=== PATIENT | female | born 1965 | race Hispanic/Latino ===

== ENCOUNTER 2019-10-01 14:49 | Emergency (ER) | payer OTHER ==
--- OUTSIDE RECORDS SUMMARY | 2019-10-01 14:51 | XMS REPORT ---
:1965 Author Organization [employer] Care Team Providers Name Role Phone Giorgio Yarbrough Provider Role Unavailable Allergies No Known Allergies Problems Problem Type Condition Code Onset Dates Condition Statu s Problem Seasonal allergies J30.2 Active Problem Anxiety F41.9 Active Problem Fatty liver K76.0 Active Problem Simple chronic bronchitis J41.0 Ac tive Problem Type 2 diabetes mellitus with E11.40 Active diabetic neuropathy, without long-term current use of insulin Problem Enlargement of cardiac chamber on I51.7 Active chest x-ray Problem Allergic rhinitis J30.9 Active Problem Diabetes E11.9 Active Problem Rheumatoid arthritis involving M05.79 Active multiple sites with positive rheumatoid factor Problem Uncontrolled type 2 diabetes E11.65 Active mellitus with hyperglycemia Problem Sinus problem J34.9 Active Problem Other chronic pain G89.29 Active Problem Gallstones K80.20 Active Problem Swelling R60.9 Active Problem Reflux K21.9 Active Medications No Known Medications Results No Known Results Summary Purpose [email or web address] Submission
--- OUTSIDE RECORDS SUMMARY | 2019-10-01 14:51 | XMS REPORT | Summary of Care ---
:1965 Author Name SAMEERA KEITH M.D. Address [facility] Unavailable , Care Team Providers Name Role Phone SAMEERA KEITH M.D. Unavailable Unavailable SCHMITT DO Unavailable Unavailable ANJELICA Unavailable Unavailable Unavailable Unavailable Unavailable Functional Status Name Dates Details Functional status health issues are not documented Status: Name Dates Details Cognitive status health issues are not documented Status: Problems Name Dates Details Cervical spondylosis (721.0, M47.812) St atus: Active Acute cervical radiculopathy (723.4, M54.12) Status: Active Medications Name Dates Details Prevalite 4 GM Oral Packet Refills: 0 Active Mesalamine 1.2 GM Oral Tablet Delayed Release Refills: 0 Active metFORMIN HCl ER (MOD) 1000 MG Oral Tablet Extended Release 24 Hour Refills: 0 Active Atorvastatin Calcium 10 MG Oral Tablet Refills: 0 Active Gabapentin 600 MG Tab (OR) - 61185_Deactivated Refills: 0 Active Lisinopril TABS Refills: 0 Active Ibuprofen 800 MG Oral Tablet Refills: 0 Active Folic Acid 1 MG Oral Tablet Refills: 0 Active tiZANidine HCl - 4 MG Oral Tablet Refills: 0 Active Xeljanz XR 11 MG Oral Tablet Extended Release 24 Hour Refills: 0 Active Melatonin 10 MG Oral Tablet Disintegrating Refills: 0 Active Vitamin C TABS Refills: 0 Active Vitamin D3 TABS Refills: 0 Active Methocarbamol 500 MG Oral Tablet TAKE 1 TABLET 3 TIMES DAILY. Quantity: 30 Refills: 2 SAMEERA KEITH M.D.ROB Start : 23-Jun-2019 Active Allergies and Adverse Reactions Name Dates Details No Known Drug Allergies (Allergy) Status : Active Past Medical History Name Dates Details History of Arthritis (716.90, M19.90) St atus: Resolved History of Back pain (724.5, M54.9) Stat us: Resolved History of Diabetes (250.00, E11.9) Stat us: Resolved History of Gallbladder disease (575.9, K82.9) Status: Resolved History of Hernia (553.9, K46.9) Status: Resolved History of Osteoporosis (733.00, M81.0) Status: Resolved History of Pneumonia (486, J18.9) Status : Resolved Procedures Procedure Dates Details History of Section Completed History of Cholecystectomy Completed History of Knee Surgery Completed Immunization Name Dates Details Immunizations not documented Social History Name Dates Details - Status: Name Dates Details Never smoker Vital Signs Date Test Result Details No Known Vitals to report Results Date Description Value Details [id number] [U] XRAY SHOULDER MIN 2 VWS LEFT [id number] XR SHOULDER MIN 2 VWS LEFT Images acquired, not reported on this accession number. [id number] [U] XRAY SPINE CERVICAL 2 OR 3 VWS 30231 XR SPINE CERVICAL 2 OR 3 VWS Images acquired, no t reported on this accession number. Plan of Care Name Dates Details Planned Observations Planned Goals not documented Planned Encounters Physical Therapy Referral Ortho Appointment; ROB JIM M.D. On: 20-Jul-2019 9:00 Interventions Provided Labs/Procedures/Imaging[U] XRAY SHOULDER MIN 2 VWS LEFT 93727; Done: 23 Jun 2019 [U] XRAY SPINE CERVICAL 2 OR 3 VWS [id number]; Done: 23 Jun 2019PlanPatient Education/Instructions: Patient education and reassurance was provided for better understanding of the diagnosis and treatment plan. An opportunity to ask questions was provided. Patient/caregiver was instructed to contact the office or emergency room for worsening pain, swelling, and/or any concerns. Understanding was acknowledged. Orders: Physical Therapy Medications: Medications (prescribed or recommended at this visit): Medication was prescribed or recommended. Dosage, administration, and common potential side effects were reviewed. Please confirm and review medication information and directions with the pharmacist. - Use advil or aleve as needed for pain relief, discomfort, or fever. Do not take more than recommended dosage in a 24 hour period as this can cause severe side effects including kidney damage. - Take 500mg - 1000mg of acetaminophen (Tylenol) every 4-6 hours as needed for relief of pain, disc omfort, or fever. Do NOT take more than 4000mg in a 24 hour period (can cause liver damage in higherdoses). Follow Up: Return to the clinic in 6-8 weeks or as needed. Instructions Name Dates Details Instructions not documented Encounters Appointment; ROB JIM M.D. On: 23-Jun-2019 12:30 Encounter Diagnosis: Problem not documented
--- OUTSIDE RECORDS SUMMARY | 2019-10-01 14:51 | XMS REPORT | Summary of Care ---
[...] Active Vitamin D3 TABS Refills: 0 Active Allergies and Adverse Reactions Name Dates [...] to report Results Date Description Value Details [id number] [U] XRAY SHOULDER MIN 2 VWS LEFT [id number] XR SHOULDER MIN 2 VWS LEFT Images acquired, not reported on this accession number. [id number] [U] XRAY SPINE CERVICAL 2 OR 3 VWS 10816 XR SPINE CERVICAL 2 OR 3 VWS Images acquired, no t reported on this accession number. Plan of Care Name Dates Details Planned Observations Planned Goals not documented Planned Encounters Physical Therapy Referral Ortho Appointment; ROB JIM M.D. On: 20-Jul-2019 9:00 Interventions Provided Labs/Procedures/Imaging[U] XRAY SHOULDER MIN 2 VWS LEFT 44231; Done: 23 Jun 2019 [U] XRAY SPINE CERVICAL 2 OR 3 VWS [id number]; Done: 23 Jun 2019PlanPatient Education/Instructions: Patient education [...]
--- OUTSIDE RECORDS SUMMARY | 2019-10-01 14:51 | XMS REPORT ---
:1965 Author Organization [employer] Care Team Providers Name Role Phone Rios, Na Provider Role Unavailable Allergies, Adverse Reactions, Alerts Substance Reaction Event Type N.K.D.A. Info Not Available Non Drug Allergy Problems Problem Type Condition Code Onset Dates Condition Statu s Assessment Simple chronic bronchitis J41.0 Ac tive Assessment Diaphragmatic hernia without K44.9 Active obstruction or gangrene Assessment Other chronic pain G89.29 Active Assessment Low back pain M54.5 Active Assessment Gastro-esophageal reflux disease K21.9 Active without esophagitis Assessment Rheumatoid arthritis involving M05.79 Active multiple sites with positive rheumatoid factor Problem Sinus problem J34.9 Active Assessment Seasonal allergies J30.2 Active Problem Other chronic pain G89.29 Active Assessment Hyperlipidemia, unspecified E78.5 Active hyperlipidemia type Problem Gallstones K80.20 Active Problem Seasonal allergies J30.2 Active Problem Reflux K21.9 Active Problem Hyperlipidemia, unspecified E78.5 Active hyperlipidemia type Problem Enlargement of cardiac chamber on I51.7 Active chest x-ray Assessment Pain in left hip M25.552 Active Assessment Fatty liver K76.0 Active Problem Gastro-esophageal reflux disease K21.9 Active without esophagitis Assessment Pain in right hip M25.551 Active Problem Rheumatoid arthritis involving M05.79 Active multiple sites with positive rheumatoid factor Problem Uncontrolled type 2 diabetes E11.65 Active mellitus with hyperglycemia Problem Simple chronic bronchitis J41.0 Ac tive Problem Type 2 diabetes mellitus with E11.40 Active diabetic neuropathy, without long-term current use of insulin Problem Fatty liver K76.0 Active Assessment Type 2 diabetes mellitus with E11.40 Active diabetic neuropathy, without long-term current use of insulin Assessment Uncontrolled type 2 diabetes E11.65 Active mellitus with hyperglycemia Problem Allergic rhinitis J30.9 Active Problem Swelling R60.9 Active Problem Anxiety F41.9 Active Problem Diabetes E11.9 Active Medications Medication Code Code Instructions Start End Status Dosage System Date Date Atorvastatin [facility] 84807310599 10 MG Orally Active 1 tablet Calcium Once a day Singulair [facility] 92602224824 Active not defined Prevalite [facility] 84303991908 4 GM Orally Active 1 pack et Twice a day Lisinopril ND 05997270210 2.5 MG Orally Active 1 t ablet Once a day Vitamin C [facility] [address]-91 Active not defined Tizanidine HCl [facility] 33992706395 4 MG Orally Active 1 tablet Three times a as needed day GlipiZIDE ND 94830507652 5 MG Orally Inactive 1/2 Once a day tablet Mesalamine [facility] 90816526825 1.2 GM Orally Active 2 t ablets Once a day Ibuprofen [facility] 77718971103 800 MG Orally Dickson Active 1 ta blet three times a 17, with food day prn pain 2020 or milk as needed Gabapentin [facility] 44971686344 600 MG Orally Active 1 t ablet Three times a day Lisinopril [facility] 44422617704 2.5 MG Active TAKE 1 TABLET BY MOUTH ONCE DAILY Vitamin D-3 [facility] [address]-51 Active not defined Folic Acid [facility] 29585616094 1 MG Orally Active 1 tab let Once a day Omeprazole [facility] 49166681794 40 MG Orally Active 1 ca psule Once a day Amoxicillin-Pot [facility] 64900576914 875-125 MG Active 1 tablet Clavulanate Orally every 12 hrs Metformin HCl [facility] 87307023334 1000 MG Orally Active 1 tablet Once a day with a meal Xeljanz [facility] 47245503591 10 MG Orally Active 1 table t once a day Atorvastatin [facility] 11816616686 10 MG Orally Active 1 tablet Calcium Once a day Metformin HCl [facility] 74230310859 1000 MG Active TAKE 1 TABLET BY MOUTH ONCE DAILY WITH A MEAL Results No Known Results Summary Purpose [employer]ClinicalWorks Submission
--- OUTSIDE RECORDS SUMMARY | 2019-10-01 14:52 | XMS REPORT | Summary of Care ---
:1965 Author Name Sudhir Mart Address Unavailable Unavailable , Care Team Providers Name Role Phone SAMEERA KEITH M.D. Unavailable Unavailable Sudhir Mart Unavailable Unavailable SCHMITT DO Unavailable Unavailable ANJELICA [...] DAILY. Quantity: 30 Refills: 2 SAMEERA KEITH M.D. ROB Start : 23-Jun-2019 Active Allergies and Adverse [...] to report Results Date Description Value Details [id number] [U] XRAY SHOULDER MIN 2 VWS LEFT 07049 XR SHOULDER MIN 2 VWS LEFT Images acquired, not reported on this accession number. [id number] [U] XRAY SPINE CERVICAL 2 OR 3 VWS 11432 XR SPINE CERVICAL 2 OR 3 VWS Images acquired, no t reported on this accession number. Plan of Care Name Dates Details Planned Observations Planned Goals not documented Planned Encounters Appointment; ROB JIM M.D. On: 20-Jul-2019 9:00 Interventions Provided Medication ChangesMethocarbamol 500 MG Oral Tablet - Start Instructions Name Dates Details Instructions not documented Encounters Appointment; ROB JIM M.D. On: 23-Jun-2019 12:30 Encounter Diagnosis: Problem not documented
--- OUTSIDE RECORDS SUMMARY | 2019-10-01 14:52 | XMS REPORT | Summary of Care ---
[...] Status : Resolved Procedures Procedure Dates Details MRI Spine cervical wo contrast [id number] Date: 20-Jul-2019 History of Section Completed History of Cholecystectomy Completed History of Knee Surgery Completed Immunization Name Dates Details Immunizations not documented Social History Name Dates Details - Status: Name Dates Details Never smoked tobacco (finding) Vital Signs Date Test Result Details No Known Vitals to report Results Date Description Value Details [id number] [U] XRAY SHOULDER MIN 2 VWS LEFT 46945 XR SHOULDER MIN 2 VWS LEFT Images acquired, not reported on this accession number. [id number] [U] XRAY SPINE CERVICAL 2 OR 3 VWS 28279 XR SPINE CERVICAL 2 OR 3 VWS Images acquired, no t reported on this accession number. Plan of Care Name Dates Details Planned Observations Planned Goals not documented Interventions Provided Labs/Procedures/ImagingMRI Spine cervical wo contrast [id number]; To Be Done: 20 Jul 2019PlanPatient Education/Instructions: Patient education and reassurance was [...] period (can cause liver damage in higherdoses). MRI Scan MRI: Without Contrast and Cervical spine Follow Up: Return to the clinic after imaging study completed or as needed. Instructions Name Dates Details Instructions not documented Encounters Appointment; ROB JIM M.D. On: 23-Jun-2019 12:30 Encounter Diagnosis: Problem not documented Appointment; ROB JIM M.D. On: 20-Jul-2019 9:00 Encounter Diagnosis: Problem not documented
--- OUTSIDE RECORDS SUMMARY | 2019-10-01 14:52 | XMS REPORT ---
:1965 Author Organization [employer]Works Care Team Providers Name Role Phone Rios, Na Provider Role Unavailable Allergies No Known Allergies Problems Problem Type Condition Code Onset Dates Condition Statu s Problem Gallstones K80.20 Active Problem Seasonal allergies J30.2 Active Problem Reflux K21.9 Active Problem Hyperlipidemia, unspecified E78.5 Active hyperlipidemia type Problem Enlargement of cardiac chamber on I51.7 Active chest x-ray Problem Gastro-esophageal reflux disease K21.9 Active without esophagitis Problem Rheumatoid arthritis involving M05.79 Active multiple sites with positive rheumatoid factor Problem Uncontrolled type 2 diabetes E11.65 Active mellitus with hyperglycemia Problem Simple chronic bronchitis J41.0 Ac tive Problem Type 2 diabetes mellitus with E11.40 Active diabetic neuropathy, without long-term current use of insulin Problem Fatty liver K76.0 Active Problem Allergic rhinitis J30.9 Active Problem Swelling R60.9 Active Problem Anxiety F41.9 Active Problem Sinus problem J34.9 Active Problem Diabetes E11.9 Active Problem Other chronic pain G89.29 Active Medications Medication Code System Code Instructions Start Date End Date Status Dosage Singulair [facility] 61710650420 10 MG Orally Once Active 1 tablet a day Results No Known Results Summary Purpose eClinicalWorks Submission
--- OUTSIDE RECORDS SUMMARY | 2019-10-01 14:53 | XMS REPORT | Summary of Care ---
[...] Dates Details MRI Spine cervical wo contrast [id number] Date: 20-Jul-2019 History of Section Completed History of Cholecystectomy Completed History of Knee Surgery Completed Immunization Name Dates Details Immunizations not documented Social History Name Dates Details - Status: Name Dates Details Never smoked tobacco (finding) Vital Signs Date Test Result Details No Known Vitals to report Results Date Description Value Details Results not documented Plan of Care Name Dates Details Planned Observations Planned Goals not documented Instructions Name Dates Details Instructions not documented Encounters Appointment; ROB JIM M.D. On: 23-Jun-2019 12:30 Encounter Diagnosis: Problem not documented Appointment; ROB JIM M.D. On: 20-Jul-2019 9:00 Encounter Diagnosis: Problem not documented
--- OUTSIDE RECORDS SUMMARY | 2019-10-01 14:53 | XMS REPORT ---
:1965 Author Organization [facility] t Address [address] [place] [address] Care Team Providers Name Role Phone SAMEERA KEITH Attending Clinician Unavailable DR JORGE Attending Clinician Unavailable DR JORGE Admitting Clinician Unavailable Payers Payer Name Policy Type Policy Number Effective Date Expiration Date S ource Problems Condition Condition Condition Status Onset Resolution Last Treating Co mments Source Name Details Category Date Date Treatment Clinician Date History of History of Problem Resolve Univers Arthritis Arthritis d [facility] [place] [facility] History of History of Problem [facility] Back pain Back pain [facility] [place] [facility] History of History of Problem Resolve [facility] Diabetes Diabetes [facility] [place] [facility] History of History of Problem Resolve Univers Gallbladde Gallbladde d [place] y [place] disease [place] [facility] [place] History of History of Problem [facility]olve [facility] Hernia Hernia [facility] [place] [facility] History of History of Problem Resolve Univers Osteoporos Osteoporos d it y of is is [place] [facility] History of History of Problem Resolve Univers Pneumonia Pneumonia d [facility] [place] [facility] Cervical 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 it y of s s [place] [facility] Acute Acute Problem Active Univers cervical cervical ity of radicul[place] [facility] Swelling Swelling Problem [facility] Other Other Problem Active [facility] chronic chronic [facility] pain pain [facility] Sinus Sinus Problem Active [facility] problem problem [facility] Uncontroll Uncontroll Problem Active C [facility] ed type 2 ed type 2 [facility] - diabetes diabetes Memori a mellitus mellitus l with with Outpati hyperglyce hyperglyce en t [facility] Clinics Rheumatoid Rheumatoid Problem Active [facility] arthritis arthritis [facility] - involving involving Дмитрий elsa multiple multiple l sites with sites with Ou tpati positive positive ent rheumatoid rheumatoid Cl inics factor factor Type 2 Type [address] diabetes diabetes [facility] - mellitus mellitus Memori a with with l diabetic diabetic Outpat i neuropathy neuropathy en t , without , without Clin ics long-term long-term current current use of use of insulin insulin Diabetes Diabetes Problem Active [facility] Anxiety Anxiety Problem [facility] Allergic Allergic Problem Active [facility] rhinitis rhinitis [facility] Gastro-eso Gastro-eso Problem Active [facility] phageal phageal [facility] - reflux reflux Memoria disease disease l without without Outpati esophagiti esophagiti en t s s Clinics Gallstones Gallstones Problem Active [facility] Fatty Fatty Problem Active [facility] liver liver kes - [facility] Seasonal Seasonal Problem Active [facility] allergies allergies [facility] - [facility] Simple Simple Problem Active [facility] chronic chronic [facility] - bronchitis bronchitis Me moria l [facility] Enlargemen Enlargemen Problem Active [facility] t of t of [facility] - cardiac cardiac Memoria chamber on chamber on l chest chest Outpati x-ray x-ray ent Clinics Hyperlipid Hyperlipid Problem Active [facility] emia, emia, [facility] - unspecifie unspecifie Me moria d d l hyperlipid hyperlipid Ou tpati emia type emia type ent Clinics Allergies, Adverse Reactions, Alerts Allergy Allergy Status Severity Reaction(s) Onset Inactive Treating Comm ents Source Name Type Date Date Clinician No Known DA Active U 2019-0 [facility] Social History Smoking Status Start Date Stop Date Source Never smoked tobacco (finding) U [facility] Physicians Medications Ordered Filled Start Stop Current Ordering Indication Dosage Frequency Signature Comments Components Source Medication Medication Date Date Medication? Clinician (SIG) Name Name Holli De La Garza Yes Na Rios as needed [facility] 5-11 for nausea [facility] 00:[facility]: [facility] 00 [facility] Cipro Cipro 2020- Yes Na Rios [address] [facility] 5-11 05-18 [facility] - 00:00: 00:00 [facility] 00 :[facility] methylPREDN methylPREDN Yes ROB TAKE Univers ISolone 4 ISolone 4 5-04 LI-HOLLY DIRECTED ity of MG Oral MG Oral 00:00: INNA M.DChinyere ON PATIENT [place] Tablet Tablet 00 INSTRUCTIO Physi ci Therapy Therapy N CARD.; ans Pack Pack Qty: 1 X 21 Tablet Disp Pack Albuterol Albuterol Yes Na Rios [address] Sulfate HFA Sulfate HFA 3-18 L ukes - 00:00: Memoria 00 l [facility] Methocarbam Methocarbam Yes ROB Q0.3333D TAKE 1 Univers ol 500 MG ol 500 MG 2-06 LI-HOLLY TABLET 3 ity of Oral Tablet Oral Tablet 00:00: INNA M.DChinyere TIMES [place] 00 DAILY. Physici ans Prevalite 4 Prevalite 4 Yes U nivers GM Oral GM Oral ity of Packet Packet [place] [facility] Mesalamine Mesalamine Yes Uni vers 1.2 GM Oral 1.2 GM Oral i ty of Tablet Tablet [place] Delayed Delayed Physici Release Release ans metFORMIN metFORMIN Yes Unive rs HCl ER HCl ER ity of (MOD) 1000 (MOD) 1000 Jose Maria as MG Oral MG Oral Physici Tablet Tablet ans Extended Extended Release 24 Release 24 Hour Hour Atorvastati Atorvastati Yes U nivers n Calcium n Calcium ity o f 10 MG Oral 10 MG Oral Jose Maria as Tablet Tablet Physici ans Gabapentin Gabapentin Yes Uni vers 600 MG Tab 600 MG Tab ity of (OR) - (OR) - [place] [id number]_Deact [id number]_Deact P hysici ivated ivated ans Lisinopril Lisinopril Yes Uni vers TABS TABS ity of [place] [facility] Ibuprofen Ibuprofen Yes Unive rs 800 MG Oral 800 MG Oral i ty of Tablet Tablet [place] [facility] Folic Acid Folic Acid Yes Uni vers 1 MG Oral 1 MG Oral ity o f Tablet Tablet [place] Phys[facility] ans tiZANidine tiZANidine Yes Uni vers HCl - 4 MG HCl - 4 MG ity of Oral Tablet Oral Tablet [place] [facility] [place] Xeljanz XR Xeljanz XR Yes Uni vers 11 MG Oral 11 MG Oral ity of Tablet Tablet [place] Extended Extended Physici Release 24 Release 24 ans Hour Hour Melatonin Melatonin Yes Unive rs 10 MG Oral 10 MG Oral ity of Tablet Tablet [place] Disintegrat Disintegrat P hysici ing ing ans Vitamin C Vitamin C Yes Unive rs TABS TABS ity of [place] [facility] ans Vitamin D3 Vitamin D3 Yes Uni vers TABS TABS ity of [place] [facility] Singulair Singulair Yes Na Rios [address] [facility] [facility] Vitamin D-3 Vitamin D-3 Yes Na Rios not [facility] defined [facility] Xeljanz Xeljanz Yes Na Rios [address] [facility] Lisinopril Lisinopril Yes Na Rios TAKE [address] [facility] TABLET BY [facility] - MOUTH ONCE Memoria DAILY l [facility] Vitamin C Vitamin C Yes Na Rios not [facility] defined [facility] Atorvastati Atorvastati Yes Na Rios [address] [facility] [facility] n Calcium n Calcium [facility] Metformin Metformin Yes Na Rios TAKE [address] [facility] HCl HCl TABLET BY [facility] - MOUTH ONCE Memoria DAILY WITH l A MEAL [facility] Folic Acid Folic Acid Yes Na Rios [address] [facility] Atorvastati Atorvastati Yes Na Rios [address] [facility] n Calcium n Calcium [facility] Prevalite Prevalite Yes Na Rios [address] [facility] Amoxicillin Amoxicillin Yes Na Rios [address] [facility] -Pot -Pot [facility] - Clavulanate Clavulanate M emoria l [facility] Gabapentin Gabapentin Yes Na Rios [address] [facility] Lisinopril Lisinopril Yes Na Rios [address] [facility] Tizanidine Tizanidine Yes Na Rios [address] [facility] HCl HCl as needed [facility] Mesalamine Mesalamine Yes Na Rios [address] [facility] Metformin Metformin Yes Na Rios [address] [facility] [address] HCl [facility] with [facility] Procedures Procedure Date / Time Performing Clinician Source Performed MRI Spine cervical wo 2019-07-20 00:00:00 [facility] contrast [id number] Physicians History of [employer] [place] Physicians History of Cholecystectomy [facility] Physicians History of Knee Surgery [facility] Physicians Plan of Care Planned Activity Planned Date Details Comments Source Future Appointment 2019-11-01 Raffaele RIVAS [facility] 09:30:00 Rigoberto JIM Encounters Start End Encounter Admission Attending Care Care Encounter Source Date/Time Date/Time Type Type Clinicians Facility Department ID 2019-09-26 2019-09-26 [facility] [id number] [facility] 16:49:00 16:49:00 [facility] Medicine Medicine Outpati ent Clinics 2019-09-26 2019-09-26 [facility] [id number] 11:20:00 11:20:00 [employer] - [facility] Medicine Medicine Outpati ent Clinics 2019-09-26 2019-09-26 [facility] [id number] 09:52:00 09:52:00 [employer] - [employer] [facility] Family Medicine Medicine Outpati ent Clinics 2019-09-21 2019-09-21 [facility] [id number] 10:20:00 10:20:00 [employer] [facility] Medicine Medicine Outpati ent Clinics 2019-09-19 2019-09-19 Appointcarina BRASHER [facility] Orthopedics [id number] [facility] 12:00:00 12:00:00 astrid KEITH[facility] Raffaele Jane M.D. ans 2019-09-09 2019-09-09 Outpatient [facility] [id number] [facility] 04:25:00 07:00:00 [facility] 2019-08-11 2019-08-11 [facility] [id number] 11:58:00 11:58:00 [place] [employer] [facility] ent [facility] 2019-08-02 2019-08-02 [facility] [id number] 10:31:00 10:31:00 [place] [employer] [facility] 2019-07-20 2019-07-20 Appointmen SAMEERA OSEGUERA Orthopedics [id number] [facility] 09:00:00 09:00:00 t; SAMEERA KEITH, - [facility] Raffaele Jane M.D. ans 2019-07-18 2019-07-18 [facility] [id number] 09:20:00 09:20:00 [place] [employer] [facility] ent [facility] 2019-06-23 2019-06-23 Appointmen SAMEERA [facility] Orthopedics [id number] [facility] 12:30:00 12:30:00 t; SAMEERA KEITH, - [facility] Raffaele Jane M.D. ans 2019-05-04 2019-05-04 [facility] [id number] [address] 09:40:00 09:40:00 [place] [facility] ent [facility] 2019-03-11 2019-03-11 [facility] [id number] 08:49:00 08:49:00 t [facility] ent Clinics 2019-02-15 2019-02-15 [facility] [id number] 11:00:00 11:00:00 t [facility] ent Clinics 2019-02-02 2019-02-02 [facility] [id number] 09:00:00 09:00:00 t [employer] - [employer] [facility] 2019-01-14 2019-01-14 [facility] [id number] 16:16:00 16:16:00 [place] [employer] [facility] 2019-01-05 2019-01-05 [facility] [id number] 09:20:00 09:20:00 t Dental [facility] ent Clinics 2018-12-14 2018-12-14 [facility] [id number] 09:34:00 09:34:00 t Dental Kidz [facility] ent Clinics 2018-11-17 2018-11-17 [facility] [id number] 11:14:00 11:14:00 t Dental Kidz [facility] 2018-08-31 2018-08-31 [facility] [id number] 13:05:00 13:05:00 t Dental Kidz [facility] 2018-08-25 2018-08-25 [facility] [id number] 11:40:00 11:40:00 t Dental Kidz [facility] Results Test Description Test Time Test Comments Results Result Comments Source GLUCOMETER GLUCOSE- LAB USE ONLY 2019-09-09 06:04:00 Test Item Value Reference Range Interpretation Comme nts GLUCOMETER (test code = GMG) 124 mg/dL 70-100 H Meter ID: [id number]: 5537 TONO MARTIN URINE MONOCLONALFB2019-09-09 05:18:00 Test Item Value Reference Range Interpretation Comments PREG UR (test code = PGU) NEGATIVE NEGATIVE GLUCOMETER GLUCOSE- LAB USE [id number] 04:48:00 Test Item Value Reference Range Interpretation Comments GLUCOMETER (test code = 119 mg/dL 70-100 H Mete r ID: GMG) [id number] tor: 5547 MICHAEL PHAN [U] XRAY SHOULDER MIN 2 VWS LEFT [id number] 12:25:00Images acquired, not reported on this accession number.[facility][U] XRAY SPINE CERVICAL 2 OR 3 VWS [id number] 12:25:00Images acquired, not reported on this accession number.[facility] [id number] 12:24:00 RUN DATE: 11/24/18 [facility] - LAB *LIVE* PAGE 1 RUN TIME: 1224 Specimen Inquiry RUN USER: INTERFACE PATIENT: DAMI MOODY LOC: LIZETH U #: [id number] AGE/SX: 53/F ROOM: RE11/23/18VINOD DR: Sebastian Betancourt MD : 69 BED: DIS: STATUS: CAT [facility] [place]: SPEC #: [id number]:[id number] RECD: 11/23/18 STATUS: CHIRAG GUILLORY #: [id number] EUGENIA: 11/23/[address]: Sebastian Betancourt MD ENTERED: 11/23/18 SP TYPE: SURG OTHR DR: Elda Rios DO ORDERED: SURG PATH LVL 08/17 COPIES TO: Sebastian Betancourt MD [address] [place] [address] Elda Rios DO [address] [place] [address] [id number]: TISSUE ID BLK PCS SANDRA LEV PROCEDURE DISPOSITION ____ ___ ___ ___ COLON, NOS A 1 2 COLON, NOS B 1 2 PROCEDURES: SURG PATH LVL 4 (11/23/18) TISSUES: A. COLON, NOS - RIGHT SIDE B. COLON, NOS - LEFT SIDE CLINICAL HISTORY DIARRHEA-R19.7;ABD PAIN- R10.9;RECTAL PAIN-K62.89 CPT CODES CPT CODE(S): 42132H9 , , , , , , FINAL DIAGNOSIS A. Colon, right, biopsy: COLONIC MUCOSA WITH NO SIGNIFICANT HISTOPATHOLOGIC FINDINGSB. Colon, left, biopsy: FOCAL ACTIVE COLITIS NO EVIDENCE OF DYSPLASIA OR MALIGNANCY CONTINUED ON NEXT PAGE RUN DATE: 11/24/18 [facility] - LAB *LIVE* PAGE 2 RUN TIME: 1224 Specimen Inquiry RUN USER: INTERFACE --------- ---SPEC #: [facility]:[id number] PATIENT: DAMI MOODY #[id number] (Continued) GROSS DESCRIPTION A. Right side. Received in formalin are three olmos tissue fragments, 0.2 - 0.7 cm. B. Left side. Received in formalin are eight olmos tissue fragments, 0.2 - 0.5 cm, all as B. /ba/pdb Grossing performed at [facility] Pathology, [address] [place] [address], [address], [place] [address]. Inoculator: Patricio Granados M.D. MICROSCOPIC DESCRIPTION A. Right side. Fragments of colonic mucosa with preservation of the glandular architecture. No significant increase in intraepithelial lymphocytosis or other inflammation identified. No microorganisms or viral inclusions are identified. No adenomatous or hyperplastic changes present. No evidence of malignancy. B. Left side. Fragments of colonic mucosa with preservation of glandular architecture. There is some expansion of the lamina propria with a lymphoplasmacytic and eosinophilic infiltrate. Focal surface neutrophilic infiltrate identified. No significant increase in intraepithelial lymphocytosis identified. No microorganisms or viral inclusions are identified. No adenomatous or hyperplastic changes present. No evidence of malignancy. /cm Signed SIGNATURE ON FILE MichealHector Mcclain 11/24/18 1224 END OF REPORT HCG SERUM [id number] 11:36:00 Test Item Value Reference Range Interpretation Comments HCG SERUM QUAL (test SERUM NEGATIVE SCREEN NEGATIVE code = HCGQL) GLUCOSE BEDSIDE [id number] 11:30:00 Test Item Value Reference Range Interpretation Comments GLUCOSE BEDSIDE TESTING (test code 122 mg/dL 70-110 H = GLUBED)
--- OUTSIDE RECORDS SUMMARY | 2019-10-01 14:53 | XMS REPORT ---
[...] Problem Other chronic pain G89.29 Active Medications No Known Medications Results No Known Results Summary Purpose eClinicalWorks Submission
--- OUTSIDE RECORDS SUMMARY | 2019-10-01 14:53 | XMS REPORT ---
[...] chronic pain G89.29 Active Medications Medication Code Code Instructions Start End Status Dosage System Date Date Vitamin D-3 [facility] [address]-61 Active not defined Xeljanz [facility] 86645701642 10 MG Orally Active 1 table t once a day Lisinopril [facility] 73392711313 2.5 MG Active TAKE 1 TABLET BY MOUTH ONCE DAILY Vitamin C [facility] [address]-39 Active not defined Atorvastatin [facility] 40187184186 10 MG Orally Active 1 tablet Calcium Once a day Metformin HCl [facility] 43829171310 1000 MG Active TAKE 1 TABLET BY MOUTH ONCE DAILY WITH A MEAL Omeprazole [facility] 98778085001 40 MG Orally Active 1 ca psule Once a day Folic Acid [facility] 56721800584 1 MG Orally Active 1 tab let Once a day Atorvastatin [facility] 41338664348 10 MG Orally Active 1 tablet Calcium Once a day Prevalite [facility] 07731366517 4 GM Orally Active 1 pack et Twice a day Amoxicillin-Pot [facility] 45572655376 875-125 MG Active 1 tablet Clavulanate Orally every 12 hrs Gabapentin [facility] 13262204069 600 MG Orally Active 1 t ablet Three times a day Lisinopril [facility] 42376199811 2.5 MG Orally Active 1 t ablet Once a day Albuterol [facility] 06626661474 108 (90 Base) July Active 2 pu ffs Sulfate HFA MCG/ACT 2019 Inhalation every 6 hours prn sob Singulair [facility] 81990428501 10 MG Orally Active 1 tab let Once a day Tizanidine HCl [facility] 34855779351 4 MG Orally Active 1 tablet Three times a as needed day Mesalamine [facility] 67675542934 1.2 GM Orally Active 2 t ablets Once a day Results No Known Results Summary Purpose eClinicalWorks Submission
--- OUTSIDE RECORDS SUMMARY | 2019-10-01 14:54 | XMS REPORT | Summary of Care ---
[...] not documented Status: Problems Name Dates Details Acute cervical radiculopathy (723.4, M54.12) Status: Active Cervical spondylosis (721.0, M47.812) St atus: Active Medications Name Dates Details Prevalite 4 [...] 3 TIMES DAILY. Quantity: 30 Refills: 2 ROB JIM M.D. Start : 23-Jun-2019 Active methylPREDNISolone 4 MG Oral Tablet Therapy Pack TAKE DIRECTED ON PATIENT INSTRUCTION CARD.; Qty: 1 X 21 Tablet Disp Pack Quantity: 1 Refills: 0 ROB JIM M.D. Start : 19-Sep-2019 Active 21 Tablet Pack Allergies and Adverse Reactions Name Dates Details [...] Referral Ortho Appointment; ROB JIM M.D. On: 0 9:30 Interventions Provided Medication ChangesmethylPREDNISolone 4 MG Oral Tablet Therapy Pack - StartPlan Patient Education/Instructions: Patient education and reassurance was provided [...] severe side effects including kidney damage. - Medrol Dose Pack. Instructions were given to take medrol dose pack (methylprednisolone) only as in structed. Dosage, administration, and common potential side effects were reviewed. Understanding wasverbalized. - Take 500mg - 1000mg of acetaminophen (Tylenol) every 4-6 hours as needed for relief of pain, discomfort, or fever. Do NOT take more than 4000mg in a 24 hour period (can cause liver damage in higher doses). Follow Up: Return to the clinic in 6-8 weeks or as needed.Oral/Verbal Consent obtained for telephone/telemedicine. Physicians may now use phone-only encounters to establish a doctor-patientrelationship. Physicians may also continue to do follow-up care by phone-onlyencounters.Governryan Galvin approved [facility] request to temporarily suspend [place] Occupation Code 111.005 (a)-(b) and Title 22, Chapter 174.6 (a)(2)-(3) of the [place] Administrative Code. The [place] [employer] Board asserts that strict compliance with these laws could prevent, hinder, or delay timely delivery of necessary medical services in relation to efforts to cope with the declared disaster.Under the emergency rule, state- regulated health insurers and health maintenance organizations must:Pay in- network health professionals at least the same rate for telemedicine services as for in-person services, including covered mental health services.Cover telemedicine services using any platform permitted by state law.Not require more documentation for telemedicine services than they require for in-person services.Governor Ludwig Galvin also suspended a law limiting coverage for medical services or consultations byphone. By suspending the law, insurers must pay for covered visits or consultations provided over the phone.[facility] Adopts Emergency Rule to Enforce Gov. [place] Executive Order [place]-15Following Governor Ludwig Correa issuance of Executive Order [place]-15, the [facility] Executive Committee today adopted rules on an emergency basis to enforce [facility] Executive Order which continues the postponement of certain surgeries and procedures as outlined in the order.The adopted rule amends 22 TAC Chapter 190.8 Violation Guidelines, and adds to the definitionof \`\`Unprofessional and Dishonorable Conduct under 22 TAC 190.8(2)(U). The adoptedemergency rule goes into effect later today at 11:59 p.m. when [place]-15 goes into effect.The rule adds to the definition to include the following:(U) a violation of [place] Executive Order [place]-15, issued September 02, 2019, which states: \`\`Alllicensed health physician locums urgent care and all licensed health care facilities shall postpone all surgeries and procedures that are not medically necessary to diagnose or correct a seriousmedical condition of, or to preserve the life of, a patient who without timely performance ofthe surgery or procedure would be at risk for serious adverse medical consequences ordeath, as determined by the patients physician; provided, however, that this prohibitionshall not apply to either of the following:(i) any procedure that, if performed in accordance with the commonly accepted standard of clinical practice, would not deplete the hospital capacity or thepersonal protective equipment needed to cope with the COVID-19 disaster; or(ii) any surgery or procedure performed in a licensed health care facility thathas certified in writing to the [facility] and [facility] Commission both:(1) that it will reserve at least 25% of its hospital capacity fortreatment of COVID-19 patients, accounting for the range of clinical severityof COVID-l9 patients; and(2) that it will not request any personal protective equipment from any public source, whether federal, state, or local, for the duration of the COVID-19 disaster. Instructions Name Dates Details Instructions not documented Encounters Appointment; ROB JIM M.D. On: 23-Jun-2019 12:30 Encounter Diagnosis: Problem not documented Appointment; ROB JIM M.D. On: 20-Jul-2019 9:00 Encounter Diagnosis: Problem not documented Appointment; ROB JIM M.D. On: 19-Sep-2019 12:00 Encounter Diagnosis: Problem not documented
--- OUTSIDE RECORDS SUMMARY | 2019-10-01 14:54 | XMS REPORT ---
:1965 Author Organization eClinicalWorks Care Team Providers Name Role Phone Rios, Na Provider Role Unavailable Allergies No Known Allergies Problems Problem Type Condition Code Onset Dates Condition Statu s Problem Gallstones K80.20 Active Problem Seasonal allergies J30.2 Active Problem Reflux K21.9 Active Problem Hyperlipidemia, unspecified E78.5 Active hyperlipidemia type Assessment Nausea with vomiting, unspecified R11.2 Active Problem Enlargement of cardiac chamber on I51.7 [...] insulin Problem Fatty liver K76.0 Active Assessment Diarrhea, unspecified R19.7 Active Assessment Gastroenteritis K52.9 Active Problem Allergic rhinitis J30.9 Active Problem Swelling R60.9 Active Problem Anxiety F41.9 Active Problem Sinus problem J34.9 Active Problem Diabetes E11.9 Active Problem Other chronic pain G89.29 Active Medications Medication Code Code Instructions Start End Status Dosage System Date Date Tizanidine HCl [facility] 32818808851 4 MG Orally Active 1 tablet Three times a as needed day Atorvastatin [facility] 40271193789 10 MG Orally Active 1 tablet Calcium Once a day Vitamin C [facility] [address]-39 Active not defined Lisinopril [facility] 51766238672 2.5 MG Orally Active 1 t ablet Once a day Amoxicillin-Pot [facility] 26198010919 875-125 MG Active 1 tablet Clavulanate Orally every 12 hrs Folic Acid [facility] 13946748550 1 MG Orally Active 1 tab let Once a day Atorvastatin [facility] 97309551839 10 MG Orally Active 1 tablet Calcium Once a day Vitamin D-3 [facility] [address]-65 Active not defined Gabapentin [facility] 91224740292 600 MG Orally Active 1 t ablet Three times a day Metformin HCl [facility] 64156410905 1000 MG Orally Active 1 tablet Once a day with a meal Lisinopril [facility] 88559627331 2.5 MG Active TAKE 1 TABLET BY MOUTH ONCE DAILY Zofran ND 33454609288 4 MG Orally September 25, Active as neede d Twice a day 2019 for nausea Xeljanz [facility] 18130243569 10 MG Orally Active 1 table t once a day Cipro [facility] 28858989004 500 MG Orally September 25October 02, Active 1 tabl et every 12 hrs 2019 2019 Singulair [facility] 50126843017 10 MG Orally Active 1 tab let Once a day Metformin HCl [facility] 54603929011 1000 MG Active TAKE 1 TABLET BY MOUTH ONCE DAILY WITH A MEAL Mesalamine [facility] 11881263489 1.2 GM Orally Active 2 t ablets Once a day Prevalite [facility] 86886694360 4 GM Orally Active 1 pack et Twice a day Albuterol [facility] 40852165875 108 (90 Base) July Active 2 pu ffs Sulfate HFA MCG/ACT 2019 Inhalation every 6 hours prn sob Results No Known Results Summary Purpose eClinicalWorks Submission
--- OUTSIDE RECORDS SUMMARY | 2019-10-01 14:54 | XMS REPORT ---
:1965 Author Organization eClinicalWorks Care Team Providers Name Role Phone Rios, Na Provider Role Unavailable Allergies, Adverse Reactions, Alerts Substance Reaction Event Type N.K.D.A. Info Not Available Non Drug Allergy Problems Problem Type Condition Code Onset Dates Condition Statu s Assessment Diaphragmatic hernia without K44.9 Active obstruction or gangrene Assessment Gastro-esophageal reflux disease K21.9 Active without esophagitis Problem Sinus problem J34.9 Active Assessment Simple chronic bronchitis J41.0 Ac tive Problem Other chronic pain G89.29 Active Assessment Rheumatoid arthritis involving M05.79 Active multiple sites with positive rheumatoid factor Problem Gallstones K80.20 Active Problem Seasonal allergies J30.2 Active Problem Reflux K21.9 Active Problem Hyperlipidemia, unspecified E78.5 Active hyperlipidemia type Problem Enlargement of cardiac chamber on I51.7 Active chest x-ray Assessment Hyperlipidemia, unspecified E78.5 Active hyperlipidemia type Assessment Fatty liver K76.0 Active Problem Gastro-esophageal reflux disease K21.9 Active without esophagitis Assessment Seasonal allergies J30.2 Active Problem Rheumatoid arthritis involving M05.79 Active [...] Start End Status Dosage System Date Date Prevalite [facility] 23025957983 4 GM Orally Active 1 pack et Twice a day Metformin HCl [facility] 01590074077 1000 MG Orally Active 1 tablet Once a day with a meal Amoxicillin-Pot [facility] 37833813515 875-125 MG Active 1 tablet Clavulanate Orally every 12 hrs Lisinopril [facility] 00831812081 2.5 MG Active TAKE 1 TABLET BY MOUTH ONCE DAILY Folic Acid [facility] 61485420455 1 MG Orally Active 1 tab let Once a day Omeprazole ND 80142832121 40 MG Orally Inactive 1 c apsule Once a day Gabapentin ND 48349609610 600 MG Orally Active 1 t ablet Three times a day Albuterol [facility] 09335841325 108 (90 Base) July Active 2 pu ffs Sulfate HFA MCG/ACT 2019 Inhalation every 6 hours prn sob Singulair [facility] 94810192925 10 MG Orally Active 1 tab let Once a day Atorvastatin [facility] 65126635043 10 MG Orally Active 1 tablet Calcium Once a day Vitamin C [facility] [address]-08 Active not defined Tizanidine HCl [facility] 78234757695 4 MG Orally Active 1 tablet Three times a as needed day Xeljanz [facility] 99838416150 10 MG Orally Active 1 table t once a day Lisinopril [facility] 06156664959 2.5 MG Orally Active 1 t ablet Once a day Metformin HCl [facility] 14014255246 1000 MG Active TAKE 1 TABLET BY MOUTH ONCE DAILY WITH A MEAL Mesalamine [facility] 02228540827 1.2 GM Orally Active 2 t ablets Once a day Atorvastatin [facility] 29814278433 10 MG Orally Active 1 tablet Calcium Once a day Vitamin D-3 [facility] [address]-71 Active not defined Results No Known Results Summary Purpose eClinicalWorks Submission
[2019-10-01] MEDS ORDERED: NA CHLORIDE 0.9% 1,000 ML ONE (15:33)
[2019-10-01] MEDS ORDERED: ONDANSETRON 4 MG/2 ML VIAL ONE (15:33)
[2019-10-01 15:45] LABS: Absolute Lymphocytes (CBC) 2.2 K/uL (0.7-4.9); Basophils % 0.6 % (0-1.3); Hematocrit 36.9 % (36.0-45.0); MPV 7.6 fL (7.6-11.3); RBC Red Blood Cell Count 4.25 M/uL (3.86-4.86)
[2019-10-01 15:58] LABS: Albumin 3.5 g/dL (3.4-5.0); Bilirubin Direct 0.2 mg/dL (0-0.2); Bilirubin Total 0.2 mg/dL (0.2-1.0); Potassium 3.3 mmol/L (3.5-5.1); Protein, Total 7.4 g/dL (6.4-8.2)
[2019-10-01 16:23] LABS: Urine Blood NEGATIVE (NEG); Urine Glucose NEGATIVE (NEG); Urine Protein 1+ (NEG)
--- NOTE | 2019-10-01 16:23 | EDPHYS ---
Physician Documentation [facility] Name: Sulema Thomas Age: 54 yrs Sex: Female : 1965 Arrival Date: 10/01/2019 Time: 14:51 Bed 5 Private MD: Elda Rios ED Physician Aman Christianson HPI: 09/30 16:19 This 54 yrs old Female presents to ER via Ambulatory with complaints of kb Nausea/Vomiting, Urinary Problem, food poisoning. 16:19 The patient presents to the emergency department with nausea, vomiting, diarrhea. kb Onset: The symptoms/episode began/occurred 8 day(s) ago. Possible causes: bad food exposure. The symptoms are aggravated by food , The symptoms are alleviated by nothing. Associated signs and symptoms: Pertinent positives: diarrhea, fever, nausea, vomiting. Severity of symptoms: At their worst the symptoms were mild moderate in the emergency department the symptoms are unchanged. The patient has not experienced similar symptoms in the past. The patient has not recently seen a physician. Pt reports n/v/d, abd pain and fever that started after eating [employer] 8 days ago. States she had fever for 2 days, but that went away. States the abd pain has gone away as well, but she is still having n/v/d. States she started having headaches and dizziness so she thinks she is dehydrated. 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 N/A - Post-menopause ca1 Historical: - Allergies: 15:07 No Known Allergies; ca1 - Home Meds: 15:07 metformin 1,000 mg oral tab 1 tab daily [Active]; pantoprazole oral oral [Active]; ca1 Prevalite oral oral [Active]; glipizide 5 mg Oral tab 1 tab once daily [Active]; melatonin 10 mg Oral tab [Active]; mesalamine oral oral [Active]; Folic Acid Oral [Active]; lisinopril 2.5 mg Oral tab 1 tab once daily [Active]; atorvastatin 10 mg oral tab 1 tab once daily [Active]; ciprofloxacin oral oral [Active]; gabapentin oral oral [Active]; - PMHx: 15:07 Diabetes - NIDDM; Rheumatoid Arthritis; Ulcers; Colitis; ca1 - PSHx: 15:07 Knee surgery; ; Cholecystectomy; ca1 - Immunization history:: Adult Immunizations. - Social history:: Smoking status: Patient/guardian denies using tobacco, the patient reports quitting approximately 12 years ago. ROS: 16:15 Cardiovascular: Negative for chest pain, palpitations, and edema, Respiratory: Negative kb for shortness of breath, cough, wheezing, and pleuritic chest pain, Back: Negative for injury and pain, MS/Extremity: Negative for injury and deformity, Skin: Negative for injury, rash, and discoloration. 16:15 Constitutional: Positive for fever, Negative for body aches, chills, fatigue, malaise, poor PO intake, weight loss. 16:15 Abdomen/GI: Positive for nausea, vomiting, and diarrhea, Negative for abdominal pain, constipation. 16:15 Neuro: Positive for dizziness. Exam: 16:15 Constitutional: This is a well developed, well nourished patient who is awake, alert, kb and in no acute distress. Head/Face: Normocephalic, atraumatic. Chest/axilla: Normal chest wall appearance and motion. Nontender with no deformity. No lesions are appreciated. Cardiovascular: Regular rate and rhythm with a normal S1 and S2. No gallops, murmurs, or rubs. Normal PMI, no JVD. No pulse deficits. Respiratory: Lungs have equal breath sounds bilaterally, clear to auscultation and percussion. No rales, rhonchi or wheezes noted. No increased work of breathing, no retractions or nasal flaring. Abdomen/GI: Soft, non-tender, with normal bowel sounds. No distension or tympany. No guarding or rebound. No evidence of tenderness throughout. Skin: Warm, dry with normal turgor. Normal color with no rashes, no lesions, and no evidence of cellulitis. MS/ Extremity: Pulses equal, no cyanosis. Neurovascular intact. Full, normal range of motion. Neuro: Awake and alert, GCS 15, oriented to person, place, time, and situation. Cranial nerves II-XII grossly intact. Motor strength 5/5 in all extremities. Sensory grossly intact. Cerebellar exam normal. Normal gait. Vital Signs: 14:59 BP 110 / 76; Pulse 72; Resp 16 S; Temp 97.2(TE); Pulse Ox 97% on R/A; Weight 99.79 kg ca1 (R); Height 5 ft. 5 in. (165.10 cm) (R); Pain 0/10; 16:46 BP 120 / 65; Pulse 71; Resp 17; Temp 97.5; Pulse Ox 99% ; bp 14:59 Body Mass Index 36.61 (99.79 kg, 165.10 cm) ca1 MDM: 15:08 Patient medically screened. kb 16:11 Data reviewed: vital signs, nurses notes. Data interpreted: Pulse oximetry: on room air kb is 97 %. Interpretation: normal. Counseling: I had a detailed discussion with the patient and/or guardian regarding: the historical points, exam findings, and any diagnostic results supporting the discharge/admit diagnosis, lab results, the need for outpatient follow up, a family practitioner, to return to the emergency department if symptoms worsen or persist or if there are any questions or concerns that arise at home. ED course: Pt has no tenderness upon palpation of abdomen, no pain at this time, has not had fever for 6 days, normal WBC. Pt educated to return for abd pain or fever for possible CT scan, but one is not indicated at this time. Verbal understanding received. . 09/30 15:15 Order name: Basic Metabolic Panel; Complete Time: 16:00 kb 09/30 15:15 Order name: CBC with Diff; Complete Time: 15:51 kb 09/30 15:15 Order name: Hepatic Function; Complete Time: 16:00 kb 09/30 15:15 Order name: Lipase; Complete Time: 16:00 kb 09/30 15:42 Order name: Urine Dipstick--Ancillary (enter results); Complete Time: 16:27 eb 09/30 15:42 Order name: Urine --Ancillary (enter results); Complete Time: 16:27 eb 09/30 15:15 Order name: IV Saline Lock; Complete Time: 15:41 kb 09/30 15:15 Order name: Labs collected and sent; Complete Time: 15:41 kb 09/30 15:15 Order name: Urine Dipstick-Ancillary (obtain specimen); Complete Time: 15:41 kb Administered Medications: 15:35 Drug: NS 0.9% 1000 ml Route: IV; Rate: 1000 ml; Site: right antecubital; rb1 16:45 Follow up: IV Status: Completed infusion; IV Intake: 1000ml bp 15:35 Drug: Zofran (Ondansetron) 4 mg Route: IVP; Site: right antecubital; rb1 16:45 Follow up: Response: Nausea is decreased bp 16:30 Drug: Potassium Chloride 20 mEq Route: PO; bp 16:46 Follow up: Response: No adverse reaction bp Disposition: 10/01 07:10 Co-signature as Attending Physician, Aman Christianson MD. rn Disposition: 10/01/19 16:22 Discharged to Home. Impression: Nausea and vomiting, Diarrhea, unspecified. - Condition is Stable. - Discharge Instructions: Food Choices to Help Relieve Diarrhea, Adult, Viral Gastroenteritis, Adult, Plry-nm-Noiw, Nausea and Vomiting, Adult, [id number]-[id number], Diarrhea, Adult, [id number]. - Prescriptions for Bentyl 20 mg Oral Tablet - take 1 tablet by ORAL route every 6 hours As needed; 20 tablet. Zofran 4 mg Oral Tablet - take 1 tablet by ORAL route every 6 hours As needed; 20 tablet. - Medication Reconciliation Form, Thank You Letter, Antibiotic Education, Prescription Opioid Use form. - Follow up: Emergency Department; When: As needed; Reason: Worsening of condition. Follow up: Elda Rios MD; When: 2 - 3 days; Reason: Recheck today's complaints, Continuance of care, Re-evaluation by your physician. Signatures: Dispatcher [employer] EDMS Italia Navarrete, BEAD SUPERVISOR-C BEAD SUPERVISOR-Ckb Aman Christianson MD MD rn Barber, Rebecca, RN RN rb1 Samson Walton RN RN bp Acob, Cheryl, RN RN ca1 Corrections: (The following items were deleted from the chart) 09/30 16:48 16:22 10/01/2019 16:22 Discharged to Home. Impression: Nausea and vomiting; Diarrhea, bp unspecified. Condition is Stable. Forms are Medication Reconciliation Form, Thank You Letter, Antibiotic Education, Prescription Opioid Use. Follow up: Emergency Department; When: As needed; Reason: Worsening of condition. Follow up: Elda Rios; When: 2 - 3 days; Reason: Recheck today's complaints, Continuance of care, Re-evaluation by your physician. kb
--- NOTE | 2019-10-01 16:23 | ER ---
Nurse's Notes [facility] Name: Sulema Thomas Age: 54 yrs Sex: Female : 1965 Arrival Date: 10/01/2019 Time: 14:51 Bed 5 Private MD: Elda Rios Diagnosis: Nausea and vomiting;Diarrhea, unspecified Presentation: 09/30 14:59 Chief complaint: Patient states: "I've been dealing with food poisoning for about a ca1 week now. On , my doctor called and said to come tot the ER if I wasn't feeling any better and that I could be dehydrated. Yesterday, I was feeling okay up to the point where I can eat a little. This morning, I woke up with diarrhea, around noon I started vomiting. I feel weak, fatigued and dizzy". Coronavirus screen: Proceed with normal triage. Patient denies a cough. Patient denies shortness of breath or difficulty breathing. Patient denies measured and/or subjective temperature greater than 100.4F prior to today's visit. Patient denies travel on a cruise ship or to a country the [facility] currently lists as an affected area. Patient denies contact with known and/or suspected case of COVID-19. Ebola Screen: Patient negative for fever greater than or equal to 101.5 degrees Fahrenheit, and additional compatible Ebola Virus Disease symptoms Patient denies exposure to infectious person. Patient denies travel to an Ebola-affected area in the 21 days before illness onset. No symptoms or risks identified at this time. Initial Sepsis Screen: Does the patient meet any 2 criteria? No. Patient's initial sepsis screen is negative. Does the patient have a suspected source of infection? No. Patient's initial sepsis screen is negative. Risk Assessment: Do you want to hurt yourself or someone else? Patient reports no desire to harm self or others. Onset of symptoms was October 01, 2019. 14:59 Method Of Arrival: Ambulatory ca1 14:59 Acuity: KEEGAN 3 ca1 Triage Assessment: 15:00 General: Appears in no apparent distress. comfortable, Behavior is cooperative, bp appropriate for age, anxious. EENT: No deficits noted. Neuro: No deficits noted. Cardiovascular: No deficits noted. Respiratory: No deficits noted. GI: Reports nausea, vomiting. : No signs and/or symptoms were reported regarding the genitourinary system. Derm: No deficits noted. Musculoskeletal: No deficits noted. 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 - Post-menopause ca1 Historical: - Allergies: 15: No Known Allergies; ca1 - Home Meds: 15:07 metformin 1,000 mg oral tab 1 tab daily [Active]; pantoprazole oral oral [Active]; ca1 Prevalite oral oral [Active]; glipizide 5 mg Oral tab 1 tab once daily [Active]; melatonin 10 mg Oral tab [Active]; mesalamine oral oral [Active]; Folic Acid Oral [Active]; lisinopril 2.5 mg Oral tab 1 tab once daily [Active]; atorvastatin 10 mg oral tab 1 tab once daily [Active]; ciprofloxacin oral oral [Active]; gabapentin oral oral [Active]; - PMHx: 15:07 Diabetes - NIDDM; Rheumatoid Arthritis; Ulcers; Colitis; ca1 - PSHx: 15:07 Knee surgery; ; Cholecystectomy; ca1 - Immunization history:: Adult Immunizations. - Social history:: Smoking status: Patient/guardian denies using tobacco, the patient reports quitting approximately 12 years ago. Screenin:10 Abuse screen: Denies threats or abuse. Nutritional screening: Has had N/V for 3 or more rb1 days. Tuberculosis screening: No symptoms or risk factors identified. Fall Risk None identified. Assessment: 15:10 General: Appears in no apparent distress. comfortable, Behavior is calm, cooperative. rb1 Pain: Complains of pain in suprapubic area Pain currently is 3 out of 10 on a pain scale. Quality of pain is described as aching, pressure. Neuro: Level of Consciousness is awake, alert, obeys commands, Oriented to person, place, time, situation. Cardiovascular: Capillary refill < 3 seconds is brisk in bilateral fingers. Respiratory: Airway is patent Respiratory effort is even, unlabored, Respiratory pattern is regular, symmetrical. GI: : Reports burning with urination. Derm: Skin is pink, warm \\T\\ dry. 16:47 Reassessment: PT D/C HOME AMBULATORY, DX WITH VIRAL GASTROENTERITIS. bp Vital Signs: 14:59 BP 110 / 76; Pulse 72; Resp 16 S; Temp 97.2(TE); Pulse Ox 97% on R/A; Weight 99.79 kg ca1 (R); Height 5 ft. 5 in. (165.10 cm) (R); Pain 0/10; 16:46 BP 120 / 65; Pulse 71; Resp 17; Temp 97.5; Pulse Ox 99% ; bp 14:59 Body Mass Index 36.61 (99.79 kg, 165.10 cm) ca1 ED Course: 14:51 Patient arrived in ED. am2 14:51 Elda Rios MD is Private Physician. am2 15:03 Triage completed. ca1 15:07 Arm band placed on right wrist. ca1 15:08 Italia Navarrete FNP-C is [facility]. kb 15:08 Aman Christianson MD is Attending Physician. kb 15:10 Patient has correct armband on for positive identification. Bed in low position. Call rb1 light in reach. Side rails up X 1. Pulse ox on. NIBP on. 15:14 Samson Walton, RN is Primary Nurse. bp 15:30 Inserted saline lock: 22 gauge in right antecubital area, using aseptic technique. rb1 Blood collected. 16:22 Elda Rios MD is Referral Physician. kb 16:47 No provider procedures requiring assistance completed. Patient admitted, IV remains in bp place. Administered Medications: 15:35 Drug: NS 0.9% 1000 ml Route: IV; Rate: 1000 ml; Site: right antecubital; rb1 16:45 Follow up: IV Status: Completed infusion; IV Intake: 1000ml bp 15:35 Drug: Zofran (Ondansetron) 4 mg Route: IVP; Site: right antecubital; rb1 16:45 Follow up: Response: Nausea is decreased bp 16:30 Drug: Potassium Chloride 20 mEq Route: PO; bp 16:46 Follow up: Response: No adverse reaction bp Intake: 16:45 IV: 1000ml; Total: 1000ml. bp Outcome: 16:22 Discharge ordered by MD. kb 16:47 Discharged to home ambulatory. bp 16:47 Condition: stable 16:47 Discharge instructions given to patient, Instructed on discharge instructions, follow up and referral plans. medication usage, Demonstrated understanding of instructions, follow-up care, medications, Prescriptions given X 2. 16:48 Patient left the ED. bp Signatures: Italia Navarrete FNP-C BEEF LUGGER-CkHarleen Lynn, RN RN rb1 Sandra Jack am2 Samson Walton, RN RN bp Yin Medellin, RN RN ca1
[2019-10-01] MEDS ORDERED: POTASSIUM CL SA 10 MEQ TAB PO ONE (16:45)
[2019-10-01 17:37] VITALS: BP 120/65; TEMP 97.5; O2SAT 99
== END 2019-10-01 16:48 | disposition home or self-care (01) ==
LOC: ER 14:49
DX: R19.7 Diarrhea, unspecified (principal); E11.9 Type 2 diabetes mellitus without complications
CPT/HCPCS: 96361; 85025; 80048; 36415; 81025; 80076; 81003; 83690; 96374; 99284; J7030; J2405

== ENCOUNTER 2020-06-01 17:50 | Emergency (ER) | payer OTHER ==
--- OUTSIDE RECORDS SUMMARY | 2020-06-01 17:54 | XMS REPORT | Continuity of Care Document ---
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 0 [place] MYELOPATHY OR Medications No Data Provided for This Section Allergies, Adverse Reactions, Alerts No Known Medication Allergies Immunizations No Data Provided for This Section Results No Data Provided for This Section Pathology Reports No Data Provided for This Section Diagnostic Reports Report Value Date Source Spine cervical wo PROCEDURE INFORMATION: 02/03/2020 [facility] [place] contrast MRI Exam: MR Cervical Spine Without Contrast Exam date and time: 02/03/2020 7:39 AM Age: 55 years old Clinical indication: Radiculopathy, cervical reg ion; Additional info: /m54.12 radiculopathy, cervical region TECHNIQUE: Imaging protocol: Multiplanar magnetic resonance images of the cervical spine without contrast. COMPARISON: No relevant prior studies available. FINDINGS: Vertebrae: There is straightening of the normal cervical lordosis without fracture or subluxation of the vertebrae. Spinal cord: There is no myleomalacia or cord ed denny. There is no tonsillar ectopia. The C1/C2 articulation is intact. There is normal flow from both vertebral arteries. C2-C3: At the C2-C3 disc space , there is no michael tral or foraminal stenosis there is minimal degenerative change of left fac et joint. C3-C4: At the C3-C4 disc space , there is a dege nerative change of the facet joints particularly the left with subarticular m arrow edema and fluid in the joint space. There is hypertrophic change of unc overtebral joint with minimal to moderate left foraminal stenosis and no centr al canal stenosis. C4-C5: At the C4-C5 disc space which is desiccat ed, there is a 2.4 mm right paracentral bridging osteophyte which attenuates the proximal lateral recess and abuts the ventral cord. There is hypertrophi c change of uncovertebral joints with minimal to moderate bilatera l foraminal stenosis. There is minimal anterior spondylosis. C5-C6: At the C5-C6 disc space which is desiccat ed and narrowed, there is a 2 mm bridging osteophyte attenuating the left prox imal lateral recess without compromising the cord. There is hypertrophic prasanth nge of uncovertebral joints with moderate bilateral foraminal stenosis. C6-C7: At the C6-C7 disc space which is desiccat ed, there is a 3 mm right lateral bridging osteophyte which attenu ates the distal lateral recess without compromising the cord. There is hypertrophic change of uncovertebral joint with minimal foraminal stenosis. C7-T1: At the C7-T1 disc space, there is a 2 mm central protrusion/subligamentous extrusion partially at tenuating the anterior subarachnoid space. There is no foraminal stenos is. Other bones/joints: Vertebral arteries: Expected flow voids in the v ertebral arteries. Soft tissues: The prevertbral soft tissues are n ormal. 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 Ulises Campo MD On 02/03/2020 08:30:01; VR-B [id number] Consultation Notes No Data Provided for This Section Discharge Summaries No Data Provided for This Section History and Physicals No Data Provided for This Section Vital Signs No Data Provided for This Section Encounters Location Location Encounter Encounter Reason Attending ADM NM Stat Source Details Type Number For Provider Date Date Visit [facility] Outpt Diag [id number] Roberto 02/02 02/03 [facility] [facility]2019 [facility] Ifeanyi [place] Procedures No Data Provided for This Section Assessment and Plan No Data Provided for This Section Plan of Care No Data Provided for This Section Social History Social History Date Source Social History TypeResponse 02/04/2020 [facility] [place] Family History No Data Provided for This Section Advance Directives No Data Provided for This Section Functional Status No Data Provided for This Section
--- OUTSIDE RECORDS SUMMARY | 2020-06-01 17:54 | XMS REPORT | Continuity of Care Document ---
:1965 Author Organization [facility] t Address [address] [place] [address] Care Team Providers Name Role Phone MEGHANA KEITH Attending Clinician Unavailable Meghana Keith Attending Clinician DR JORGE Attending Clinician Unavailable DR JORGE Admitting Clinician Unavailable Payers Payer Name Policy Type Policy Number Effective Date Expiration Date S ource Problems Condition Condition Condition Status Onset Resolution Last Treating Co mments Source Name Details Category Date Date Treatment Clinician Date M47.812 - Diagnosis Active 2020-02-03 Memoria SPONDYLOSI 01-18 07:31:00 l S W/O M47.812 00:01: [place] MYELOPATHY - 00 OR SPONDYLOSI S W/O MYELOPATHY OR Active 0 MH LIZA Leyva History of History of Problem Resolve Univers Arthritis Arthritis d ity [facility] ans History of History of Problem Resolve Univers Back pain Back pain d ity [facility] ans History of History of Problem Resolve Univers Diabetes Diabetes d ity of [place] Phys[facility] ans History of History of Problem Resolve Univers Gallbladde Gallbladde d [place] disease [place] History of History of Problem Resolve Univers Hernia Hernia d [place]y of [place] [facility] ans History of History of Problem Resolve Univers Osteoporos Osteoporos d it y of is is [place] Physici ans History of History of Problem Resolve Univers Pneumonia Pneumonia d ity of [place] Physici ans Cervical 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 it y of s s [place] Physici ans Acute Acute Problem Active Univers cervical cervical ity of radicul[place] ans Neural Neural Problem Active Univers foraminal foraminal ity of stenosis stenosis [place] of of Physici cervical cervical ans spine spine Allergies, Adverse Reactions, Alerts Allergy Allergy Status Severity Reaction(s) Onset Inactive Treating Comm ents Source Name Type Date Date Clinician No Known DA Active U [facility] 11[facility]19 [place] [facility] Social History Smoking Status Start Date Stop Date Source Never smoked tobacco (finding) U [facility]icians Medications Ordered Filled Start Stop Current Ordering Indication Dosage Frequency Signature Comments Components Source Medication Medication Date Date Medication? Clinician (SIG) Name Name Cyclobenzap Cyclobenzap Yes ROB TAKE 1 Univers rine HCl - rine HCl - 9-16 LI-HOLLY TABLET at ity of 5 MG Oral 5 MG Oral 00:00: INNA M.D. bedtime as [place] Tablet Tablet 00 needed for Physi ci muscle ans cramps. Zofran Zofran 0 Yes Shara as needed [facility] - 00[facility]: Memoria 00 l [facility] Clin[facility] methylPREDN methylPREDN Yes ROB TAKE Univers ISolone 4 ISolone 4 5-04 LI-HOLLY DIRECTED ity of MG Oral MG Oral 00:00: INNA M.D. ON PATIENT [place] Tablet Tablet 00 INSTRUCTIO Physi ci Therapy Therapy N CARD.; ans Pack Pack Qty: 1 X 21 Tablet Disp Pack Albuterol Albuterol Yes Shara [address] [address] Sulfate HFA Sulfate HFA 3-18 [place] [facility] Methocarbam Methocarbam Yes ROB Q0.3333D TAKE 1 Univers ol 500 MG ol 500 MG 2-06 LI-HOLLY TABLET 3 ity of Oral Tablet Oral Tablet 00:00: INNA Castorena TIMES [place] 00 DAILY. Physici ans Prevalite 4 Prevalite 4 Yes U nivers GM Oral GM Oral ity of Packet Packet [place] Physici ans Mesalamine Mesalamine Yes Uni vers 1.2 GM Oral 1.2 GM Oral i ty of Tablet Tablet [place] Delayed Delayed Physici Release Release ans metFORMIN [...] Tab ity of (OR) - (OR) - [place] [id number] [id number] P hysici ivated ivated ans Lisinopril Lisinopril Yes Uni vers TABS TABS ity of [place] Physici ans Ibuprofen Ibuprofen Yes Unive rs 800 MG Oral 800 MG Oral i ty of Tablet Tablet [place] Physici ans Folic Acid Folic Acid Yes Uni vers 1 MG Oral 1 MG Oral ity o f Tablet Tablet [place] Physici ans tiZANidine tiZANidine Yes Uni vers HCl - 4 MG HCl - 4 MG ity of Oral Tablet Oral Tablet [place] Phys[place] ans Xeljanz XR Xeljanz XR Yes Uni vers 11 MG Oral 11 MG Oral ity of Tablet Tablet [place] Extended Extended Physici Release 24 Release 24 ans Hour Hour Melatonin Melatonin Yes Unive rs 10 MG Oral 10 MG Oral ity of Tablet Tablet [place] Disintegrat Disintegrat P hysici ing ing ans Vitamin C Vitamin C Yes Unive rs TABS TABS ity of [place] Physici ans Vitamin D3 Vitamin D3 Yes Uni vers TABS TABS ity of [place] Physici ans Folic Acid Folic Acid Yes Shara 2-[address] [place] tablets as [facility] - needed for Memoria mouth l sores Outpati ent Clinics Vitamin C Vitamin C Yes Shara not [facility] defined [facility] Vitamin D-3 Vitamin D-3 Yes Shara not [facility] defined [facility] Atorvastati Atorvastati Yes Shara [address] [facility] n Calcium n Calcium [place] [facility] Gabapentin Gabapentin Yes Shara [address] [facility] [place] [facility] Tizanidine Tizanidine Yes Shara [address] HCl HCl [place] as needed [facility] Prevalite Prevalite Yes Shara [address] [facility] [place] [facility] Lisinopril Lisinopril Yes Shara [address] [facility] [place] [facility] Singulair Singulair Yes Shara [address] [facility] [place] [facility] Amoxicillin Amoxicillin Yes Shara [address] [facility] -Pot -Pot [place] [facility] - Clavulanate Clavulanate M emoria l [facility] Atorvastati Atorvastati Yes Shara [address] n Calcium n Calcium [place] [facility] - [facility]oria l [facility] Xeljanz Xeljanz Yes Shara [address] [facility] [place] [facility] Metformin Metformin Yes Shara TAKE [address] HCl HCl [place] TABLET BY [facility] - MOUTH ONCE Memoria DAILY WITH l [facility] Metformin Metformin Yes Shara [address] HCl HCl [place] with a [facility] - meal [facility] l [facility] Lisinopril Lisinopril Yes Shara TAKE [address] [facility] [place] TABLET BY [facility] - MOUTH ONCE [facility]ILY [facility] Mesalamine Mesalamine Yes Shara [address] [facility] [place] [facility] Procedures Procedure Date / Time Performing Clinician Source Performed MRI Spine cervical wo 2020-01-19 00:00:00 [facility] contrast [id number] Physicians MRI Spine cervical wo 2019-11-01 00:00:00 [facility] contrast [id number] Physicians MRI Spine cervical wo 2019-07-20 00:00:00 [facility] contrast [id number] Physicians History of [facility] [place] [facility] Physicians History of [facility]olecystectomy [facility] Physicians History of Knee Surgery [facility] Physicians Encounters Start End Encounter Admission Attending Care Care Encounter Source Date/Time Date/Time Type Type Clinicians Facility Department ID 2020-05-07 2020-05-07 Outpatient [facility]MLC [facility] [id number] [facility] 2020-05-07 2020-05-07 Outpatient STLMLC [facility] [id number] [facility] 2020-02-06 2020-02-06 Appointmen MEGHANA OSEGUERA Orthopedics [id number] [place] [facility] 12:30:00 12:30:00 t; MEGHANA KEITH, - [facility] [place] [facility] Raffaele RIVAS Physicmaegan MJohn ans 2020-02-03 2020-02-03 [facility] [id number] 07:18:00 23:59:00 Reza Keith 2019-11-25 2019-11-25 [facility] [id number] 14:00:00 14:00:00 t [facility] Medicine Outpati ent Clinics 2019-11-25 2019-11-25 [facility] [id number] 09:28:00 09:28:00 [place] [employer] LuSIPX s - Drive [facility] Medicine Outpati ent Clinics 2019-11-03 2019-11-03 [facility] [id number] 12:02:00 12:02:00 t [place] [employer] LuSIPX s - Drive [facility] Medicine Outpati ent Clinics 2019-11-01 2019-11-01 Appointmen MEGHANA OSEGUERA UTP [id number] Univers 13:00:00 13:00:00 t; [place] Raffaele RIVAS Physicmaegan MJohn ans 2019-09-26 2019-09-26 [facility] [id number] 16:49:00 16:49:00 t [place] Adzuna s - Drive [facility] Medicine Outpati ent Clinics 2019-09-26 2019-09-26 [facility] [id number] 11:20:00 11:20:00 t [place] Adzuna s [facility] Outpati ent Clinics 2019-09-26 2019-09-26 [facility] [id number] 09:52:00 09:52:[address] ke s [facility] Outpati ent Clinics 2019-09-21 2019-09-21 [facility] [id number] 10:20:00 10:20:[address] [place] s [facility] Outpati ent Clinics 2019-09-19 2019-09-19 Appointmen MEGHANA OSEGUERA Orthopedics [id number] Univers 12:00:00 12:00:00 t; MEGHANA KEITH, - [facility] Jodie RIVAS M.D. Physici M.DChinyere ans 2019-09-09 2019-09-09 Outpatient Sheridan PATEL, [facility] [id number] [place] 04:25:00 07:00:00 [facility] 2019-08-11 2019-08-11 [facility] [id number] 11:58:00 11:58:[address] [place] s [facility] Outpati ent Clinics 2019-08-02 2019-08-02 [facility] [id number] 10:31:00 10:31:00 t [place] [employer] [place] [facility] 2019-07-20 2019-07-20 Appointmen MEGHANA OSEGUERA Orthopedics [id number] Univers 09:00:00 09:00:00 t; MEGHANA KEITH, [facility] Jodie RIVAS M.D. Physici M.DChinyere ans 2019-07-18 2019-07-18 [facility] [id number] 09:20:00 09:20:[address] [place] s [facility] Outpati ent Clinics 2019-06-23 2019-06-23 Appointmen MEGHANA OSEGUERA Orthopedics [id number] Univers 12:30:00 12:30:00 t; MEGHANA KEITH, [facility] ROB KEITH II [place] ANDREW, M.D. Physici M.D. ans 2019-05-04 2019-05-04 [facility] [id number] 09:40:00 09:40:[address] Luke s - Drive [facility] Medicine Outpati ent Clinics 2019-03-11 2019-03-11 [facility] [id number] 08[facility]49:00 08:49:00 t [facility] Clinics 2019-02-15 2019-02-15 [facility] [id number] 11:00:00 11:00:00 t [facility] ent Clinics 2019-02-02 2019-02-02 [facility] [id number] 09:00:00 09:00:[address] Luke s - Drive [facility] Medicine Outpati ent Clinics 2019-01-14 2019-01-14 [facility] [id number] 16:16:00 16:16:[address] Luke s - Drive [facility] Medicine Outpati ent Clinics 2019-01-05 2019-01-05 [facility] [id number] 09:20:00 09:20:[address] Luke s - Drive [facility] Medicine Outpati ent Clinics 2018-12-14 2018-12-14 [facility] [id number] 09:34:00 09:34:[address] Luke s - Drive [facility] Medicine Outpati ent Clinics 2018-11-17 2018-11-17 [facility] [id number] 11:14:00 11:14:[address] Luke s - Drive [facility] Medicine Outpati ent Clinics 2018-08-31 2018-08-31 [facility] [id number] 13:05:00 13:05:[address] Luke s - Drive [facility] Medicine Outpati ent Clinics 2018-08-25 2018-08-25 Outpatient [facility] [place] [id number] 11:40:00 11:40:00 t [employer] De[employer] [place] [employer] [facility] Results Test Description Test Time Test Comments Results Result Comments Source GLUCOMETER GLUCOSE- LAB USE ONLY 2019-09-09 06:04:00 Test Item Value Reference Range Interpretation Comme nts GLUCOMETER (test code = GMG) 124 mg/dL 70-100 H Meter ID: [id number]: 5537 TONO MARTIN URINE MONOCLONALFB2019-09-09 05:18:00 Test Item Value Reference Range Interpretation Comments PREG UR (test code = PGU) NEGATIVE NEGATIVE GLUCOMETER GLUCOSE- LAB USE [id number] 04:48:00 Test Item Value Reference Range Interpretation Comments GLUCOMETER (test code = 119 mg/dL 70-100 H Mete r ID: GMG) [id number] tor: 5547 MICHAEL PHAN [U] XRAY SHOULDER MIN 2 VWS LEFT [id number] 12:25:00Images acquired, not reported on this accession number.[facility] Physicians[U] XRAY SPINE CERVICAL 2 OR 3 VWS [id number] 12:25:00Images acquired, not reported on this accession number.[facility] [id number] 12:24:00 RUN DATE: 11/24/18 [facility] - LAB *LIVE* PAGE 1 RUN TIME: 1224 Specimen Inquiry RUN USER: INTERFACE PATIENT: DAMI MOODY LOC: LIZETH Lopez #: [id number] AGE/SX: 53/F ROOM: RE11/23/18[facility] DR: Sebastian Betancourt MD : 69 BED: DIS: STATUS: DEP [facility] TLOC: SPEC #: [id number] RECD: 11/23/18 STATUS: [place] [facility] #: [id number] EUGENIA: 11/23/18 [facility] DR: Sebastian Betancourt MD ENTERED: 11/23/18 SP TYPE: SURG OTHR DR: Elda Rios DO ORDERED: SURG PATH LVL 08/17 COPIES TO: Sebastian Betacnourt MD [address] [place] [address] Elda Rios DO [address] [place] [address] [id number]: TISSUE ID BLK PCS SANDRA LEV PROCEDURE DISPOSITION ____ ___ ___ ___ COLON, NOS A 1 2 COLON, NOS B 1 2 PROCEDURES: SURG PATH LVL 4 (11/23/18) TISSUES: A. COLON, NOS - RIGHT SIDE B. COLON, NOS - LEFT SIDE CLINICAL HISTORY DIARRHEA-R19.7;ABD PAIN- R10.9;RECTAL PAIN-K62.89 CPT CODES CPT CODE(S): 03472P7 , , , , , , FINAL DIAGNOSIS A. Colon, right, biopsy: COLONIC MUCOSA WITH NO SIGNIFICANT HISTOPATHOLOGIC FINDINGSB. Colon, left, biopsy: FOCAL ACTIVE COLITIS NO EVIDENCE OF DYSPLASIA OR MALIGNANCY CONTINUED ON NEXT PAGE RUN DATE: 11/24/18 [facility] - LAB *LIVE* PAGE 2 RUN TIME: 1224 Specimen Inquiry RUN USER: INTERFACE --------- ---SPEC #: [id number] PATIENT: DAMI MOODY #[id number] (Continued) GROSS DESCRIPTION A. Right side. Received in formalin are three olmos tissue fragments, 0.2 - 0.7 cm. B. Left side. Received in formalin are eight olmos tissue fragments, 0.2 - 0.5 cm, all as B. /ba/pdb Grossing performed at [facility] Pathology, [address] [place] [address], [address], [place], [place] [address]. Launderette Attendant: Patricio Granados M.D. MICROSCOPIC DESCRIPTION A. Right [...] of malignancy. /cm Signed SIGNATURE ON FILE Hector Bueno 11/24/18 1224 END OF REPORT HCG SERUM [id number] 11:36:00 Test Item Value Reference Range Interpretation Comments HCG SERUM QUAL (test SERUM NEGATIVE SCREEN NEGATIVE code = HCGQL) GLUCOSE BEDSIDE [id number] 11:30:00 Test Item Value Reference Range Interpretation Comments GLUCOSE BEDSIDE TESTING (test code 122 mg/dL 70-110 H = GLUBED)
--- NOTE | 2020-06-01 19:08 | RAD REPORT ---
EXAM DESCRIPTION: RAD - Chest Single View - 06/01/2020 7:00 pm CLINICAL HISTORY: DYSPNEA Chest pain. COMPARISON: Chest Pa And Lat (2 Views) dated 09/09/2018 FINDINGS: Portable technique limits examination quality. The lungs are grossly clear. The heart is normal in size. No displaced fractures. IMPRESSION: No acute intrathoracic process suspected.
[2020-06-01 19:53] LABS: Absolute Lymphocytes (CBC) 0.8 K/uL (0.7-4.9); Basophils % 0.6 % (0-1.3); Hematocrit 38.1 % (36.0-45.0); Lymphocytes % 17.6 % (15.3-44.8); MPV 8.3 fL (7.6-11.3); RBC Red Blood Cell Count 4.46 M/uL (3.86-4.86)
[2020-06-01 20:01] LABS: Protime INR 1.04
[2020-06-01] MEDS ORDERED: NA CHLORIDE 0.9% 1,000 ML ONE (20:01)
[2020-06-01] MEDS ORDERED: DICYCLOMINE HCL 10 MG CAP ONE (20:01)
[2020-06-01 20:20] LABS: ALT/SGPT 76 U/L (12-78); AST/SGOT 52 U/L (15-37); Albumin 3.8 g/dL (3.4-5.0); Alkaline Phosphatase 76 U/L (45-117); BUN Blood Urea Nitrogen 17 mg/dL (7-18); Bicarbonate 25 mmol/L (21-32); Bilirubin Direct < 0.1 mg/dL (0-0.2); Bilirubin Total 0.3 mg/dL (0.2-1.0); Ferritin 38.8 ng/mL (8-388); Glucose Level 199 mg/dL (74-106); Lipase 186 U/L (73-393); Potassium 4.2 mmol/L (3.5-5.1); Protein, Total 7.8 g/dL (6.4-8.2); Sodium Level 140 mmol/L (136-145); Troponin (Emerg Dept Use Only) < 0.02 ng/mL (0.0-0.045)
[2020-06-01 20:27] LABS: C-Reactive Protein < 2.90 mg/L (<3.00)
--- NOTE | 2020-06-01 21:21 | EDPHYS ---
Physician Documentation [facility] Name: Sulema Thomas Age: 55 yrs Sex: Female : 1965 Arrival Date: 06/01/2020 Time: 17:50 Bed 19 Private MD: ED Physician David Barakat HPI: 06/01 21:01 This 55 yrs old Female presents to ER via Ambulatory with complaints of Covid kb + Low O2. 21:01 The patient or guardian reports cough, difficulty breathing, flu symptoms, low-grade kb fever, myalgias. Onset: The symptoms/episode began/occurred 3 day(s) ago. Severity of symptoms: At their worst the symptoms were moderate, in the emergency department the symptoms are unchanged. Modifying factors: The symptoms are alleviated by nothing, the symptoms are aggravated by nothing. Associated signs and symptoms: Pertinent positives: diarrhea, Pertinent negatives: chest pain, ear ache, fever, nausea, rhinorrhea, sore throat, vomiting. The patient has not experienced similar symptoms in the past. The patient has not recently seen a physician. Historical: - Allergies: 17:58 No Known Allergies; ll1 - PMHx: 17:58 Colitis; Ulcers; Rheumatoid Arthritis; Diabetes - NIDDM; ll1 - PSHx: 17:58 Knee surgery; ; Cholecystectomy; ll1 - Immunization history:: Flu vaccine is up to date. - Social history:: Smoking status: Patient/guardian denies using tobacco, the patient reports quitting approximately 15 years ago. ROS: 20:59 Cardiovascular: Negative for chest pain, palpitations, and edema, Back: Negative for kb injury and pain, MS/Extremity: Negative for injury and deformity, Skin: Negative for injury, rash, and discoloration, Neuro: Negative for headache, weakness, numbness, tingling, and seizure. 20:59 Constitutional: Positive for fatigue, malaise. 20:59 Respiratory: Positive for cough, shortness of breath. 20:59 Abdomen/GI: Positive for diarrhea, abdominal cramps. Exam: 21:00 Constitutional: This is a well developed, well nourished patient who is awake, alert, kb and in no acute distress. Head/Face: Normocephalic, atraumatic. Chest/axilla: Normal chest wall appearance and motion. Nontender with no deformity. No lesions are appreciated. Cardiovascular: Regular rate and rhythm with a normal S1 and S2. No gallops, murmurs, or rubs. Normal PMI, no JVD. No pulse deficits. Respiratory: Lungs have equal breath sounds bilaterally, clear to auscultation and percussion. No rales, rhonchi or wheezes noted. No increased work of breathing, no retractions or nasal flaring. Abdomen/GI: Soft, non-tender, with normal bowel sounds. No distension or tympany. No guarding or rebound. No evidence of tenderness throughout. Skin: Warm, dry with normal turgor. Normal color with no rashes, no lesions, and no evidence of cellulitis. MS/ Extremity: Pulses equal, no cyanosis. Neurovascular intact. Full, normal range of motion. Neuro: Awake and alert, GCS 15, oriented to person, place, time, and situation. Cranial nerves II-XII grossly intact. Motor strength 5/5 in all extremities. Sensory grossly intact. Cerebellar exam normal. Normal gait. Vital Signs: 17:58 BP 99 / 63; Pulse 88; Resp 18; Temp 98.2; Pulse Ox 98% on R/A; Height 5 ft. 5 in. ll1 (165.10 cm); Pain 0/10; 18:01 Weight 94.8 kg; ll1 20:26 BP 95 / 65; Pulse 72; Resp 16; Pulse Ox 98% on R/A; ll1 21:00 BP 107 / 67; Pulse 70; Resp 19; Pulse Ox 97% ; ea 18:01 Body Mass Index 34.78 (94.80 kg, 165.10 cm) ll1 MDM: 18:01 Patient medically screened. kb 20:58 Data reviewed: vital signs, nurses notes. Data interpreted: Pulse oximetry: on room air kb is 98 %. Interpretation: normal. Counseling: I had a detailed discussion with the patient and/or guardian regarding: the historical points, exam findings, and any diagnostic results supporting the discharge/admit diagnosis, lab results, the need for outpatient follow up, a family practitioner, to return to the emergency department if symptoms worsen or persist or if there are any questions or concerns that arise at home. 21:00 ED course: Discussed pt condition and diagnostics with ERP. Pt ambulated and oxygen kb sats stayed in the upper 90s. Recommended outpatient treatment. 06/01 18:02 Order name: Blood Culture Adult (2) kb 06/01 18:02 Order name: BMP kb 06/01 18:02 Order name: C-Reactive Protein kb 06/01 18:02 Order name: CBC with Diff; Complete Time: 20:01 kb 06/01 18:02 Order name: Ferritin; Complete Time: 20:28 kb 06/01 18:02 Order name: Lactate; Complete Time: 20:28 kb 06/01 18:02 Order name: LFT's; Complete Time: 20:28 kb 06/01 18:02 Order name: Lipase; Complete Time: 20:28 kb 06/01 18:02 Order name: Procalcitonin; Complete Time: 20:57 kb 06/01 18:02 Order name: PT-INR; Complete Time: 20:08 kb 06/01 18:02 Order name: Ptt, Activated; Complete Time: 20:08 kb 06/01 18:02 Order name: Troponin (emerg Dept Use Only); Complete Time: 20:28 kb 06/01 18:03 Order name: Blood Culture EDMS 06/01 18:03 Order name: Basic Metabolic Panel; Complete Time: 20:28 EDMS 06/01 18:02 Order name: CXR XRAY; Complete Time: 19:11 kb 06/01 18:02 Order name: EKG; Complete Time: 18:04 kb 06/01 18:02 Order name: Cardiac monitoring; Complete Time: 19:03 kb 06/01 18:02 Order name: Droplet/Contact Precautions; Complete Time: 19:09 kb 06/01 18:02 Order name: EKG - Nurse/Tech; Complete Time: 19:03 kb 06/01 18:02 Order name: IV Start; Complete Time: 20:03 kb 06/01 18:02 Order name: Labs collected and sent; Complete Time: 20:03 kb 06/01 18:02 Order name: O2 Per Protocol; Complete Time: 19:09 kb 06/01 18:02 Order name: O2 Sat Monitoring; Complete Time: 19:09 kb 06/01 18:03 Order name: C-Reactive Protein; Complete Time: 20:28 EDMS Administered Medications: 20:03 Drug: NS 0.9% 1000 ml Route: IV; Rate: 1000 ml; Site: right antecubital; ll1 21:33 Follow up: Response: No adverse reaction; IV Status: Completed infusion; IV Intake: ea 1000ml 20:03 Drug: Bentyl 20 mg Route: PO; ll1 21:32 Follow up: Response: No adverse reaction ea Disposition: 06/02 14:27 Co-signature as Attending Physician, David Barakat MD I agree with the assessment and kdr plan of care. Disposition: 06/01/20 21:20 Discharged to Home. Impression: Coronavirus infection, unspecified, Diarrhea, unspecified. - Condition is Stable. - Discharge Instructions: Food Choices to Help Relieve Diarrhea, Adult, Diarrhea, Adult, [id number], Viral Respiratory Infection, [id number], COVID-19. - Prescriptions for Bentyl 20 mg Oral Tablet - take 1 tablet by ORAL route every 6 hours As needed; 20 tablet. Prednisone 20 mg Oral Tablet - take 1 tablet by ORAL route once daily for 5 days; 5 tablet. Zofran 4 mg Oral Tablet - take 1 tablet by ORAL route every 6 hours As needed; 20 tablet. Albuterol Sulfate 90 mcg/actuation - inhale 1-2 puff by INHALATION route every 4-6 hours; 1 Inhaler. - Medication Reconciliation Form, Thank You Letter, Antibiotic Education, Prescription Opioid Use form. - Follow up: Emergency Department; When: As needed; Reason: Worsening of condition. Follow up: Private Physician; When: 2 - 3 days; Reason: Recheck today's complaints, Continuance of care, Re-evaluation by your physician. Signatures: Dispatcher [employer] EDSD Italia Navarrete, SELENA MERIDA-David Kaplan MD MD kdr Antunez, Elena, RN RN ea Lewis, Lynsay, RN RN ll1 Corrections: (The following items were deleted from the chart) 06/01 21:20 21:20 06/01/2020 21:20 Discharged to Home. Impression: Coronavirus infection, kb unspecified. Condition is Stable. Forms are Medication Reconciliation Form, Thank You Letter, Antibiotic Education, Prescription Opioid Use. Follow up: Emergency Department; When: As needed; Reason: Worsening of condition. Follow up: Private Physician; When: 2 - 3 days; Reason: Recheck today's complaints, Continuance of care, Re-evaluation by your physician. kb 21:33 21:20 06/01/2020 21:20 Discharged to Home. Impression: Coronavirus infection, ea unspecified; Diarrhea, unspecified. Condition is Stable. Forms are Medication Reconciliation Form, Thank You Letter, Antibiotic Education, Prescription Opioid Use. Follow up: Emergency Department; When: As needed; Reason: Worsening of condition. Follow up: Private Physician; When: 2 - 3 days; Reason: Recheck today's complaints, Continuance of care, Re-evaluation by your physician. kb
--- NOTE | 2020-06-01 21:21 | ER ---
Nurse's Notes [facility] Name: Sulema Thomas Age: 55 yrs Sex: Female : 1965 Arrival Date: 06/01/2020 Time: 17:50 Bed 19 Private MD: Diagnosis: Coronavirus infection, unspecified;Diarrhea, unspecified Presentation: 06/01 17:58 Chief complaint: Patient states: Cough, SOB for 3 days. Fever 101 on Thursday. Covid ll1 positive result yesterday. O2 sat 89% at home. +decreased appetite. Nausea and abd. cramping with eating. + diarrhea x 20 today. Coronavirus screen: Client denies travel out of the [place] in the last 14 days. cough unrelated to allergies, diarrhea, fatigue, nausea, Client presents with at least one sign or symptom that may indicate coronavirus-19. Standard/surgical mask placed on the client. Client reports previous positive COVID test result. Ebola Screen: Patient denies travel to an Ebola-affected area in the 21 days before illness onset. Initial Sepsis Screen: Does the patient meet any 2 criteria? No. Patient's initial sepsis screen is negative. Does the patient have a suspected source of infection? Yes: Productive cough/pneumonia. Risk Assessment: Do you want to hurt yourself or someone else? Patient reports no desire to harm self or others. Onset of symptoms was May 30, 2020. 17:58 Method Of Arrival: Ambulatory ll1 17:58 Acuity: KEEGAN 3 ll1 Triage Assessment: 17:58 General: Appears ill, Behavior is calm, cooperative, appropriate for age. Respiratory: ll1 Reports shortness of breath cough that is Airway is patent Trachea midline Respiratory effort is even, unlabored, Respiratory pattern is regular, symmetrical, the patient has mild shortness of breath. GI: Abdomen is flat, Bowel sounds present X 4 quads. Reports diarrhea. Historical: - Allergies: 17:58 No Known Allergies; ll1 - PMHx: 17:58 Colitis; Ulcers; Rheumatoid Arthritis; Diabetes - NIDDM; ll1 - PSHx: 17:58 Knee surgery; ; Cholecystectomy; ll1 - Immunization history:: Flu vaccine is up to date. - Social history:: Smoking status: Patient/guardian denies using tobacco, the patient reports quitting approximately 15 years ago. Screenin:25 Abuse screen: Denies threats or abuse. Nutritional screening: No deficits noted. ll1 Tuberculosis screening: No symptoms or risk factors identified. Fall Risk IV access (20 points). Total Flores Fall Scale indicates No Risk (0-24 pts). Assessment: 19:25 General: Appears uncomfortable, Behavior is calm, cooperative, appropriate for age. ll1 Pain: Complains of pain in abdomen Quality of pain is described as aching, crampy, Aggravated by eating. Neuro: No deficits noted. Cardiovascular: No deficits noted. Respiratory: Reports shortness of breath cough that is Airway is patent Trachea midline Respiratory effort is even, unlabored, Respiratory pattern is regular, symmetrical, Breath sounds are clear bilaterally. the patient has mild shortness of breath. GI: Abdomen is flat, Bowel sounds present X 4 quads. Abd is soft and non tender X 4 quads. Reports lower abdominal pain, cramping, diarrhea, nausea. 20:25 Reassessment: No changes from previously documented assessment. Patient and/or family ll1 updated on plan of care and expected duration. Pain level reassessed. Patient is alert, oriented x 3, equal unlabored respirations, skin warm/dry/pink. 20:54 Reassessment: Patient and/or family updated on plan of care and expected duration. Pain ea level reassessed. Patient is alert, oriented x 3, equal unlabored respirations, skin warm/dry/pink. Pt ambulated approx 50 feet, pt tolerated well. Sats maintained in the upper 90s. 21:06 Reassessment: Patient and/or family updated on plan of care and expected duration. Pain ea level reassessed. Patient is alert, oriented x 3, equal unlabored respirations, skin warm/dry/pink. Vital Signs: 17:58 BP 99 / 63; Pulse 88; Resp 18; Temp 98.2; Pulse Ox 98% on R/A; Height 5 ft. 5 in. ll1 (165.10 cm); Pain 0/10; 18:01 Weight 94.8 kg; ll1 20:26 BP 95 / 65; Pulse 72; Resp 16; Pulse Ox 98% on R/A; ll1 21:00 BP 107 / 67; Pulse 70; Resp 19; Pulse Ox 97% ; ea 18:01 Body Mass Index 34.78 (94.80 kg, 165.10 cm) ll1 ED Course: 17:50 Patient arrived in ED. ds1 17:57 Arm band placed on. ll1 18:01 Triage completed. ll1 18:01 Italia Navarrete FNP-C is [facility]. kb 18:01 David Barakat MD is Attending Physician. kb 19:00 CXR XRAY In Process Unspecified. EDMS 19:00 EKG done, by ED staff, reviewed by Italia WALTERS. 3 19:17 Tania Dockery, RN is Primary Nurse. ll1 19:25 Inserted saline lock: 20 gauge in right antecubital area, using aseptic technique. ll1 Blood collected. 20:25 Patient has correct armband on for positive identification. Bed in low position. Call 1 light in reach. Side rails up X 1. Pulse ox on. NIBP on. 21:32 No provider procedures requiring assistance completed. IV discontinued, intact, ea bleeding controlled, No redness/swelling at site. Pressure dressing applied. Administered Medications: 20:03 Drug: NS 0.9% 1000 ml Route: IV; Rate: 1000 ml; Site: right antecubital; ll1 21:33 Follow up: Response: No adverse reaction; IV Status: Completed infusion; IV Intake: ea 1000ml 20:03 Drug: Bentyl 20 mg Route: PO; 1 21:32 Follow up: Response: No adverse reaction ea Intake: 21:33 IV: 1000ml; Total: 1000ml. ea Outcome: 21:20 Discharge ordered by . kb 21:32 Discharged to home ambulatory, with family. ea 21:32 Condition: stable 21:32 Discharge instructions given to patient, Instructed on discharge instructions, follow up and referral plans. medication usage, Demonstrated understanding of instructions, follow-up care, medications, Prescriptions given X 4. 21:33 Patient left the ED. ea Signatures: Dispatcher [employer] EDAR Italia Navarrete FNP-C FNP-Amada cMneill ds1 Delores Butler 3 Charmaine Ramirez, RN Tania De La Garza ea, BIANCA RN 1
[2020-06-01 21:41] VITALS: TEMP 98.2
[2020-06-01 21:44] VITALS: BP 107/67; O2SAT 97
--- NOTE | 2020-06-02 13:29 | EKG ---
Test Date: 2020-06-01 Test Time: 18:55:39 Director Systems: KAYLI MEASUREMENT RESULTS: Intervals: Rate: 79 MS: 158 QRSD: 80 QT: 402 QTc: 460 Sanger: P: 24 MS: 158 QRS: 74 T: 33 INTERPRETIVE STATEMENTS: Normal sinus rhythm Normal ECG Compared to ECG 08/20/1998 08:37:00 No significant changes Electronically Signed On 06-02-20 13:28:11 [employer]CT [employer] by Miles Huerta
== END 2020-06-01 21:33 | disposition home or self-care (01) ==
LOC: ER 17:50
DX: U07.1 COVID-19 (principal); R19.7 Diarrhea, unspecified
CPT/HCPCS: 93005; 87040 ×2; 85025; 80048; 36415; 85610; 80076; 83605; 85730; 84484; 82728; 83690; 84145; 86140; 71045; 96360; 99284; J7030

== ENCOUNTER 2020-06-03 12:45 | Emergency (ER) | payer OTHER ==
--- OUTSIDE RECORDS SUMMARY | 2020-06-03 12:47 | XMS REPORT | Continuity of Care Document ---
:1965 Author Organization [employer] Care Team Providers Name Role Phone [employer] Unavailable Un available Problems Problem Status Onset [...] Spine cervical wo PROCEDURE INFORMATION: 02/03/2020 [facility] [place] contrast MRI Exam: MR Cervical Spine Without [...] Ulises Campo MD On 02/03/2020 08:30:01; VR-B [id number] Consultation Notes No Data Provided for This Section Discharge Summaries No Data Provided for This Section History and Physicals No Data Provided for This Section Vital Signs No Data Provided for This Section Encounters Location Location Encounter Encounter Reason Attending ADM [place] Stat Source Details Type Number For Provider Date Date Visit [facility] Outpt Diag [id number] Roberto 02/02 02/03 [facility] [facility]2019 [facility] I[facility]any[facility] [place] Procedures No Data Provided for This Section [...]
--- OUTSIDE RECORDS SUMMARY | 2020-06-03 12:48 | XMS REPORT | Continuity of Care Document ---
:1965 Author Organization [facility] t Address [address] [place] [address] Care Team Providers Name Role Phone MEGHANA [...] Problem Resolve Univers Arthritis Arthritis d ity [facility] Physici ans History of History of Problem Resolve Univers Back pain Back pain d ity [facility] Physici ans History of History of Problem Resolve Univers Diabetes Diabetes d ity of [place] Physici ans History of History of Problem Resolve Univers Gallbladde Gallbladde d [place] disease r [place]ici [place] History of History of Problem Resolve Univers Hernia Hernia d [place] Physici ans History of History of Problem Resolve Univers Osteoporos Osteoporos d it y of is is [place] Physici ans History of History of Problem Resolve Univers Pneumonia Pneumonia d [place] Physici ans Cervical Cervical Problem Active Unive [...] 11-19 [place] 00:00: d 00 Medical Roxie Social History Smoking Status Start Date Stop Date Source Never smoked tobacco (finding) U [facility] Physicians Medications Ordered Filled Start Stop [...] Yes Shara as needed [facility] [place] for nausea [facility] - 00:[facility]: [facility] 00 l [facility] methylPREDN methylPREDN Yes ROB TAKE Univers ISolone 4 ISolone 4 5-04 LI-HOLLY DIRECTED ity of MG Oral MG Oral 00:00: INNA M.D. ON PATIENT [place] Tablet Tablet 00 INSTRUCTIO Physi ci Therapy Therapy N CARD.; ans Pack Pack Qty: 1 X 21 Tablet Disp Pack Albuterol Albuterol Yes Shara [address] [facility] [address] Sulfate HFA Sulfate HFA 3-18 [place] [facility] Methocarbam Methocarbam Yes ROB Q0.3333D TAKE 1 Univers ol 500 MG ol 500 MG 2-06 LI-HOLLY TABLET 3 ity of Oral Tablet Oral Tablet 00:00: INNA M.D. TIMES [place] 00 DAILY. Physici ans Prevalite 4 Prevalite 4 Yes U nivers GM Oral GM Oral ity of Packet Packet [place] Physici ans Mesalamine Mesalamine Yes Uni vers 1.2 GM Oral 1.2 GM Oral i ty of Tablet Tablet [place] Delayed Delayed Physici Release Release ans metFORMIN [...] Tab ity of (OR) - (OR) - [place] [id number]_Deact [id number]_Deact P hysici ivated ivated ans Lisinopril Lisinopril Yes Uni vers TABS TABS ity of [place] Physici ans Ibuprofen Ibuprofen Yes Unive rs 800 MG Oral 800 MG Oral i ty of Tablet Tablet [place] Physici ans Folic Acid Folic Acid Yes Uni vers 1 MG Oral 1 MG Oral ity o f Tablet Tablet [place] Physici ans tiZANidine tiZANidine Yes Uni vers HCl - 4 MG HCl - 4 MG ity of Oral Tablet Oral Tablet [place] Physici ans Xeljanz XR Xeljanz XR Yes Uni vers 11 MG Oral 11 MG Oral ity of Tablet Tablet [place] Extended Extended Physici Release 24 Release 24 ans Hour Hour Melatonin Melatonin Yes Unive rs 10 MG Oral 10 MG Oral ity of Tablet Tablet [place] Disintegrat Disintegrat P hysici ing ing ans Vitamin C Vitamin C Yes Unive rs TABS TABS ity of [place] Physici ans Vitamin D3 Vitamin D3 Yes Uni vers TABS TABS ity of [place] Physici ans Folic Acid Folic Acid Yes Shara 2-[address] [place] tablets as [facility] - needed for Memoria mouth l sores Outpati ent Clinics Vitamin C Vitamin C Yes Shara not [facility] [place] defined [facility] Vitamin D-3 Vitamin D-3 Yes Shara not [facility] [place] defined [facility] Atorvastati Atorvastati Yes Shara [address] [facility] n Calcium n Calcium [place] [facility] Gabapentin Gabapentin Yes Shara [address] [facility] [place] [facility] Tizanidine Tizanidine Yes Shara [address] [facility] HCl HCl [place] as needed [facility] Prevalite Prevalite Yes Shara [address] [facility] [place] [facility] Lisinopril Lisinopril Yes Shara [address] [facility] [place] [facility] Singulair Singulair Yes Shara [address] [facility] [place] [facility] Amoxicillin Amoxicillin Yes Shara [address] [facility] [address] -Pot -Pot [place] [facility] - Clavulanate Clavulanate M emoria l [facility] Atorvastati Atorvastati Yes Shara [address] [facility] [facility] n Calcium n Calcium [place] Luke [facility] - Memoria l [facility] Xeljanz Xeljanz Yes Shara [address] [facility] [place] [facility] Metformin Metformin Yes Shara TAKE [address] HCl HCl [place] TABLET BY [facility] - MOUTH ONCE Memoria DAILY WITH l A MEAL [facility] Metformin Metformin Yes Shara [address] [facility] [address] HCl HCl [place] with a [facility] - meal [facility] l [facility] Lisinopril Lisinopril Yes Shara TAKE [address] [facility] [place] TABLET BY [facility] - MOUTH ONCE Memoria DAILY l [facility] Mesalamine Mesalamine Yes Shara [address] [facility] [place] [facility] Procedures Procedure Date / Time Performing Clinician Source Performed MRI Spine cervical wo 2020-01-19 00:00:00 [facility] contrast [id number] Physicians MRI Spine cervical wo 2019-11-01 00:00:00 [facility] contrast [id number] Physicians MRI Spine cervical wo 2019-07-20 00:00:00 [facility] contrast [id number] Physicians History of [facility] o f [place] Physicians History of Cholecystectomy [facility] Physicians History of Knee Surgery [facility] Physicians Encounters Start End Encounter Admission Attending Care Care Encounter Source Date/Time Date/Time Type Type Clinicians Facility Department ID 2020-05-30 2020-05-30 Outpatient [facility] [id number] [facility] 2020-05-07 2020-05-07 Outpatient [facility] [id number] [facility] 2020-05-07 2020-05-07 Outpatient [facility] [id number] [facility] 2020-02-06 2020-02-06 Appointmen MEGHANA OSEGUERA Orthopedics [id number] [facility] 12:30:00 12:30:00 t; MEGHANA KEITH, - [place] reinier ROB KEITH Jodie RIVAS M.D. Physicmaegan [place] ans 2020-02-03 2020-02-03 Outpatient Meghana MHOIP MHOIP [id number] 07:18:00 23:59:00 Reza Keith 2019-11-25 2019-11-25 [facility] [id number] 14:00:00 14:00:00 t [facility] l Medicine Outpati ent Clinics 2019-11-25 2019-11-25 [facility] [id number] 09:28:00 09:28:00 t [facility] [employer] [facility] - [facility] Medicine l Medicine Outpati ent Clinics 2019-11-03 2019-11-03 [facility] [id number] 12:02:00 12:02:00 [place] [employer] [employer] - Drive [facility] Family Medicine l Medicine Outpati ent Clinics 2019-11-01 2019-11-01 Appointmen MEGHANA OSEGUERA UTP [id number] Univers 13:00:00 13:00:00 t; reinier JIM ROB KEITH [place] ANDREW, M.D. Physicmaegan MJohn ans 2019-09-26 2019-09-26 [facility] [id number] [address] 16:49:00 16:49:00 [place] [employer] - Drive Family [facility] Family Medicine l Medicine Outpati ent Clinics 2019-09-26 2019-09-26 [facility] [id number] 11:20:00 11:20:00 [place] [employer] Luke s - Drive [facility] [place] [facility] Outpati ent Clinics 2019-09-26 2019-09-26 [facility] [id number] 09:52:00 09:52:00 [place] [employer] - Drive [facility] [place] [facility] Outpati ent Clinics 2019-09-21 2019-09-21 [facility] [id number] 10:20:00 10:20:00 [place] [employer] - [employer] [facility] [place] [facility] Outpati ent Clinics 2019-09-19 2019-09-19 Appointmen MEGHANA OSEGUERA Orthopedics [id number] Univers 12:00:00 12:00:00 t; MEGHANA KEITH, [facility] Jodie RIVAS M.D. Physicmaegan MJohn ans 2019-09-09 2019-09-09 Outpatient [place] PATEL, [facility] [id number] [place] 04:25:00 07[facility] 2019-08-11 2019-08-11 [facility] [id number] 11:58:00 11:58:00 [place] [employer] - [employer] [facility] [place] [facility] Outpati ent Clinics 2019-08-02 2019-08-02 [facility] [id number] 10:31:00 10:31:00 t [place] [employer] - [employer] [facility] [place] [facility] Outpati ent Clinics 2019-07-20 2019-07-20 Appointmen MEGHANA OSEGUERA Orthopedics [id number] Univers 09:00:00 09:00:00 t; MEGHANA KEITH, [facility] Jodie RIVAS M.D. Physici MJohn ans 2019-07-18 2019-07-18 [facility] [id number] 09:20:00 09:20:00 t [place] [employer] - Drive [facility] [place] [facility] Outpati ent Clinics 2019-06-23 2019-06-23 [facility] MEGHANA [facility] Orthopedics [id number] [facility] 12:30:00 12:30:00 t; MEGHANA KEITH, - [facility] ROB KEITH II [place] ANDREW, M.D. Physici M.D. ans 2019-05-04 2019-05-04 [facility] [id number] 09:40:00 09:40:00 [place] [employer] [place] s - Drive [facility] Medicine Outpati ent Clinics 2019-03-11 2019-03-11 [facility] [id number] 08:49:00 08:49:00 t [facility] Clinics 2019-02-15 2019-02-15 [facility] [id number] 11:00:00 11:00:00 t [facility] Clinics 2019-02-02 2019-02-02 [facility] [id number] 09:00:00 09:00:00 [place] [employer] [place] s - Drive [facility] Medicine Outpati ent Clinics 2019-01-14 2019-01-14 [facility] [id number] 16:16:00 16:16:00 [place] [employer] [place] s - Drive [facility] Medicine Outpati ent Clinics 2019-01-05 2019-01-05 [facility] [id number] 09:20:00 09:20:[address] [place] [address] Luke [place] - Drive [facility] Medicine Medicine Outpati ent Clinics 2018-12-14 2018-12-14 [facility] [id number] 09:34:00 09:34:00 [place] [employer] [place] s - Drive [facility] Medicine Outpati ent Clinics 2018-11-17 2018-11-17 [facility] [id number] 11:14:00 11:14:[address] [place] [address] Luke [place] - Drive [facility] Medicine Outpati ent Clinics 2018-08-31 2018-08-31 [facility] [id number] 13:05:00 13:05:00 [facility] 2018-08-25 2018-08-25 Outpatient [place] [id number] [facility] St 11:40:00 11:40:00 [facility] Results Test Description Test Time Test Comments Results Result Comments Source GLUCOMETER GLUCOSE- LAB USE ONLY 2019-09-09 06:04:00 Test Item Value Reference Range Interpretation Comme nts GLUCOMETER (test code = GMG) 124 mg/dL 70-100 H Meter ID: [id number]: 5537 TONO MARTIN URINE MONOCLONALFB2019-09-09 05:18:00 Test Item Value Reference Range Interpretation Comments PREG UR (test code = PGU) NEGATIVE NEGATIVE GLUCOMETER GLUCOSE- LAB USE [id number] 04:48:00 Test Item Value Reference Range Interpretation Comments GLUCOMETER (test code = 119 mg/dL 70-100 H Mete r ID: GMG) [id number] tor: 5547 MICHAEL [address] REDO [U] XRAY SHOULDER MIN 2 VWS LEFT [id number] 12:25:00Images acquired, not reported on this accession number.[facility] Physicians[U] XRAY SPINE CERVICAL 2 OR 3 VWS [id number] 12:25:00Images acquired, not reported on this accession number.[facility] [id number] 12:24:00 RUN DATE: 11/24/18 [facility] - LAB *LIVE* PAGE 1 RUN TIME: 1224 Specimen Inquiry RUN USER: INTERFACE PATIENT: DAMI MOODY LOC: LIZETH U #: [id number] AGE/SX: 53/F ROOM: RE11/23/18REG DR: Sebastian Betancourt MD : 69 BED: DIS: STATUS: DEP [facility] TLOC: SPEC #: [id number] RECD: 11/23/18 STATUS: [place] REQ #: [id number] EUGENIA: 11/23/[address] [facility] [address]: Sebastian Betancourt MD ENTERED: 11/23/18 SP TYPE: SURG OTHR DR: Elda Rios DO ORDERED: SURG PATH LVL 08/17 COPIES TO: Sebastian Betancourt MD [address] [place] [address] Elda Rios DO [address] [facility] [address] [place] [address] [id number]: TISSUE ID BLK PCS SANDRA LEV PROCEDURE DISPOSITION ____ ___ ___ ___ COLON, NOS A 1 2 COLON, NOS B 1 2 PROCEDURES: SURG PATH LVL 4 (11/23/18) TISSUES: A. COLON, NOS - RIGHT SIDE B. COLON, NOS - LEFT SIDE CLINICAL HISTORY DIARRHEA-R19.7;ABD PAIN- R10.9;RECTAL PAIN-K62.89 CPT CODES CPT CODE(S): 39399U8 , , , , , , FINAL DIAGNOSIS A. Colon, right, biopsy: COLONIC MUCOSA WITH NO SIGNIFICANT HISTOPATHOLOGIC FINDINGSB. Colon, left, biopsy: FOCAL ACTIVE COLITIS NO EVIDENCE OF DYSPLASIA OR MALIGNANCY CONTINUED ON NEXT PAGE RUN DATE: 11/24/18 [facility] - LAB *LIVE* PAGE 2 RUN TIME: 1224 Specimen Inquiry RUN USER: INTERFACE --------- ---SPEC #: [id number] PATIENT: DAMI MOODY #[id number] (Continued) GROSS DESCRIPTION A. Right side. Received in formalin are three olmos tissue fragments, 0.2 - 0.7 cm. B. Left side. Received in formalin are eight olmos tissue fragments, 0.2 - 0.5 cm, all as B. /ba/pdb Grossing performed at [facility] Pathology, [address] [place] [address], [address], [place] [address]. Research Archaeologist: Patricio Granados M.D. MICROSCOPIC DESCRIPTION A. Right [...] 11/24/18 1224 END OF REPORT HCG SERUM [id number] 11:36:00 Test Item Value Reference Range Interpretation Comments HCG SERUM QUAL (test SERUM NEGATIVE SCREEN NEGATIVE code = HCGQL) GLUCOSE BEDSIDE [id number] 11:30:00 Test Item Value Reference Range Interpretation Comments GLUCOSE BEDSIDE TESTING (test code 122 mg/dL 70-110 H = GLUBED)
--- OUTSIDE RECORDS SUMMARY | 2020-06-03 12:48 | XMS REPORT ---
:1965 Author Organization [facility] Address [address] [place], [address] [place] [address] Care Team Providers Name Role Phone Rios Unavailable [phone] PROBLEMS Type Condition ICD9-CM [id number] Onset Condition SNOMED Code Notes Code Code Dates Status Problem Anxiety F41.9 Active 88891105 Problem Fatty liver K76.0 Active 431141115 Problem Allergic rhinitis J30.9 Active 36892027 Problem Diabetes E11.9 Active 156898689 Problem Sinus problem J34.9 Active Problem Swelling R60.9 Active 603942871 Problem Reflux K21.9 Active 141041386 Problem Seasonal allergies J30.2 Active 414639635 Problem Uncontrolled type E11.65 Active 308757722 2 diabetes mellitus with hyperglycemia Problem Hyperlipidemia, E78.5 Active 71331952 unspecified hyperlipidemia type Problem Gallstones K80.20 Active 809651924 Problem Gastro-esophageal K21.9 Active 624756649 reflux disease without esophagitis Problem Other chronic pain G89.29 Active 81969615 Problem 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 007051842 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 Problem Type 2 diabetes E11.40 Active 52981916 mellitus with diabetic neuropathy, without long-term current use of insulin Problem Simple chronic J41.0 Active 09522676 bronchitis Problem Enlargement of I51.7 Active 1134239 cardiac chamber on chest x-ray ALLERGIES No Known Allergies ENCOUNTERS from 1965 to 2020-06-01 Encounter Location Date Provider Diagnosis [facility] [address] [place] [address] 13 May, 2020 [place] [address] IMMUNIZATIONS Vaccine Route Administration Date Status Bryantalog (Triamcinolone) IM Intramuscular Feb 02, 2019 Adminis tered SOCIAL HISTORY Tobacco Use: Social History Observation Description Date Details (start date - stop date) Former Smoker Sex Assigned At : Social History Observation Description Sex Assigned At Unknown PHQ9 Question Answer Notes Little interest or pleasure in doing things Not at all Feeling down, depressed, or hopeless Several days Trouble falling or staying asleep or sleeping too much Nearl y every day Feeling tired or having little energy Several days Poor appetite or overeating Not at all Feeling bad about yourself, or that you are a failure, or murillo ve Not at all let yourself or your family down Trouble concentrating on things, such as reading the newspap er Not at all or watching television Moving or speaking so slowly that other people could have No t at all noticed; or the opposite, being so fidgety or restless that you have been moving around a lot more than usual Total Score 5 Interpretation Mild Depression Thoughts that you would be better off or of hurting Not at all yourself in some way Alcohol Screen Question Answer Notes Did you have a drink containing alcohol in the past year? No Points 0 Interpretation Negative Tobacco Use/Smoking Question Answer Notes Are you a former smoker Additional Findings: Tobacco Non-User Current non-smoker REASON FOR REFERRAL No Information VITAL SIGNS No information MEDICATIONS Medication SIG (Take, Route, Notes Start Date End Date Status Frequency, Duration) PredniSONE 10 MG 2 tablets dailyx 5 May, 18 May, 2 021 Active days then 1 tablet daily x 5 days with food /milk Orally Once a day for 5 days Atorvastatin Calcium 1 tablet Orally Once Active 10 MG a day for 90 Benzonatate 200 MG 1 capsule as needed May,May Active for cough Orally Three times a day for 10 day(s) Vitamin D-3 Active Folic Acid 1 MG 2-3 tablets as Activ e needed for mouth sores Orally Once a day for 30 days Tizanidine HCl 4 MG 1 tablet as needed Active Orally Three times a day Mesalamine 1.2 GM 2 tablets Orally A ctive Once a day for 30 day(s) Xeljanz 10 MG 1 tablet Orally once A ctive a day Zofran 4 MG as needed for nausea September, A ctive Orally Twice a day for 7 days Albuterol Sulfate HFA 2 puffs Inhalation Jul, Active 108 (90 Base) MCG/ACT every 6 hours prn sob for 30 days Albuterol Sulfate HFA 2 puffs Inhalation May, Active 108 (90 Base) MCG/ACT every 6 hours prn sob for 30 days Metformin HCl 1000 MG 1 tablet with a meal Active Orally Once a day for 90 Atorvastatin Calcium 1 tablet Orally Once Active 10 MG a day for 90 days Azithromycin 250 MG 2 tablets on the May, May, Active first day, then 1 tablet daily for 4 days Orally Once a day for 5 day(s) Prevalite 4 GM 1 packet Orally Activ e Twice a day for 30 day(s) Lisinopril 2.5 MG 1 tablet Orally Once Active a day for 90 Singulair 10 MG 1 tablet Orally Once Active a day for 90 days Omeprazole 40 MG Take 1 capsule by A ctive mouth once daily for 90 Montelukast Sodium 10 Take 1 tablet by Active MG mouth once daily for 90 days for 90 Gabapentin 600 MG 1 tablet Orally Ac tive Three times a day for 90 days Vitamin C Active Amoxicillin-Pot 1 tablet Orally Not- Taking Clavulanate 875-125 MG every 12 hrs for 10 day(s) PROCEDURES No Information RESULTS No Results REASON FOR VISIT covid - POSITIVE MEDICAL (GENERAL) HISTORY Type Description Date Medical History Allergic rhinitis Medical History Gallstones Medical History Reflux Medical History Swelling Medical History Anxiety Medical History Diabetes Medical History Sinus problem Medical History RA Medical History neuropathy Surgical History 3 lt knee [id number] Surgical History - 1986,1989, 1990 Surgical History gallbladder removed 2013 Goals Section No Information Health Concerns No Information MEDICAL EQUIPMENT No Information MENTAL STATUS No Information FUNCTIONAL STATUS No Information ASSESSMENTS No Information PLAN OF TREATMENT Medication Medication Name Sig Start Date Stop Date Azithromycin 250 MG 2 tablets on the first day, May, May, then 1 tablet daily for 4 days Orally Once a day for 5 day(s) Albuterol Sulfate HFA 108 (90 2 puffs Inhalation every 6 May, Base) MCG/ACT hours prn sob for 30 days Benzonatate 200 MG 1 capsule as needed for May, 23 Ja n, 2020 cough Orally Three times a day for 10 day(s) PredniSONE 10 MG 2 tablets dailyx 5 days then May, May, 1 tablet daily x 5 days with food /milk Orally Once a day for 5 days Insurance Providers Payer Name Payer Payer Insured Patient Coverage Coverage End Address Phone Name Relationship to Start Date Duane e Insured Ambetter from [phone] Arely Thomas self 2018 [place] [id number] [facility] [id number]
[2020-06-03] MEDS ORDERED: NA CHLORIDE 0.9% 500 ML ONE ×2 (13:35→14:51)
[2020-06-03] MEDS ORDERED: METHYLPREDNISOLONE 125 MG INJ ONE (13:35)
[2020-06-03 13:51] LABS: Absolute Lymphocytes (CBC) 0.4 K/uL (0.7-4.9); Basophils % 0.2 % (0-1.3); Hematocrit 40.3 % (36.0-45.0); Lymphocytes % 5.2 % (15.3-44.8); MPV 7.9 fL (7.6-11.3); RBC Red Blood Cell Count 4.71 M/uL (3.86-4.86)
[2020-06-03 14:04] LABS: Albumin 3.9 g/dL (3.4-5.0); Bilirubin Total 0.4 mg/dL (0.2-1.0); Potassium 3.7 mmol/L (3.5-5.1)
[2020-06-03 14:18] LABS: White Blood Cell Scan OK (OK)
[2020-06-03 14:19] LABS: Blood Morphology Comment NOT SEEN (NOT SEEN); Platelet Estimate ADEQ
--- NOTE | 2020-06-03 14:47 | EDPHYS ---
Physician Documentation [facility] Name: uSlema Thomas Age: 55 yrs Sex: Female : 1965 Arrival Date: 06/03/2020 Time: 12:46 Bed 14 Private MD: ED Physician Pinky Medina HPI: 06/03 13:15 This 55 yrs old Female presents to ER via EMS with complaints of Shortness Of ma2 Breath. 13:15 The patient has shortness of breath with light activity. Onset: The symptoms/episode ma2 began/occurred gradually, 1 week(s) ago. Associated signs and symptoms: Pertinent negatives: non-productive cough, diaphoresis, fever, hemoptysis, loss of consciousness. Severity of symptoms: At their worst the symptoms were moderate in the emergency department the symptoms are unchanged. The patient has not experienced similar symptoms in the past. has covid. Historical: - Allergies: 12:55 No Known Allergies; vg1 - Home Meds: 12:55 atorvastatin 10 mg Oral tab 1 tab once daily [Active]; ciprofloxacin Oral [Active]; vg1 Folic Acid Oral [Active]; gabapentin Oral [Active]; glipizide 5 mg Oral tab 1 tab once daily [Active]; lisinopril 2.5 mg Oral tab 1 tab once daily [Active]; melatonin 10 mg Oral tab [Active]; mesalamine Oral [Active]; metformin 1,000 mg Oral tab 1 tab daily [Active]; pantoprazole Oral [Active]; Prevalite Oral [Active]; - PMHx: 12:55 Colitis; Diabetes - NIDDM; Rheumatoid Arthritis; Ulcers; vg1 - Immunization history:: Adult Immunizations up to date, Flu vaccine is up to date. - Social history:: Smoking status: unknown. - Family history:: not pertinent. ROS: 13:15 Constitutional: Negative for fever, chills, and weight loss. ma2 13:15 All other systems are negative. Exam: 13:15 Constitutional: This is a well developed, well nourished patient who is awake, alert, ma2 and in no acute distress. Head/Face: Normocephalic, atraumatic. Eyes: Pupils equal round and reactive to light, extra-ocular motions intact. Lids and lashes normal. Conjunctiva and sclera are non-icteric and not injected. Cornea within normal limits. Periorbital areas with no swelling, redness, or edema. ENT: Nares patent. No nasal discharge, no septal abnormalities noted. Tympanic membranes are normal and external auditory canals are clear. Oropharynx with no redness, swelling, or masses, exudates, or evidence of obstruction, uvula midline. Mucous membranes moist. Neck: Trachea midline, no thyromegaly or masses palpated, and no cervical lymphadenopathy. Supple, full range of motion without nuchal rigidity, or vertebral point tenderness. No Meningismus. Chest/axilla: Normal chest wall appearance and motion. Nontender with no deformity. No lesions are appreciated. Cardiovascular: Regular rate and rhythm with a normal S1 and S2. No gallops, murmurs, or rubs. Normal PMI, no JVD. No pulse deficits. Respiratory: Lungs have equal breath sounds bilaterally, clear to auscultation and percussion. No rales, rhonchi or wheezes noted. No increased work of breathing, no retractions or nasal flaring. Abdomen/GI: Soft, non-tender, with normal bowel sounds. No distension or tympany. No guarding or rebound. No evidence of tenderness throughout. Skin: Warm, dry with normal turgor. Normal color with no rashes, no lesions, and no evidence of cellulitis. MS/ Extremity: Pulses equal, no cyanosis. Neurovascular intact. Full, normal range of motion. Neuro: Awake and alert, GCS 15, oriented to person, place, time, and situation. Cranial nerves II-XII grossly intact. Motor strength 5/5 in all extremities. Sensory grossly intact. Cerebellar exam normal. Normal gait. Vital Signs: 12:50 BP 120 / 83; Pulse 105; Resp 20; Temp 98.5; Pulse Ox 98% on 2 lpm NC; Weight 94.8 kg; vg1 Height 5 ft. 5 in. (165.10 cm); Pain 5/10; 13:35 BP 111 / 69; Pulse 96; Resp 20; Pulse Ox 100% on 2 lpm NC; vg1 14:04 BP 102 / 66; Pulse 87; Resp 18; Pulse Ox 99% on 2 lpm NC; vg1 15:00 BP 99 / 67; Pulse 80; Resp 18; Pulse Ox 95% on R/A; vg1 12:50 Body Mass Index 34.78 (94.80 kg, 165.10 cm) vg1 MDM: 12:49 Patient medically screened. ma2 14:44 Differential diagnosis: Bronchitis pneumonia, Psychogenic reactive airway disease. Data ma2 reviewed: vital signs, nurses notes. Counseling: I had a detailed discussion with the patient and/or guardian regarding: the historical points, exam findings, and any diagnostic results supporting the discharge/admit diagnosis, the presence of at least one elevated blood pressure reading (>120/80) during this emergency department visit, the need for outpatient follow up. 06/03 13:15 Order name: CBC with Diff; Complete Time: 14:38 [facility] 06/03 13:15 Order name: CMP; Complete Time: 14:38 [facility] 06/03 13:15 Order name: Chest Single View XRAY [facility] 06/03 13:52 Order name: CBC Smear Scan; Complete Time: 14:38 EDMS Administered Medications: 13:34 Drug: NS 0.9% 500 ml Route: IV; Rate: 1 bolus; Site: right antecubital; vg1 14:34 Follow up: IV Status: Completed infusion; IV Intake: 500ml vg1 13:35 Drug: MethylPrednisoLONE 125 mg Route: IVP; Site: right antecubital; vg1 14:34 Follow up: Response: No adverse reaction vg1 14:39 Drug: NS 0.9% 500 ml Route: IV; Rate: bolus; Site: right antecubital; vg1 15:53 Follow up: IV Status: Completed infusion; IV Intake: 500ml vg1 Disposition: 06/03/20 14:46 Discharged to Home. Impression: Coronavirus infection, unspecified. - Condition is Stable. - Discharge Instructions: COVID-19. - Prescriptions for Medrol (Alexandre) 4 mg Oral Tablets, Dose Pack - take 1 tablet by ORAL route as directed - follow package instructions; 1 packet. - Medication Reconciliation Form, Thank You Letter, Antibiotic Education, Prescription Opioid Use form. - Follow up: Private Physician; When: Tomorrow; Reason: Continuance of care. Signatures: Dispatcher [employer] EDMS Pinky Medina MD MD ma2 Michelle Renae RN RN vg1 Corrections: (The following items were deleted from the chart) 15:53 14:46 06/03/2020 14:46 Discharged to Home. Impression: Coronavirus infection, vg1 unspecified. Condition is Stable. Prescriptions for Medrol (Alexandre) 4 mg Oral Tablets, Dose Pack - take 1 tablet by ORAL route as directed - follow package instructions; 1 packet. and Forms are Medication Reconciliation Form, Thank You Letter, Antibiotic Education, Prescription Opioid Use. Follow up: Private Physician; When: Tomorrow; Reason: Continuance of care. ma2
--- NOTE | 2020-06-03 14:47 | ER ---
Nurse's Notes [facility] Name: Sulema Thomas Age: 55 yrs Sex: Female : 1965 Arrival Date: 06/03/2020 Time: 12:46 Bed 14 Private MD: Diagnosis: Coronavirus infection, unspecified Presentation: 06/03 12:50 Chief complaint: EMS states: Patient was tested for Covid on . Stated patient vg1 has a cough with SOB and feels congested and feels dizzy. Coronavirus screen: Client reports previous positive COVID test result. Date of collection: May 31, 2020. Ebola Screen: Patient negative for fever greater than or equal to 101.5 degrees Fahrenheit, and additional compatible Ebola Virus Disease symptoms. Initial Sepsis Screen: Does the patient meet any 2 criteria? No. Patient's initial sepsis screen is negative. Does the patient have a suspected source of infection? No. Patient's initial sepsis screen is negative. Risk Assessment: Do you want to hurt yourself or someone else? Patient reports no desire to harm self or others. Onset of symptoms was May 31, 2020. 12:50 Method Of Arrival: EMS: [facility] vg1 12:50 Acuity: KEEGAN 3 vg1 Triage Assessment: 12:58 Respiratory: the patient has moderate shortness of breath. vg1 Historical: - Allergies: 12:55 No Known Allergies; vg1 - Home Meds: 12:55 atorvastatin 10 mg Oral tab 1 tab once daily [Active]; ciprofloxacin Oral [Active]; vg1 Folic Acid Oral [Active]; gabapentin Oral [Active]; glipizide 5 mg Oral tab 1 tab once daily [Active]; lisinopril 2.5 mg Oral tab 1 tab once daily [Active]; melatonin 10 mg Oral tab [Active]; mesalamine Oral [Active]; metformin 1,000 mg Oral tab 1 tab daily [Active]; pantoprazole Oral [Active]; Prevalite Oral [Active]; - PMHx: 12:55 Colitis; Diabetes - NIDDM; Rheumatoid Arthritis; Ulcers; vg1 - Immunization history:: Adult Immunizations up to date, Flu vaccine is up to date. - Social history:: Smoking status: unknown. - Family history:: not pertinent. Screenin:58 Abuse screen: Denies threats or abuse. Nutritional screening: No deficits noted. vg1 Tuberculosis screening: No symptoms or risk factors identified. Fall Risk None identified. Assessment: 12:45 General: Appears in no apparent distress. comfortable, Behavior is calm, cooperative. vg1 Pain: Complains of pain in back and chest Quality of pain is described as Patient states chest and back feel sore. States when coughing cant catch breath. Neuro: Level of Consciousness is awake, alert, obeys commands, Oriented to person, place, time, situation. Cardiovascular: Patient's skin is warm and dry. Respiratory: Airway is patent Respiratory effort is even, unlabored, Respiratory pattern is regular, symmetrical, Breath sounds are clear bilaterally. Respiratory: Reports shortness of breath after coughing. cough that is productive. GI: Reports diarrhea. : No signs and/or symptoms were reported regarding the genitourinary system. EENT: No signs and/or symptoms were reported regarding the EENT system. Derm: Skin is pink, warm \T\ dry. Musculoskeletal: Circulation, motion, and sensation intact. 13:30 Reassessment: Patient states is feeling light head. Provider notified. vg1 13:45 Reassessment: Received VO from Dr Medina to administer 500 mL of 0.9% NS bolus x1. vg1 14:45 Reassessment: Patient appears in no apparent distress at this time. Patient and/or vg1 family updated on plan of care and expected duration. Pain level reassessed. Patient is alert, oriented x 3, equal unlabored respirations, skin warm/dry/pink. Vital Signs: 12:50 BP 120 / 83; Pulse 105; Resp 20; Temp 98.5; Pulse Ox 98% on 2 lpm NC; Weight 94.8 kg; vg1 Height 5 ft. 5 in. (165.10 cm); Pain 5/10; 13:35 BP 111 / 69; Pulse 96; Resp 20; Pulse Ox 100% on 2 lpm NC; vg1 14:04 BP 102 / 66; Pulse 87; Resp 18; Pulse Ox 99% on 2 lpm NC; vg1 15:00 BP 99 / 67; Pulse 80; Resp 18; Pulse Ox 95% on R/A; vg1 12:50 Body Mass Index 34.78 (94.80 kg, 165.10 cm) vg1 ED Course: 12:46 Patient arrived in ED. ds1 12:49 Pinky Medina MD is Attending Physician. ma2 12:49 Michelle Renae, RN is Primary Nurse. vg1 12:53 Triage completed. vg1 12:58 Patient has correct armband on for positive identification. Bed in low position. Call vg1 light in reach. Side rails up X2. publishing manager on. Pulse ox on. NIBP on. 13:35 Initial lab(s) drawn, by me, sent to lab. Inserted saline lock: 20 gauge in right vg1 antecubital area, using aseptic technique. Blood collected. 13:41 Chest Single View XRAY In Process Unspecified. EDMS 15:42 No provider procedures requiring assistance completed. IV discontinued, intact, vg1 bleeding controlled, No redness/swelling at site. Pressure dressing applied. Administered Medications: 13:34 Drug: NS 0.9% 500 ml Route: IV; Rate: 1 bolus; Site: right antecubital; vg1 14:34 Follow up: IV Status: Completed infusion; IV Intake: 500ml vg1 13:35 Drug: MethylPrednisoLONE 125 mg Route: IVP; Site: right antecubital; vg1 14:34 Follow up: Response: No adverse reaction vg1 14:39 Drug: NS 0.9% 500 ml Route: IV; Rate: bolus; Site: right antecubital; vg1 15:53 Follow up: IV Status: Completed infusion; IV Intake: 500ml vg1 Intake: 14:34 IV: 500ml; Total: 500ml. vg1 15:53 IV: 500ml; Total: 1000ml. vg1 Outcome: 14:46 Discharge ordered by . ma2 15:42 Discharged to home ambulatory. vg1 15:42 Condition: stable 15:42 Discharge instructions given to patient, Instructed on discharge instructions, follow up and referral plans. medication usage, Demonstrated understanding of instructions, follow-up care, medications, Prescriptions given X 1. 15:53 Patient left the ED. vg1 Signatures: Dispatcher [employer] [facility] Amada Parisi ds1 Pinky Medina MD MD ma2 Michelle Renae, RN RN vg1
--- NOTE | 2020-06-03 15:23 | RAD REPORT ---
EXAM DESCRIPTION: RAD - Chest Single View - 06/03/2020 1:41 pm CLINICAL HISTORY: CONGESTION, cough, positive COVID test COMPARISON: Portable June 01 TECHNIQUE: AP portable chest image was obtained 06/03/2020 1:41 pm . FINDINGS: Lung volumes are very low which accentuates the interstitial pattern. This could mask mild edema or infiltrate. No focal mass or consolidation. No definitive evidence for COVID-[address] imaging can more sensitively assess airspace disease if clinically warranted. Trachea is midline. Heart and vasculature are normal. No measurable pleural effusion and no pneumotho rax. No acute bony abnormality seen. No acute aortic findings suspected. IMPRESSION: Limited shallow inspiration exam with accentuated interstitial pattern. This interstitial pattern is mostly shallow inspiration artifact but mild edema or infiltrate could b e masked.
[2020-06-03 16:00] VITALS: TEMP 98.5
[2020-06-03 16:04] VITALS: BP 99/67; O2SAT 95
== END 2020-06-03 15:53 | disposition home or self-care (01) ==
LOC: ER 12:45
DX: U07.1 COVID-19 (principal); E11.9 Type 2 diabetes mellitus without complications
CPT/HCPCS: 85025; 36415; 80053; 71045; J7040 ×2; J2930; 96361; 96374; 99285

== ENCOUNTER 2020-06-08 12:11 | Inpatient (IN) | payer OTHER ==
--- OUTSIDE RECORDS SUMMARY | 2020-06-08 12:13 | XMS REPORT | Continuity of Care Document ---
:1965 Author Organization [employer] Care Team Providers Name Role Phone [employer] Unavailable Un available Problems Problem Status Onset [...] Spine cervical wo PROCEDURE INFORMATION: 02/03/2020 [facility] [place] contrast MRI Exam: MR Cervical Spine Without [...] Ulises Campo MD On 02/03/2020 08:30:01; VR-B [id number] Consultation Notes No Data Provided for This Section Discharge Summaries No Data Provided for This Section History and Physicals No Data Provided for This Section Vital Signs No Data Provided for This Section Encounters Location Location Encounter Encounter Reason Attending ADM HI Stat Source Details Type Number For Provider Date Date Visit [facility] Outpt Diag [id number] Roberto 02/02 02/03 [facility] [facility]2019 [facility] Ifeanyi [place] Procedures No Data Provided for This Section [...]
--- OUTSIDE RECORDS SUMMARY | 2020-06-08 12:13 | XMS REPORT | Continuity of Care Document ---
:1965 Author Organization [facility] t Address [address] [place] [address] Care Team Providers Name Role Phone MEGHANA EKITH Attending Clinician Unavailable Meghana Keith Attending Clinician [...] Problem Resolve Univers Arthritis Arthritis d ity [facility] Physici ans History of History of Problem Resolve Univers Back pain Back pain d ity [facility] Physici ans History of History of Problem Resolve Univers Diabetes Diabetes d ity [place] Physici ans History of History of Problem Resolve Univers Gallbladde Gallbladde d it y of [place] disease r disease [place] [facility] History of History of Problem Resolve Univers Hernia Hernia d [facility] [place] Physici ans History of History of Problem Resolve Univers Osteoporos Osteoporos d it y of is is [place] Physici ans History of History of Problem Resolve Univers Pneumonia Pneumonia d ity of [place] Physici ans Cervical Cervical Problem Active Unive [...] 11-19 [place] s 00:00: d 00 Medical [place] Social History Smoking Status Start Date Stop Date Source Never smoked tobacco (finding) [facility] Medications Ordered Filled Start Stop [...] Yes Shara as needed [facility] [place] for nausea [facility] - [facility]: [facility] 00 l [facility] ent Clinics methylPREDN methylPREDN Yes ROB TAKE Univers ISolone 4 ISolone 4 5-04 LI-HOLLY DIRECTED ity of MG Oral MG Oral 00:00: INNA M.D. ON PATIENT [place] Tablet Tablet 00 INSTRUCTIO Physi ci Therapy Therapy N CARD.; ans Pack Pack Qty: 1 X 21 Tablet Disp Pack Albuterol Albuterol Yes Shara [address] [facility] [address] Sulfate HFA Sulfate HFA 3-18 [place] [facility] - 00:[facility]: [facility] Methocarbam Methocarbam Yes ROB Q0.3333D TAKE 1 Univers ol 500 MG ol 500 MG 2-06 LI-HOLLY TABLET 3 ity of Oral Tablet Oral Tablet 00:00: INNA M.D. TIMES [place] 00 DAILY. Physici ans Prevalite 4 Prevalite 4 Yes U nivers GM Oral GM Oral ity of Packet Packet [place] Physici ans Mesalamine Mesalamine Yes Uni vers 1.2 GM Oral 1.2 GM Oral i ty of Tablet Tablet [place] Delayed Delayed Physici Release Release ans metFORMIN [...] Tab ity of (OR) - (OR) - [place] [id number]_Deact [id number]_Deact P hysici ivated ivated ans Lisinopril Lisinopril Yes Uni vers TABS TABS ity of [place] Physici ans Ibuprofen Ibuprofen Yes Unive rs 800 MG Oral 800 MG Oral i ty of Tablet Tablet [place] Physici ans Folic Acid Folic Acid Yes Uni vers 1 MG Oral 1 MG Oral ity o f Tablet Tablet [place] Physici ans tiZANidine tiZANidine Yes Uni vers HCl - 4 MG HCl - 4 MG ity of Oral Tablet Oral Tablet [place] Physici ans Xeljanz XR Xeljanz XR Yes Uni vers 11 MG Oral 11 MG Oral ity of Tablet Tablet [place] Extended Extended Physici Release 24 Release 24 ans Hour Hour Melatonin Melatonin Yes Unive rs 10 MG Oral 10 MG Oral ity of Tablet Tablet [place] Disintegrat Disintegrat P hysici ing ing ans Vitamin C Vitamin C Yes Unive rs TABS TABS ity of [place] Physici ans Vitamin D3 Vitamin D3 Yes Uni vers TABS TABS ity of [place] Physici ans Folic Acid Folic Acid Yes Shara 2-[address] [place] tablets as [facility] - needed for Memoria mouth l sores Outpati ent Clinics Vitamin C Vitamin C Yes Shara not [facility] [place] defined [facility] Vitamin D-3 Vitamin D-3 Yes Shara not [facility] [place] defined [facility] Atorvastati Atorvastati Yes Shara [address] [facility] n Calcium n Calcium [place] Luke [facility] - [facility] Gabapentin Gabapentin Yes Shara [address] [facility] [place] [facility]ics Tizanidine Tizanidine Yes Shara [address] [facility] [address] HCl HCl [place] as needed [facility] Prevalite Prevalite Yes Shara [address] [facility] [place] [facility] Lisinopril Lisinopril Yes Shara [address] [facility] [place] [facility] Singulair Singulair Yes Shara [address] [facility] [place] [facility] Amoxicillin Amoxicillin Yes Shara [address] [facility] [address] -Pot -Pot [place] [facility] - Clavulanate Clavulanate M emoria l [facility] ent Clinics Atorvastati Atorvastati Yes Shara [address] [facility] n Calcium n Calcium [place] Luke s - Memoria l [facility] ent Clinics Xeljanz Xeljanz Yes Shara [address] [facility] [place] [facility] Metformin Metformin Yes Shara TAKE [address] HCl HCl [place] TABLET BY [facility] - MOUTH ONCE Memoria DAILY WITH l A MEAL [facility] Metformin Metformin Yes Shara [address] HCl HCl [place] with a [facility] - meal Memoria l [facility] ent Clinics Lisinopril Lisinopril Yes Shara TAKE [address] [facility] [place] TABLET BY [facility] - MOUTH ONCE Memoria DAILY l [facility] Mesalamine Mesalamine Yes Shara [address] [facility] [address] [place] [facility] Clin[facility] Procedures Procedure Date / Time Performing Clinician Source Performed MRI Spine cervical wo 2020-01-19 00:00:00 [facility] contrast 50145 Physicians MRI Spine cervical wo 2019-11-01 00:00:00 [facility] contrast 29526 Physicians MRI Spine cervical wo 2019-07-20 00:00:00 [facility] contrast 52030 Physicians History of [facility] [place] [facility] Physicians History of Cholecystectomy [facility] Physicians History of Knee Surgery [facility] Physicians Encounters Start End Encounter Admission Attending Care Care Encounter Source Date/Time Date/Time Type Type Clinicians Facility Department ID 2020-06-06 2020-06-06 Outpatient [facility] [id number] [facility] 2020-06-04 2020-06-04 Outpatient [facility] [id number] [facility] 2020-06-01 2020-06-01 Outpatient [facility] [id number] [facility] 2020-05-30 2020-05-30 Outpatient [facility] [id number] [facility] 2020-05-30 2020-05-30 Outpatient [facility] [id number] [facility] 2020-05-07 2020-05-07 Outpatient [facility] [id number] [facility] 2020-05-07 2020-05-07 Outpatient [facility] [id number] [facility] 2020-02-06 2020-02-06 Appointcarina BRASHER [facility] Orthopedics [id number] Univers 12:30:00 12:30:00 t; MEGHANA KEITH, - [facility] Raffaele Jane M.D. ans 2020-02-03 2020-02-03 Outpatient Meghana MHOIP MHOIP [id number] 07:18:00 23:59:00 Reza Keith 2019-11-25 2019-11-25 [facility] [id number] 14:00:00 14:00:[address] [place] [facility] Medicine Outpati ent Clinics 2019-11-25 2019-11-25 [facility] [id number] 09:28:00 09:28:[address] Luke s - Drive [facility] Medicine Outpati ent Clinics 2019-11-03 2019-11-03 [facility] [id number] 12:02:00 12:02:[address] Luke s - Drive [facility] Outpati ent Clinics 2019-11-01 2019-11-01 Appointmen MEGHANA OSEGUERA UTP [id number] [facility] 13:00:00 13:00:00 t; MEGHANA KEITH [place] Raffaele RIVAS Physici M.DChinyere ans 2019-09-26 2019-09-26 [facility] [id number] 16:49:00 16:49:00 t W[address] [employer] s - Drive [facility] Outpati ent Clinics 2019-09-26 2019-09-26 [facility] [id number] 11:20:00 11:20:00 t [place] [employer] [employer] s - Drive [facility] Outpati ent Clinics 2019-09-26 2019-09-26 [facility] [id number] 09:52:00 09:52:[address] Luke s - Drive [facility] Medicine Outpati ent Clinics 2019-09-21 2019-09-21 [facility] [id number] 10:20:00 10:20:00 t [place] [employer] s - Drive [facility] Medicine Outpati ent Clinics 2019-09-19 2019-09-19 Appointmen MEGHANA OSEGUERA Orthopedics [id number] [facility] 12:00:00 12:00:00 t; MEGHANA KEITH, [facility] Raffaele RIVAS Physici M.DChinyere ans 2019-09-09 2019-09-09 Outpatient [facility] [id number] [place] 04:25:00 07:00:00 [facility] 2019-08-11 2019-08-11 [facility] [id number] 11:58:00 11:58:00 t [place] [employer] s - Drive [facility] Outpati ent Clinics 2019-08-02 2019-08-02 [facility] [id number] 10:31:00 10:31:00 t Sleep.FM [facility] ent Clinics 2019-07-20 2019-07-20 Appointmen MEGHANA OSEGUERA Orthopedics [id number] Univers 09:00:00 09:00:00 t; MEGHANA KEITH, - [facility] Jodie RIVAS M.D. Physicmaegan Castorena ans 2019-07-18 2019-07-18 [facility] [id number] 09:20:00 09:20:00 t Sleep.FM [facility] ent [facility] 2019-06-23 2019-06-23 Appointmen MEGHANA OSEGUERA Orthopedics [id number] Univers 12:30:00 12:30:00 t; MEGHANA KEITH, - [facility] Raffaele Jane M.D. ans 2019-05-04 2019-05-04 [facility] [id number] 09:40:00 09:40:[address] [facility] ent Clinics 2019-03-11 2019-03-11 [facility] [id number] 08:49:00 08:49:00 t Bone [facility] and [facility] ent Clinics 2019-02-15 2019-02-15 [facility] [id number] 11:00:00 11:00:00 t Bone [facility] and [facility] ent Clinics 2019-02-02 2019-02-02 [facility] [id number] 09:00:00 09:00:00 t Sleep.FM [facility] ent Clinics 2019-01-14 2019-01-14 [facility] [id number] 16:16:00 16:16:00 t Sleep.FM [facility] Outpati ent Clinics 2019-01-05 2019-01-05 [facility] [id number] 09:20:00 09:20:00 t [employer] [facility] Outpati ent Clinics 2018-12-14 2018-12-14 [facility] [id number] 09:34:00 09:34:00 t [employer] [facility] Outpati ent Clinics 2018-11-17 2018-11-17 [facility] [id number] 11:14:00 11:14:00 t [employer] [facility] Outpati ent Clinics 2018-08-31 2018-08-31 [facility] [id number] 13:05:00 13:05:00 [employer] [facility] Outpati ent Clinics 2018-08-25 2018-08-25 [facility] [id number] 11:40:00 11:40:00 t [employer] [facility] Results Test Description Test Time Test Comments Results Result Comments Source GLUCOMETER GLUCOSE- LAB USE ONLY 2019-09-09 06:04:00 Test Item Value Reference Range Interpretation Comme nts GLUCOMETER (test code = GMG) 124 mg/dL 70-100 H Meter ID: [id number]: 5537 TONO JIMENEZ URINE MONOCLONALFB2019-09-09 05:18:00 Test Item Value Reference Range Interpretation Comments PREG UR (test code = PGU) NEGATIVE NEGATIVE GLUCOMETER GLUCOSE- LAB USE [id number] 04:48:00 Test Item Value Reference Range Interpretation Comments GLUCOMETER (test code = 119 mg/dL 70-100 H Mete r ID: GMG) [id number] tor: 5547 MICHAEL LA REDO [U] XRAY SHOULDER MIN 2 VWS LEFT [id number] 12:25:00Images acquired, not reported on this accession number.[facility][U] XRAY SPINE CERVICAL 2 OR 3 VWS [id number] 12:25:00Images acquired, not reported on this accession number.[facility] [id number] 12:24:00 RUN DATE: 11/24/18 [facility] [place] - LAB *LIVE* PAGE 1 RUN TIME: 1224 Specimen Inquiry RUN USER: INTERFACE PATIENT: DAMI MOODY LOC: ALLISONU U #: [id number] AGE/SX: 53/F ROOM: RE11/23/18[facility] DR: Sebastian Betancourt MD : 69 BED: DIS: STATUS: CAT [facility] TLOC: SPEC #: PMC:[id number] RECD: 11/23/18 STATUS: CHIRAG REEverardo #: [id number] EUGENIA: 11/23/[address]: Sebastian Betancourt MD ENTERED: 11/23/18 SP TYPE: SURG OTHR DR: Elda Rios DO ORDERED: SURG PATH LVL 4/2 COPIES TO: Sebastian Betancourt MD [address] [place] [address] Elda Rios DO [address] [place] [address] [id number]: TISSUE ID BLK PCS SANDRA LEV PROCEDURE DISPOSITION ____ ___ ___ ___ COLON, NOS A 1 2 COLON, NOS B 1 2 PROCEDURES: SURG PATH LVL 4 (11/23/18-1520) TISSUES: A. COLON, NOS - RIGHT SIDE B. COLON, NOS - LEFT SIDE CLINICAL HISTORY DIARRHEA-R19.7;ABD PAIN- R10.9;RECTAL PAIN-K62.89 CPT CODES CPT CODE(S): 74649T3 , , , , , , FINAL DIAGNOSIS A. Colon, right, biopsy: COLONIC MUCOSA WITH NO SIGNIFICANT HISTOPATHOLOGIC FINDINGSB. Colon, left, biopsy: FOCAL ACTIVE COLITIS NO EVIDENCE OF DYSPLASIA OR MALIGNANCY CONTINUED ON NEXT PAGE RUN DATE: 11/24/18 [facility] [place] - LAB *LIVE* PAGE 2 RUN TIME: 1224 Specimen Inquiry RUN USER: INTERFACE --------- ---SPEC #: [facility]:[id number] PATIENT: DAMI MOODY #[id number] (Continued) GROSS DESCRIPTION A. Right side. Received in formalin are three olmos tissue fragments, 0.2 - 0.7 cm. B. Left side. Received in formalin are eight olmos tissue fragments, 0.2 - 0.5 cm, all as B. /ba/pdb Grossing performed at [facility] Pathology, [address] [place] [address], [address], [place] [address]. Bumboater: Patricio Granados M.D. MICROSCOPIC DESCRIPTION A. Right [...] 11/24/18 1224 END OF REPORT HCG SERUM [id number] 11:36:00 Test Item Value Reference Range Interpretation Comments HCG SERUM QUAL (test SERUM NEGATIVE SCREEN NEGATIVE code = HCGQL) GLUCOSE BEDSIDE [id number] 11:30:00 Test Item Value Reference Range Interpretation Comments GLUCOSE BEDSIDE TESTING (test code 122 mg/dL 70-110 H = GLUBED)
--- OUTSIDE RECORDS SUMMARY | 2020-06-08 12:14 | XMS REPORT ---
:1965 Author Organization [facility] Address [address] [place], [facility] [address] [place] [address] Care Team Providers Name Role Phone Rios Unavailable [phone] PROBLEMS Type Condition ICD9-CM [id number] Onset Condition SNOMED Code Notes Code Code Dates Status Problem Anxiety F41.9 Active 26516969 Problem Fatty liver K76.0 Active 912972183 Problem Allergic rhinitis J30.9 Active 49350480 Problem Diabetes E11.9 Active 096476726 Problem Sinus problem J34.9 Active Problem Swelling R60.9 Active 951537224 Problem Reflux K21.9 Active 477457016 Problem Seasonal allergies J30.2 Active 753443292 Problem Uncontrolled type E11.65 Active 639512596 2 diabetes mellitus with hyperglycemia Problem Hyperlipidemia, E78.5 Active 80949603 unspecified hyperlipidemia type Problem Gallstones K80.20 Active 966422392 Problem Gastro-esophageal K21.9 Active 257249597 reflux disease without esophagitis Problem Other chronic pain G89.29 Active 36741950 Problem 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 788023339 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 Problem Type 2 diabetes E11.40 Active 37769341 mellitus with diabetic neuropathy, without long-term current use of insulin Problem Simple chronic J41.0 Active 36852270 bronchitis Problem Enlargement of I51.7 Active 0652965 cardiac chamber on chest x-ray ALLERGIES No Known Allergies ENCOUNTERS from 1965 to 2020-06-04 Encounter Location Date Provider Diagnosis [facility] [address] Family [address] Amaro [facility] [address], [place] [address] IMMUNIZATIONS Vaccine Route Administration Date Status Bryantalog [...] Information RESULTS No Results REASON FOR VISIT abd pain- covid pos MEDICAL (GENERAL) HISTORY Type Description Date Medical History Allergic rhinitis Medical History Gallstones Medical History Reflux Medical History Swelling Medical History Anxiety Medical History Diabetes Medical History Sinus problem Medical History RA Medical History neuropathy Surgical History 3 lt knee 2967-7298 Surgical History - 1986,1989, 1990 Surgical History [...] [phone] Arely Thomas self 2018 [place] [id number] [address] [facility] Health [facility] [address]
--- OUTSIDE RECORDS SUMMARY | 2020-06-08 12:14 | XMS REPORT ---
:1965 Author Organization [facility] Address [address] [place], [facility] [address] [place] [address] Care Team Providers Name Role Phone Rios Unavailable [phone] PROBLEMS Type Condition ICD9-CM [id number] Onset Condition SNOMED Code Notes Code Code Dates Status Problem Anxiety F41.9 Active 60278297 Problem Fatty liver K76.0 Active 132933317 Problem Allergic rhinitis J30.9 Active 10514641 Problem Diabetes E11.9 Active 681934263 Problem Sinus problem J34.9 Active Problem Swelling R60.9 Active 379843931 Problem Reflux K21.9 Active 966346494 Problem Seasonal allergies J30.2 Active 856010077 Problem Uncontrolled type E11.65 Active 906285678 2 diabetes mellitus with hyperglycemia Problem Hyperlipidemia, E78.5 Active 90326766 unspecified hyperlipidemia type Problem Gallstones K80.20 Active 183275377 Problem Gastro-esophageal K21.9 Active 682568077 reflux disease without esophagitis Problem Other chronic pain G89.29 Active 83128447 Problem 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 202326041 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 Problem Type 2 diabetes E11.40 Active 74464310 mellitus with diabetic neuropathy, without long-term current use of insulin Problem Simple chronic J41.0 Active 58027594 bronchitis Problem Enlargement of I51.7 Active 2558189 cardiac chamber on chest x-ray ALLERGIES No Known Allergies ENCOUNTERS from 1965 to 2020-06-06 Encounter Location Date Provider Diagnosis [facility] [address] Family [address] Amaro [facility] [address], [place] [address] IMMUNIZATIONS Vaccine Route Administration Date Status Peggy (Triamcinolone) IM Intramuscular Feb 02, 2019 Adminis [...] Start Date End Date Status Frequency, Duration) Montelukast Sodium 10 Take 1 tablet by Active MG mouth once daily for 90 days for 90 Prevalite 4 GM 1 packet Orally Activ e Twice a day for 30 day(s) Folic Acid 1 MG 2-3 tablets as Activ e needed for mouth sores Orally Once a day for 30 days Atorvastatin Calcium 1 tablet Orally Once Active 10 MG a day for 90 days Atorvastatin Calcium 1 tablet Orally Once Active 10 MG a day for 90 Vitamin D-3 Active Xeljanz 10 MG 1 tablet Orally once A ctive a day Vitamin C Active Lisinopril 2.5 MG 1 tablet Orally Once Active a day for 90 Amoxicillin-Pot 1 tablet Orally Not- Taking Clavulanate 875-125 MG every 12 hrs for 10 day(s) Albuterol Sulfate HFA 2 puffs Inhalation Jul, Active 108 (90 Base) MCG/ACT every 6 hours prn sob for 30 days Gabapentin 600 MG 1 tablet Orally Ac tive Three times a day for 90 days Metformin HCl 1000 MG 1 tablet with a meal Active Orally Once a day for 90 Albuterol Sulfate HFA 2 puffs Inhalation May, Active 108 (90 Base) MCG/ACT every 6 hours prn sob for 30 days Nystatin 618271 4 ml gargle in mouth May, May, Active UNIT/ML and swallow Mouth/Throat Four times a day for 10 day(s) Tizanidine HCl 4 MG 1 tablet as needed Active Orally Three times a day Singulair 10 MG 1 tablet Orally Once Active a day for 90 days Zofran 4 MG as needed for nausea September, A ctive Orally Twice a day for 7 days Benzonatate 200 MG 1 capsule as needed May,May Active for cough Orally Three times a day for 10 day(s) Omeprazole 40 MG Take 1 capsule by A ctive mouth once daily for 90 Mesalamine 1.2 GM 2 tablets Orally A ctive Once a day for 30 day(s) PROCEDURES No Information RESULTS No Results REASON FOR VISIT sore throat MEDICAL (GENERAL) HISTORY Type Description Date Medical History Allergic rhinitis Medical History Gallstones Medical History Reflux Medical History Swelling Medical History Anxiety Medical History Diabetes Medical History Sinus problem Medical History RA Medical History neuropathy Surgical History 3 lt knee 4145-6573 Surgical History - 1986,1989, 1990 Surgical History gallbladder removed 2013 Goals Section No Information Health Concerns No Information MEDICAL EQUIPMENT No Information MENTAL STATUS No Information FUNCTIONAL STATUS No Information ASSESSMENTS No Information PLAN OF TREATMENT Medication Medication Name Sig Start Date Stop Date Nystatin 820156 UNIT/ML 4 ml gargle in mouth and swallow May, May, Mouth/Throat Four times a day for 10 day(s) Insurance Providers Payer Name Payer Payer Insured Patient Coverage Coverage End Address Phone Name Relationship to Start Date Duane e Insured Ambetter from [address] [phone] Arely Thomas 2018 [place] [id number] [employer] [facility] [id number]
--- OUTSIDE RECORDS SUMMARY | 2020-06-08 12:14 | XMS REPORT ---
:1965 Author Organization [facility] Address [address] [place], [facility] [address] [place] [address] Care Team Providers Name Role Phone Rios Unavailable [phone] PROBLEMS Type Condition ICD9-CM [id number] Onset Condition SNOMED Code Notes Code Code Dates Status Problem Anxiety F41.9 Active 64139511 Problem Fatty liver K76.0 Active 829488738 Problem Allergic rhinitis J30.9 Active 51309107 Problem Diabetes E11.9 Active 485190136 Problem Sinus problem J34.9 Active Problem Swelling R60.9 Active 527652359 Problem Reflux K21.9 Active 599386533 Problem Seasonal allergies J30.2 Active 817673811 Problem Uncontrolled type E11.65 Active 186533287 2 diabetes mellitus with hyperglycemia Problem Hyperlipidemia, E78.5 Active 56157464 unspecified hyperlipidemia type Problem Gallstones K80.20 Active 602241973 Problem Gastro-esophageal K21.9 Active 064137439 reflux disease without esophagitis Problem Other chronic pain G89.29 Active 10811772 Problem 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 577549052 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 Problem Type 2 diabetes E11.40 Active 00329407 mellitus with diabetic neuropathy, without long-term current use of insulin Problem Simple chronic J41.0 Active 60547971 bronchitis Problem Enlargement of I51.7 Active 5130213 cardiac chamber on chest x-ray ALLERGIES No Known Allergies ENCOUNTERS from 1965 to 2020-06-04 Encounter Location Date Provider Diagnosis [facility] [address] Family [address] Amaro [facility] [address], [place] [address] IMMUNIZATIONS Vaccine Route Administration Date Status Bryantalog [...] Information RESULTS No Results REASON FOR VISIT cough MEDICAL (GENERAL) HISTORY Type Description Date Medical History Allergic rhinitis Medical History Gallstones Medical History Reflux Medical History Swelling Medical History Anxiety Medical History Diabetes Medical History Sinus problem Medical History RA Medical History neuropathy Surgical History 3 lt knee 1095-9268 Surgical History - 1986,1989, 1990 Surgical History gallbladder removed 2012 Goals Section No Information Health Concerns No [...] Start Date Duane e Insured Ambetter from [phone] Arely Thomas self 2018 [place] [id number] [facility] Health Plan [facility] [id number]
--- OUTSIDE RECORDS SUMMARY | 2020-06-08 12:14 | XMS REPORT ---
:1965 Author Organization [facility] Address [address] [place] [place] [address] Care Team Providers Name Role Phone Rios Unavailable [phone] PROBLEMS Type Condition ICD9-CM [id number] Onset Condition SNOMED Code Notes Code Code Dates Status Problem Anxiety F41.9 Active 06164589 Problem Fatty liver K76.0 Active 741824784 Problem Allergic rhinitis J30.9 Active 44308412 Problem Diabetes E11.9 Active 650552212 Problem Sinus problem J34.9 Active Problem Swelling R60.9 Active 873888071 Problem Reflux K21.9 Active 445049509 Problem Seasonal allergies J30.2 Active 921283876 Problem Uncontrolled type E11.65 Active 182043185 2 diabetes mellitus with hyperglycemia Problem Hyperlipidemia, E78.5 Active 75367029 unspecified hyperlipidemia type Problem Gallstones K80.20 Active 878596418 Problem Gastro-esophageal K21.9 Active 822569334 reflux disease without esophagitis Problem Other chronic pain G89.29 Active 80586684 Problem 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 792887599 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 Problem Type 2 diabetes E11.40 Active 39278788 mellitus with diabetic neuropathy, without long-term current use of insulin Problem Simple chronic J41.0 Active 10282910 bronchitis Problem Enlargement of I51.7 Active 9176921 cardiac chamber on chest x-ray ALLERGIES No Known Allergies ENCOUNTERS from 1965 to 2020-06-05 Encounter Location Date Provider Diagnosis [facility] [address] [place] [address] 13 May, 2020 Na Rios COVI D-19 U07.1 ; Fever, [facility] [address] [place], [place] unspecifie d fever cause [id number] R50.9 ; Body ac hes R52 ; Contact with and (suspected) exp osure to other viral communicable di seases Z20.828 ; Cough R05 and Bronchitis, not specified as ac estefani or chronic J40 IMMUNIZATIONS Vaccine Route Administration Date Status Kenalog (Triamcinolone) IM Intramuscular Feb 02, 2019 Adminis [...] Start Date End Date Status Frequency, Duration) Benzonatate 200 MG 1 capsule as needed May,May Active for cough Orally Three times a day for 10 day(s) Folic Acid 1 MG 2-3 tablets as Activ e needed for mouth sores Orally Once a day for 30 days Omeprazole 40 MG Take 1 capsule by A ctive mouth once daily for 90 Vitamin D-3 Active Mesalamine 1.2 GM 2 tablets Orally A ctive Once a day for 30 day(s) Tizanidine HCl 4 MG 1 tablet as needed Active Orally Three times a day Prevalite 4 GM 1 packet Orally Activ e Twice a day for 30 day(s) Xeljanz 10 [...] 10 MG a day for 90 days Amoxicillin-Pot 1 tablet Orally Not- Taking Clavulanate 875-125 MG every 12 hrs for 10 day(s) Lisinopril 2.5 MG 1 tablet Orally Once Active a day for 90 Singulair 10 MG 1 tablet Orally Once Active a day for 90 days Montelukast Sodium 10 Take 1 tablet by Active MG mouth once daily for 90 days for 90 Gabapentin 600 MG 1 tablet Orally Ac tive Three times a day for 90 days Vitamin C Active Atorvastatin Calcium 1 tablet Orally Once Active 10 MG a day for 90 PROCEDURES No Information RESULTS Component Value Reference Range Novel Coronavirus (COVID-19), SEBASTIEN Reviewed date:06/01/2020 10:50:19 Interpretation:Positive Performing Lab:, [facility], [address] [place] [id number], Phone - [phone], Director - [facility] SARS-CoV-2, SEBASTIEN Detected Not Detected REASON FOR VISIT covid test-having symptoms, NLV -covid exp/fever ba-st-fever MEDICAL (GENERAL) HISTORY Type Description Date Medical History Allergic rhinitis Medical History Gallstones Medical History Reflux Medical History Swelling Medical History Anxiety Medical History Diabetes Medical History Sinus problem Medical History RA Medical History neuropathy Surgical History 3 lt knee [id number] Surgical History - 1986,1989, 1990 Surgical History gallbladder removed 2012 Goals Section No Information Health Concerns No Information MEDICAL EQUIPMENT No Information MENTAL STATUS No Information FUNCTIONAL STATUS No Information ASSESSMENTS Encounter Date Diagnosis Assessment Notes Treatment Notes Treatm ent Clinical Notes May, COVID-19 (ICD-10 - get plenty of highly l ikely U07.1) rest, vitamin C, covid due t o D 3, zinc to help exposure i n bible boost your immune study 3 da ys system. As you without mask and are getting everyone has better, your tested positive . immune systems -- Use inhale r has cleared the rescue albut david virus , and the as neded as rest is your body directed a nd and healing. Treat has trelegy, your symptoms or Advised pat ient to any fever with take vitamin C, otc medications Zinc, will g et as directed. Get baby aspiri n, plenty of rest tylenol 650mg and stay well hydrated with fluids.__ recommend to monitor temperature control with tylenol fever is anything above 100.4 F, monitor your oxygen saturation with a pulse oximeter call clinic or go to ER if oxygen less than 90 %get plenty of rest, vitamin C, D 3, zinc to help boost your immune system. As you are getting better, your immune systems has cleared the virus , and the rest is your body healing. Treat your symptoms or any fever with otc medications as directed. Get plenty of rest and stay well hydrated with fluids.-- recommend to monitor temperature control with tyelnol fever is anything above 100.4 F, monitor your oxygen saturation with a pulse oximeter call clinic or go to ER if oxygen less than 90 %discussed sometimes testing may be too early and may result in false negatives so need to be symptoms free and quarantine until results negative and symptom free for at least 72 hours or quarantine for 14 days to be safe. May, Fever, unspecified symptomatic fever cause (ICD-10 treatment - R50.9) -increase fluids, vitamin c, increase moisture in air with humidier, and avoid other persons with colds to prevent further spread during the infective period usually first 3-4 days. -a viral illness is an acute and contagious viral infection of the upper respiratory tract that is most often caused by many different viruses and sometimes bacteria. viral illness often lasts 7-14 days and will resolve on its\'s one and treatment is usually with supportive care to help alleviate symptoms. Patient told to call physician or return to clinic if symptoms worsen if fever above 104F or fever of T 100.4F lasting longer than 3 days, increased sore throat or persistent cough with increasing thick or yellow sputum or with any problems. May, Body aches (ICD-10 tylenol as needed - R52) max of 2000mg a day. May, Contact with and --- Patient was (suspected) counseled based exposure to other on clinical viral communicable assessment, diseases (ICD-10 - disease severity, Z20.828) and input from infectious disease and local health department. if local health department deemed that patient can be sent home, patient was provided with a surgical mask and advised to wear while commuting home. Patient was advised to self-quarantine for 14 days, or until negative results are received. Patient was instructed to refer to CDC guidelines and provided additional information on self-quarantine. [facility] contact information was given to patient: ==[facility], [address] [place] [address]. [phone] or [phone] ====== First day of 14-day quarantine: 021 May, Cough (ICD-10 - R05) May, Bronchitis, not specified as acute or chronic (ICD-10 - J40) May, Other symptomatic Total time spen t treatment by provider kalyn ing discussed. this virtual vi sit was [id number] minutes. Also, time was spent counseling and coordinating ca re including but n ot limited to discussion of t est results, diagnostic or treatment recommendations , prognosis, risk s and benefits of management options, instructions, education, compliance and or risk reduction. PLAN OF TREATMENT Medication Medication Name Sig Start Date Stop Date Benzonatate 200 MG 1 capsule as needed for cough May, May, Orally Three times a day for 10 day(s) Albuterol Sulfate HFA 108 (90 2 puffs Inhalation every 6 May, Base) MCG/ACT hours prn sob for 30 days Treatment Notes Assessment Notes Clinical Notes COVID-19 get plenty of rest, vitamin highly likel y covid due to C, D 3, zinc to help boost exposure in b ible study 3 your immune system. As you days without mask and are getting better, your everyone has te sted immune systems has cleared positive.-- U se inhaler the virus , and the rest is rescue albut david as neded your body healing. Treat your as directe d and and has symptoms or any fever with trelegy, Advi sed patient otc medications as directed. to take vit castillo C, Zinc, Get plenty of rest and stay will get bab y aspirin, well hydrated with fluids.__ tylenol 650 mg recommend to monitor temperature control with tylenol fever is anything above 100.4 F, monitor your oxygen saturation with a pulse oximeter call clinic or go to ER if oxygen less than 90 %get plenty of rest, vitamin C, D 3, zinc to help boost your immune system. As you are getting better, your immune systems has cleared the virus , and the rest is your body healing. Treat your symptoms or any fever with otc medications as directed. Get plenty of rest and stay well hydrated with fluids.-- recommend to monitor temperature control with tyelnol fever is anything above 100.4 F, monitor your oxygen saturation with a pulse oximeter call clinic or go to ER if oxygen less than 90 %discussed sometimes testing may be too early and may result in false negatives so need to be symptoms free and quarantine until results negative and symptom free for at least 72 hours or quarantine for 14 days to be safe. Fever, unspecified fever cause symptomatic treatment -increase fluids, vitamin c, increase moisture in air with humidier, and avoid other persons with colds to prevent further spread during the infective period usually first 3-4 days.-a viral illness is an acute and contagious viral infection of the upper respiratory tract that is most often caused by many different viruses and sometimes bacteria. viral illness often lasts 7-14 days and will resolve on its\'s one and treatment is usually with supportive care to help alleviate symptoms. Patient told to call physician or return to clinic if symptoms worsen if fever above 104F or fever of T 100.4F lasting longer than 3 days, increased sore throat or persistent cough with increasing thick or yellow sputum or with any problems. Body aches tylenol as needed max of 2000mg a day. Contact with and (suspected) --- Patient was counseled exposure to other viral based on clinical assessment, communicable diseases disease severity, and input from infectious disease and local health department. if local health department deemed that patient can be sent home, patient was provided with a surgical mask and advised to wear while commuting home. Patient was advised to self-quarantine for 14 days, or until negative results are received. Patient was instructed to refer to CDC guidelines and provided additional information on self-quarantine. Local health department contact information was given to patient: ==[facility], [address] [place] [address]. [phone] or [phone]======First day of 14-day quarantine:05/29/2020 Next Appt Details prn Reason: Insurance Providers Payer Name Payer Payer Insured Patient Coverage Coverage End Address Phone Name Relationship to Start Date Duane e Insured [employer] from [phone] Arely Thomas self [address] [place] [id number] [facility] [id number]
[2020-06-08] MEDS ORDERED: NA CHLORIDE 0.9% 1,000 ML ONE ×3 (12:58→17:19)
[2020-06-08] MEDS ORDERED: CEFEPIME/SWI 1gm 10 ML ONE (12:58)
[2020-06-08] MEDS ORDERED: VANCOMYCIN/NS 1 gm 1 GM/250 ML BAG IVPB ONE (13:00)
[2020-06-08 13:16] LABS: Absolute Lymphocytes (CBC) 0.7 K/uL (0.7-4.9); Basophils % 0.3 % (0-1.3); Hematocrit 39.7 % (36.0-45.0); Lymphocytes % 8.3 % (15.3-44.8); MPV 8.1 fL (7.6-11.3); RBC Red Blood Cell Count 4.65 M/uL (3.86-4.86)
[2020-06-08 13:32] LABS: Protime INR 1.06
[2020-06-08 13:50] LABS: ALT/SGPT 53 U/L (12-78); AST/SGOT 38 U/L (15-37); Albumin 3.2 g/dL (3.4-5.0); Alkaline Phosphatase 65 U/L (45-117); BUN Blood Urea Nitrogen 15 mg/dL (7-18); Bicarbonate 25 mmol/L (21-32); Bilirubin Direct 0.2 mg/dL (0-0.2); Bilirubin Total 0.4 mg/dL (0.2-1.0); Ferritin 130.2 ng/mL (8-388); Glucose Level 156 mg/dL (74-106); Lipase 143 U/L (73-393); NT PRO-BNP 67 pg/mL (<125); Potassium 3.4 mmol/L (3.5-5.1); Protein, Total 7.7 g/dL (6.4-8.2); Sodium Level 137 mmol/L (136-145); Troponin (Emerg Dept Use Only) < 0.02 ng/mL (0.0-0.045)
[2020-06-08 13:54] LABS: Urine Blood NEGATIVE (NEG); Urine Glucose NEGATIVE (NEG); Urine Protein 2+ (NEG); Urine pH 6.5 (5.0-7.0)
[2020-06-08 14:03] LABS: Calcium Oxalate Crystals- Ur FEW (NONE SEEN); Urine Bacteria <20 /HPF (<20); Urine RBC NONE SEEN /HPF (NONE SEEN)
--- NOTE | 2020-06-08 14:03 | RAD REPORT ---
EXAM DESCRIPTION: RAD - Chest Single View - 06/08/2020 1:48 pm CLINICAL HISTORY: DYSPNEA, COVID positive COMPARISON: Portable June 03 TECHNIQUE: AP portable chest image was obtained 06/08/2020 1:48 pm . FINDINGS: Lung volumes are low. Peripheral airspace opacification is present, more prominent on the right. Trachea is midline. No failure or volume overload. Heart and vasculature are normal. No measur able pleural effusion and no pneumothorax. No acute bony abnormality seen. No acute aortic findings s uspected. IMPRESSION: Bilateral COVID-19 pneumonia pattern.
[2020-06-08 14:07] LABS: SARS-COV-2 RT PCR POSITIVE (NEGATIVE)
[2020-06-08 14:13] LABS: White Blood Cell Scan OK (OK)
[2020-06-08 14:14] LABS: Blood Morphology Comment NOT SEEN (NOT SEEN); Platelet Estimate ADEQ
[2020-06-08] MEDS ORDERED: ACETAMINOPHEN 500 MG TAB ONE (14:18)
--- NOTE | 2020-06-08 16:59 | EDPHYS ---
Physician Documentation [facility] Name: Sulema Thomas Age: 55 yrs Sex: Female : 1965 Arrival Date: 06/08/2020 Time: 12:17 Bed 19 Private MD: ED Physician Rik Reyes HPI: 06/08 13:00 This 55 yrs old Female presents to ER via Wheelchair with complaints of jr8 Shortness Of Breath. 13:00 The patient has shortness of breath at rest, with light activity. Onset: The jr8 symptoms/episode began/occurred gradually, 2 day(s) ago. Duration: The symptoms are continuous. The patient's shortness of breath is aggravated by walking. Associated signs and symptoms: Pertinent positives: non-productive cough, fever, nausea, diarrhea. Severity of symptoms: At their worst the symptoms were moderate in the emergency department the symptoms are unchanged. The patient has not experienced similar symptoms in the past. The patient has not recently seen a physician. Patient diagnosed with covid after having symptoms that started last Thursday. Tested on this past Thursday and was positive. Has had on/off diarrhea, vomiting, cough, fevers. 2 days of shortness of breath now. REMELTER: 12:22 LMP N/A - Post-menopause ca1 Historical: - Allergies: 12:22 No Known Allergies; ca1 - Home Meds: 12:22 atorvastatin 10 mg Oral tab 1 tab once daily [Active]; ciprofloxacin Oral [Active]; ca1 Folic Acid Oral [Active]; gabapentin Oral [Active]; glipizide 5 mg Oral tab 1 tab once daily [Active]; lisinopril 2.5 mg Oral tab 1 tab once daily [Active]; melatonin 10 mg Oral tab [Active]; mesalamine Oral [Active]; metformin 1,000 mg Oral tab 1 tab daily [Active]; pantoprazole Oral [Active]; Prevalite Oral [Active]; - PMHx: 12:22 Colitis; Diabetes - NIDDM; Rheumatoid Arthritis; Ulcers; ca1 - Immunization history:: Pneumococcal vaccine is up to date, Flu vaccine is up to date. - Social history:: Smoking status: Patient/guardian denies using tobacco, the patient reports quitting approximately 13 years ago. ROS: 13:00 Eyes: Negative for injury, pain, redness, and discharge, ENT: Negative for injury, jr8 pain, and discharge, Neck: Negative for injury, pain, and swelling, Cardiovascular: Negative for chest pain, palpitations, and edema. 13:00 Back: Negative for injury and pain, MS/Extremity: Negative for injury and deformity, Skin: Negative for injury, rash, and discoloration, Neuro: Negative for headache, weakness, numbness, tingling, and seizure. 13:00 Constitutional: Positive for body aches, chills, fatigue, fever, malaise. 13:00 Respiratory: Positive for cough, dyspnea on exertion, shortness of breath. 13:00 Abdomen/GI: Positive for nausea, vomiting, and diarrhea. Exam: 13:00 Eyes: Pupils equal round and reactive to light, extra-ocular motions intact. Lids and jr8 lashes normal. Conjunctiva and sclera are non-icteric and not injected. Cornea within normal limits. Periorbital areas with no swelling, redness, or edema. ENT: Nares patent. No nasal discharge, no septal abnormalities noted. Tympanic membranes are normal and external auditory canals are clear. Oropharynx with no redness, swelling, or masses, exudates, or evidence of obstruction, uvula midline. Mucous membranes moist. Neck: Trachea midline, no thyromegaly or masses palpated, and no cervical lymphadenopathy. Supple, full range of motion without nuchal rigidity, or vertebral point tenderness. No Meningismus. Abdomen/GI: Soft, non-tender, with normal bowel sounds. No distension or tympany. No guarding or rebound. No evidence of tenderness throughout. Back: No spinal tenderness. No costovertebral tenderness. Full range of motion. Skin: Warm, dry with normal turgor. Normal color with no rashes, no lesions, and no evidence of cellulitis. MS/ Extremity: Pulses equal, no cyanosis. Neurovascular intact. Full, normal range of motion. Neuro: Awake and alert, GCS 15, oriented to person, place, time, and situation. Cranial nerves II-XII grossly intact. Motor strength 5/5 in all extremities. Sensory grossly intact. Cerebellar exam normal. Normal gait. 13:00 Cardiovascular: Rate: tachycardic, Rhythm: regular, Pulses: Pulses are 2+ in right radial artery and left radial artery. Heart sounds: normal, normal S1and S2, no S3 or S4, no murmur, no rub, no gallop, Edema: is not appreciated. 13:00 Respiratory: mild respiratory distress is noted, Respirations: tachypnea, Breath sounds: are clear throughout, no bronchial sounds, no decreased breath sounds, no rales, rhonchi, no stridor, no wheezing. Vital Signs: 12:17 BP 85 / 54; Pulse 113; Resp 22; Temp 97.7(TE); Pulse Ox 92% on R/A; Weight 94.8 kg (R); ca1 Height 5 ft. 5 in. (165.10 cm) (R); Pain 8/10; 13:52 BP 96 / 58; Pulse 81; Resp 21 S; Temp 100.1(O); Pulse Ox 98% on 2 lpm NC; jd3 15:08 BP 89 / 55; Pulse 74; Resp 20 S; Pulse Ox 97% on 2 lpm NC; jd3 16:20 BP 88 / 58; Pulse 79; Resp 17 S; Pulse Ox 97% on 2 lpm NC; jd3 17:35 BP 108 / 83; Pulse 80; Resp 23 S; Pulse Ox 98% on 2 lpm NC; jd3 18:44 BP 92 / 75; Pulse 70; Resp 20 S; Temp 99.9(O); Pulse Ox 97% on 2 lpm NC; jd3 19:37 BP 105 / 67; Pulse 65; Resp 20; Pulse Ox 98% on R/A; mg2 12:17 Body Mass Index 34.78 (94.80 kg, 165.10 cm) ca1 15:08 provider notfied of blood pressure jd3 16:20 provider notified of BP jd3 MDM: 12:27 Patient medically screened. jr8 16:57 Data reviewed: vital signs, nurses notes, lab test result(s), EKG, radiologic studies, jr8 plain films. Data interpreted: Pulse oximetry: on room air is 91 %. Interpretation: borderline. Counseling: I had a detailed discussion with the patient and/or guardian regarding: the historical points, exam findings, and any diagnostic results supporting the discharge/admit diagnosis, lab results, radiology results, the need for further work-up and treatment in the hospital. Response to treatment: the patient's symptoms have mildly improved after treatment. 06/08 12:29 Order name: Blood Culture Adult (2) 8 06/08 12:29 Order name: BMP [facility] 06/08 12:29 Order name: C-Reactive Protein 8 06/08 12:29 Order name: CBC with Diff [facility] 06/08 12:29 Order name: COVID-19 [facility] 06/08 12:29 Order name: D-Dimer [facility] 06/08 12:29 Order name: Ferritin 8 06/08 12:29 Order name: Flu [facility] 06/08 12:29 Order name: Lactate [facility] 06/08 12:29 Order name: LFT's [facility] 06/08 12:29 Order name: Lipase [facility] 06/08 12:29 Order name: Procalcitonin [facility] 06/08 12:29 Order name: PT-INR [facility] 06/08 12:29 Order name: Ptt, Activated [facility] 06/08 12:29 Order name: Troponin (emerg Dept Use Only) [facility] 06/08 12:29 Order name: Urine Microscopic Only [facility] 06/08 12:29 Order name: BNP [facility] 06/08 13:08 Order name: CORONAVIRUS [facility] 06/08 13:08 Order name: Influenza Screen (A [facility] 06/08 13:19 Order name: CBC with Automated Diff; Complete Time: 14:27 EDMS 06/08 13:27 Order name: Lactate; Complete Time: 13:27 EDMS 06/08 13:33 Order name: Protime (+INR); Complete Time: 13:40 EDMS 06/08 13:33 Order name: PTT, Activated Partial Thromb; Complete Time: 13:40 EDMS 06/08 13:34 Order name: D-Dimer; Complete Time: 13:40 EDMS 06/08 13:37 Order name: Procalcitonin; Complete Time: 13:40 EDMS 06/08 13:50 Order name: Basic Metabolic Panel; Complete Time: 14:02 EDMS 06/08 13:50 Order name: Urine Dipstick--Ancillary (enter results) 06/08 13:50 Order name: Liver (Hepatic) Function; Complete Time: 14:02 EDMS 06/08 13:50 Order name: Troponin (Emerg Dept Use Only); Complete Time: 14:02 EDMS 06/08 13:50 Order name: NT PRO-BNP; Complete Time: 14:02 EDMS 06/08 12:29 Order name: CXR XRAY 06/08 12:29 Order name: EKG; Complete Time: 12:31 06/08 12:29 Order name: Cardiac monitoring; Complete Time: 12:06/08 12:29 Order name: Droplet/Contact Precautions; Complete Time: 12:06/08 12:29 Order name: EKG - Nurse/Tech; Complete Time: 12:50 06/08 12:29 Order name: IV Start; Complete Time: 12: [facility] 06/08 12:29 Order name: Labs collected and sent; Complete Time: 12: 06/08 12:29 Order name: O2 Per Protocol; Complete Time: 12: [facility] 06/08 12:29 Order name: O2 Sat Monitoring; Complete Time: 12: [facility] 06/08 12:29 Order name: Urine Dipstick-Ancillary (obtain specimen); Complete Time: 14:00 [facility] 06/08 13:50 Order name: C-Reactive Protein; Complete Time: 14:02 [facility] 06/08 13:50 Order name: Lipase; Complete Time: 14:02 [facility] 06/08 13:50 Order name: Ferritin; Complete Time: 14:02 [facility] 06/08 13:54 Order name: Urine Dipstick-Ancillary; Complete Time: 14:02 [facility] 06/08 14:04 Order name: Urine Microscopic Only; Complete Time: 14:27 [facility] 06/08 14:04 Order name: RAD; Complete Time: 14:27 [facility] 06/08 14:08 Order name: COVID-19/FLU A+B; Complete Time: 14:27 [facility] 06/08 14:15 Order name: CBC Smear Scan; Complete Time: 14:27 [facility] 06/08 17:05 Order name: Lactate Sepsis 2 HR Follow-up; Complete Time: 17:07 [facility] 06/08 17:33 Order name: Urine Culture EDMS Administered Medications: 12:50 Drug: Cefepime 1 grams Route: IVPB; Rate: 200 ml/hr; Infused Over: 30 mins; Site: right jd3 antecubital; 13:50 Follow up: Response: No adverse reaction; IV Status: Completed infusion jd3 12:50 Drug: NS 0.9% 1000 ml Route: IV; Rate: 1000 ml; Site: right antecubital; jd3 13:50 Follow up: Response: No adverse reaction; IV Status: Completed infusion; IV Intake: jd3 1000ml 14:04 Drug: vancoMYCIN 1 grams Route: IVPB; Infused Over: 2 hrs; Site: right antecubital; jd3 16:00 Follow up: Response: No adverse reaction; IV Status: Completed infusion jd3 14:04 Drug: Tylenol 1000 mg Route: PO; jd3 15:00 Follow up: Response: No adverse reaction jd3 15:18 Drug: NS 0.9% 1000 ml Route: IV; Rate: 1 bolus; Site: right antecubital; jd3 16:00 Follow up: Response: No adverse reaction; IV Status: Completed infusion; IV Intake: jd3 1000ml 17:08 Drug: NS 0.9% 1000 ml Route: IV; Rate: 100 ml/hr; Site: right antecubital; jd3 17:41 Follow up: Response: No adverse reaction; IV Status: Infusion continued upon admission jd3 20:15 Drug: Tylenol 1000 mg Route: PO; mg2 20:22 Follow up: Response: No adverse reaction mg2 Disposition: 06/08/20 16:59 Hospitalization ordered by Jermaine Christianson for Inpatient Admission. Preliminary diagnosis are SARS-associated coronavirus as the cause of diseases classified elsewhere, Pneumonia due to SARS-associated coronavirus, Hypoxia, Hypotension. - Bed requested for Telemetry/MedSurg (Inpatient). - Status is Inpatient Admission. mg2 - Condition is Fair. - Problem is new. - Symptoms have improved. Addendum: 06/11/2020 06:23 Co-signature as Attending Physician, Rik Reyes MD I agree with the assessment and t w4 plan of care. Signatures: Dispatcher [employer] EDNE Lilly Powell RN RN sv Roszak, Josh, PA PA jr8 Yoselin Renae RN RN Brian Webb RN RN jd3 Wadley, Terrence, MD MD tw4 Josiah Bennett RN RN mg2 Yin Medellin RN RN ca1 Corrections: (The following items were deleted from the chart) 06/08 17:14 16:59 Hospitalization Ordered by Travis Marion DO for Inpatient Admission. Preliminary jr8 diagnosis is SARS-associated coronavirus as the cause of diseases classified elsewhere; Pneumonia due to SARS-associated coronavirus; Hypoxia; Hypotension. Bed requested for Telemetry/MedSurg (Inpatient). Status is Inpatient Admission. Condition is Fair. Problem is new. Symptoms have improved. jr8 20:03 17:14 06/08/2020 16:59 Hospitalization Ordered by Jermaine Christianson MD for Inpatient cg Admission. Preliminary diagnosis is SARS-associated coronavirus as the cause of diseases classified elsewhere; Pneumonia due to SARS-associated coronavirus; Hypoxia; Hypotension. Bed requested for Telemetry/MedSurg (Inpatient). Status is Inpatient Admission. Condition is Fair. Problem is new. Symptoms have improved. jr8 20:23 20:03 06/08/2020 16:59 Hospitalization Ordered by Jermaine Christianson MD for Inpatient mg2 Admission. Preliminary diagnosis is SARS-associated coronavirus as the cause of diseases classified elsewhere; Pneumonia due to SARS-associated coronavirus; Hypoxia; Hypotension. Bed requested for Telemetry/MedSurg (Inpatient). Status is Inpatient Admission. Condition is Fair. Problem is new. Symptoms have improved. cg
--- NOTE | 2020-06-08 16:59 | ER ---
Nurse's Notes [facility] Name: Sulema Thomas Age: 55 yrs Sex: Female : 1965 Arrival Date: 06/08/2020 Time: 12:17 Bed 19 Private MD: Diagnosis: SARS-associated coronavirus as the cause of diseases classified elsewhere;Pneumonia due to SARS-associated coronavirus;Hypoxia;Hypotension Presentation: 06/08 12:17 Chief complaint: Patient states: Covid+ 05/30/2020. S/S started 05/29/2020. S/S chills, ca1 body aches, fatigue, SOB, dizzy, lightheaded, cough, fever. Yesterday, increasing SOB, O2 sat at high 80s, sometimes goes down to high 70s. Coronavirus screen: Client reports previous positive COVID test result. Date of collection: May 30, 2020. Ebola Screen: Patient negative for fever greater than or equal to 101.5 degrees Fahrenheit, and additional compatible Ebola Virus Disease symptoms Patient denies exposure to infectious person. Patient denies travel to an Ebola-affected area in the 21 days before illness onset. No symptoms or risks identified at this time. Initial Sepsis Screen: Does the patient meet any 2 criteria? RR > 20 per min. Mean Arterial Pressure (MAP) < 65. HR > 90 bpm. Yes Does the patient have a suspected source of infection? Yes: Productive cough/pneumonia. Risk Assessment: Do you want to hurt yourself or someone else? Patient reports no desire to harm self or others. Onset of symptoms was May 29, 2020. 12:17 Acuity: KEEGAN 2 ca1 12:17 Method Of Arrival: Wheelchair ca1 Triage Assessment: 13:55 Respiratory: Onset: The symptoms/episode began/occurred gradually. 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 N/A - Post-menopause ca1 Historical: - Allergies: 12:22 No Known Allergies; ca1 - Home Meds: 12:22 atorvastatin 10 mg Oral tab 1 tab once daily [Active]; ciprofloxacin Oral [Active]; ca1 Folic Acid Oral [Active]; gabapentin Oral [Active]; glipizide 5 mg Oral tab 1 tab once daily [Active]; lisinopril 2.5 mg Oral tab 1 tab once daily [Active]; melatonin 10 mg Oral tab [Active]; mesalamine Oral [Active]; metformin 1,000 mg Oral tab 1 tab daily [Active]; pantoprazole Oral [Active]; Prevalite Oral [Active]; - PMHx: 12:22 Colitis; Diabetes - NIDDM; Rheumatoid Arthritis; Ulcers; ca1 - Immunization history:: Pneumococcal vaccine is up to date, Flu vaccine is up to date. - Social history:: Smoking status: Patient/guardian denies using tobacco, the patient reports quitting approximately 13 years ago. Screenin:55 Abuse screen: Denies threats or abuse. Nutritional screening: No deficits noted. jd3 Tuberculosis screening: No symptoms or risk factors identified. Fall Risk Ambulatory Aid- None/Bed Rest/Nurse Assist (0 pts). Gait- Normal/Bed Rest/Wheelchair (0 pts) Mental Status- Oriented to own ability (0 pts). Total Flores Fall Scale indicates No Risk (0-24 pts). Assessment: 12:25 General: Appears uncomfortable, Behavior is calm, cooperative, appropriate for age. jd3 Pain: Complains of pain in chest Quality of pain is described as aching, pressure. Neuro: Level of Consciousness is awake, alert, obeys commands, Oriented to person, place, time, situation. Cardiovascular: Heart tones S1 S2 present Capillary refill < 3 seconds Patient's skin is warm and dry. Rhythm is regular. Respiratory: Reports shortness of breath at rest cough that is non-productive, persistent Airway is patent Respiratory effort is even, labored, Respiratory pattern is symmetrical, tachypnea Breath sounds are diminished bilaterally. the patient has moderate shortness of breath. GI: No signs and/or symptoms were reported involving the gastrointestinal system. : No signs and/or symptoms were reported regarding the genitourinary system. EENT: No signs and/or symptoms were reported regarding the EENT system. Derm: Skin is intact, Skin is dry, Skin is normal, Skin temperature is warm. Musculoskeletal: Circulation, motion, and sensation intact. Range of motion: intact in all extremities. 13:54 Reassessment: No changes from previously documented assessment. Patient and/or family jd3 updated on plan of care and expected duration. Pain level reassessed. awaiting results. 15:08 Reassessment: Patient appears in no apparent distress at this time. Patient and/or jd3 family updated on plan of care and expected duration. Pain level reassessed. Patient is alert, oriented x 3, equal unlabored respirations, skin warm/dry/pink. pt reports feeling slightly better. 16:19 Reassessment: Patient and/or family updated on plan of care and expected duration. Pain jd3 level reassessed. Patient is alert, oriented x 3, equal unlabored respirations, skin warm/dry/pink. pt sitting up, meal given. 17:35 Reassessment: Patient appears in no apparent distress at this time. Patient and/or jd3 family updated on plan of care and expected duration. Pain level reassessed. Patient is alert, oriented x 3, equal unlabored respirations, skin warm/dry/pink. Patient states feeling better. 18:43 Reassessment: Patient appears in no apparent distress at this time. Patient and/or jd3 family updated on plan of care and expected duration. Pain level reassessed. Patient is alert, oriented x 3, equal unlabored respirations, skin warm/dry/pink. pt resting in bed, updated family on phone on plan of care. 19:37 Reassessment: Patient appears in no apparent distress at this time. Patient and/or mg2 family updated on plan of care and expected duration. Pain level reassessed. Patient is alert, oriented x 3, equal unlabored respirations, skin warm/dry/pink. Vital Signs: 12:17 BP 85 / 54; Pulse 113; Resp 22; Temp 97.7(TE); Pulse Ox 92% on R/A; Weight 94.8 kg (R); ca1 Height 5 ft. 5 in. (165.10 cm) (R); Pain 8/10; 13:52 BP 96 / 58; Pulse 81; Resp 21 S; Temp 100.1(O); Pulse Ox 98% on 2 lpm NC; jd3 15:08 BP 89 / 55; Pulse 74; Resp 20 S; Pulse Ox 97% on 2 lpm NC; jd3 16:20 BP 88 / 58; Pulse 79; Resp 17 S; Pulse Ox 97% on 2 lpm NC; jd3 17:35 BP 108 / 83; Pulse 80; Resp 23 S; Pulse Ox 98% on 2 lpm NC; jd3 18:44 BP 92 / 75; Pulse 70; Resp 20 S; Temp 99.9(O); Pulse Ox 97% on 2 lpm NC; jd3 19:37 BP 105 / 67; Pulse 65; Resp 20; Pulse Ox 98% on R/A; mg2 12:17 Body Mass Index 34.78 (94.80 kg, 165.10 cm) ca1 15:08 provider notfied of blood pressure jd3 16:20 provider notified of BP jd3 ED Course: 12:17 Patient arrived in ED. ca1 12:20 Triage completed. ca1 12:22 Arm band placed on right wrist. ca1 12:27 Jaren Donovan PA is PHCP. jr8 12:27 Rik Reyes MD is Attending Physician. jr8 12:28 Brian Webb RN is Primary Nurse. jd3 12:44 Inserted saline lock: 20 gauge in right antecubital area, using aseptic technique. dh4 Blood collected. 13:00 Patient has correct armband on for positive identification. Placed in gown. Bed in low jd3 position. Call light in reach. Side rails up X 1. personnel monitor on. Pulse ox on. NIBP on. 13:59 Urine Dipstick--Ancillary (enter results) Sent. sv 13:59 BNP Sent. sv 13:59 Urine Microscopic Only Sent. sv 13:59 Troponin (emerg Dept Use Only) Sent. sv 13:59 Ptt, Activated Sent. sv 13:59 PT-INR Sent. sv 13:59 Procalcitonin Sent. sv 13:59 Lipase Sent. sv 13:59 LFT's Sent. sv 13:59 Lactate Sent. sv 14:00 Flu Sent. sv 14:00 Ferritin Sent. sv 14:00 D-Dimer Sent. sv 14:00 CBC with Diff Sent. sv 14:00 C-Reactive Protein Sent. sv 14:00 BMP Sent. sv 16:58 Jermaine Christianson MD is Hospitalizing Provider. jr8 16:58 Travis Marion DO is Hospitalizing Provider. jr8 17:13 Jermaine Christianson MD is Hospitalizing Provider. jr8 17:35 No provider procedures requiring assistance completed. Patient admitted, IV remains in jd3 place. 18:15 Urine Culture Sent. sv 18:15 Influenza Screen (A Sent. sv 18:16 CORONAVIRUS Sent. sv 18:16 COVID-19 Sent. sv 18:16 CXR XRAY Sent. sv Administered Medications: 12:50 Drug: Cefepime 1 grams Route: IVPB; Rate: 200 ml/hr; Infused Over: 30 mins; Site: right jd3 antecubital; 13:50 Follow up: Response: No adverse reaction; IV Status: Completed infusion jd3 12:50 Drug: NS 0.9% 1000 ml Route: IV; Rate: 1000 ml; Site: right antecubital; jd3 13:50 Follow up: Response: No adverse reaction; IV Status: Completed infusion; IV Intake: jd3 1000ml 14:04 Drug: vancoMYCIN 1 grams Route: IVPB; Infused Over: 2 hrs; Site: right antecubital; jd3 16:00 Follow up: Response: No adverse reaction; IV Status: Completed infusion jd3 14:04 Drug: Tylenol 1000 mg Route: PO; jd3 15:00 Follow up: Response: No adverse reaction jd3 15:18 Drug: NS 0.9% 1000 ml Route: IV; Rate: 1 bolus; Site: right antecubital; jd3 16:00 Follow up: Response: No adverse reaction; IV Status: Completed infusion; IV Intake: jd3 1000ml 17:08 Drug: NS 0.9% 1000 ml Route: IV; Rate: 100 ml/hr; Site: right antecubital; jd3 17:41 Follow up: Response: No adverse reaction; IV Status: Infusion continued upon admission jd3 20:15 Drug: Tylenol 1000 mg Route: PO; mg2 20:22 Follow up: Response: No adverse reaction mg2 Intake: 13:50 IV: 1000ml; Total: 1000ml. jd3 16:00 IV: 1000ml; Total: 2000ml. jd3 Outcome: 16:59 Decision to Hospitalize by Provider. jr8 20:14 Admitted to Tele accompanied by tech, via wheelchair, room 405, with oxygen, with mg2 chart, Report called to BIANCA Valentine 20:14 Condition: stable 20:14 Instructed on the need for admit, Demonstrated understanding of instructions. 20:23 Patient left the ED. mg2 Signatures: Lilly Powell RN RN sv Roszak, Josh, PA PA jr8 Brian eWbb RN RN jJosiah Voss RN RN mg2 Yin Medellin RN RN ca1 Huhn, Donald dh Corrections: (The following items were deleted from the chart) 15:17 15:08 BP 89 / 55; Pulse 74bpm; Resp 20bpm; Spontaneous; Pulse Ox 97% 2 lpm Nasal jd3 Cannula; jd3 16:20 16:20 BP 92 / 56; Pulse 79bpm; Resp 17bpm; Spontaneous; Pulse Ox 97% 2 lpm Nasal jd3 Cannula; jd3 16:21 16:20 BP 88 / 58; Pulse 79bpm; Resp 17bpm; Spontaneous; Pulse Ox 97% 2 lpm Nasal jd3 Cannula; jd3 18:45 18:44 BP 92 / 75; Pulse 70bpm; Resp 20bpm; Spontaneous; Pulse Ox 97% 2 lpm Nasal jd3 Cannula; jd3
[2020-06-08] MEDS ORDERED: ACETAMINOPHEN 500 MG TAB PO PRN (20:08)
[2020-06-08] MEDS ORDERED: ONDANSETRON 4 MG/2 ML VIAL IV PRN (20:08)
[2020-06-08] MEDS: INSULIN -REGULAR HUMAN 50 UNIT/0.5 ML ML SQ SCH (21:00)
[2020-06-08] MEDS ORDERED: IVERMECTIN 3 MG TABLET PO ONE (21:00)
[2020-06-08] MEDS: ASCORBIC ACID 500 MG TABLET PO SCH (21:55)
[2020-06-08] MEDS: METHYLPREDNISOLONE 40 MG INJ IV SCH (21:56)
[2020-06-08] MEDS: NA CHLORIDE 0.9% 1,000 ML IV SCH (22:05)
[2020-06-08] MEDS: MELATONIN 5 MG TABLET PO PRN (22:07)
--- NOTE | 2020-06-08 23:28 | P.HP ---
Certification for Inpatient Patient admitted to: Inpatient With expected LOS: <2 Midnights Patient will require the following post-hospital care: None Practitioner: I am a practitioner with admitting privileges, knowledge of patient current condition, hospital course, and medical plan of care. Services: Services provided to patient in accordance with Admission requirements found in Title 42 Section 412.3 of the Code of Federal Regulations <Prasad Yusuf - Last Filed: 06/08/20 23:24> Patient History Date of Service: 06/08/20 Reason for admission: COVID pneumonia, dehydration History of Present Illness: 55-year-old female with history of diabetes mellitus type 2, allergies, rheumatoid arthritis, Sjogren's syndrome, colitis presents to the emergency department for shortness of breath. Patient reports testing positive for COVID on 05/31/2020, patient reports that at home she has been having lots of diarrhea as well as decreased appetite with malaise, fatigue, shortness of breath. Patient presented to the emergency department for evaluation today and was found to be mildly hypoxic with saturations dipping into the high 80s with exertion, patient was also noted to be hypotensive during her stay in the emergency department with blood pressures around 85/50. Patient was rehydrated in the emergency department, started on maintenance fluids, patient does not appear septic at this time. ED provider wishes to admit patient for further evaluation and management. When I saw the patient in the exam room she was awake, alert, oriented x3. Patient able to walk to the restroom without her oxygen on without significant respiratory distress. Tolerating nasal cannula well. - Past Medical/Surgical History -: Diabetes mellitus type 2 -: Sjogren syndrome -: Allergies -: Colitis -: Left knee surgery -: Cholecystectomy Psychosocial/ Personal History: Patient currently unemployed, lives alone - Family History Family History: Reviewed- Non-Contributory - Social History Smoking Status: Former smoker Alcohol use: No CD- Drugs: No Caffeine use: Yes Place of Residence: Home <Prasad Yusuf - Last Filed: 06/08/20 23:24> Date of Service: 06/10/20 <Jermaine Christianson - Last Filed: 06/10/20 20:29> Allergies No Known Allergies Allergy (Unverified 12/10/15 18:58) Review of Systems General: Fever, Chills, Weakness, Malaise Respiratory: Cough, Shortness of Breath, Pleuritic Pain <Prasad Yusuf - Last Filed: 06/08/20 23:24> Physical Examination - Vital Signs Temperature: 99.9 F Blood Pressure: 105/67 Pulse: 65 Respirations: 20 - Physical Exam General: Alert, In no apparent distress HEENT: Atraumatic, PERRLA, Other (MM dry) Neck: Supple, 2+ carotid pulse no bruit Respiratory: Clear to auscultation bilaterally, Normal air movement Cardiovascular: Regular rate/rhythm, Normal S1 S2 Capillary refill: <2 Seconds Gastrointestinal: Normal bowel sounds, No tenderness Musculoskeletal: No contractures, No erythema, No tenderness Integumentary: No rashes Neurological: Normal speech, Normal strength at 5/5 x4 extr, Normal tone - Studies Laboratory Data (last 24 hrs) 06/08/20 12:40: PT 12.5, INR 1.06, APTT 23.5 L 06/08/20 12:40: WBC 8.0, Hgb 13.1, Hct 39.7, Plt Count 219 06/08/20 12:40: Sodium 137, Potassium 3.4 L, BUN 15, Creatinine 0.81, Glucose 156 H, Total Bilirubin 0.4, AST 38 H, ALT 53, Alkaline Phosphatase 65, Lipase 143 <Prasad Yusuf - Last Filed: 06/08/20 23:24> - Studies Microbiology Data (last 24 hrs): 06/08/20 13:43 Clean Catch Urine [place] Count - Final No growth. 06/08/20 13:43 Clean Catch Urine - Final No growth. <Jermaine Christianson - Last Filed: 06/10/20 20:29> Assessment and Plan - Plan Assessment Dehydration, hypotension secondary to diarrhea and anorexia COVID pneumonia with hypoxia Diabetes mellitus type 2 Plan Dehydration, hypotension secondary to diarrhea and anorexia: Continue maintenance fluids overnight, continue to monitor blood pressure and urine output closely. Encourage p.o. intake. P.r.n. medications for diarrhea. DVT prophylaxis with Lovenox 40 mg subcutaneous once daily. COVID pneumonia with hypoxia: IV steroids, Ivermectin, supplements. Trend is CRP, ferritin levels. Supplemental oxygen, titrate saturations greater than 90%. Pulmonology consult in place. Possible discharge tomorrow if doing well. Diabetes mellitus type 2: A.c. HS Accu-Cheks, sliding scale insulin therapy. Discharge Plan: Home Plan to discharge in: 48 Hours - Advance Directives Does patient have a Living Will: No Does patient have a Durable POA for Healthcare: No - Code Status/Comfort Care Code Status Assessed: Yes (Full code) Critical Care: No Time Spent Managing Pts Care (In Minutes): 55 <Prasad Yusuf - Last Filed: 06/08/20 23:24> - Plan Agree with plan of care as noted above by Prasad Yusuf. continue IVF protocol treatment for COVID-19 trend CRP/ferritin monitor glc closely <Jermaine Christianson - Last Filed: 06/10/20 20:29>
[2020-06-09 03:41] VITALS: BMI 34.6
[2020-06-09] MEDS: BENZONATATE 100 MG CAP PO PRN ×3 (04:50→20:52)
[2020-06-09 06:43] LABS: Absolute Lymphocytes (CBC) 0.5 K/uL (0.7-4.9); Basophils % 0.1 % (0-1.3); Hematocrit 36.4 % (36.0-45.0); Lymphocytes % 10.2 % (15.3-44.8); MPV 7.8 fL (7.6-11.3); RBC Red Blood Cell Count 4.28 M/uL (3.86-4.86)
[2020-06-09 07:17] LABS: BUN Blood Urea Nitrogen 12 mg/dL (7-18); Bicarbonate 27 mmol/L (21-32); Ferritin 132.4 ng/mL (8-388); Glucose Level 270 mg/dL (74-106); HDL Cholesterol 69 mg/dL (40-60); LDL Cholesterol, Calculated 7 (<130); Magnesium 1.8 mg/dL (1.8-2.4); Potassium 3.5 mmol/L (3.5-5.1); Sodium Level 139 mmol/L (136-145); Thyroid Stimulating Hormone 0.228 uIU/mL (0.360-3.740)
[2020-06-09] MEDS: INSULIN -REGULAR HUMAN 50 UNIT/0.5 ML ML SQ SCH ×4 (08:39→20:54)
[2020-06-09] MEDS: METHYLPREDNISOLONE 40 MG INJ IV SCH ×2 (08:40→20:52)
[2020-06-09] MEDS: VITAMIN D 1000 UNIT TAB PO SCH (08:42)
[2020-06-09] MEDS: ZINC SULFATE 220 MG CAP PO SCH (08:42)
[2020-06-09] MEDS: THIAMINE HCL 100 MG TABLET PO SCH (08:42)
[2020-06-09] MEDS: ASPIRIN EC 81 MG TAB PO SCH (08:42)
[2020-06-09] MEDS: ASCORBIC ACID 500 MG TABLET PO SCH ×4 (08:42→20:51)
[2020-06-09] MEDS: ENOXAPARIN 40 MG/0.4 ML SQ SCH (08:42)
[2020-06-09] MEDS: NA CHLORIDE 0.9% 1,000 ML IV SCH ×3 (10:57→19:55)
[2020-06-09] MEDS: DULERA 100/5 (MOMETASONE/FORMOTEROL) INHALER IH SCH ×2 (10:58→21:00)
[2020-06-09] MEDS ORDERED: IVERMECTIN 3 MG TABLET PO ONE (12:00)
[2020-06-09] MEDS ORDERED: POTASSIUM CL SA 10 MEQ TAB PO ONE (16:00)
[2020-06-09] MEDS ORDERED: MAGNESIUM SULFATE 1 gm IVPB 1 GM/100 ML BAG IV ONE (16:00)
--- NOTE | 2020-06-09 19:59 | P.PN ---
Subjective Date of Service: 06/09/20 Chief Complaint: COVID pneumonia, dehydration Subjective: No new changes (still with HUFF, +cough, reports gets sob with minimal movement. overall feels a little bit better) Review of Systems 10-point ROS is otherwise unremarkable Physical Examination - Vital Signs Temperature: 97.0 F Blood Pressure: 124/68 Pulse: 80 Respirations: 19 Pulse Ox (%): 90 Assessment & Plan Physician Review Additional Text: Physical Exam: Gen: NAD, AAOx3 HEENT: normal conjunctiva CV:RRR, no murmur Pulm: mildly labored on 3L NC, mild tachypnea Abd: soft, NTND Ext: no tenderness, no edema Dehydration, hypotension secondary to diarrhea and anorexia due to COVID-19 COVID pneumonia with hypoxia Diabetes mellitus type 2 Dehydration, hypotension secondary to diarrhea and anorexia due to COVID-19 COVID pneumonia with hypoxia: continue IVF, can cut back later today pending BP and urine output IV steroids, s/p Ivermectin, supplements. trend CRP/ferritin wean O2 as tolerated will need home O2 Diabetes mellitus type 2: A.c. HS Accu-Cheks, sliding scale insulin therapy. Dispo: anticipate dc home in 24-48hrs, needs home O2 Time Spent Managing Pts Care (In Minutes): 35
[2020-06-10] MEDS: MELATONIN 5 MG TABLET PO PRN (01:12)
[2020-06-10 04:11] LABS: Absolute Lymphocytes (CBC) 0.7 K/uL (0.7-4.9); Basophils % 0.1 % (0-1.3); Hematocrit 36.6 % (36.0-45.0); Lymphocytes % 11.6 % (15.3-44.8); MPV 7.6 fL (7.6-11.3); RBC Red Blood Cell Count 4.32 M/uL (3.86-4.86)
[2020-06-10 04:54] LABS: BUN Blood Urea Nitrogen 9 mg/dL (7-18); Bicarbonate 29 mmol/L (21-32); Ferritin 117.8 ng/mL (8-388); Glucose Level 273 mg/dL (74-106); Magnesium 2.2 mg/dL (1.8-2.4); Potassium 3.3 mmol/L (3.5-5.1); Sodium Level 140 mmol/L (136-145)
[2020-06-10] MEDS: VITAMIN D 1000 UNIT TAB PO SCH (08:42)
[2020-06-10] MEDS: ZINC SULFATE 220 MG CAP PO SCH (08:43)
[2020-06-10] MEDS: ASCORBIC ACID 500 MG TABLET PO SCH ×2 (08:43→12:22)
[2020-06-10] MEDS: ASPIRIN EC 81 MG TAB PO SCH (08:43)
[2020-06-10] MEDS: ENOXAPARIN 40 MG/0.4 ML SQ SCH (08:43)
[2020-06-10] MEDS: INSULIN -REGULAR HUMAN 50 UNIT/0.5 ML ML SQ SCH ×2 (08:44→12:12)
[2020-06-10] MEDS: METHYLPREDNISOLONE 40 MG INJ IV SCH (08:45)
[2020-06-10] MEDS: THIAMINE HCL 100 MG TABLET PO SCH (08:48)
[2020-06-10] MEDS: DULERA 100/5 (MOMETASONE/FORMOTEROL) INHALER IH SCH ×2 (08:48→09:00)
[2020-06-10] MEDS ORDERED: METFORMIN HCL 500 MG TAB PO SCH (09:00)
[2020-06-10] MEDS ORDERED: MONTELUKAST 10 MG TAB PO SCH (09:00)
[2020-06-10] MEDS ORDERED: GABAPENTIN 300 MG CAP PO SCH (09:00)
[2020-06-10] MEDS: NA CHLORIDE 0.9% 1,000 ML IV SCH (09:15)
[2020-06-10] MEDS ORDERED: POTASSIUM CL SA 10 MEQ TAB PO ONE (10:00)
[2020-06-10 11:02] VITALS: O2SAT 95
[2020-06-10 14:03] VITALS: BP 139/72; TEMP 96.9
--- NOTE | 2020-06-10 21:21 | P.DS ---
Admission Date: 06/08/20 Discharge Date: 06/10/20 Disposition: ROUTINE DISCHARGE Discharge Condition: GOOD Reason for Admission: COVID pneumonia, dehydration Procedures: CXR (06/08): bilateral COVID-19 pneumonia pattern Problem List: Dehydration, hypotension secondary to diarrhea and anorexia due to COVID-19 acute hypoxemic respiratory failure secondary to COVID pneumonia Diabetes mellitus type 2, non-insulin dependent Brief History of Present Illness: 55yo F, PMH: DM2, allergies, RA, Sjogren's syndrome, colitis presented to ED with SOB. Reported positive COVID-19 on 05/31/20 and having worsening diarrhea, anorexia, fatigue, and sOB. Pt was found to be hypoxic to 80s on RA and hypotensive around 85/50 in the ED. Hospital Course: Patient was hydrated with IVF, given steroids, ivermectin, and vitamin supplementation. She had improvement of her symptoms, near resolution of diarrhea, and was breathing more comfortably. Home O2 was set up for the patient, was stable on 3L NC, and was discharged home. She is to f/u with Dr. Groves in ~1 week. She was not significantly ill and reported history of colitis with blood loss anemia requiring transfusions, so she was advised to take aspirin and not full anticoagulation. Vital Signs/Physical Exam: Temp Pulse Resp BP Pulse Ox 96.9 F 79 18 139/72 92 06/10/20 12:00 06/10/20 12:00 06/10/20 12:00 06/10/20 12:00 06/10/20 12:00 General: Alert, In no apparent distress, Oriented x3 HEENT: Sclerae nonicteric Respiratory: Other (nonlabored respirations on 3L NC) Cardiovascular: No edema, Regular rate/rhythm Gastrointestinal: Soft and benign, Non-distended Musculoskeletal: No tenderness Integumentary: No rashes, No significant lesion Laboratory Data at Discharge: WBC 5.6 K/uL (4.3-10.9) 06/10/20 03:43 Hgb 12.2 g/dL (12.0-15.0) 06/10/20 03:43 Hct 36.6 % (36.0-45.0) 06/10/20 03:43 Plt Count 219 K/uL (152-406) 06/10/20 03:43 PT 12.5 SECONDS (9.5-12.5) 06/08/20 12:40 INR 1.06 06/08/20 12:40 APTT 23.5 SECONDS (24.3-36.9) L 06/08/20 12:40 Sodium 140 mmol/L (136-145) 06/10/20 03:43 Potassium 3.3 mmol/L (3.5-5.1) L 06/10/20 03:43 BUN 9 mg/dL (7-18) 06/10/20 03:43 Creatinine 0.53 mg/dL (0.55-1.3) L 06/10/20 03:43 Glucose 273 mg/dL (74-106) H 06/10/20 03:43 Magnesium 2.2 mg/dL (1.8-2.4) 06/10/20 03:43 Total Bilirubin 0.4 mg/dL (0.2-1.0) 06/08/20 12:40 AST 38 U/L (15-37) H 06/08/20 12:40 ALT 53 U/L (12-78) 06/08/20 12:40 Alkaline Phosphatase 65 U/L (45-117) 06/08/20 12:40 Triglycerides 58 mg/dL (<150) 06/09/20 06:05 Cholesterol 88 mg/dL (<200) 06/09/20 06:05 HDL Cholesterol 69 mg/dL (40-60) H 06/09/20 06:05 Cholesterol/HDL Ratio 1.28 06/09/20 06:05 Lipase 143 U/L (73-393) 06/08/20 12:40 Home Medications: Ascorbate Calcium [Vitamin C] 1 tab PO DAILY 06/09/20 Cholecalciferol (Vitamin D3) [Vitamin D3] 1 cap PO DAILY 06/09/20 Cholestyramine [Cholestyramine Resin] 5 g PO DAILY 06/09/20 Etanercept [Enbrel Sureclick] 50 mg SQ SEECOM 06/09/20 Folic Acid 1 tab PO DAILY 06/09/20 Gabapentin 1 tab PO DAILY 06/09/20 Ibuprofen 1 tab PO DAILY 06/09/20 Lisinopril [Zestril] 1 tab PO DAILY 06/09/20 Melatonin 1 cap PO DAILY 06/09/20 Mesalamine 2 tab PO DAILY 06/09/20 Metformin HCl 1 tab PO DAILY 06/09/20 Montelukast [Singulair*] 1 tab PO DAILY 06/09/20 Tizanidine [Zanaflex*] 1 tab PO DAILY PRN 06/09/20 Aspirin [Aspirin EC 81 MG] 81 mg PO DAILY 30 Days #30 tablet. 06/10/20 Benzonatate [Tessalon Perle*] 100 mg PO TID PRN 10 Days #30 cap 06/10/20 Ivermectin 18 mg PO ONCE #6 tablet 06/10/20 predniSONE [Deltasone] 20 mg PO SEECOM 14 Days #21 tab 06/10/20 New Medications: Aspirin [Aspirin EC 81 MG] 81 mg PO DAILY 30 Days #30 tablet. Ivermectin 18 mg PO ONCE #6 tablet predniSONE [Deltasone] 20 mg PO SEECOM 14 Days #21 tab Benzonatate [Tessalon Perle*] 100 mg PO TID PRN 10 Days #30 cap PRN Reason: Cough Patient Discharge Instructions: you were diagnosed with COVID-19 pneumonia. You are discharged with home oxygen, 2 weeks of prednisone, one dose of ivermectin, and tessalon perles. It is recommended to take 81mg aspirin daily for at least the next 30 days. Follow up with Dr. Groves in ~1 week. Diet: ADA Activity: Ad [place] Followup: Kar Groves MD [ACTIVE - CAN ADMIT] - 1-2 Weeks (call for appointment) Elda Rios DO [ACTIVE - CAN ADMIT] - Time spent managing pt's care (in minutes): 40
== END 2020-06-10 15:45 | disposition home or self-care (01) | DRG 177 ==
LOC: ER 12:11 → ERHOLD 18:04 → 4TH 20:14
PROVIDERS: ADMIT Hospitalist; ATTEND Hospitalist
DX: U07.1 COVID-19 (principal); J12.82 Pneumonia due to coronavirus disease 2019; J96.01 Acute respiratory failure with hypoxia; E11.9 Type 2 diabetes mellitus without complications; I95.9 Hypotension, unspecified; E86.0 Dehydration; R63.0 Anorexia; Z68.34 Body mass index [BMI] 34.0-34.9, adult; Z79.84 Long term (current) use of oral hypoglycemic drugs; Z79.899 Other long term (current) drug therapy; Z87.891 Personal history of nicotine dependence; Z79.82 Long term (current) use of aspirin; Z79.52 Long term (current) use of systemic steroids; Z90.49 Acquired absence of other specified parts of digestive tract; Z56.0 Unemployment, unspecified; Z60.2 Problems related to living alone
CPT/HCPCS: 0240U; 36415; 71045; 80048; 80061; 80076; 81003; 81015; 82728; 82947; 83605; 83690; 83735; 83880; 84145; 84439; 84443; 84484; 85025; 85379; 85610; 85730; 86140; 87040; 87086; 87088; 93005; 96361; 96365; 96366; 96367; 99285; J0692; J1650; J2405; J2920; J3370; J3475; J7030; J7606

== ENCOUNTER 2020-06-25 22:05 | Emergency (ER) | payer OTHER ==
[2020-06-25] MEDS ORDERED: NA CHLORIDE 0.9% 1,000 ML ONE (23:25)
[2020-06-25 23:39] LABS: Absolute Lymphocytes (CBC) 1.3 K/uL (0.7-4.9); Basophils % 0.9 % (0-1.3); Hematocrit 40.2 % (36.0-45.0); Lymphocytes % 14.6 % (15.3-44.8); MPV 8.5 fL (7.6-11.3); Protime INR 1.45
[2020-06-25 23:54] LABS: ALT/SGPT 49 U/L (12-78); AST/SGOT 11 U/L (15-37); Albumin 3.6 g/dL (3.4-5.0); Alkaline Phosphatase 63 U/L (45-117); BUN Blood Urea Nitrogen 17 mg/dL (7-18); Bicarbonate 24 mmol/L (21-32); Bilirubin Direct 0.2 mg/dL (0-0.2); Bilirubin Total 0.4 mg/dL (0.2-1.0); Glucose Level 252 mg/dL (74-106); Magnesium 1.6 mg/dL (1.8-2.4); NT PRO-BNP 60 pg/mL (<125); Potassium 3.8 mmol/L (3.5-5.1); Protein, Total 7.4 g/dL (6.4-8.2); Sodium Level 140 mmol/L (136-145); Troponin (Emerg Dept Use Only) < 0.02 ng/mL (0.0-0.045)
--- NOTE | 2020-06-26 00:50 | ER ---
Nurse's Notes [facility] Name: Sulema Thomas Age: 55 yrs Sex: Female : 1965 Arrival Date: 06/25/2020 Time: 22:09 Bed 5 Private MD: Diagnosis: Coronavirus infection, unspecified Presentation: 06/25 22:10 Care prior to arrival: None. sg 22:10 Acuity: KEEGAN 3 sg 22:10 Chief complaint: Patient states: SOB since yesterday. Pt Diagnosed with Covid a month wh ago, was just recently seen here. Coronavirus screen: chills, shortness of breath, Client presents with at least one sign or symptom that may indicate coronavirus-19. Standard/surgical mask placed on the client. Ebola Screen: Patient negative for fever greater than or equal to 101.5 degrees Fahrenheit, and additional compatible Ebola Virus Disease symptoms Patient denies exposure to infectious person. Initial Sepsis Screen: Does the patient meet any 2 criteria? HR > 90 bpm. Does the patient have a suspected source of infection? Yes: Productive cough/pneumonia. Risk Assessment: Do you want to hurt yourself or someone else? Patient reports no desire to harm self or others. Onset of symptoms was June 25, 2020. 22:10 Method Of Arrival: Ambulatory Triage Assessment: 22:51 Respiratory: Onset: The symptoms/episode began/occurred yesterday, the patient reports symptoms have resolved. 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 - Social history:: Smoking status: Patient denies any tobacco usage or history of. Patient/guardian denies using alcohol, street drugs, The patient lives with family, with spouse. - Family history:: not pertinent. Screenin:49 Abuse screen: Denies threats or abuse. Denies injuries from another. Nutritional wh screening: No deficits noted. Tuberculosis screening: No symptoms or risk factors identified. Fall Risk None identified. Assessment: 22:50 General: Appears in no apparent distress. Behavior is calm, cooperative, appropriate wh for age. Pain: Denies pain. Neuro: Level of Consciousness is awake, alert, obeys commands, Oriented to person, place, time, situation, Appropriate for age. Cardiovascular: Rhythm is regular. Respiratory: Reports shortness of breath cough that is Airway is patent Respiratory effort is even, unlabored, Respiratory pattern is regular, symmetrical, Breath sounds are clear bilaterally. GI: Abdomen is flat, non-distended. : No signs and/or symptoms were reported regarding the genitourinary system. EENT: No signs and/or symptoms were reported regarding the EENT system. Derm: Skin is intact, is healthy with good turgor, Skin is pink, warm \T\ dry. normal. Musculoskeletal: Circulation, motion, and sensation intact. 06/26 00:01 Reassessment: Patient appears in no apparent distress at this time. No changes from previously documented assessment. Patient and/or family updated on plan of care and expected duration. Pain level reassessed. Patient is alert, oriented x 3, equal unlabored respirations, skin warm/dry/pink. Vital Signs: 06/25 22:10 BP 111 / 99; Pulse 100; Resp 20; Temp 98.2; Pulse Ox 99% 2 lpm ; Weight 92.99 kg; Height 5 ft. 5 in. (165.10 cm); 22:49 Pulse Ox 99% on 3 lpm NC; 2 06/26 00:01 BP 132 / 80; Pulse 77; Resp 18; Pulse Ox 100% on 2 lpm NC; 06/25 22:10 Body Mass Index 34.11 (92.99 kg, 165.10 cm) ED Course: 06/25 22:09 Patient arrived in ED. cl3 22:10 Triage completed. sg 22:10 Arm band placed on. sg 22:31 Pinky Medina MD is Attending Physician. ma2 22:35 Lucian Munoz, BIANCA is Primary Nurse. 22:51 Patient has correct armband on for positive identification. Bed in low position. Call light in reach. Side rails up X 1. monitoring analyst on. Pulse ox on. NIBP on. 06/26 00:18 XRAY Chest (1 view) In Process Unspecified. EDMS 00:59 No provider procedures requiring assistance completed. IV discontinued, intact, rv bleeding controlled, No redness/swelling at site. Pressure dressing applied. Administered Medications: 06/25 23:17 Drug: NS 0.9% 1000 ml Route: IV; Rate: 1 bolus; Site: right antecubital; 06/26 00:02 Follow up: Response: No adverse reaction; IV Status: Completed infusion Outcome: 00:49 Discharge ordered by . shawn 00:59 Discharged to home ambulatory. rv 00:59 Condition: good 00:59 Discharge instructions given to patient, Instructed on discharge instructions, follow up and referral plans. Demonstrated understanding of instructions, follow-up care. 01:00 Patient left the ED. rv Signatures: Dispatcher [employer] EDOsmani Bates, RN RN Lucian Munoz RN BIANCA Pinky Medina MD MD ma2 Marisela Espinosa 2 Danny Boss RN RN Tammi Dockery cl3 Corrections: (The following items were deleted from the chart) 06/25 23:47 22:10 BP 111 / 99; Pulse 100bpm; Resp 20bpm; Pulse Ox 99%; Temp 98.2F; 92.99 kg; Height 5 ft. 5 in.; BMI: 34.1;
--- NOTE | 2020-06-26 00:50 | EDPHYS ---
Physician Documentation [facility] Name: Sulema Thomas Age: 55 yrs Sex: Female : 1965 Arrival Date: 06/25/2020 Time: 22:09 Bed 5 Private MD: ED Physician Pinky Medina HPI: 06/25 23:38 This 55 yrs old Female presents to ER via Ambulatory with complaints of Fever, ma2 Shortness Of Breath, Breathing Difficulty. 23:38 The patient reports fever, not measured (subjective). Onset: The symptoms/episode ma2 began/occurred gradually, 2 week(s) ago. Associated signs and symptoms: Pertinent negatives: altered mental status, chest pain, cough, pulling at ears. Severity of symptoms: At their worst the symptoms were very mild in the emergency department the symptoms have resolved. The patient has experienced similar episodes in the past. 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 - Social history:: Smoking status: Patient denies any tobacco usage or history of. Patient/guardian denies using alcohol, street drugs, The patient lives with family, with spouse. - Family history:: not pertinent. ROS: 23:38 Constitutional: Negative for fever, chills, and weight loss. ma2 23:38 All other systems are negative. Exam: 23:38 Constitutional: This is a well developed, well nourished patient who is awake, alert, ma2 and in no acute distress. Chest/axilla: Normal chest wall appearance and motion. Nontender with no deformity. No lesions are appreciated. Cardiovascular: Regular rate and rhythm with a normal S1 and S2. No gallops, murmurs, or rubs. Normal PMI, no JVD. No pulse deficits. Respiratory: Lungs have equal breath sounds bilaterally, clear to auscultation and percussion. No rales, rhonchi or wheezes noted. No increased work of breathing, no retractions or nasal flaring. Abdomen/GI: Soft, non-tender, with normal bowel sounds. No distension or tympany. No guarding or rebound. No evidence of tenderness throughout. Back: No spinal tenderness. No costovertebral tenderness. Full range of motion. MS/ Extremity: Pulses equal, no cyanosis. Neurovascular intact. Full, normal range of motion. Neuro: Awake and alert, GCS 15, oriented to person, place, time, and situation. Cranial nerves II-XII grossly intact. Motor strength 5/5 in all extremities. Sensory grossly intact. Cerebellar exam normal. Normal gait. Vital Signs: 22:10 BP 111 / 99; Pulse 100; Resp 20; Temp 98.2; Pulse Ox 99% 2 lpm ; Weight 92.99 kg; wh Height 5 ft. 5 in. (165.10 cm); 22:49 Pulse Ox 99% on 3 lpm NC; [facility] 06/26 00:01 BP 132 / 80; Pulse 77; Resp 18; Pulse Ox 100% on 2 lpm NC; wh 06/25 22:10 Body Mass Index 34.11 (92.99 kg, 165.10 cm) MDM: 06/25 22:31 Patient medically screened. mi2 23:38 Differential diagnosis: viral Infection, bacterial infection, URI, bronchitis, ma2 pneumonia. 06/26 00:49 Data reviewed: vital signs, nurses notes. Counseling: I had a detailed discussion with ma2 the patient and/or guardian regarding: the historical points, exam findings, and any diagnostic results supporting the discharge/admit diagnosis, the presence of at least one elevated blood pressure reading (>120/80) during this emergency department visit, the need for outpatient follow up. Response to treatment: the patient's symptoms have markedly improved after treatment. 06/25 22:43 Order name: Basic Metabolic Panel; Complete Time: 00:40 mi2 06/25 22:43 Order name: CBC with Diff; Complete Time: 00:40 mi2 06/25 22:43 Order name: LFT's; Complete Time: 00:40 mi2 06/25 22:43 Order name: Magnesium; Complete Time: 00:40 mi2 06/25 22:43 Order name: NT PRO-BNP; Complete Time: 00:40 mi2 06/25 22:43 Order name: PT-INR; Complete Time: 00:40 mi2 06/25 22:43 Order name: Troponin (emerg Dept Use Only); Complete Time: 00:40 mi2 06/25 22:43 Order name: XRAY Chest (1 view) [facility] 06/25 22:43 Order name: EKG; Complete Time: 23:14 [facility] 06/25 22:43 Order name: Cardiac monitoring; Complete Time: 22:49 mi2 06/25 22:43 Order name: EKG - Nurse/Tech; Complete Time: 23:17 mi2 06/25 22:43 Order name: IV Saline Lock; Complete Time: 23:17 mi2 06/25 22:43 Order name: Labs collected and sent; Complete Time: 23:17 mi2 06/25 22:43 Order name: O2 Per Protocol; Complete Time: 22:49 mi2 06/25 22:43 Order name: O2 Sat Monitoring; Complete Time: 22:49 mi2 Administered Medications: 06/25 23:17 Drug: NS 0.9% 1000 ml Route: IV; Rate: 1 bolus; Site: right antecubital; 06/26 00:02 Follow up: Response: No adverse reaction; IV Status: Completed infusion Disposition: 06/26/20 00:49 Discharged to Home. Impression: Coronavirus infection, unspecified. - Condition is Stable. - Discharge Instructions: COVID-19. - Medication Reconciliation Form, Thank You Letter, Antibiotic Education, Prescription Opioid Use form. - Follow up: Private Physician; When: Tomorrow; Reason: If symptoms return. Signatures: Dispatcher [employer] EDOsmani Bates RN BIANCA Lucian Munoz RN RN Pinky Medina MD MD [facility] Danny Boss RN RN rv Corrections: (The following items were deleted from the chart) 01:00 00:49 06/26/2020 00:49 Discharged to Home. Impression: Coronavirus infection, rv unspecified. Condition is Stable. Forms are Medication Reconciliation Form, Thank You Letter, Antibiotic Education, Prescription Opioid Use. Follow up: Private Physician; When: Tomorrow; Reason: If symptoms return. mi2
[2020-06-26 01:50] VITALS: TEMP 98.2
[2020-06-26 01:52] VITALS: BP 132/80; O2SAT 100
--- NOTE | 2020-06-26 07:41 | RAD REPORT ---
EXAM DESCRIPTION: Hi Single View06/26/2020 12:17 am CLINICAL HISTORY: Congestion COMPARISON: June 08 FINDINGS: The bilateral pulmonary opacities appear mostly resolved. Heart is normal size
--- NOTE | 2020-06-26 18:42 | EKG ---
Test Date: 2020-06-25 Test Time: 22:55:03 Associate Veterinarian: MEASUREMENT RESULTS: Intervals: Rate: 87 AR: 156 QRSD: 80 QT: 348 QTc: 418 [place]: P: 38 AR: 156 QRS: 80 T: 29 INTERPRETIVE STATEMENTS: Normal sinus rhythm Normal ECG Compared to ECG 06/08/2020 12:51:48 T-wave abnormality no longer present Electronically Signed On 06-26-20 18:40:15 FARM LABOR CONTRACTOR by Miles Huerta
--- OUTSIDE RECORDS SUMMARY | 2020-06-27 02:32 | XMS REPORT | Continuity of Care Document ---
:1965 Author Organization [facility] Care Team Providers Name Role Phone [facility] Unavailable Un available Problems Problem Status Onset [...] Spine cervical wo PROCEDURE INFORMATION: 02/03/2020 [facility] [place] contrast MRI Exam: MR Cervical Spine Without [...] Ulises Campo MD On 02/03/2020 08:30:01; VR-B [id number] Consultation Notes No Data Provided for This Section Discharge Summaries No Data Provided for This Section History and Physicals No Data Provided for This Section Vital Signs No Data Provided for This Section Encounters Location Location Encounter Encounter Reason Attending ADM [place] Stat Source Details Type Number For Provider Date Date Visit [facility] Outpt Diag [id number] Roberto 02/02 02/03 [facility] /2019 [facility] Ifeanyi [place] Procedures No Data Provided for This Section [...]
--- OUTSIDE RECORDS SUMMARY | 2020-06-27 02:33 | XMS REPORT | Continuity of Care Document ---
:1965 Author Organization [facility] t Address [address] [place] [address] Care Team Providers Name Role Phone MEGHANA SUGGS Attending Clinician Unavailable Meghana Suggs Attending Clinician DR JORGE Attending Clinician Unavailable [...] S W/O MYELOPATHY OR Active 0 MH OPID Autumn History of History of Problem Resolve Univers Hernia Hernia d ity of [place] Physici ans History of History of Problem Resolve Univers Osteoporos Osteoporos d it y of is is [place] Physici ans History of History of Problem Resolve Univers Pneumonia Pneumonia d [place] of [place] Physici ans Cervical 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 it y of s s [place] Physici ans Acute Acute Problem Active Univers cervical cervical ity of radiculopa radiculopa [place] thy thy Physici ans Neural Neural Problem Active Univers foraminal foraminal ity of stenosis stenosis [place] of of Physici cervical cervical ans spine spine History of History of Problem Resolve Univers Arthritis Arthritis d [facility] of [place] Physici ans History of History of Problem Resolve Univers Back pain Back pain d [place] of [place] Physici ans History of History of Problem Resolve Univers Diabetes Diabetes d [place] of [place] Physici ans History of History of Problem Resolve Univers Gallbladde Gallbladde d [place] of r disease r disease [place] Allergies, Adverse Reactions, Alerts Allergy Allergy Status Severity Reaction(s) Onset Inactive Treating Comm ents Source Name Type Date Date Clinician No Known DA Active [facility]19 [place] [facility] Social History Smoking Status Start Date Stop Date Source [facility] smoked tobacco (finding[facility]ations Ordered Filled Start Stop Current Ordering Indication Dosage Frequency Signature Comments Components Source Medication Medication Date Date Medication? Clinician (SIG) Name Name Cyclobenzap Cyclobenzap 0 Yes ROB TAKE 1 Univers rine HCl - rine HCl - 9-16 LI-HOLLY TABLET at ity of 5 MG Oral 5 MG Oral 00:00: INNA M.D. bedtime as [place] Tablet Tablet 00 needed for Physi ci muscle ans cramps. Zofran Zofran 2019-0 Yes Shara as needed [facility] [place] [facility] 00 [facility] Clinics methylPREDN methylPREDN 0 Yes ROB TAKE Univers ISolone 4 ISolone 4 5-04 LI-HOLLY DIRECTED ity of MG Oral MG Oral 00:00: INNA M.D. ON PATIENT [place] Tablet Tablet 00 INSTRUCTIO Physi ci Therapy Therapy N CARD.; ans Pack Pack Qty: 1 X 21 Tablet Disp Pack Albuterol Albuterol 0 Yes Shara [address] [facility] [address] Sulfate HFA Sulfate HFA 3-18 [place] [facility] - 00:[facility]: [facility] 00 [facility]ics Methocarbam Methocarbam 2019-0 Yes ROB Q0.3333D TAKE 1 Univers ol 500 MG ol 500 MG 2-06 LI-HOLLY TABLET 3 ity of Oral Tablet Oral Tablet 00:00: INNA M.DChinyere TIMES [place] 00 DAILY. Physici ans Folic Acid Folic Acid Yes Shara 2-[address] [place] tablets as [facility] - needed for [facility]oria mouth l sores [facility] Clinics Vitamin C Vitamin C Yes Shara not [facility] [place] defined [facility] Vitamin D-3 Vitamin D-3 Yes Shara not [facility] [place] defined [facility] Atorvastati Atorvastati Yes Shara [address] [facility] n Calcium n Calcium [place] [facility] - [facility] Gabapentin Gabapentin Yes Shara [address] [facility] [place] [facility] Tizanidine Tizanidine Yes Shara [address] [facility] HCl HCl [place] as needed [facility] Prevalite Prevalite Yes Shara [address] [facility] [place] [facility] Lisinopril Lisinopril Yes Shara [address] [facility] [place] [facility] Singulair Singulair Yes Shara [address] [facility] [place] [facility] Amoxicillin Amoxicillin Yes Shara [address] [facility] -Pot -Pot [place] [facility] - Clavulanate Clavulanate M emoria l [facility] Clinics Atorvastati Atorvastati Yes Shara [address] [facility] n Calcium n Calcium [place] [facility] - [facility] Xeljanz Xeljanz Yes Shara [address] [facility] [place] [facility] Metformin Metformin Yes Shara TAKE [address] HCl HCl [place] TABLET BY [facility] - MOUTH ONCE Memoria DAILY WITH l A MEAL [facility] Clinics Metformin Metformin Yes Shara [address] [address] HCl HCl [place] with a [facility] - meal [facility] Lisinopril Lisinopril Yes Shara TAKE [address] [facility] [place] TABLET BY [facility] - MOUTH ONCE Memoria DAILY l [facility] Clinics Mesalamine Mesalamine Yes Shara [address] [facility] [address] [place] [facility] Prevalite 4 Prevalite 4 Yes U nivers GM Oral GM Oral ity of Packet Packet [place] Physici ans Mesalamine Mesalamine Yes Uni vers 1.2 GM Oral 1.2 GM Oral i ty of Tablet Tablet [place] Delayed Delayed Physici Release Release ans metFORMIN [...] Tab ity of (OR) - (OR) - [place] 61185_Deact [id number]_Deact P hysici ivated ivated ans Lisinopril Lisinopril Yes Uni vers TABS TABS ity of [place] Physici ans Ibuprofen Ibuprofen Yes Unive rs 800 MG Oral 800 MG Oral i ty of Tablet Tablet [place] Physici ans Folic Acid Folic Acid Yes Uni vers 1 MG Oral 1 MG Oral ity o f Tablet Tablet [place] Physici ans tiZANidine tiZANidine Yes Uni vers HCl - 4 MG HCl - 4 MG ity of Oral Tablet Oral Tablet [place] Physici ans Xeljanz XR Xeljanz XR Yes Uni vers 11 MG Oral 11 MG Oral ity of Tablet Tablet [place] Extended Extended Physici Release 24 Release 24 ans Hour Hour Melatonin Melatonin Yes Unive rs 10 MG Oral 10 MG Oral ity of Tablet Tablet [place] Disintegrat Disintegrat P hysici ing ing ans Vitamin C Vitamin C Yes Unive rs TABS TABS ity of [place] Physici ans Vitamin D3 Vitamin D3 Yes Uni vers TABS TABS ity of [place] Physici ans Procedures Procedure Date / Time Performing Clinician Source Performed MRI Spine cervical wo 2020-01-19 00:00:00 [facility] contrast 80177 Physicians MRI Spine cervical wo 2019-11-01 00:00:00 [facility] contrast 25032 Physicians MRI Spine cervical wo 2019-07-20 00:00:00 [facility] contrast 28118 Physicians History of [facility] [place] [facility] Physicians History of [facility] History of Knee Surgery [facility] Physicians Encounters Start End Encounter Admission Attending Care Care Encounter Source Date/Time Date/Time Type Type Clinicians Facility Department ID 2020-06-15 2020-06-15 Outpatient [facility] [id number] [facility] 2020-06-06 2020-06-06 Outpatient [facility] [id number] [facility] 2020-06-04 2020-06-04 Outpatient [facility] [id number] [facility] 2020-06-01 2020-06-01 Outpatient [facility] [id number] [facility] 2020-05-30 2020-05-30 Outpatient [facility]ML[facility] [id number] [facility] 2020-05-30 2020-05-30 Outpatient [facility]ML[facility] [id number] [facility] 2020-05-07 2020-05-07 Outpatient [facility] [id number] [facility] 2020-05-07 2020-05-07 Outpatient [facility]ML[facility] [id number] [facility] 2020-02-06 2020-02-06 [facility] Orthopedics [id number] Univers 12:30:00 12:30:00 t; MEGHANA SUGGS, - [facility] ROB SUGGS II [place] ANDREW, M.D. Physici M.D. ans 2020-02-03 2020-02-03 Outpatient Meghana MHOIP MHOIP [id number] 07:18:00 23:59:00 Reza Suggs 2019-11-25 2019-11-25 [facility] [id number] 14:00:00 14:00:00 t [facility] Medicine Outpati ent Clinics 2019-11-25 2019-11-25 [facility] [id number] 09[facility]28:00 09:28:[facility] [place] [address] Luke s - Drive [facility] 2019-11-03 2019-11-03 [facility] [id number] 12:02:00 12:02:00 [place] [address] Luke s - Drive [facility] 2019-11-01 2019-11-01 Appointmen MEGHANA OSEGUERA UTP [id number] Univers 13:00:00 13:00:00 t; reinier JIM [place], [place] Raffaele RIVAS M.D. ans 2019-09-26 2019-09-26 [facility] [id number] 16:49:00 16:49:00 [place] [employer] Luke s - Drive [facility] 2019-09-26 2019-09-26 [facility] [id number] 11:20:00 11:20:00 [place] [address] Luke s - Drive [facility] Clinics 2019-09-26 2019-09-26 [facility] [id number] 09:52:00 09:52:00 [place] [address] Luke s - Drive [facility] Clinics 2019-09-21 2019-09-21 [facility] [id number] 10:20:00 10:20:00 [place] [email or web address] s - Drive [facility] Clinics 2019-09-19 2019-09-19 Appointmen MEGHANA OSEGUERA Orthopedics [id number] Univers 12:00:00 12:00:00 t; MEGHANA SUGGS, [facility] Jodie RIVAS M.D. Physicmaegan Castorena ans 2019-09-09 2019-09-09 Outpatient [place]idan PATEL [facility] [id number] [place] 04:25:00 07:00:00 [facility] 2019-08-11 2019-08-11 [facility] [id number] 11:58:00 11:58:00 [place] [employer] [facility] 2019-08-02 2019-08-02 [facility] [id number] 10:31:00 10:31:00 [place] [email or web address] [facility] 2019-07-20 2019-07-20 Appointmen MEGHANA OSEGUERA Orthopedics [id number] [facility] 09:00:00 09:00:00 t; MEGHANA SUGGS, - [facility] ROB, II Jodie RIVAS M.D. Physici MJohn ans 2019-07-18 2019-07-18 [facility] [id number] 09:20:00 09:20:00 [place] [employer] [facility] 2019-06-23 2019-06-23 Appointmen MEGHANA OSEGUERA Orthopedics [id number] [facility] 12:30:00 12:30:00 t; MEGHANA SUGGS, - [facility] Jodie RIVAS M.D. Physici MJohn ans 2019-05-04 2019-05-04 [facility] [id number] 09:40:00 09:40:00 t [facility] 2019-03-11 2019-03-11 [facility] [id number] 08:49:00 08:49:00 t [facility] 2019-02-15 2019-02-15 [facility] [id number] 11:00:00 11:00:00 t [facility] 2019-02-02 2019-02-02 [facility] [id number] 09:00:00 09:00:00 t [facility] 2019-01-14 2019-01-14 [facility] [id number] 16:16:00 16:16:00 t [email or web address] [facility] 2019-01-05 2019-01-05 [facility] [id number] 09:20:00 09:20:00 [email or web address] [facility] Clin[facility] 2018-12-14 2018-12-14 [facility] [id number] 09:34:00 09:34:00 t [email or web address] [facility] Clin[facility] 2018-11-17 2018-11-17 [facility] [id number] 11:14:00 11:14:00 [email or web address] [facility] Clin[facility] 2018-08-31 2018-08-31 [facility] [id number] 13:05:00 13:05:00 [email or web address] [facility] 2018-08-25 2018-08-25 [facility] [id number] 11:40:00 11:40:00 [email or web address] [facility] Results Test Description Test Time Test Comments Results Result Comments Source GLUCOMETER GLUCOSE- LAB USE ONLY 2019-09-09 06:04:00 Test Item Value Reference Range Interpretation Comme nts GLUCOMETER (test code = GMG) 124 mg/dL 70-100 H Meter ID: [id number]: 5537 TONO MARTIN URINE MONOCLONALFB2019-09-09 05:18:00 Test Item Value Reference Range Interpretation Comments PREG UR (test code = PGU) NEGATIVE NEGATIVE GLUCOMETER GLUCOSE- LAB USE [id number] 04:48:00 Test Item Value Reference Range Interpretation Comments GLUCOMETER (test code = 119 mg/dL 70-100 H Mete r ID: GMG) [id number] tor: 5547 MICHAEL LA REDO [U] XRAY SHOULDER MIN 2 VWS LEFT [id number] 12:25:00Images acquired, not reported on this accession number.[facility] Physicians[U] XRAY SPINE CERVICAL 2 OR 3 VWS [id number] 12:25:00Images acquired, not reported on this accession number.[facility] [id number] 12:24:00 RUN DATE: 11/24/18 [facility] - LAB *LIVE* PAGE 1 RUN TIME: 1224 Specimen Inquiry RUN USER: INTERFACE PATIENT: DAMI MOODY LOC: LIZETH U #: [id number] AGE/SX: 53/F ROOM: RE11/23/18[facility] DR: Sebastian Betancourt MD : 69 BED: DIS: STATUS: CAT [facility] TLOC: SPEC #: [id number]:[id number] RECD: 11/23/18 STATUS: CHIRAG GUILLORY #: [id number] EUGENIA: 11/23/18 [facility] DR: Sebastian Betancourt MD ENTERED: 11/23/18 SP TYPE: SURG OTHR DR: Elda Rios DO ORDERED: SURG PATH LVL 08/17 COPIES TO: Sebastian Betancourt MD [address] [place] [address] Elda Rios DO [address] [place] [address] [id number]: TISSUE ID BLK PCS SANDRA LEV PROCEDURE DISPOSITION ____ ___ ___ ___ COLON, NOS A 1 2 COLON, NOS B 1 2 PROCEDURES: SURG PATH LVL 4 (11/23/18) TISSUES: A. COLON, NOS - RIGHT SIDE B. COLON, NOS - LEFT SIDE CLINICAL HISTORY DIARRHEA-R19.7;ABD PAIN- R10.9;RECTAL PAIN-K62.89 CPT CODES CPT CODE(S): 63353D4 , , , , , , FINAL DIAGNOSIS A. Colon, right, biopsy: COLONIC MUCOSA WITH NO SIGNIFICANT HISTOPATHOLOGIC FINDINGSB. Colon, left, biopsy: FOCAL ACTIVE COLITIS NO EVIDENCE OF DYSPLASIA OR MALIGNANCY CONTINUED ON NEXT PAGE RUN DATE: 11/24/18 [facility] - LAB *LIVE* PAGE 2 RUN TIME: 1224 Specimen Inquiry RUN USER: INTERFACE --------- ---SPEC #: [facility]:[id number] PATIENT: DAMI MOODY #[id number] (Continued) GROSS DESCRIPTION A. Right side. Received in formalin are three olmos tissue fragments, 0.2 - 0.7 cm. B. Left side. Received in formalin are eight olmos tissue fragments, 0.2 - 0.5 cm, all as B. /ba/pdb Grossing performed at [facility] Pathology, [address] [place] [address], [address], [place] [address]. Rehab Assistant: Patricio Granados M.D. MICROSCOPIC DESCRIPTION A. Right [...] 11/24/18 1224 END OF REPORT HCG SERUM [id number] 11:36:00 Test Item Value Reference Range Interpretation Comments HCG SERUM QUAL (test SERUM NEGATIVE SCREEN NEGATIVE code = HCGQL) GLUCOSE BEDSIDE [id number] 11:30:00 Test Item Value Reference Range Interpretation Comments GLUCOSE BEDSIDE TESTING (test code 122 mg/dL 70-110 H = GLUBED)
--- OUTSIDE RECORDS SUMMARY | 2020-06-27 02:34 | XMS REPORT ---
:1965 Author Organization [facility] Address [address] [place], [facility] [address] [place] [address] Care Team Providers Name Role Phone Rios Unavailable [phone] PROBLEMS Type Condition ICD9-CM ZLW35-CB Onset Condition SNOMED Code Notes Code Code Dates Status Problem Anxiety F41.9 Active 20284491 Problem Fatty liver K76.0 Active 805440282 Problem Allergic rhinitis J30.9 Active 20569620 Problem Diabetes E11.9 Active 312636686 Problem Sinus problem J34.9 Active Problem Swelling R60.9 Active 580684231 Problem Reflux K21.9 Active 509183425 Problem Seasonal allergies J30.2 Active 552967512 Problem Uncontrolled type E11.65 Active 639759908 2 diabetes mellitus with hyperglycemia Problem Hyperlipidemia, E78.5 Active 75913672 unspecified hyperlipidemia type Problem Gallstones K80.20 Active 059777726 Problem Gastro-esophageal K21.9 Active 358489834 reflux disease without esophagitis Problem Other chronic pain G89.29 Active 34829526 Problem 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 Problem Type 2 diabetes E11.40 Active 30271869 mellitus with diabetic neuropathy, without long-term current use of insulin Problem Simple chronic J41.0 Active 34686218 bronchitis Problem Enlargement of I51.7 Active 5270007 cardiac chamber on chest x-ray ALLERGIES No Known Allergies ENCOUNTERS from 1965 to 2020-06-15 Encounter Location Date Provider Diagnosis [facility] Family [address] [place] [facility] [address], [place] [address] IMMUNIZATIONS Vaccine Route Administration Date Status Bryantalog [...] Start Date End Date Status Frequency, Duration) Atorvastatin Calcium 1 tablet Orally Once Active 10 MG a day for 90 days Tizanidine HCl 4 MG 1 tablet as needed Active Orally Three times a day Zofran 4 MG as needed for nausea September, A ctive Orally Twice a day for 7 days Amoxicillin-Pot 1 tablet Orally Not- Taking Clavulanate 875-125 MG every 12 hrs for 10 day(s) Xeljanz 10 MG 1 tablet Orally once A ctive a day Mupirocin 2 % 1 application to May, Jun, A ctive open sores Externally Three times a day for 7 days Prevalite 4 GM 1 packet Orally Activ e Twice a day for 30 day(s) Vitamin D-3 Active Metformin HCl 1000 MG 1 tablet with a meal Active Orally Once a day for 90 Atorvastatin Calcium 1 tablet Orally Once Active 10 MG a day for 90 Nystatin 075580 4 ml gargle in mouth May, May, Active UNIT/ML and swallow Mouth/Throat Four times a day for 10 day(s) Albuterol Sulfate HFA 2 puffs Inhalation May, Active 108 (90 Base) MCG/ACT every 6 hours prn sob for 30 days Vitamin C Active Albuterol Sulfate HFA 2 puffs Inhalation Jul, Active 108 (90 Base) MCG/ACT every 6 hours prn sob for 30 days Mesalamine 1.2 GM 2 tablets Orally A ctive Once a day for 30 day(s) Triamcinolone as directed May, Active Acetonide 0.1 % Externally Twice a day for 30 days Singulair 10 MG 1 tablet Orally Once Active a day for 90 days Montelukast Sodium 10 Take 1 tablet by Active MG mouth once daily for 90 days for 90 Omeprazole 40 MG Take 1 capsule by A ctive mouth once daily for 90 Folic Acid 1 MG 2-3 tablets as Activ e needed for mouth sores Orally Once a day for 30 Lisinopril 2.5 MG 1 tablet Orally Once Active a day for 90 Gabapentin 600 MG 1 tablet Orally Ac tive Three times a day for 90 days PROCEDURES No Information RESULTS No Results REASON FOR VISIT red rash. MEDICAL (GENERAL) HISTORY Type Description Date Medical History Allergic rhinitis Medical History Gallstones Medical History Reflux Medical History Swelling Medical History Anxiety Medical History Diabetes Medical History Sinus problem Medical History RA Medical History neuropathy Surgical History 3 lt knee 6630-1855 Surgical History - 1986,1989, 1990 Surgical History gallbladder removed 2013 Goals Section No Information Health Concerns No Information MEDICAL EQUIPMENT No Information MENTAL STATUS No Information FUNCTIONAL STATUS No Information ASSESSMENTS No Information PLAN OF TREATMENT Medication Medication Name Sig Start Date Stop Date Mupirocin 2 % 1 application to open sores May, 12 F , 2020 Externally Three times a day for 7 days Folic Acid 1 MG 2-3 tablets as needed for mouth sores Orally Once a day for 30 Triamcinolone Acetonide 0.1 % as directed Externally Twice 2020 a day for 30 days Next Appt Details Provider Name:Elda Rios, 2020-06-20 10:4 0:00 AM, [address], [address], [place], [address], Insurance Providers Payer Name Payer Payer Insured Patient Coverage Coverage End Address Phone Name Relationship to Start Date Duane e Insured Ambetter from [phone] Arely Thomas self [address] [place] [id number] [facility] [id number]
== END 2020-06-26 01:00 | disposition home or self-care (01) ==
LOC: ER 22:05
DX: U07.1 COVID-19 (principal)
CPT/HCPCS: 93005; 85025; 80048; 36415; 83735; 85610; 80076; 84484; 83880; 71045; J7030; 96360; 99284

== ENCOUNTER 2020-08-18 20:30 | Emergency (ER) | payer OTHER ==
--- OUTSIDE RECORDS SUMMARY | 2020-08-18 20:34 | XMS REPORT | Continuity of Care Document ---
:1965 Author Organization [facility] [place] t Address [address] [place] [address] Care Team Providers Name Role Phone MEGHANA KEITH Attending Clinician Unavailable Meghana Keith Attending Clinician DR JORGE Attending Clinician Unavailable DR JORGE Admitting Clinician Unavailable Payers Payer Name Policy Type Policy Number Effective Date Expiration Date S ource Problems Condition Condition Condition Status Onset Resolution Last Treating Co mments Source Name Details Category Date Date Treatment Clinician Date M47.812 - Diagnosis Active 0 2020-02-03 Memoria SPONDYLOSI 01-18 07:31:00 l S W/O M47.812 00:01: [place] MYELOPATHY - 00 OR SPONDYLOSI S W/O MYELOPATHY OR Active 0 MH LIZA Leyva History of History of Problem Resolve Univers Arthritis Arthritis d ity [facility] Physici ans History of History of Problem Resolve Univers Back pain Back pain d ity [facility] Physici ans History of History of Problem Resolve Univers Diabetes Diabetes d ity [facility] Physici ans History of History of Problem Resolve Univers Gallbladde Gallbladde d [place] of History of Problem Resolve [facility] Hernia Hernia d [facility] [facility] [place] Physici ans History of History of Problem Resolve Univers Osteoporos Osteoporos d it y of is is [place] Physici ans History of History of Problem Resolve Univers Pneumonia Pneumonia d [facility] [place] Physici ans Cervical Cervical Problem Active Unive [...] Date Source [facility] smoked [facility] (finding[facility] Medications Ordered Filled Start Stop Current [...] Yes Shara as needed [facility] [place] [facility] methylPREDN methylPREDN Yes ROB TAKE Univers ISolone 4 ISolone 4 5-04 LI-HOLLY DIRECTED ity of MG Oral MG Oral 00:00: INNA M.D. ON PATIENT [place] Tablet Tablet 00 INSTRUCTIO Physi ci Therapy Therapy N CARD.; ans Pack Pack Qty: 1 X 21 Tablet Disp Pack Albuterol Albuterol 0 Yes Shara [address] [facility] [address] Sulfate HFA Sulfate HFA 3-18 [place] [facility] - 00:[facility]: [facility] Methocarbam Methocarbam 0 Yes ROB Q0.3333D TAKE 1 Univers ol 500 MG ol 500 MG 2-06 LI-HOLLY TABLET 3 ity of Oral Tablet Oral Tablet 00:00: INNA M.Ayala TIMES [place] 00 DAILY. Physici ans Folic Acid Folic Acid Yes Shara 2-[address] [place] tablets as [facility] - needed for [facility] mouth l sores [facility] Clinics Vitamin C Vitamin C Yes Shara not [facility] [place] defined [facility] Vitamin D-3 Vitamin D-3 Yes Shara not [facility] [place] defined [facility] Atorvastati Atorvastati Yes Shara [address] [facility] n Calcium n Calcium [place] Luke [facility] - [facility]ics Gabapentin Gabapentin Yes Shara [address] [facility] [place] [facility]ics Tizanidine Tizanidine Yes Shara [address] [facility] [address] HCl HCl [place] as needed [facility] Prevalite Prevalite Yes Shara [address] [facility] [place] [facility] Lisinopril Lisinopril Yes Shara [address] [facility] [place] [facility] Singulair Singulair Yes Shara [address] [facility] [place] [facility] Amoxicillin Amoxicillin Yes Shara [address] [facility] -Pot -Pot [place] [facility] - Clavulanate Clavulanate M emoria l [facility] Clinics Atorvastati Atorvastati Yes Shara [address] [facility] n Calcium n Calcium [place] Luke s - [facility] l [facility]ics Xeljanz Xeljanz Yes Shara [address] [facility] [place] [facility] Metformin Metformin Yes Shara TAKE [address] HCl HCl [place] TABLET BY [facility] - MOUTH ONCE Memoria DAILY WITH l A MEAL [facility] Clinics Metformin Metformin Yes Shara [address] [facility] HCl HCl [place] with a [facility] - meal [facility] Lisinopril Lisinopril Yes Shara TAKE [address] [facility] [place] TABLET BY [facility] - MOUTH ONCE Memoria DAILY l [facility] Clinics Mesalamine Mesalamine Yes Shara [address] [facility] [place] [facility] Prevalite 4 Prevalite 4 Yes U nivers GM Oral GM Oral ity of Packet Packet [place] Physici ans Mesalamine Mesalamine Yes Uni vers 1.2 GM Oral 1.2 GM Oral i ty of Tablet Tablet [place] Delayed Delayed Physici Release Release ans metFORMIN [...] Tab ity of (OR) - (OR) - [place] [id number]_Deact [id number] P hysici ivated ivated ans Lisinopril Lisinopril Yes Uni vers TABS TABS ity of [place] Physici ans Ibuprofen Ibuprofen Yes Unive rs 800 MG Oral 800 MG Oral i ty of Tablet Tablet [place] Physici ans Folic Acid Folic Acid Yes Uni vers 1 MG Oral 1 MG Oral ity o f Tablet Tablet [place] Physici ans tiZANidine tiZANidine Yes Uni vers HCl - 4 MG HCl - 4 MG ity of Oral Tablet Oral Tablet [place] Physici ans Xeljanz XR Xeljanz XR Yes Uni vers 11 MG Oral 11 MG Oral ity of Tablet Tablet [place] Extended Extended Physici Release 24 Release 24 ans Hour Hour Melatonin Melatonin Yes Unive rs 10 MG Oral 10 MG Oral ity of Tablet Tablet [place] Disintegrat Disintegrat P hysici ing ing ans Vitamin C Vitamin C Yes Unive rs TABS TABS ity of [place] Physici ans Vitamin D3 Vitamin D3 Yes Uni vers TABS TABS [facility] Physici ans Procedures Procedure Date / Time Performing Clinician Source Performed MRI Spine cervical wo 2020-01-19 00:00:00 [id number] MRI Spine cervical wo 2019-11-01 00:00:00 [facility] [id number] Physicians MRI Spine cervical wo 2019-07-20 00:00:00 [facility] contrast [id number] Physicians History of [facility] [place] [facility] Physicians [facility] Encounters Start End Encounter Admission Attending Care Care Encounter Source Date/Time Date/Time Type Type Clinicians Facility Department ID 2020-08-17 2020-08-17 Outpatient [facility] [id number] [facility] 2020-07-27 2020-07-27 Outpatient [facility] [id number] [facility] 2020-07-25 2020-07-25 Outpatient [facility] [id number] [facility] 2020-07-11 2020-07-11 Outpatient [facility] [id number] [facility] 2020-07-11 2020-07-11 Outpatient [facility]ML[facility] [id number] [facility] 2020-07-09 2020-07-09 Outpatient [facility] [id number] [facility] 2020-06-26 2020-06-26 Outpatient [facility] [id number] [facility] 2020-06-20 2020-06-20 Outpatient [facility] [id number] [facility] 2020-06-15 2020-06-15 Outpatient [facility] [id number] [facility] 2020-06-06 2020-06-06 Outpatient [facility] [id number] [facility] 2020-06-04 2020-06-04 Outpatient [facility] [id number] [facility] 2020-06-01 2020-06-01 Outpatient [facility] [id number] [facility] 2020-05-30 2020-05-30 Outpatient [facility] [id number] [facility] 2020-05-30 2020-05-30 Outpatient [facility]ML[facility] [id number] [facility] 2020-05-07 2020-05-07 Outpatient [facility] [id number] [facility] 2020-05-07 2020-05-07 Outpatient STLMLC STLC [id number] [facility] 2020-02-06 2020-02-06 Appointmen MEGHANA OSEGUERA Orthopedics [id number] Univers 12:30:00 12:30:00 t; MEGHANA KEITH, - [place] reinier of ROB KEITH, [facility] Raffaele RIVAS M.D. ans 2020-02-03 2020-02-03 Outpatient Meghana OIP OIP [id number] 07:18:00 23:59:00 Reza Keiht 2019-11-25 2019-11-25 [facility] [id number] [address] 14:00:00 14:00:00 t [facility] s - Road [facility] Medicine Outpati ent Clinics 2019-11-25 2019-11-25 [facility] [id number] 09:28:00 09:28:[address] Luke s - Drive [facility] Out[facility] Clinics 2019-11-03 2019-11-03 [facility] [id number] 12:02:00 12:02:[address] Luke s - Drive [facility] Medicine Outpati ent Clinics 2019-11-01 2019-11-01 Appointmen MEGHANA OSEGUERA UTP [id number] Univers 13:00:00 13:00:00 t; reinier JIM of ROB KEITH [place] Raffaele RIVAS M.D. ans 2019-09-26 2019-09-26 [facility] [id number] 16:49:00 16:49:[address] Luke s - Drive [facility] Outpati ent Clinics 2019-09-26 2019-09-26 [facility] [id number] 11:20:00 11:20:[address] [facility] Outpati ent Clinics 2019-09-26 2019-09-26 [facility] [id number] 09:52:00 09:52:[address] [facility] Outpati ent Clinics 2019-09-21 2019-09-21 [facility] [id number] 10:20:00 10:20:[address] [facility] 2019-09-19 2019-09-19 Appointmen MEGHANA OSEGUERA Orthopedics [id number] Univers 12:00:00 12:00:00 t; [facility] Raffaele Jane M.D. ans 2019-09-09 2019-09-09 Outpatient Sheridan PATEL, [facility] [id number] [place] 04:25:00 07:00:00 [facility] 2019-08-11 2019-08-11 [facility] [id number] 11:58:00 11:58:[address] [facility] s [facility] Outpati ent Clinics 2019-08-02 2019-08-02 [facility] [id number] 10:31:00 10:31:[address] [place] [facility] 2019-07-20 2019-07-20 Appointmen MEGHANA OSEGUERA Orthopedics [id number] Univers 09:00:00 09:00:00 t; MEGHANA KEITH, [facility], II Jodie RIVAS M.D. Physicmaegan Castorena ans 2019-07-18 2019-07-18 [facility] [id number] 09:20:00 09:20:00 t [place] [facility] 2019-06-23 2019-[facility] Orthopedics [id number] [facility] 12:30:00 12:30:00 t; MEGHANA KEITH, - [facility] ROB KEITH, Raffaele Abreu M.D. ans 2019-05-04 2019-05-04 [facility] [id number] 09[facility]40:00 09:40:00 t [place] [facility] 2019-03-11 2019-03-11 [facility] [id number] 08:49:00 08:49:00 t [facility] Clinics 2019-02-15 2019-02-15 [facility] [id number] 11:00:00 11:00:00 t [facility] Clinics 2019-02-02 2019-02-02 [facility] [id number] 09:00:00 09:00:00 t [place] [facility] Outpati ent Clinics 2019-01-14 2019-01-14 [facility] [id number] 16:16:00 16:16:00 t [place] [facility] Medicine Outpati ent Clinics 2019-01-05 2019-01-05 [facility] [id number] 09:20:00 09:20:00 t [place] [facility] Medicine Outpati ent Clinics 2018-12-14 2018-12-14 [facility] [id number] 09:34:00 09:34:00 t [place] [facility] 2018-11-17 2018-11-17 [place] [id number] 11:14:00 11:14:00 [facility] 2018-08-31 2018-08-31 [place] [id number] 13:05:00 13:05:00 [facility] 2018-08-25 2018-08-25 Out[place] [id number] 11:40:00 11:40:00 [employer] [facility] Results Test Description Test Time Test Comments Results Result Comments Source GLUCOMETER GLUCOSE- LAB USE ONLY 2019-09-09 06:04:00 Test Item Value Reference Range Interpretation Comme nts GLUCOMETER (test code = GMG) 124 mg/dL 70-100 H Meter ID: [id number]: 5537 TONO GLUEEVELIA URINE MONOCLONALFB2019-09-09 05:18:00 Test Item Value Reference Range Interpretation Comments PREG UR (test code = PGU) NEGATIVE NEGATIVE GLUCOMETER GLUCOSE- LAB USE [id number] 04:48:00 Test Item Value Reference Range Interpretation Comments GLUCOMETER (test code = 119 mg/dL 70-100 H Mete r ID: GMG) [id number] tor: [id number] MICHAEL LA REDO [U] XRAY SHOULDER MIN 2 VWS LEFT [id number] 12:25:00Images acquired, not reported on this accession number.[facility] Physicians[U] XRAY SPINE CERVICAL 2 OR 3 VWS [id number] 12:25:00Images acquired, not reported on this accession number.[facility] [id number] 12:24:00 RUN DATE: 11/24/18 [facility] - LAB *LIVE* PAGE 1 RUN TIME: 1224 Specimen Inquiry RUN USER: INTERFACE PATIENT: DAMI MOODY LOC: LIZETH U #: [id number] AGE/SX: 53/F ROOM: RE11/23/18[facility] DR: Sebastian Betancourt MD : 69 BED: DIS: STATUS: DEP SDC TLOC: SPEC #: [id number] RECD: 11/23/18 STATUS: [place] REQ #: [id number] EUGENIA: 11/23/[address] [facility] [address]: Sebastian Betancourt MD ENTERED: 11/23/18 SP TYPE: SURG OTHR DR: Elda Rios DO ORDERED: SURG PATH LVL 08/17 COPIES TO: Sebastian Betancourt MD [address] [place] [address] Elda Rios DO 208 [facility] [address] [place] [address] YOYTUYPQR: TISSUE ID BLK PCS SANDRA LEV PROCEDURE DISPOSITION ____ ___ ___ ___ COLON, NOS A 1 2 COLON, NOS B 1 2 PROCEDURES: SURG PATH LVL 4 (11/23/18-1520) TISSUES: A. COLON, NOS - RIGHT SIDE B. COLON, NOS - LEFT SIDE CLINICAL HISTORY DIARRHEA-R19.7;ABD PAIN- R10.9;RECTAL PAIN-K62.89 CPT CODES CPT CODE(S): 61086D3 , , , , , , FINAL DIAGNOSIS A. Colon, right, biopsy: COLONIC MUCOSA WITH NO SIGNIFICANT HISTOPATHOLOGIC FINDINGSB. Colon, left, biopsy: FOCAL ACTIVE COLITIS NO EVIDENCE OF DYSPLASIA OR MALIGNANCY CONTINUED ON NEXT PAGE RUN DATE: 11/24/18 [facility] - LAB *LIVE* PAGE 2 RUN TIME: 1224 Specimen Inquiry RUN USER: INTERFACE --------- ---SPEC #: [facility]:[id number] PATIENT: DAMI MOODY #[id number] (Continued) GROSS DESCRIPTION A. Right side. Received in formalin are three olmos tissue fragments, 0.2 - 0.7 cm. B. Left side. Received in formalin are eight olmos tissue fragments, 0.2 - 0.5 cm, all as B. /ba/connor Grossing performed at [facility] Pathology, [address] [place] [address], [address], [place] [address]. Support Analyst: Patricio Granados M.D. MICROSCOPIC DESCRIPTION A. Right [...] 11/24/18 1224 END OF REPORT HCG SERUM [id number] 11:36:00 Test Item Value Reference Range Interpretation Comments HCG SERUM QUAL (test SERUM NEGATIVE SCREEN NEGATIVE code = HCGQL) GLUCOSE BEDSIDE [id number] 11:30:00 Test Item Value Reference Range Interpretation Comments GLUCOSE BEDSIDE TESTING (test code 122 mg/dL 70-110 H = GLUBED)
[2020-08-18] MEDS ORDERED: HYDROCODONE/APAP 7.5/325 MG TAB ONE (21:19)
[2020-08-18] MEDS ORDERED: KETOROLAC 30 MG/ML INJ ONE (21:19)
--- NOTE | 2020-08-18 21:23 | EDPHYS ---
Physician Documentation [facility] Name: Sulema Thomas Age: 55 yrs Sex: Female : 1965 Arrival Date: 08/18/2020 Time: 20:33 Bed 16 Private MD: Elda Rios ED Physician Rik Reyes HPI: 08/18 20:52 This 55 yrs old Female presents to ER via Ambulatory with complaints of tw4 Shoulder Pain, Arm Pain. 20:52 The patient or guardian complains of decreased range of motion, pain. left shoulder. tw4 Context: resulted from no injury. Onset: The symptoms/episode began/occurred yesterday. Modifying factors: the symptoms are alleviated by remaining still, The symptoms are aggravated by lifting weight, movement, rotation of arm. Associated signs and symptoms: The patient has no apparent associated signs or symptoms. Severity of symptoms: At their worst the symptoms were moderate, in the emergency department the symptoms are unchanged. The patient has not experienced similar symptoms in the past. [place]OS[place] LAYER: 20:40 LMP N/A - Post-menopause ca1 Historical: - Allergies: 20:39 No Known Allergies; ca1 - Home Meds: 20:39 atorvastatin 10 mg Oral tab 1 tab once daily [Active]; ciprofloxacin Oral [Active]; ca1 Folic Acid Oral [Active]; glipizide 5 mg Oral tab 1 tab once daily [Active]; Prevalite Oral [Active]; pantoprazole Oral [Active]; gabapentin Oral [Active]; lisinopril 2.5 mg Oral tab 1 tab once daily [Active]; melatonin 10 mg Oral tab [Active]; mesalamine Oral [Active]; metformin 1,000 mg Oral tab 1 tab daily [Active]; - PMHx: 20:39 Colitis; Diabetes - NIDDM; Rheumatoid Arthritis; Ulcers; ca1 - PSHx: 20:39 Cholecystectomy; ca1 - Immunization history:: Flu vaccine is up to date. - Social history:: Smoking status: Patient denies any tobacco usage or history of. ROS: 20:52 Constitutional: Negative for fever, chills, and weight loss, Eyes: Negative for injury, tw4 pain, redness, and discharge, Cardiovascular: Negative for chest pain, palpitations, and edema, Respiratory: Negative for shortness of breath, cough, wheezing, and pleuritic chest pain, Abdomen/GI: Negative for abdominal pain, nausea, vomiting, diarrhea, and constipation, Back: Negative for injury and pain, Skin: Negative for injury, rash, and discoloration, Neuro: Negative for headache, weakness, numbness, tingling, and seizure. 20:52 MS/extremity: Positive for injury or acute deformity, decreased range of motion, erythema, tenderness. Exam: 20:52 Constitutional: This is a well developed, well nourished patient who is awake, alert, tw4 and in no acute distress. Head/Face: Normocephalic, atraumatic. Chest/axilla: Normal chest wall appearance and motion. Nontender with no deformity. No lesions are appreciated. Cardiovascular: Regular rate and rhythm with a normal S1 and S2. No gallops, murmurs, or rubs. Normal PMI, no JVD. No pulse deficits. Respiratory: Lungs have equal breath sounds bilaterally, clear to auscultation and percussion. No rales, rhonchi or wheezes noted. No increased work of breathing, no retractions or nasal flaring. Abdomen/GI: Soft, non-tender, with normal bowel sounds. No distension or tympany. No guarding or rebound. No evidence of tenderness throughout. Neuro: Awake and alert, GCS 15, oriented to person, place, time, and situation. Cranial nerves II-XII grossly intact. Motor strength 5/5 in all extremities. Sensory grossly intact. Cerebellar exam normal. Normal gait. 20:52 Psych: Awake, alert, with orientation to person, place and time. Behavior, mood, and affect are within normal limits. 20:52 Musculoskeletal/extremity: Extremities: noted in the anterior aspect of left shoulder: decreased ROM, pain, swelling, tenderness, There is no evidence of deformity, ROM: limited active range of motion due to pain, limited passive range of motion due to pain, in the anterior aspect of left shoulder. 20:52 Musculoskeletal/extremity: Circulation is intact in all extremities. Vital Signs: 20:37 BP 151 / 81; Pulse 103; Resp 18 S; Temp 98.9(TE); Pulse Ox 98% on R/A; Weight 96.62 kg ca1 (R); Height 5 ft. 5 in. (165.10 cm) (R); Pain 9/10; 20:37 Body Mass Index 35.44 (96.62 kg, 165.10 cm) ca1 MDM: 21:22 Differential diagnosis: DJD, tendonitis. Data reviewed: vital signs, nurses notes, tw4 radiologic studies, plain films. Counseling: I had a detailed discussion with the patient and/or guardian regarding: the historical points, exam findings, and any diagnostic results supporting the discharge/admit diagnosis, radiology results. Medication response: norco. Response to treatment: the patient's symptoms have markedly improved after treatment, and as a result, I will discharge patient. Special discussion: I discussed with the patient/guardian in detail that at this point there is no indication for admission to the hospital. It is understood, however, that if the symptoms persist or worsen the patient needs to return immediately for re-evaluation. 21:23 Patient medically screened. tw4 08/18 20:48 Order name: Sling: shoulder immobilizer; Complete Time: 21:49 tw4 Administered Medications: 21:10 Drug: TORadol 60 mg Route: IM; Site: right gluteus; em 21:48 Follow up: Response: No adverse reaction; Marked relief of symptoms em 21:11 Drug: [place] (HYDROcodone-acetaminophen) (7.5 mg-325 mg) 1 tabs Route: PO; em 21:49 Follow up: Response: No adverse reaction; Marked relief of symptoms; Pain is decreased em Disposition: 08/18/20 21:23 Discharged to Home. Impression: Pain in left shoulder, Arthropathies in other specified diseases classified elsewhere, left shoulder. - Condition is Stable. - Discharge Instructions: Joint Pain, Musculoskeletal Pain, Shoulder Pain, Shoulder Range of Motion Exercises, Arthritis, Oebj-nr-Cnon. - Prescriptions for Tramadol 50 mg Oral Tablet - take 1 tablet by ORAL route every 8 hours as needed; 12 tablet. Medrol (Alexandre) 4 mg Oral Tablets, Dose Pack - take 1 tablet by ORAL route as directed - follow package instructions; 1 packet. - Medication Reconciliation Form, Thank You Letter, Antibiotic Education, Prescription Opioid Use form. - Follow up: Elda Rios MD; When: Upon discharge from the Emergency Department; Reason: Recheck today's complaints, Continuance of care, Re-evaluation by your physician. Follow up: Jerome Taylor MD; When: Upon discharge from the Emergency Department; Reason: Recheck today's complaints, Continuance of care, Re-evaluation by your physician. - Problem is an ongoing problem. - Symptoms have improved. Signatures: Alexander Moya, RN RN Rik Godoy MD MD tw4 Yin Medellin RN RN ca1 Corrections: (The following items were deleted from the chart) 21:56 21:23 08/18/2020 21:23 Discharged to Home. Impression: Pain in left shoulder; em Arthropathies in other specified diseases classified elsewhere, left shoulder. Condition is Stable. Forms are Medication Reconciliation Form, Thank You Letter, Antibiotic Education, Prescription Opioid Use. Follow up: Elda Rios; When: Upon discharge from the Emergency Department; Reason: Recheck today's complaints, Continuance of care, Re-evaluation by your physician. Follow up: Jerome Taylor; When: Upon discharge from the Emergency Department; Reason: Recheck today's complaints, Continuance of care, Re-evaluation by your physician. Problem is an ongoing problem. Symptoms have improved. tw4
--- NOTE | 2020-08-18 21:23 | ER ---
Nurse's Notes [facility] Name: Sulema Thomas Age: 55 yrs Sex: Female : 1965 Arrival Date: 08/18/2020 Time: 20:33 Bed 16 Private MD: Elda Rios Diagnosis: Pain in left shoulder;Arthropathies in other specified diseases classified elsewhere, left shoulder Presentation: 08/18 20:37 Chief complaint: Patient states: L shoulder pain x 3 days. hurts to lift L arm, move L ca1 arm, can feel inflammation and a knot on the L shoulder. Coronavirus screen: Client denies travel out of the [place] in the last 14 days. At this time, the client does not indicate any symptoms associated with coronavirus-19. Ebola Screen: Patient negative for fever greater than or equal to 101.5 degrees Fahrenheit, and additional compatible Ebola Virus Disease symptoms Patient denies exposure to infectious person. Patient denies travel to an Ebola-affected area in the 21 days before illness onset. No symptoms or risks identified at this time. Initial Sepsis Screen: Does the patient meet any 2 criteria? No. Patient's initial sepsis screen is negative. Does the patient have a suspected source of infection? No. Patient's initial sepsis screen is negative. Risk Assessment: Do you want to hurt yourself or someone else? Patient reports no desire to harm self or others. Onset of symptoms was August 18, 2020. 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 N/A - Post-menopause ca1 Historical: - Allergies: 20:39 No Known Allergies; ca1 - Home Meds: 20:39 atorvastatin 10 mg Oral tab 1 tab once daily [Active]; ciprofloxacin Oral [Active]; ca1 Folic Acid Oral [Active]; glipizide 5 mg Oral tab 1 tab once daily [Active]; Prevalite Oral [Active]; pantoprazole Oral [Active]; gabapentin Oral [Active]; lisinopril 2.5 mg Oral tab 1 tab once daily [Active]; melatonin 10 mg Oral tab [Active]; mesalamine Oral [Active]; metformin 1,000 mg Oral tab 1 tab daily [Active]; - PMHx: 20:39 Colitis; Diabetes - NIDDM; Rheumatoid Arthritis; Ulcers; ca1 - PSHx: 20:39 Cholecystectomy; ca1 - Immunization history:: Flu vaccine is up to date. - Social history:: Smoking status: Patient denies any tobacco usage or history of. Screenin:00 Abuse screen: Denies threats or abuse. Nutritional screening: No deficits noted. em Tuberculosis screening: No symptoms or risk factors identified. Fall Risk None identified. Assessment: 21:00 General: Appears in no apparent distress. uncomfortable, Behavior is calm, cooperative, em appropriate for age. Pain: Complains of pain in anterior aspect of left shoulder and left shoulder Pain currently is 10 out of 10 on a pain scale. Pain began 2-3 days ago. Neuro: Level of Consciousness is awake, alert, obeys commands, Oriented to person, place, time, situation, Appropriate for age. Cardiovascular: Capillary refill < 3 seconds Patient's skin is warm and dry. Respiratory: Airway is patent Respiratory effort is even, unlabored, Respiratory pattern is regular, symmetrical. Derm: Skin is intact, is healthy with good turgor, Skin is pink, warm \T\ dry. Musculoskeletal: Capillary refill < 3 seconds, Range of motion: limited in left shoulder. Vital Signs: 20:37 BP 151 / 81; Pulse 103; Resp 18 S; Temp 98.9(TE); Pulse Ox 98% on R/A; Weight 96.62 kg ca1 (R); Height 5 ft. 5 in. (165.10 cm) (R); Pain 9/10; 20:37 Body Mass Index 35.44 (96.62 kg, 165.10 cm) ca1 ED Course: 20:33 Patient arrived in ED. es 20:34 Elda Rios MD is Private Physician. es 20:38 Triage completed. ca1 20:39 Arm band placed on right wrist. ca1 20:42 Rik Reyes MD is Attending Physician. tw4 20:55 Alexander Moya, BIANCA is Primary Nurse. em 21:00 Patient has correct armband on for positive identification. Bed in low position. Adult em w/ patient. 21:22 Elda Rios MD is Referral Physician. tw4 21:22 Jerome Taylor MD is Referral Physician. tw4 21:49 Shoulder immobilizer applied on left shoulder. em 21:49 Patient did not have IV access during this emergency room visit. em 21:49 No provider procedures requiring assistance completed. em Administered Medications: 21:10 Drug: TORadol 60 mg Route: IM; Site: right gluteus; em 21:48 Follow up: Response: No adverse reaction; Marked relief of symptoms em 21:11 Drug: [place] (HYDROcodone-acetaminophen) (7.5 mg-325 mg) 1 tabs Route: PO; em 21:49 Follow up: Response: No adverse reaction; Marked relief of symptoms; Pain is decreased em Outcome: 21:23 Discharge ordered by MD. bhat 21:49 Discharged to home ambulatory. em 21:49 Condition: good 21:49 Discharge instructions given to patient, Instructed on discharge instructions, follow up and referral plans. medication usage, Demonstrated understanding of instructions, follow-up care, medications, Prescriptions given X 2. 21:56 Patient left the ED. em Signatures: Maegan Villagomez Edgar RN RN Rik Godoy MD MD tw4 Yin Medellin RN RN ca1
[2020-08-18] MEDS ORDERED: predniSONE 20 MG TAB ONE (22:02)
[2020-08-19 01:22] VITALS: BP 151/81; TEMP 98.9; O2SAT 98
== END 2020-08-18 21:56 | disposition home or self-care (01) ==
LOC: ER 20:30
DX: M25.512 Pain in left shoulder (principal); M06.9 Rheumatoid arthritis, unspecified; E11.9 Type 2 diabetes mellitus without complications; Z79.84 Long term (current) use of oral hypoglycemic drugs
CPT/HCPCS: 96372; 99283; J7512

== ENCOUNTER 2020-08-19 21:57 | Emergency (ER) | payer OTHER ==
--- OUTSIDE RECORDS SUMMARY | 2020-08-19 22:01 | XMS REPORT | Continuity of Care Document ---
:[address] [facility] t Address [address] [place] [id number] Care Team Providers Name Role Phone MEGHANA [...] S W/O MYELOPATHY OR Active 0 MH ZACKD Autumn History of History of Problem Resolve [facility] Arthritis Arthritis d ity [facility] Physici ans History of History of Problem [facility]olve [facility] Back pain Back pain [facility] [place] [facility] History of History of Problem [facility]olve [facility] Diabetes Diabetes [facility] [place] [facility] ans History of History of Problem [...] Resolve Univers Pneumonia Pneumonia [facility] [place] [facility] Cervical Cervical Problem Active Unive [...] Known DA Active U [facility] Allergie 11-19 Yves s 00:00: d 00 Medical [place] Social History Smoking Status Start Date Stop Date Source [facility] smoked tobacco (finding[facility] Ordered Filled Start [...] Yes Shara as needed [facility]: [facility] 00 [facility] methylPREDN methylPREDN 2019-0 Yes ROB TAKE Univers ISolone 4 ISolone 4 5-04 LI-HOLLY DIRECTED ity of MG Oral MG Oral 00:00: INNA M.D. ON PATIENT [place] Tablet Tablet 00 INSTRUCTIO Physi ci Therapy Therapy N CARD.; ans Pack Pack Qty: 1 X 21 Tablet Disp Pack Albuterol Albuterol 2019-0 Yes Shara [address] Sulfate HFA Sulfate HFA 3-18 [place] [facility] 00:[facility]: [facility] Methocarbam Methocarbam Yes ROB Q0.3333D TAKE 1 Univers ol 500 MG ol 500 MG 2-06 LI-HOLLY TABLET 3 ity of Oral Tablet Oral Tablet 00:00: INNA M.D. TIMES [place] 00 DAILY. Physici ans Folic Acid Folic Acid Yes Shara 2-[address] [place] tablets as [facility] - needed for [facility] mouth l sores [facility] Vitamin C Vitamin C Yes Shara not [facility] defined [facility] Vitamin D-3 Vitamin D-3 Yes Shara not [facility] defined [facility] Atorvastati Atorvastati Yes Shara [address] [facility] n Calcium n Calcium [place] [facility] - [facility] Gabapentin Gabapentin Yes Shara [address] [facility] Tizanidine Tizanidine Yes Shara [address] [facility] [address] HCl HCl [place] as needed [facility] Prevalite Prevalite Yes Shara [address] [facility] [facility] Lisinopril Lisinopril Yes Shara [address] [facility] [facility] Singulair Singulair Yes Shara [address] [facility] [place] [facility] Amoxicillin Amoxicillin Yes Shara [address] [facility] -Pot -Pot [place] [facility] - Clavulanate Clavulanate M emoria l [facility] Atorvastati Atorvastati Yes Shara [address] [facility] n Calcium n Calcium [place] [facility] - [facility] Xeljanz Xeljanz Yes Shara [address] [facility] Metformin Metformin Yes Shara TAKE [address] HCl HCl [place] TABLET BY [facility] - MOUTH ONCE Memoria DAILY WITH l A MEAL [facility]ics Metformin Metformin Yes Shara [address] HCl HCl [place] with a [facility] - meal [facility] Lisinopril Lisinopril Yes Shara TAKE [address] [facility] [facility] [place] TABLET BY [facility] - MOUTH ONCE [facility] DAILY l [facility] Mesalamine Mesalamine Yes Shara [address] [facility] [address] [facility] [facility] Prevalite 4 Prevalite 4 Yes U nivers GM Oral GM Oral ity of Packet Packet [place] Physici ans Mesalamine Mesalamine Yes Uni vers 1.2 GM Oral 1.2 GM Oral i ty of Tablet Tablet [place] Delayed Delayed Physici Release Release ans metFORMIN [...] Tab ity of (OR) - (OR) - [place] [id number] [id number] P hysici ivated ivated ans Lisinopril Lisinopril Yes Uni vers TABS TABS [facility] [place] Physici ans Ibuprofen Ibuprofen Yes Unive rs 800 MG Oral 800 MG Oral i ty of Tablet Tablet [place] Physici ans Folic Acid Folic Acid Yes Uni vers 1 MG Oral 1 MG Oral ity o f Tablet Tablet [place] Physici ans tiZANidine tiZANidine Yes Uni vers HCl - 4 MG HCl - 4 MG ity of Oral Tablet Oral Tablet [place] [facility] Xeljanz XR Xeljanz XR Yes Uni vers 11 MG Oral 11 MG Oral ity of Tablet Tablet [place] Extended Extended Physici Release 24 Release 24 ans Hour Hour Melatonin Melatonin Yes Unive rs 10 MG Oral 10 MG Oral ity of Tablet Tablet [place] Disintegrat Disintegrat P hysici ing ing ans Vitamin C Vitamin C Yes Unive rs TABS TABS [facility] [place] [facility] ans Vitamin D3 Vitamin D3 Yes Uni vers TABS TABS [facility] [place] [facility] ans Procedures Procedure Date / Time Performing Clinician Source Performed MRI Spine cervical wo 2020-01-19 00:00:00 [facility] contrast [id number] Physicians MRI Spine cervical wo 2019-11-01 00:00:00 [facility] contrast [id number] Physicians MRI Spine cervical wo 2019-07-20 00:00:00 [facility] contrast [id number] Physicians History of [facility] [place] [facility]icians History of Cholecystectomy Unive rsity [facility] Physicians History of Knee Surgery [facility]i [facility] Physicians Encounters Start End Encounter Admission Attending Care Care Encounter Source Date/Time Date/Time Type Type Clinicians Facility Department ID 2020-08-17 2020-08-17 Outpatient [facility] [id number] [facility] 2020-07-27 2020-07-27 Outpatient [facility] [id number] [facility] 2020-07-25 2020-07-25 Outpatient [facility] [id number] [facility] 2020-07-11 2020-07-11 Outpatient [facility] [id number] [facility] 2020-07-11 2020-07-11 Outpatient [facility] [id number] [facility] 2020-07-09 2020-07-09 Outpatient [facility] [id number] [facility] 2020-06-26 2020-06-26 Outpatient [facility] [id number] [facility] 2020-06-20 2020-06-20 Outpatient [facility] [id number] [facility] 2020-06-15 2020-06-15 Outpatient [facility] [id number] [facility] 2020-06-06 2020-06-06 Outpatient [facility] [id number] [facility] 2020-06-04 2020-06-04 Outpatient [facility] [id number] [facility] 2020-06-01 2020-06-01 Outpatient [facility] [id number] [facility] 2020-05-30 2020-05-30 Outpatient [facility] [id number] [facility] 2020-05-30 2020-05-30 Outpatient [facility] [id number] [facility] 2020-05-07 2020-05-07 Outpatient [facility] [id number] [facility] 2020-05-07 2020-05-07 Outpatient [facility] [id number] [facility] 2020-02-06 2020-02-06 Appointmen MEGHANA [facility] Orthopedics [id number] [facility] 12:30:00 12:30:00 t; MEGHANA SUGGS, - [facility] ROB SUGGS Raffaele Jane M.D. ans 2020-02-03 2020-02-03 Outpatient Meghana OIP OIP [id number] 07:18:00 23:59:00 Reza Suggs 2019-11-25 2019-11-25 [facility] [id number] 14:00:00 14:00:00 t [facility] s [facility] l Medicine Outpati ent Clinics 2019-11-25 2019-11-25 [facility] [id number] 09:28:00 09:28:00 t [employer] s - Drive [facility] Family [facility] l Medicine Outpati ent Clinics 2019-11-03 2019-11-03 [facility] [id number] 12:02:00 12:02:[address] Luke s - Drive [facility] l Medicine Outpati ent Clinics 2019-11-01 2019-11-01 Appointmen MEGHANA [facility] [id number] Univers 13:00:00 13:00:00 t; MEGHANA SUGGS [place], [place] Raffaele RIVAS M.D. ans 2019-09-26 2019-09-26 [facility] [id number] 16:49:00 16:49:[address] Luke s - [facility] Medicine Outpati ent Clinics 2019-09-26 2019-09-26 [facility] [id number] 11:20:00 11:20:[address] Luke s - [facility] Medicine Outpati ent Clinics 2019-09-26 2019-09-26 [facility] [id number] 09:52:00 09:52:[address] Luke s - Drive [facility] Medicine Outpati ent Clinics 2019-09-21 2019-09-21 [facility] [id number] 10:20:00 10:20:[address] Luke s - [facility] Medicine Outpati ent Clinics 2019-09-19 2019-09-19 Appointmen MEGHANA OSEGUERA Orthopedics [id number] Univers 12:00:00 12:00:00 t; MEGHANA SUGGS, [facility] Raffaele Jane M.D. ans 2019-09-09 2019-09-09 Outpatient [facility] PATEL, [facility] [id number] [place] 04:25:00 07:[facility] 2019-08-11 2019-08-11 [facility] [id number] 11:58:00 11:58:[address] Luke s - [facility] Medicine Outpati ent Clinics 2019-08-02 2019-08-02 [facility] [id number] 10:31:00 10:31:[address] Luke s - Drive [facility] Medicine Outpati ent Clinics 2019-07-20 2019-07-20 Appointmen MEGHANA OSEGUERA Orthopedics [id number] Univers 09:00:00 09:00:00 t; [facility]le Jane M.[facility]. ans 2019-07-18 2019-07-18 [facility] [id number] 09:20:00 09:20:00 t [place] [employer] [facility] [place] [facility] ent Clinics 2019-06-23 2019-06-23 [facility] MEGHANA [facility] Orthopedics [id number] [facility] 12:30:00 12:30:00 t; MEGHANA SUGGS, - [facility] ROB, Raffaele Jane M.D. ans 2019-05-04 2019-05-04 [facility] [id number] 09:40:00 09:40:00 t [employer] s - [place] [facility] ent Clinics 2019-03-11 2019-03-11 [facility] [id number] 08:49:00 08:49:00 [facility] 2019-02-15 2019-02-15 [facility] [id number] 11:00:00 11:00:00 [facility] 2019-02-02 2019-02-02 [facility] [id number] 09:00:00 09:00:00 t [place] [employer] [place] [facility] ent Clinics 2019-01-14 2019-01-14 [facility] [id number] 16:16:00 16:16:00 t [place] [employer] s [place] [facility] ent Clinics 2019-01-05 2019-01-05 [facility] [id number] 09:20:00 09:20:00 t [place] [employer] s - [place] [facility] ent Clinics 2018-12-14 2018-12-14 [facility] [id number] 09:34:00 09:34:00 [facility] ent Clinics 2018-11-17 2018-11-17 [facility] [id number] 11:14:00 11:14:00 [facility] ent [facility] 2018-08-31 2018-08-31 [facility] [id number] 13:05:00 13:05:00 [facility] ent [facility] 2018-08-25 2018-08-25 [facility] [id number] 11:40:00 11:40:00 [facility] Results Test Description Test Time Test Comments Results Result Comments Source GLUCOMETER GLUCOSE- LAB USE ONLY 2019-09-09 06:04:00 Test Item Value Reference Range Interpretation Comme nts GLUCOMETER (test code = GMG) 124 mg/dL 70-100 H Meter ID: [id number]: [id number] [address] [facility] URINE MONOCLONALFB2019-09-09 05:18:00 Test Item Value Reference Range Interpretation Comments PREG UR (test code = PGU) NEGATIVE NEGATIVE GLUCOMETER GLUCOSE- LAB USE [id number] 04:48:00 Test Item Value Reference Range Interpretation Comments GLUCOMETER (test code = 119 mg/dL 70-100 H Mete r ID: GMG) [id number] tor: [id number] MICHAEL [address] REDO [U] XRAY SHOULDER MIN 2 VWS LEFT [id number] 12:25:00Images acquired, not reported on this accession number.[facility][U] XRAY SPINE CERVICAL 2 OR 3 VWS [id number] 12:25:00Images acquired, not reported on this accession number.[facility] [id number] 12:24:00 RUN DATE: 11/24/18 [facility], [place] - LAB *LIVE* PAGE 1 RUN TIME: 1224 Specimen Inquiry RUN USER: INTERFACE PATIENT: DAMI THOMAS LOC: LIZETH U #: [id number] AGE/SX: 53/F ROOM: [facility]11[facility]: Sebastian Betancourt MD : 69 BED: DIS: STATUS: [facility] TLOC: SPEC #: [id number] RECD: 11/23/18 STATUS: CHIRAG GUILLORY #: [id number] EUGENIA: 11/23/18 [facility] DR: Sebastian Betancourt MD ENTERED: 11/23/18 SP TYPE: SURG OTHR DR: Elda Rios DO ORDERED: SURG PATH LVL 08/17 COPIES TO: Sebastian Betancourt MD [address] [place] [address] Elda Rios DO 208 [facility] [address] [place] [address] JNIJJHUTL: TISSUE ID BLK PCS SANDRA LEV PROCEDURE DISPOSITION ____ ___ ___ ___ COLON, NOS A 1 2 COLON, NOS B 1 2 PROCEDURES: SURG PATH LVL 4 (11/23/18-1520) TISSUES: A. COLON, NOS - RIGHT SIDE B. COLON, NOS - LEFT SIDE CLINICAL HISTORY DIARRHEA-R19.7;ABD PAIN- R10.9;RECTAL PAIN-K62.89 CPT CODES CPT CODE(S): 02267H0 , , , , , , FINAL DIAGNOSIS A. Colon, right, biopsy: COLONIC MUCOSA WITH NO SIGNIFICANT HISTOPATHOLOGIC FINDINGSB. Colon, left, biopsy: FOCAL ACTIVE COLITIS NO EVIDENCE OF DYSPLASIA OR MALIGNANCY CONTINUED ON NEXT PAGE RUN DATE: 11/24/18 [facility], [place] - LAB *LIVE* PAGE 2 RUN TIME: 1224 Specimen Inquiry RUN USER: INTERFACE --------- ---SPEC #: [id number] PATIENT: DAMI THOMAS #[id number] (Continued) GROSS DESCRIPTION A. Right side. Received in formalin are three olmos tissue fragments, 0.2 - 0.7 cm. B. Left side. Received in formalin are eight olmos tissue fragments, 0.2 - 0.5 cm, all as B. /ba/pdb Grossing performed at [facility] Pathology, [address] [place] [address], [address], [place] [address]. Sample Driller: Patricio Granados M.D. MICROSCOPIC DESCRIPTION A. Right [...] of malignancy. /cm Signed SIGNATURE ON FILE TenaHector Dockery 11/24/18 1224 END OF REPORT HCG SERUM [id number] 11:36:00 Test Item Value Reference Range Interpretation Comments HCG SERUM QUAL (test SERUM NEGATIVE SCREEN NEGATIVE code = HCGQL) GLUCOSE BEDSIDE [id number] 11:30:00 Test Item Value Reference Range Interpretation Comments GLUCOSE BEDSIDE TESTING (test code 122 mg/dL 70-110 H = GLUBED)
[2020-08-20] MEDS ORDERED: ONDANSETRON 4 MG (ODT) TAB ONE (00:05)
[2020-08-20] MEDS ORDERED: MORPHINE 4 MG/ML SYR ONE (00:05)
--- NOTE | 2020-08-20 00:22 | ER ---
Nurse's Notes [facility] Name: Sulema Thomas Age: 55 yrs Sex: Female : 1965 Arrival Date: 08/19/2020 Time: 21:59 Bed 17 Private MD: Elda Rios Diagnosis: Pain in right shoulder;Arthropathies in other specified diseases classified elsewhere, right shoulder Presentation: 08/19 23:22 Chief complaint: Patient states: was here yesterday for left shoulder hurting, today em she woke up with the right shoulder hurting, denies trauma. Coronavirus screen: Client denies travel out of the [place] in the last 14 days. Ebola Screen: Patient negative for fever greater than or equal to 101.5 degrees Fahrenheit, and additional compatible Ebola Virus Disease symptoms Patient denies exposure to infectious person. Patient denies travel to an Ebola-affected area in the 21 days before illness onset. No symptoms or risks identified at this time. Initial Sepsis Screen: Does the patient meet any 2 criteria? No. Patient's initial sepsis screen is negative. Does the patient have a suspected source of infection? No. Patient's initial sepsis screen is negative. Risk Assessment: Do you want to hurt yourself or someone else? Patient reports no desire to harm self or others. Onset of symptoms was August 19, 2020. 23:22 Method Of Arrival: Ambulatory em 23:22 Acuity: KEEGAN 4 em Historical: - Allergies: 23:24 No Known Allergies; em - PMHx: 23:24 Colitis; Diabetes - NIDDM; Rheumatoid Arthritis; Ulcers; em - PSHx: 23:24 Cholecystectomy; em - Immunization history:: Adult Immunizations up to date. - Social history:: Smoking status: Patient denies any tobacco usage or history of. Screenin:54 Abuse screen: Denies threats or abuse. Denies injuries from another. Nutritional zb screening: No deficits noted. Tuberculosis screening: No symptoms or risk factors identified. Fall Risk None identified. Assessment: 23:50 General: Appears in no apparent distress. uncomfortable, Behavior is calm, cooperative, zb appropriate for age. Pain: Complains of pain in right arm Pain does not radiate. Pain currently is 10 out of 10 on a pain scale. Quality of pain is described as sharp, stabbing, throbbing. Neuro: Level of Consciousness is awake, alert, obeys commands, Oriented to person, place, time, situation. Cardiovascular: Patient's skin is warm and dry. Respiratory: Airway is patent Respiratory effort is even, unlabored, Respiratory pattern is regular, symmetrical. GI: No signs and/or symptoms were reported involving the gastrointestinal system. : No signs and/or symptoms were reported regarding the genitourinary system. EENT: No signs and/or symptoms were reported regarding the EENT system. Derm: Skin is intact, is healthy with good turgor, Skin is dry, Skin is normal, Skin temperature is warm. Musculoskeletal: Range of motion: limited in right shoulder. Vital Signs: 23:22 BP 126 / 68; Pulse 88; Resp 18; Temp 97.8; Pulse Ox 98% on R/A; Pain 10/10; em 23:55 BP 123 / 79; Pulse 89; Resp 16; Pulse Ox 96% on R/A; zb ED Course: 21:59 Patient arrived in ED. es 21:59 Elda Rios MD is Private Physician. es 22:40 Shoulder Right 2 View In Process Unspecified. EDMS 23:23 Carlo Ponce NP is PHCP. pm1 23:23 Rik Reyes MD is Attending Physician. pm1 23:24 Triage completed. em 23:24 Arm band placed on. em 23:46 Monica Redding, BIANCA is Primary Nurse. zb 23:55 Patient has correct armband on for positive identification. Bed in low position. Call zb light in reach. Side rails up X 1. Pulse ox on. NIBP on. Door closed. Noise minimized. 08/20 00:43 No provider procedures requiring assistance completed. Patient did not have IV access em during this emergency room visit. Administered Medications: 08/19 23:53 Drug: morphine 4 mg {Note: RASS +0.} Route: IM; Site: left deltoid; zb 08/20 00:45 Follow up: Response: No adverse reaction; Marked relief of symptoms; RASS: Alert and zb Calm (0) 08/19 23:53 Drug: Ondansetron (Zofran) 4 mg Route: PO; zb 08/20 00:45 Follow up: Response: No adverse reaction zb Outcome: 00:21 Discharge ordered by . pm1 00:43 Discharged to home ambulatory. em 00:43 Condition: stable 00:43 Discharge instructions given to patient, Instructed on discharge instructions, follow up and referral plans. Demonstrated understanding of instructions, follow-up care. 00:54 Patient left the ED. anastasia Signatures: Dispatcher [employer] Maegan Morataya Edgar, RN RN em Carlo Ponce NP [employer] CLERK pm1 Monica Redding RN RN zb Corrections: (The following items were deleted from the chart) 00:55 00:45 Response: No adverse reaction; Marked relief of symptoms anastasia oconnor
--- NOTE | 2020-08-20 00:22 | EDPHYS ---
Physician Documentation [facility] Name: Sulema Thomas Age: 55 yrs Sex: Female : 1965 Arrival Date: 08/19/2020 Time: 21:59 Bed 17 Private MD: Elda Rios ED Physician Rik Reyes HPI: 08/20 00:20 This 55 yrs old Female presents to ER via Ambulatory with complaints of pm1 Shoulder Pain. 00:20 The patient or guardian complains of pain, that is chronic. right shoulder. Context: pm1 The problem was sustained at home, resulted from arthiritis, The patient reports no obvious deformity. Onset: The symptoms/episode began/occurred and became worse today. Modifying factors: the symptoms are alleviated by remaining still, The symptoms are aggravated by movement. Associated signs and symptoms: Pertinent negatives: Numbness in right arm tingling. Severity of symptoms: in the emergency department the symptoms are actually worse. Treatment prior to arrival includes: no previous treatment. The patient has been recently seen at the [facility] Emergency Department, yesterday, for the left shoulder pain and dx with arthritis and discharged with pain medication, steroids and immobilizer. Historical: - Allergies: 08/19 23:24 No Known Allergies; em - PMHx: 23:24 Colitis; Diabetes - NIDDM; Rheumatoid Arthritis; Ulcers; em - PSHx: 23:24 Cholecystectomy; em - Immunization history:: Adult Immunizations up to date. - Social history:: Smoking status: Patient denies any tobacco usage or history of. ROS: 08/20 00:20 Constitutional: Negative for fever, chills, and weight loss, Cardiovascular: Negative pm1 for chest pain, palpitations, and edema, Respiratory: Negative for shortness of breath, cough, wheezing, and pleuritic chest pain. Skin: Negative for injury, rash, and discoloration, Neuro: Negative for headache, weakness, numbness, tingling, and seizure. MS/extremity: Positive for pain, of the right shoulder, Negative for decreased range of motion, deformity. Exam: 00:20 Constitutional: This is a well developed, well nourished patient who is awake, alert, pm1 and in no acute distress. Head/Face: Normocephalic, atraumatic. 00:20 Skin: Warm, dry with normal turgor. Normal color with no rashes, no lesions, and no evidence of cellulitis. 00:20 Cardiovascular: Exam negative for acute changes, Rate: normal, Rhythm: regular, Pulses: no pulse deficits are appreciated. 00:20 Respiratory: Exam negative for acute changes, respiratory distress, shortness of breath. 00:20 Musculoskeletal/extremity: Extremities: grossly normal except: noted in the right shoulder: tenderness, decreased range of motion due to pain, There is no evidence of deformity. Vital Signs: 08/19 23:22 BP 126 / 68; Pulse 88; Resp 18; Temp 97.8; Pulse Ox 98% on R/A; Pain 10/10; em 23:55 BP 123 / 79; Pulse 89; Resp 16; Pulse Ox 96% on R/A; zb MDM: 23:28 Patient medically screened. pm1 08/20 00:20 Data reviewed: vital signs. Data interpreted: Pulse oximetry: on room air is 96 %. pm1 Interpretation: normal. Counseling: I had a detailed discussion with the patient and/or guardian regarding: the historical points, exam findings, and any diagnostic results supporting the discharge/admit diagnosis, radiology results, the need for outpatient follow up, to return to the emergency department if symptoms worsen or persist or if there are any questions or concerns that arise at home. 00:20 ED course: Patient did not want another sling for this shoulder. patient not currently pm1 wearing the shoulder immobilizer she was given yesterday for the other shoulder. 08/19 22:37 Order name: Shoulder Right 2 View EDMS Administered Medications: 08/19 23:53 Drug: morphine 4 mg {Note: RASS +0.} Route: IM; Site: left deltoid; zb 08/20 00:45 Follow up: Response: No adverse reaction; Marked relief of symptoms; RASS: Alert and zb Calm (0) 08/19 23:53 Drug: Ondansetron (Zofran) 4 mg Route: PO; zb 08/20 00:45 Follow up: Response: No adverse reaction zb Disposition: 02:34 Co-signature as Attending Physician, Rik Reyes MD I agree with the assessment and tw4 plan of care. Disposition: 08/20/20 00:21 Discharged to Home. Impression: Pain in right shoulder, Arthropathies in other specified diseases classified elsewhere, right shoulder. - Condition is Stable. - Discharge Instructions: Arthritis, Shoulder Pain, How to Use a Sling. - Medication Reconciliation Form, Thank You Letter, Antibiotic Education, Prescription Opioid Use form. - Follow up: Emergency Department; When: As needed; Reason: Worsening of condition. Follow up: Private Physician; When: 2 - 3 days; Reason: Recheck today's complaints, Continuance of care, Re-evaluation by your physician. - Problem is new. - Symptoms have improved. Signatures: Dispatcher [employer] [facility] Alexander Moya, RN RN Carlo Mendez, FREEZER UNLOADER FREEZER UNLOADER pm1 Rik Reyes MD MD tw4 Monica Redding RN RN zb Corrections: (The following items were deleted from the chart) 08/19 22:38 22:03 Shoulder Left 2 View+RAD.RAD.BRZ ordered. [facility] 08/20 00:22 00:21 08/20/2020 00:21 Discharged to Home. Impression: Other specified arthritis, right pm1 shoulder. Condition is Stable. Forms are Medication Reconciliation Form, Thank You Letter, Antibiotic Education, Prescription Opioid Use. Follow up: Emergency Department; When: As needed; Reason: Worsening of condition. Follow up: Private Physician; When: 2 - 3 days; Reason: Recheck today's complaints, Continuance of care, Re-evaluation by your physician. Problem is new. Symptoms have improved. pm1 00:54 00:22 08/20/2020 00:21 Discharged to Home. Impression: Pain in right shoulder; zb Arthropathies in other specified diseases classified elsewhere, right shoulder. Condition is Stable. Discharge Instructions: Arthritis, Shoulder Pain. Forms are Medication Reconciliation Form, Thank You Letter, Antibiotic Education, Prescription Opioid Use. Follow up: Emergency Department; When: As needed; Reason: Worsening of condition. Follow up: Private Physician; When: 2 - 3 days; Reason: Recheck today's complaints, Continuance of care, Re-evaluation by your physician. Problem is new. Symptoms have improved. pm1 01:51 00:20 Counseling: I had a detailed discussion with the patient and/or guardian pm1 regarding: the historical points, exam findings, and any diagnostic results supporting the discharge/admit diagnosis, radiology results, the need for outpatient follow up, to return to the emergency department if symptoms worsen or persist or if there are any questions or concerns that arise at home, pm1
[2020-08-20 02:17] VITALS: TEMP 97.8
[2020-08-20 02:19] VITALS: BP 123/79; O2SAT 96
--- NOTE | 2020-08-20 08:22 | RAD REPORT ---
EXAM DESCRIPTION: Shoulder Right 2 View - 08/19/2020 10:41 pm CLINICAL HISTORY: PAINnontraumatic pain COMPARISON: No comparisons TECHNIQUE: Internal and external rotation views of the right shoulder were obtained. FINDINGS: There is no fracture or dislocation. Mild AC joint degenerative changes are present with spurring along the superior margin of the clavicle. Acromial humeral joint space is within normal ran ge with no abnormal soft tissue calcification. Greater tuberosity degenerative changes are present. N o acute or suspicious findings. IMPRESSION: Right shoulder degenerative change as detailed. No acute bone or joint finding seen.
== END 2020-08-20 00:54 | disposition home or self-care (01) ==
LOC: ER 21:57
DX: M25.511 Pain in right shoulder (principal); G89.29 Other chronic pain; E11.9 Type 2 diabetes mellitus without complications; M06.9 Rheumatoid arthritis, unspecified
CPT/HCPCS: 96372; 99283

== ENCOUNTER 2020-09-04 11:18 | Emergency (ER) | payer OTHER ==
--- OUTSIDE RECORDS SUMMARY | 2020-09-04 11:20 | XMS REPORT | Continuity of Care Document ---
:1965 Author Organization [facility] t Address [address] [place] [address] Care Team Providers Name Role Phone SAMEERA [...] Resolve Univers Arthritis Arthritis d ity of [place] Physici ans History of History of Problem Resolve Univers Back pain Back pain d [place]y of [place] Physici ans History of History of Problem Resolve Univers Diabetes Diabetes d [place]y of [place] Physici ans History of History of Problem Resolve Univers Gallbladde Gallbladde d it y of r disease r disease [place] Phys[place] History of History of Problem Resolve Univers Hernia Hernia d [place]y of [place] Physici ans History of History of Problem Resolve Univers Osteoporos Osteoporos d it y of is is [place] Physici ans History of History of Problem Resolve Univers Pneumonia Pneumonia d [place]y of [place] Physici ans Cervical 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 it y of s s [place] Physici ans Right Right Problem Active Univers cervical cervical ity of radiculopa radiculopa [place] thy thy Physici ans Arthritis Arthritis Problem Active Uni vers of of ity of shoulder shoulder [place] region, region, Physici right right ans Tear of Tear of Problem Active Univers right right ity of glenoid glenoid [place] labrum, labrum, Physici initial initial ans encounter encounter Tear of Tear of Problem Active Univers right right ity of suprasp[place] tus tendon tus tendon Ph ysici ans Neural Neural Problem Active Univers foraminal foraminal ity of stenosis stenosis [place] of of Physici cervical cervical ans spine spine Right arm Right arm Problem Active Uni vers weakness weakness ity of [place] Physici ans Allergies, Adverse Reactions, Alerts Allergy Allergy Status Severity Reaction(s) Onset Inactive Treating Comm ents Source Name Type Date Date Clinician No Known DA Active U [facility]ie 7 [place] [facility] Social History Smoking Status Start Date Stop Date Source Never smoked tobacco (finding) U [facility] Physicians Medications Ordered Filled Start Stop Current Ordering Indication Dosage Frequency Signature Comments Components Source Medication Medication Date Date Medication? Clinician (SIG) Name Name traMADol traMADol Yes ROB TAKE 1 U nivers HCl - 50 MG HCl - 50 MG 4-05 LI-HOLLY TABLET ity of Oral Tablet Oral Tablet 00:00: INNA M.D. EVERY 4 T O [place] 00 6 HOURS Physici NEEDED FOR ans PAIN. Cyclobenzap Cyclobenzap Yes ROB TAKE 1 Univers rine HCl - rine HCl - 9-16 LI-HOLLY TABLET at ity of 5 MG Oral 5 MG Oral 00:00: INNA M.D. bedtime as [place] Tablet Tablet 00 needed for Physi ci muscle ans cramps. Zofran Zofran 2019- Yes Shara as needed [facility] [place] [facility] nausea [facility] methylPREDN methylPREDN 2019- Yes ROB TAKE Univers ISolone 4 ISolone 4 5-04 LI-HOLLY DIRECTED ity of MG Oral MG Oral 00:00: INNA M.D. ON PATIENT [place] Tablet Tablet 00 INSTRUCTIO Physi ci Therapy Therapy N CARD.; ans Pack Pack Qty: 1 X 21 Tablet Disp Pack Albuterol Albuterol Yes Shara [address] [facility] Sulfate HFA Sulfate HFA 3-18 [place] [facility] - 00:[facility]: [facility] 00 l [facility] Clinics Methocarbam Methocarbam Yes ROB Q0.3333D TAKE 1 Univers ol 500 MG ol 500 MG 2-06 LI-HOLLY TABLET 3 ity of Oral Tablet Oral Tablet 00:00: INNA Castorena [facility] 00 DAILY. Physici ans Folic Acid Folic Acid Yes Shara 2-[address] [place] tablets as [facility] - needed for [facility]oria mouth l sores [facility] Vitamin C Vitamin C Yes Shara not [facility] [place] defined [facility] Vitamin D-3 Vitamin D-3 Yes Shara not [facility] [place] defined [facility] Atorvastati Atorvastati Yes Shara [address] [facility] n Calcium n Calcium [place] Luke [facility] - [facility] Gabapentin Gabapentin Yes Shara [address] [facility] [place] [facility] Tizanidine Tizanidine Yes Shara [address] [facility] [address] HCl HCl [place] as needed [facility] Prevalite Prevalite Yes Shara [address] [facility] [place] [facility] Lisinopril Lisinopril Yes Shara [address] [facility] [place] [facility] Singulair Singulair Yes Shara [address] [facility] [place] [facility] Amoxicillin Amoxicillin Yes Shara [address] [facility] -Pot -Pot [place] [facility] - Clavulanate Clavulanate M emoria l [facility]ics Atorvastati Atorvastati Yes Shara [address] [facility] n Calcium n Calcium [place] Luke [facility] - [facility] Xeljanz Xeljanz Yes Shara [address] [facility] [place] [facility] Metformin Metformin Yes Shara TAKE [address] HCl HCl [place] TABLET BY [facility] - MOUTH ONCE Memoria DAILY WITH l A MEAL [facility]ics Metformin Metformin Yes Shara [address] [facility] [address] HCl HCl [place] with a [facility] - meal [facility] l [facility] Clinics Lisinopril Lisinopril Yes Shara TAKE [address] [facility] [place] TABLET BY [facility] - MOUTH ONCE Memoria DAILY l [facility] ent [facility] Mesalamine Mesalamine Yes Shara [address] [facility] [place] [facility] Prevalite 4 Prevalite 4 Yes U nivers [...] Tab ity of (OR) - (OR) - [place] [id number]_Deact [id number]_Deact P hysici ivated ivated ans [...] 10 MG Oral ity of Tablet Tablet [place] Disintegrat Disintegrat P hysici ing ing ans Vitamin C Vitamin C Yes Unive rs TABS TABS ity of [place] Physici ans Vitamin D3 Vitamin D3 Yes Uni vers TABS TABS ity of [place] Physici ans Procedures Procedure Date / Time Performing Clinician Source Performed MR Shoulder wo contrast 2020-08-20 00:00:00 [facility] [id number] Physicians MRI Spine cervical wo 2020-08-20 00:00:00 [facility] [place] contrast [id number] Physicians MRI Spine cervical wo 2020-01-19 00:00:00 [facility] contrast [id number] Physicians MRI Spine cervical wo 2019-11-01 00:00:00 [facility] contrast [id number] Physicians MRI Spine cervical wo 2019-07-20 00:00:00 [facility] contrast [id number] Physicians History of [facility] [place] [facility] Physicians History of Cholecystectomy [facility] Physicians History of Knee Surgery [facility] Physicians Encounters Start End Encounter Admission Attending Care Care Encounter Source Date/Time Date/Time Type Type Clinicians Facility Department ID 2020-08-29 2020-08-29 Appointmen SAMEERA OSEGUERA Orthopedics [id number] Univers 10:30:00 10:30:00 t; SAMEERA KEITH, [facility] Raffaele RIVAS Physici Raffaele ans 2020-08-27 2020-08-27 Outpatient [facility] [id number] [facility] 2020-08-27 2020-08-27 Outpatient [facility] [id number] [facility] 2020-08-20 2020-08-20 Appointmen SAMEERA SOEGUERA [facility] [id number] Univers 10:45:00 10:45:00 [facility] Physici [place] ans 2020-08-17 2020-08-17 Outpatient [facility] [id number] [facility] 2020-07-27 2020-07-27 Outpatient [facility] [id number] [facility] 2020-07-25 2020-07-25 Outpatient [facility] [id number] [facility] 2020-07-11 2020-07-11 Outpatient [facility] [id number] [facility] 2020-07-11 2020-07-11 Outpatient [facility] [id number] [facility] 2020-07-09 2020-07-09 Outpatient [facility] [id number] [facility] 2020-06-26 2020-06-26 Outpatient [facility] [id number] [facility] 2020-06-20 2020-06-20 Outpatient [facility] [id number] [facility] 2020-06-15 2020-06-15 Outpatient [facility] [id number] [facility] 2020-06-06 2020-06-06 Outpatient [facility] [id number] [facility] 2020-06-04 2020-06-04 Outpatient [facility] [id number] [facility] 2020-06-01 2020-06-01 Outpatient [facility] [id number] [facility] 2020-05-30 2020-05-30 Outpatient [facility] [id number] [facility] 2020-05-30 2020-05-30 Outpatient [facility] [id number] [facility] 2020-05-07 2020-05-07 Outpatient [facility] [id number] [facility] 2020-05-07 2020-05-07 [facility] [id number] 2020-02-06 2020-02-06 Appointmen SAMEERA OSEGUERA Orthopedics [id number] Univers 12:30:00 12:30:00 t; SAMEERA KEITH, - [facility] Raffaele RIVAS M.D. ans 2019-11-25 2019-11-25 [facility] [id number] [address] 14:00:00 14:00:00 t [facility] Medicine l Medicine Outpati ent Clinics 2019-11-25 2019-11-25 [facility] [id number] 09:28:00 09:28:[address] Luke [address] - [address] [facility] Medicine Medicine Outpati ent Clinics 2019-11-03 2019-11-03 [facility] [id number] 12:02:00 12:02:[address] Luke s - [address] [facility] Medicine Medicine Outpati ent Clinics 2019-11-01 2019-11-01 Appointmen SAMEERA OSEGUERA [facility] [id number] Univers 13:00:00 13:00:00 t; [place] Raffaele RIVAS M.D. ans 2019-09-26 2019-09-26 [facility] [id number] 16:49:00 16:49:[address] Luke s - Drive [facility] Medicine Medicine Outpati ent Clinics 2019-09-26 2019-09-26 [facility] [id number] 11:20:00 11:20:[address] Luke s - Drive [facility] Medicine l Medicine Outpati ent Clinics 2019-09-26 2019-09-26 [facility] [id number] 09:52:00 09:52:[address] Luke s - Drive [facility] Medicine Outpati ent Clinics 2019-09-21 2019-09-21 [facility] [id number] 10:20:00 10:20:00 t [employer] [facility] Outpati ent Clinics 2019-09-19 2019-09-19 Appointmen SAMEERA OSEGUERA Orthopedics [id number] Univers 12:00:00 12:00:00 t; SAMEERA KEITH, - [facility] Jodie RIVAS M.D. Physicmaegan Castorena ans 2019-09-09 2019-09-09 Outpatient [place] JORGE, [facility] [id number] [place] 04:25:00 07:00:00 [facility] 2019-08-11 2019-08-11 [facility] [id number] 11:58:00 11:58:00 t [employer] [facility] Clinics 2019-08-02 2019-08-02 [facility] [id number] 10:31:00 10:31:00 t [employer] [facility] Clinics 2019-07-20 2019-07-20 Appointmen SAMEERA OSEGUERA Orthopedics [id number] Univers 09:00:00 09:00:00 t; SAMEERA KEITH, - [facility] Jodie RIVAS M.D. Physicmaegan MJohn ans 2019-07-18 2019-07-18 [facility] [id number] 09:20:00 09:20:00 t [employer] [facility] Outpati ent Clinics 2019-06-23 2019-06-23 Appointmen SAMEERA OSEGUERA Orthopedics [id number] Univers 12:30:00 12:30:00 t; SAMEERA KEITH, - [facility] Jodie RIVAS M.D. Physicmaegan MJohn ans 2019-05-04 2019-05-04 [facility] [id number] 09:40:00 09:40:00 t [employer] [facility] Outpati ent Clinics 2019-03-11 2019-03-11 [facility] [id number] 08:49:00 08:49:00 t [facility] [place] ent Clinics 2019-02-15 2019-02-15 [facility] [id number] 11:00:00 11:00:00 t [facility] [place] ent Clinics 2019-02-02 2019-02-02 [facility] [id number] 09:00:00 09:00:00 [place] [employer] [place] s - Drive [facility] Medicine Outpati ent Clinics 2019-01-14 2019-01-14 [facility] [id number] 16:16:00 16:16:00 [place] [employer] Luke s - Drive [facility] Medicine Outpati ent Clinics 2019-01-05 2019-01-05 [facility] [id number] 09:20:00 09:20:00 [place] [employer] [place] s - Drive [facility] Medicine Medicine Outpati ent Clinics 2018-12-14 2018-12-14 [facility] [id number] 09:34:00 09:34:00 [place] [employer] Luke s - Drive [facility] Medicine Medicine Outpati ent Clinics 2018-11-17 2018-11-17 [facility] [id number] 11:14:00 11:14:00 [place] [employer] Luke s - Drive [facility] Medicine Medicine Outpati ent Clinics 2018-08-31 2018-08-31 [facility] [id number] 13:05:00 13:05:00 [place] [employer] Luke s - Drive [facility] Medicine Outpati ent Clinics 2018-08-25 2018-08-25 [facility] [id number] 11:40:00 11:40:00 [place] [employer] Luke s - Drive [facility] Medicine Outpati ent Clinics Results Test Test Test Results Result Source Description Time Comments Comments MR Shoulder wo 2020-08- PROCEDURE [facility] [id number] INFORMATION:Exam: MR Right Jodie 15:34:00 Upper Extremity Joint Phy sicians Without Contrast; ShoulderExam date and time: 08/25/2020 3:34 PMAge: 55 years oldClinical indication: Other symptoms and signs involving the musculoskeletalsystem; Additional info: R29.898 other symptoms and signs involving themusculoskeletal system/r29.898 other symptoms and signs involving themusculoskeletal systemTECHNIQUE:Imaging protocol: MR of the Right upper extremity without contrast. Examfocused on the shoulder.COMPARISON:No relevant prior studies available.FINDINGS:Bones and joints: Moderate acromioclavicular osteoarthrosis with hypertrophy.Periarticular cyst likely ganglion and intraosseous cyst. The acromion is type1. There is a small amount of fluid in the subacromial/subdeltoid bursa.Humeral head is intact and located with small glenohumeral joint effusion. Mildthinning of the humeral head cartilage. No loose bodies.Glenoid labrum: Degeneration and degenerative tearing of the superior labrum.There is also blunting and degeneration of posterior labrum. No completedetachment or paralabral cyst.Supraspinatus tendon: Full-thickness supraspinatus tear with retractionapproximately 1.6 cm. No significant muscle atrophy. The tear measures 7 mmfrom anterior to posterior.Infraspinatus tendon: Unremarkable. No evidence of tear.Subscapularis tendon: Subscapularis tendinosis is noted with slight articularsurface irregularity but no tear.Teres minor tendon: Unremarkable. No evidence of tear.Tendon of biceps brachii: Moderate long head biceps tendinosis without tear.Glenohumeral ligaments: Unremarkable.Muscles: Unremarkable. No muscle atrophy..Soft tissues: Unremarkable.IMPRESSION:1. Full-thickness supraspinatus tear with mild retraction. No muscle atrophy.2. Mild subscapularis tendinosis with slight articular surface irregularity butno definite tear.3. Moderate acromioclavicular osteoarthrosis.4. Mild glenohumeral arthrosis with labral degeneration and degenerativetearing.5. Moderate long head biceps tendinosis without tear.Jayro Brewer MD On 08/27/2020 10:55:55; -[id number]--Emli by: Jayro Brewer MDDictated Date/time: 08/27/20 10:57Electronically Signed by: Jayro Brewer 08/27/2109:57FINAL REPORT MRI Spine 2020-08- PROCEDURE [facility] wo 10 INFORMATION:Exam: MR [place] as contrast [id number] 15:09:00 Cervical Spine Without Physicians ContrastExam date and time: 08/25/2020 3:10 PMAge: 55 years oldClinical indication: Spinal stenosis, cervical region; Additional info: M48.02spinal stenosis, cervical region/m48.02 spinal stenosis, cervical regionTECHNIQUE:Imaging protocol: Multiplanar magnetic resonance images of the cervical spinewithout contrast.COMPARISON:SPINE CERVICAL WO CONTRAST MRI 02/03/2020 7:39 AMFINDINGS:Vertebrae: There is no fracture or subluxation of the vertebrae. There isstraightening of the normal cervical lordosis. Spinal cord: There is no myleomalacia or cord edema. There is no tonsillarectopia. The C1/C2 articulation is intact. There is normal flow from bothvertebral arteries.C2-C3: No significant disc disease. No significant spinal stenosis.C3-C4: At the C3-C4 disc space, there is a 1 mm anterolisthesis. There issignificant degenerative change of the left facet joint with subarticularsclerosis and minimal fluid in the joint space. There is hypertrophic change ofthe uncovertebral joint with moderate proximal foraminal stenosis.C4-C5: At the C4-C5 disc space which is desiccated and narrowed, there is a 2-3mm bridging osteophyte attenuating the proximal right lateral recess andabutting the ventral cord. There is hypertrophic change of uncovertebral jointswith severe bilateral foraminal stenosis. Findings are stable.C5-C6: At the C5-C6 disc space which is desiccated and narrowed, there is a 2mm bridging osteophyte and hypertrophic change of uncovertebral joints withminimal central canal stenosis and severe left and moderate to severe rightforaminal stenosis. Findings are stable.C6-C7: At the C6-C7 disc space which is desiccated and narrowed, there is a 2mm right lateral bridging osteophyte and hypertrophic change of uncovertebraljoint attenuating distal lateral recess and minimal to moderate proximalforaminal stenosis. Findings are stable.C7-T1: At the C7-T1 disc space, there is a 1 mm anterolisthesis and a 3 mmright paracentral subligamentous extruded disc herniation partially attenuatingthe proximal lateral recess without compromising the cord. There is noforaminal stenosis or interval change.Soft tissues: The prevertbral soft tissues are normal.Vertebral arteries: Expected flow voids in the vertebral arteries.IMPRESSION: Multilevel discogenic disease is present and stable.Ulises Campo MD On 08/25/2020 16:31:37; [id number]--Pphq by: Ulises Campo MDDictated Date/time: 08/25/20 16:31Electronically Signed by: Ulises Campo MD 08/26/2115:31FINAL REPORT [U] XRAY SPINE 2020-08- Images acquired, not University of CERVICAL 2 OR 3 05 reported on this accession [place] VWS [id number] 11:07:00 number. Physicians [U] XR SHOULDER 2020-08- Images acquired, not University of MIN 2 VWS 05 reported on this accession [place] BILATERAL 11:07:00 number. Physicians GLUCOMETER GLUCOSE- LAB USE ONLY 2019-09-09 06:04:00 Test Item Value Reference Range Interpretation Comme nts GLUCOMETER (test code = GMG) 124 mg/dL 70-100 H Meter ID: [id number]: [id number] TONO MARTIN URINE MONOCLONALFB2019-09-09 05:18:00 Test Item Value Reference Range Interpretation Comments PREG UR (test code = PGU) NEGATIVE NEGATIVE GLUCOMETER GLUCOSE- LAB USE [id number] 04:48:00 Test Item Value Reference Range Interpretation Comments GLUCOMETER (test code = 119 mg/dL 70-100 H Mete r ID: GMG) [id number] tor: [id number] MICHAEL [address] REDO [U] XRAY SHOULDER MIN 2 VWS LEFT [id number] 12:25:00Images acquired, not reported on this accession number.[facility] Physicians[U] XRAY SPINE CERVICAL 2 OR 3 VWS [id number] 12:25:00Images acquired, not reported on this accession number.[facility] [id number] 12:24:00 RUN DATE: 11/24/18 [facility] [place] - LAB *LIVE* PAGE 1 RUN TIME: 1224 Specimen Inquiry RUN USER: INTERFACE PATIENT: DAMI MOODY LOC: LIZETH U #: [id number] AGE/SX: 53/F ROOM: RE11/23/18REG DR: Sebastian Betancourt MD : 69 BED: DIS: STATUS: CAT [facility] TLOC: SPEC #: [id number] RECD: 11/23/18 STATUS: CHIRAG REEverardo #: [id number] EUGENIA: 11/23/[address]: Sebastian Betancourt MD ENTERED: 11/23/18 SP TYPE: SURG OTHR DR: Elda Rios DO ORDERED: SURG PATH LVL 08/17 COPIES TO: Sebastian Betancourt MD [address] [place] [id number] Elda Rios DO [address] [place] [address] [id number]: TISSUE ID BLK PCS SANDRA LEV PROCEDURE DISPOSITION ____ ___ ___ ___ COLON, NOS A 1 2 COLON, NOS B 1 2 PROCEDURES: SURG PATH LVL 4 (11/23/18-1520) TISSUES: A. COLON, NOS - RIGHT SIDE B. COLON, NOS - LEFT SIDE CLINICAL HISTORY DIARRHEA-R19.7;ABD PAIN- R10.9;RECTAL PAIN-K62.89 CPT CODES CPT CODE(S): 60054E8 , , , , , , FINAL DIAGNOSIS A. Colon, right, biopsy: COLONIC MUCOSA WITH NO SIGNIFICANT HISTOPATHOLOGIC FINDINGSB. Colon, left, biopsy: FOCAL ACTIVE COLITIS NO EVIDENCE OF DYSPLASIA OR MALIGNANCY CONTINUED ON NEXT PAGE RUN DATE: 11/24/18 [facility] [place] - LAB *LIVE* PAGE 2 RUN TIME: 1224 Specimen Inquiry RUN USER: INTERFACE --------- ---SPEC #: [id number] PATIENT: DAMI MOODY #[id number] (Continued) GROSS DESCRIPTION A. Right side. Received in formalin are three olmos tissue fragments, 0.2 - 0.7 cm. B. Left side. Received in formalin are eight olmos tissue fragments, 0.2 - 0.5 cm, all as B. /ba/pdb Grossing performed at [facility] Pathology, [address] [place] [address], [address], [place] [address]. Equipment Cleaner And Tester: Patricio Granados M.D. MICROSCOPIC DESCRIPTION A. Right [...] 11/24/18 1224 END OF REPORT HCG SERUM [id number] 11:36:00 Test Item Value Reference Range Interpretation Comments HCG SERUM QUAL (test SERUM NEGATIVE SCREEN NEGATIVE code = HCGQL) GLUCOSE BEDSIDE [id number] 11:30:00 Test Item Value Reference Range Interpretation Comments GLUCOSE BEDSIDE TESTING (test code 122 mg/dL 70-110 H = GLUBED)
[2020-09-04] MEDS ORDERED: HYDROCODONE/APAP 10/325 TAB ONE (14:21)
--- NOTE | 2020-09-04 14:31 | RAD REPORT ---
EXAM DESCRIPTION: RAD - Shoulder Right 2 View - 09/04/2020 2:18 pm CLINICAL HISTORY: fall, elbow pain FINDINGS: Mild AC joint and glenohumeral joint arthritic changes are present. No acute fracture or d islocation seen.
--- NOTE | 2020-09-04 14:33 | RAD REPORT ---
EXAM DESCRIPTION: RAD - Knee Left 3 View - 09/04/2020 2:18 pm CLINICAL HISTORY: knee pain Pain and swelling COMPARISON: No comparisons FINDINGS: Severe osteoarthritis affects all 3 joint compartments, greatest in the medial compartment and patellofemoral joint. Evidence of prior ACL repair noted. Small amount suprapatellar joint fluid .
--- NOTE | 2020-09-04 14:36 | RAD REPORT ---
EXAM DESCRIPTION: RAD - Foot Right 3 View - 09/04/2020 2:18 pm CLINICAL HISTORY: fall, foot pain COMPARISON: Foot Right 2 View dated 12/10/2015 FINDINGS: No acute fracture or dislocation seen. Small plantar calcaneal spur.
--- NOTE | 2020-09-04 14:48 | EDPHYS ---
Physician Documentation [facility] Name: Sulema Thomas Age: 55 yrs Sex: Female : 1965 Arrival Date: 09/04/2020 Time: 11:22 Bed 28 Private MD: Elda Rios ED Physician Aman Christianson HPI: 09/04 14:01 This 55 yrs old Female presents to ER via Ambulatory with complaints of Fall jmm Injury, Leg Pain, Knee Pain, Foot Pain. 14:01 Details of fall: The patient fell from an upright position, while walking. Onset: The jmm symptoms/episode began/occurred acutely, just prior to arrival. Associated injuries: The patient sustained left knee, right foot, right elbow. This is a 55 year old female with a history of RA, DM, that presents to the ED with complaints of paint to the left knee, right foot, and the right elbow after slipping on a floor. Patient initially landed on the left knee. Patient denies hitting her head. . Historical: - Allergies: 12:10 No Known Allergies; ss - PMHx: 12:10 Colitis; Diabetes - NIDDM; Rheumatoid Arthritis; Ulcers; ss - PSHx: 12:10 Cholecystectomy; ss - Immunization history:: Adult Immunizations up to date. - Social history:: Smoking status: Patient denies any tobacco usage or history of. ROS: 14:01 Constitutional: Negative for fever, chills, and weight loss, Cardiovascular: Negative jmm for chest pain, palpitations, and edema, Respiratory: Negative for shortness of breath, cough, wheezing, and pleuritic chest pain. 14:01 MS/extremity: Positive for pain. 14:01 All other systems are negative. Exam: 14:01 Constitutional: This is a well developed, well nourished patient who is awake, alert, jmm and in no acute distress. Head/Face: atraumatic. Eyes: EOMI, no conjunctival erythema appreciated ENT: Moist Mucus Membranes Neck: Trachea midline, Supple Chest/axilla: Normal chest wall appearance and motion. Cardiovascular: Regular rate and rhythm. No edema appreciated Respiratory: Normal respirations, no respiratory distress appreciated Abdomen/GI: Non distended, soft Back: Normal ROM Skin: General appearance color normal 14:01 Musculoskeletal/extremity: ROM: intact in all extremities, Left lateral knee ttp, compartments are soft, from, nvi, right dorsal surface of the foot ttp, full dorsalis pulse, nvi, right distal humerus ttp, compartments are soft, NVI. 14:01 Skin: Appearance: Color: normal in color. 14:01 Neuro: Orientation: is normal, Mentation: is normal, Memory: is normal. 14:01 Psych: Behavior/mood is pleasant, cooperative. Vital Signs: 12:07 BP 105 / 68; Pulse 100; Resp 16; Temp 98.3(TE); Pulse Ox 95% on R/A; Weight 90.72 kg; ss Height 5 ft. 5 in. (165.10 cm); Pain 6/10; 13:45 BP 129 / 79; Pulse 89; Resp 18 S; Pulse Ox 98% on R/A; aa5 12:07 Body Mass Index 33.28 (90.72 kg, 165.10 cm) ss MDM: 13:54 Patient medically screened. [facility] 14:45 Data reviewed: vital signs, nurses notes. Counseling: I had a detailed discussion with [facility] the patient and/or guardian regarding: the historical points, exam findings, and any diagnostic results supporting the discharge/admit diagnosis, radiology results, the need for outpatient follow up, to return to the emergency department if symptoms worsen or persist or if there are any questions or concerns that arise at home. ED course: Patient advised to follow up with ortho for further evaluation. Patient understood and agrees with the plan of care. . 09/04 13:57 Order name: Knee Left 3 View XRAY; Complete Time: 14:40 [facility] 09/04 13:57 Order name: Foot Right 3 View XRAY; Complete Time: 14:40 [facility] 09/04 13:57 Order name: Shoulder Right (2 View) XRAY; Complete Time: 14:40 [facility] 09/04 14:41 Order name: Rahul wrap-joint: right foot; Complete Time: 15:20 [facility] 09/04 14:41 Order name: Rahul wrap-joint: left knee; Complete Time: 15:20 [facility] Administered Medications: 14:04 Drug: [place] (HYDROcodone-acetaminophen) 10 mg-325 mg 1 tabs Route: PO; aa5 15:20 Follow up: Response: No adverse reaction; Pain is decreased aa5 Disposition: 17:21 Co-signature as Attending Physician, Aman Christianson MD. rn Disposition: 09/04/20 14:47 Discharged to Home. Impression: Other internal derangements of knee, Contusion of right elbow, Other sprain of foot. - Condition is Stable. - Discharge Instructions: Foot Sprain, Knee Pain. - Prescriptions for Tramadol 50 mg Oral Tablet - take 1 tablet by ORAL route every 8 hours as needed; 12 tablet. - Medication Reconciliation Form, Thank You Letter, Antibiotic Education, Prescription Opioid Use form. - Follow up: Elda Rios MD; When: 2 - 3 days; Reason: Recheck today's complaints, Continuance of care, Re-evaluation by your physician. Signatures: Dispatcher [employer] EDMS Sean Matos, Aman Fischer MD MD rn Calderon, Audri, RN RN aa5 Jaylin Bui RN RN ss Corrections: (The following items were deleted from the chart) 15:20 14:47 09/04/2020 14:47 Discharged to Home. Impression: Other internal derangements of aa5 knee; Contusion of right elbow; Other sprain of foot. Condition is Stable. Forms are Medication Reconciliation Form, Thank You Letter, Antibiotic Education, Prescription Opioid Use. Follow up: Elda Rios; When: 2 - 3 days; Reason: Recheck today's complaints, Continuance of care, Re-evaluation by your physician. millie
--- NOTE | 2020-09-04 14:48 | ER ---
Nurse's Notes [facility] Name: Sulema Thomas Age: 55 yrs Sex: Female : 1965 Arrival Date: 09/04/2020 Time: 11:22 Bed 28 Private MD: Elda Rios Diagnosis: Other internal derangements of knee;Contusion of right elbow;Other sprain of foot Presentation: 09/04 12:07 Chief complaint: Patient states: Slipped on a wet floor at [facility] and now c/o pain to ss L knee, R foot and R shoulder. Coronavirus screen: Client denies travel out of the [place] in the last 14 days. Ebola Screen: Patient denies exposure to infectious person. Patient denies travel to an Ebola-affected area in the 21 days before illness onset. Initial Sepsis Screen: Does the patient meet any 2 criteria? No. Patient's initial sepsis screen is negative. Does the patient have a suspected source of infection? No. Patient's initial sepsis screen is negative. Risk Assessment: Do you want to hurt yourself or someone else? Patient reports no desire to harm self or others. Onset of symptoms was September 04, 2020. 12:07 Method Of Arrival: Ambulatory ss 12:07 Acuity: KEEGAN 4 ss Historical: - Allergies: 12:10 No Known Allergies; ss - PMHx: 12:10 Colitis; Diabetes - NIDDM; Rheumatoid Arthritis; Ulcers; ss - PSHx: 12:10 Cholecystectomy; ss - Immunization history:: Adult Immunizations up to date. - Social history:: Smoking status: Patient denies any tobacco usage or history of. Screenin:00 Abuse screen: Denies threats or abuse. Nutritional screening: No deficits noted. aa5 Tuberculosis screening: No symptoms or risk factors identified. Fall Risk Fall in past 12 months (25 points). Total Flores Fall Scale indicates Low Risk Score (25-44 pts). Fall prevention measures have been instituted. Side Rails Up X 2 Placed close to Nursing Station. Assessment: 13:45 General: Appears uncomfortable, Behavior is calm, cooperative. Pain: Complains of pain aa5 in left knee, right foot, and right shoulder Pain currently is 6 out of 10 on a pain scale. Quality of pain is described as aching, sharp, throbbing, Is continuous. Neuro: Level of Consciousness is awake, alert, obeys commands, Oriented to person, place, time, situation. Cardiovascular: Patient's skin is warm and dry. Respiratory: Airway is patent Respiratory effort is even, unlabored, Respiratory pattern is regular, symmetrical. GI: No signs and/or symptoms were reported involving the gastrointestinal system. : No signs and/or symptoms were reported regarding the genitourinary system. EENT: No signs and/or symptoms were reported regarding the EENT system. Derm: Skin is pink, warm \T\ dry. Musculoskeletal: Range of motion: intact in all extremities, Reports pain in right foot, left knee, and right shoulder. 14:04 Reassessment: Patient is alert, oriented x 3, equal unlabored respirations, skin aa5 warm/dry/pink. Pt to radiology via wheelchair . 15:20 Reassessment: Patient is alert, oriented x 3, equal unlabored respirations, skin aa5 warm/dry/pink. Patient states symptoms have improved. Rahul wrap applied to right foot and left knee . Vital Signs: 12:07 BP 105 / 68; Pulse 100; Resp 16; Temp 98.3(TE); Pulse Ox 95% on R/A; Weight 90.72 kg; ss Height 5 ft. 5 in. (165.10 cm); Pain 6/10; 13:45 BP 129 / 79; Pulse 89; Resp 18 S; Pulse Ox 98% on R/A; aa5 12:07 Body Mass Index 33.28 (90.72 kg, 165.10 cm) ED Course: 11:22 Patient arrived in ED. mr 11:23 Elda Rios MD is Private Physician. mr 12:09 Triage completed. ss 12:10 Arm band placed on right wrist. ss 13:44 Sean Matos PA is PHCP. jmm 13:44 Aman Christianson MD is Attending Physician. jmm 13:45 Patient has correct armband on for positive identification. Placed in gown. Bed in low aa5 position. Call light in reach. Side rails up X2. 13:49 Barb Campbell, RN is Primary Nurse. aa5 14:18 Knee Left 3 View XRAY In Process Unspecified. EDMS 14:18 Foot Right 3 View XRAY In Process Unspecified. EDMS 14:18 Shoulder Right (2 View) XRAY In Process Unspecified. EDMS 14:47 Elda Rios MD is Referral Physician. millie 15:19 No provider procedures requiring assistance completed. Patient did not have IV access aa5 during this emergency room visit. Administered Medications: 14:04 Drug: [place] (HYDROcodone-acetaminophen) 10 mg-325 mg 1 tabs Route: PO; aa5 15:20 Follow up: Response: No adverse reaction; Pain is decreased aa5 Outcome: 14:47 Discharge ordered by MD. millie 15:19 Discharged to home via wheelchair. aa5 15:19 Condition: stable 15:19 Discharge instructions given to patient, Instructed on discharge instructions, follow up and referral plans. medication usage, Demonstrated understanding of instructions, follow-up care, medications, Prescriptions given X 1. 15:20 Patient left the ED. aa5 Signatures: Dispatcher [employer] EDMS Sean Matos PA PA jmm Rivera, Mary Barb Campbell RN RN aa5 Jaylin Bui RN RN ss
[2020-09-04 15:37] VITALS: BP 105/68; TEMP 98.3; O2SAT 95
== END 2020-09-04 15:20 | disposition home or self-care (01) ==
LOC: ER 11:18
DX: M23.92 Unspecified internal derangement of left knee (principal); S93.692A Other sprain of left foot, initial encounter; S50.01XA Contusion of right elbow, initial encounter; W01.0XXA Fall on same level from slipping, tripping and stumbling without subsequent striking against object, initial encounter; Y93.01 Activity, walking, marching and hiking; Y92.9 Unspecified place or not applicable; E11.9 Type 2 diabetes mellitus without complications
CPT/HCPCS: 99283

== ENCOUNTER 2021-01-25 15:11 | Emergency (ER) | payer OTHER ==
--- OUTSIDE RECORDS SUMMARY | 2021-01-25 15:15 | XMS REPORT | Continuity of Care Document ---
:1965 Author Organization [facility] t Address [address] [place] [address] Care Team Providers Name Role Phone SCHMITT, GARETH Primary Care Physician Unavailable RO Attending Clinician Unavailable MEGHANA KEITH Attending Clinician Unavailable MEGHANA KEITH Attending Clinician Unavailable DR JORGE Attending Clinician Unavailable DR JORGE Admitting Clinician Unavailable Payers Payer Name Policy Type Policy Number Effective Date Expiration Date Sondra RHOADESAZAELCrista [place] [id number] 2020 HEALTH PLAN 00:00:00 Problems Condition Condition Condition Status Onset Resolution Last Treating Co mments Source Name Details Category Date Date Treatment Clinician Date History of History of Problem Resolve Univers Arthritis Arthritis [facility] Phys[facility] ans History of History of Problem Resolve Univers Back pain Back pain [facility] [place] [facility] History of History of Problem Resolve Univers Diabetes Diabetes [facility] [place] Physici ans [...] 11-19 [place] 00:00: d 00 Medical [place] Social History Smoking Status Start Date Stop [...] Physici NEEDED FOR ans PAIN. Cyclobenzap Cyclobenzap 2019- Yes ROB TAKE 1 Univers rine HCl - rine HCl - 9-16 LI-HOLLY TABLET at ity of 5 MG Oral 5 MG Oral 00:00: INNA M.D. bedtime as [place] Tablet Tablet 00 needed for Physi ci muscle ans cramps. Zofran Zofran 2019-0 Yes Shara as needed [facility] [place] for nausea [facility] methylPREDN methylPREDN 2019-0 Yes ROB TAKE Univers ISolone 4 ISolone 4 5-04 LI-HOLLY DIRECTED ity of MG Oral MG Oral 00:00: INNA Castorena ON PATIENT [place] Tablet Tablet 00 INSTRUCTIO Physi ci Therapy Therapy N CARD.; ans Pack Pack Qty: 1 X 21 Tablet Disp Pack Albuterol Albuterol Yes Shara [address] [facility] Sulfate HFA Sulfate HFA 3-18 [place] [facility] Methocarbam Methocarbam Yes ROB Q0.3333D TAKE 1 Univers ol 500 MG ol 500 MG 2-06 LI-HOLLY TABLET 3 ity of Oral Tablet Oral Tablet 00:00: INNA Castorena TIMES [place] 00 DAILY. Physici ans Gabapentin Gabapentin Yes Uni vers [...] Yes Unive rs TABS TABS [facility] Physici ans Vitamin D3 Vitamin D3 Yes Uni vers TABS TABS [facility] Physici ans Folic Acid Folic Acid Yes Shara 2-[address] [place] tablets as [facility] - needed for Memoria mouth l sores Outpati ent Clinics Vitamin C Vitamin C Yes Shara not [facility] [place] defined [facility] Vitamin D-3 Vitamin D-3 Yes Shara not [facility] [place] defined [facility] Atorvastati Atorvastati Yes Shara [address] [facility] n Calcium n Calcium [place] [facility] - [facility] Gabapentin Gabapentin Yes Shara [address] [facility] [place] [facility] Tizanidine Tizanidine Yes Shara [address] [facility] [address] HCl HCl [place] as needed kes - [facility] Prevalite Prevalite Yes Shara [address] [facility] [place] [facility] Lisinopril Lisinopril Yes Shara [address] [facility] [place] [facility] Singulair Singulair Yes Shara [address] [facility] [place] [facility] Amoxicillin Amoxicillin Yes Shara [address] [facility] -Pot -Pot [place] [facility] - Clavulanate Clavulanate M emoria l [facility] Atorvastati Atorvastati Yes Shara [address] [facility] [facility] n Calcium n Calcium [place] [facility] - [facility]ics Xeljanz Xeljanz Yes Shara [address] [facility] [facility] [place] kes - [facility] Metformin Metformin Yes Shara TAKE [address] HCl HCl [place] TABLET BY [facility] - MOUTH ONCE Memoria DAILY WITH l A MEAL [facility] Metformin Metformin Yes Shara [address] HCl HCl [place] with a [facility] - meal [facility] Lisinopril Lisinopril Yes Shara TAKE [address] [facility] [facility] [place] TABLET BY [facility] - MOUTH ONCE Memoria DAILY l [facility] Mesalamine Mesalamine Yes Shara [address] [place] kes - [facility] Clinics Prevalite 4 Prevalite 4 [...] Jose Maria as Tablet Tablet Physici ans Procedures Procedure Date / Time Performing Clinician Source Performed MR Shoulder wo contrast 2020-08-20 00:00:00 [facility] 13303 Physicians MRI Spine cervical wo 2020-08-20 00:00:00 [facility] contrast [id number] Physicians MRI Spine cervical wo 2020-01-19 00:00:00 [facility] contrast 92631 Physicians MRI Spine cervical wo 2019-11-01 00:00:00 [facility] contrast 51628 Physicians MRI Spine cervical wo 2019-07-20 00:00:00 [facility] contrast 80752 Physicians History of [facility] [place] Physicians History of Cholecystectomy [facility] Physicians History of Knee Surgery [facility] Physicians Encounters Start End Encounter Admission Attending Care Care Encounter Source Date/Time Date/Time Type Type Clinicians Facility Department ID 2020-12-12 Outpatient [facility] [id number] [place] 10:18:05 [facility] 2020-12-06 Outpatient MEGHANA [facility] [id number] [place] 16:13:51 [facility] 2020-12-06 Outpatient MEGHANA [facility] [id number] [place] 15:14:30 [facility] 2020-11-28 Outpatient MEGHANA [facility] [id number] [place] 10:03:24 [facility] 2020-10-17 Outpatient MEGHANA [facility] [id number] [place] 11:09:58 [facility] 2020-10-16 Outpatient [facility] [id number] [place] 12:47:29 [facility] 2020-10-10 Outpatient MEGHANA [facility] [id number] [place] 11:28:04 [facility] 2020-10-10 Outpatient MEGHANA [facility] [id number] [place] 11:27:10 [facility] 2020-09-22 Outpatient MEGHANA [facility] [id number] [place] 03:01:49 [facility] 2021-01-24 2021-01-24 Outpatient [facility] [id number] [facility] 2021-01-23 2021-01-23 Outpatient [facility] [id number] [facility] 2021-01-14 2021-01-14 Outpatient [facility] [id number] [facility] 2021-01-03 2021-01-[address] [facility] [id number] 10:17:35 11:23:51 Visit Monamahendra FABIANA [id number] MEDICAL [id number] [place] 1 [id number] 2021-01-03 2021-01-03 [id number] 2020-12-12 2020-12-12 Office RosauraFerHolly [facility] [id number] 09:21:56 10:18:31 Visit FABIANA Keith [id number] [facility] [id number] [place] [address] [id number] 2020-12-06 2020-12-06 Office RosauraJuan Manuel [facility] [id number] 15:14:17 16:13:58 Visit FABIANA Keith [id number] [facility] [id number] [place] 3 [id number] 2020-10-25 2020-10-25 Outpatient [facility] [id number] [facility] 2020-10-19 2020-10-19 Outpatient [facility] [id number] [facility] 2020-10-17 2020-10-17 Office Meghana [facility] [id number] 10:23:11 11:11:36 Visit FABIANA Keith [id number] [facility] [id number] [place] 3 [id number] 2020-10-17 2020-10-17 Outpatient [facility] [id number] [facility] 2020-10-17 2020-10-17 Outpatient [facility] [id number] [facility] 2020-10-17 2020-10-17 Outpatient [facility] [id number] [facility] 2020-10-16 2020-10-16 Outpatient [facility] [id number] [facility] 2020-09-25 2020-09-25 Outpatient [facility] [id number] [facility] 2020-08-29 2020-08-29 Appointmen MEGHANA OSEGUERA Orthopedics [id number] [facility] 10:30:00 10:30:00 [facility]IV[facility] M.D. Physici MJohn ans 2020-08-27 2020-08-27 Outpatient [facility] [id number] [facility] 2020-08-27 2020-08-27 Outpatient [facility] [id number] [facility] 2020-08-20 2020-08-20 Appointmen MEGHANA OSEGUERA [facility] [id number] Univers 10:45:00 10:45:00 t; [place] Jodie RIVAS M.D. Medical Physici [facility] ans 2020-08-17 2020-08-17 Outpatient [facility] [id number] [facility] 2020-07-27 2020-07-27 Outpatient [facility] [id number] [facility] 2020-07-25 2020-07-25 Outpatient [facility] [id number] [facility] 2020-07-11 2020-07-11 Outpatient [facility] [id number] [facility] 2020-07-11 2020-07-11 Outpatient [facility] [id number] [facility] 2020-07-09 2020-07-09 Outpatient [facility] [id number] [facility] 2020-06-26 2020-06-26 Outpatient [facility] [id number] [facility] 2020-06-20 2020-06-20 Outpatient [facility] [id number] [facility] 2020-06-15 2020-06-15 Outpatient [facility] [id number] [facility] 2020-06-06 2020-06-06 Outpatient [facility] [id number] [facility] 2020-06-04 2020-06-04 Outpatient [facility] [id number] [facility] 2020-06-01 2020-06-01 Outpatient [facility] [id number] [facility] 2020-05-30 2020-05-30 Outpatient [facility] [id number] [facility] 2020-05-30 2020-05-30 Outpatient [facility] [id number] [facility] 2020-05-07 2020-05-07 Outpatient [facility] [id number] [facility] 2020-05-07 2020-05-07 Outpatient [facility] [id number] [facility] 2020-02-06 2020-02-06 Appointmen MEGHANA OSEGUERA Orthopedics [id number] [facility] 12:30:00 12:30:00 t; MEGHANA KEITH, [facility] Raffaele Jane MJohn ans 2019-11-25 2019-11-25 [facility] [id number] 14:00:00 14:00:00 t [facility] l Medicine Outpati ent Clinics 2019-11-25 2019-11-25 [facility] [id number] 09:28:00 09:28:00 t Zelgor Luke [facility] - Drive [facility] l Medicine Outpati ent Clinics 2019-11-03 2019-11-03 [facility] [id number] 12:02:00 12:02:00 t Blackey unamia Luke s - Drive [facility] Medicine l Medicine Outpati ent Clinics 2019-11-01 2019-11-01 Appointmen MEGHANA OSEGUERA UTP [id number] Univers 13:00:00 13:00:00 t; [place] Raffaele RIVAS Physicmaegan MJohn ans 2019-09-26 2019-09-26 [facility] [id number] 16:49:00 16:49:00 t Blackey unamia Luke s - Drive [facility] l Medicine Outpati ent Clinics 2019-09-26 2019-09-26 [facility] [id number] 11:20:00 11:20:[address] Luke s - Drive [facility] Outpati ent Clinics 2019-09-26 2019-09-26 [facility] [id number] 09:52:00 09:52:[address] Luke s - Drive [facility] Outpati ent Clinics 2019-09-21 2019-09-21 [facility] [id number] 10:20:00 10:20:[address] LuLucent Sky s - Drive [facility] Outpati ent Clinics 2019-09-19 2019-09-19 Appointmen MEGHANA OSEGUERA Orthopedics [id number] Univers 12:00:00 12:00:00 t; MEGHANA KEITH, - [facility] Raffaele Jane MJohn ans 2019-09-09 2019-09-09 Outpatient Sheridan PATEL, [facility] [id number] [place] 04:25:00 07:00:00 [facility] 2019-08-11 2019-08-11 [facility] [id number] 11:58:00 11:58:00 t Blackey Blackey Hedvig LuLucent Sky s - [facility] 2019-08-02 2019-08-02 [facility] [id number] 10:31:00 10:31:00 t Blackey Blackey Hedvig LuLucent Sky s - Drive [facility] Outpati ent Clinics 2019-07-20 2019-07-20 Appointmen MEGHANA OSEGUERA Orthopedics [id number] Univers 09:00:00 09:00:00 t; MEGHANA KEITH, - [facility] Jodie RIVAS M.D. Physicmaegan MoJhn ans 2019-07-18 2019-07-18 [facility] [id number] 09:20:00 09:20:00 t Blackey Blackey Hedvig Luke s - Drive [facility] Outpati ent Clinics 2019-06-23 2019-06-23 [facility] MEGHANA [facility] Orthopedics [id number] [facility] 12:30:00 12:30:00 t; MEGHANA KEITH, - [facility] ROB KEITH II [place] ANDREW, M.D. Physici M.D. [facility] 2019-05-04 2019-05-04 [facility] [id number] 09:40:00 09:40:[address] Luke s - Drive [facility] Medicine Outpati ent Clinics 2019-03-11 2019-03-11 [facility] [id number] 08:49:00 08:49:00 t [facility] ent Clinics 2019-02-15 2019-02-15 [facility] [id number] 11:00:00 11:00:00 t [facility] ent Clinics 2019-02-02 2019-02-02 [facility] [id number] 09:00:00 09:00:00 t Blackey Blackey Hedvig Luke s - Drive [facility] Medicine Outpati ent Clinics 2019-01-14 2019-01-14 [facility] [id number] 16:16:00 16:16:00 t Blackey Blackey Hedvig Luke s - Drive [facility] 2019-01-05 2019-01-05 [facility] [id number] 09:20:00 09:20:[address] Luke s - Drive [facility] Medicine Outpati ent Clinics 2018-12-14 2018-12-14 [facility] [id number] 09:34:00 09:34:[address] Luke s - Drive [facility] Medicine Outpati ent Clinics 2018-11-17 2018-11-17 [facility] [id number] 11:14:00 11:14:[address] Luke s - Drive [facility] Medicine Outpati ent Clinics 2018-08-31 2018-08-31 [facility] [id number] 13:05:00 13:05:00 [facility] 2018-08-25 2018-08-25 Outpatient Walker Do [id number] 11:40:00 11:40:00 [facility] ent [facility] Results Test Test Test Results Result Source Description Time Comments Comments MR Shoulder wo 2020-08- PROCEDURE [facility] [id number] INFORMATION:Exam: MR Right Jodie 15:34:00 Upper [...] without tear.Jayro Brewer MD On 08/27/2020 10:55:55; [id number] by: Jayro Brewer MDDictated Date/time: 08/27/20 10:57Electronically Signed by: Jayro Brewer 08/27/2109:57FINAL REPORT MRI Spine 2020-08- PROCEDURE [facility] wo 10 INFORMATION:Exam: MR Jose Maria as contrast [id number] 15:09:00 Cervical Spine Without Physicians ContrastExam date [...] arteries.IMPRESSION: Multilevel discogenic disease is present and stable.Ulsies Campo MD On 08/25/2020 16:31:37; [id number] by: Ulises Campo MDDictated Date/time: 08/25/20 16:31Electronically Signed by: Ulises Campo MD 08/26/2115:31FINAL REPORT [U] XRAY SPINE 2020-08- Images acquired, not University of CERVICAL 2 OR 3 05 reported on this accession [place] VWS [id number] 11:07:00 number. Physicians [U] XR SHOULDER 2020-08- Images acquired, not University of MIN 2 VWS 05 reported on this accession [place] BILATERAL 11:07:00 number. Physicians GLUCOMETER GLUCOSE- LAB USE ONLY 2019-09-09 06:04:00 Test Item Value Reference Range Interpretation Comme nts GLUCOMETER (test code = GMG) 124 mg/dL 70-100 H Meter ID: [id number]: 5537 TONO MARTIN URINE MONOCLONALFB2019-09-09 05:18:00 Test Item Value Reference Range Interpretation Comments PREG UR (test code = PGU) NEGATIVE NEGATIVE GLUCOMETER GLUCOSE- LAB USE [id number] 04:48:00 Test Item Value Reference Range Interpretation Comments GLUCOMETER (test code = 119 mg/dL 70-100 H Mete r ID: GMG) [id number] tor: [id number] MICHAEL PHAN [U] XRAY SHOULDER MIN 2 VWS LEFT [id number] 12:25:00Images acquired, not reported on this accession number.[facility] Physicians[U] XRAY SPINE CERVICAL 2 OR 3 VWS [id number] 12:25:00Images acquired, not reported on this accession number.[facility] [id number] 12:24:00 RUN DATE: 11/24/18 [facility] - LAB *LIVE* PAGE 1 RUN TIME: 1224 Specimen Inquiry RUN USER: INTERFACE PATIENT: DAMI MOODY LOC: Juan AntonioChinyereMARTY U #: [id number] AGE/SX: 53/F ROOM: RE11/23/18VINOD DR: Sebastian Betancourt MD : 69 BED: DIS: STATUS: CAT [facility] TLOC: SPEC #: [id number]:[id number] RECD: 11/23/18 STATUS: CHIRAG GUILLORY #: [id number] EUGENIA: 11/23/[address] [facility] [address]: Sebastian Betancourt MD ENTERED: 11/23/18 SP TYPE: SURG OTHR DR: Elda Schmitt DO ORDERED: SURG PATH LVL 08/17 COPIES TO: Sebastian Bteancourt MD [address] [place] [address] Elda Schmitt DO [address] [place] [address] [id number]: TISSUE ID BLK PCS SANDRA LEV PROCEDURE DISPOSITION ____ ___ ___ ___ COLON, NOS A 1 2 COLON, NOS B 1 2 PROCEDURES: SURG PATH LVL 4 (11/23/18) TISSUES: A. COLON, NOS - RIGHT SIDE B. COLON, NOS - LEFT SIDE CLINICAL HISTORY DIARRHEA-R19.7;ABD PAIN- R10.9;RECTAL PAIN-K62.89 CPT CODES CPT CODE(S): 04459R7 , , , , , , FINAL DIAGNOSIS A. Colon, right, biopsy: COLONIC MUCOSA WITH NO SIGNIFICANT HISTOPATHOLOGIC FINDINGSB. Colon, left, biopsy: FOCAL ACTIVE COLITIS NO EVIDENCE OF DYSPLASIA OR MALIGNANCY CONTINUED ON NEXT PAGE RUN DATE: 11/24/18 [facility] - LAB *LIVE* PAGE 2 RUN TIME: 1224 Specimen Inquiry RUN USER: INTERFACE --------- ---SPEC #: [facility]:[id number] PATIENT: DAMI MOODY #[id number] (Continued) GROSS DESCRIPTION A. Right side. Received in formalin are three olmos tissue fragments, 0.2 - 0.7 cm. B. Left side. Received in formalin are eight olmos tissue fragments, 0.2 - 0.5 cm, all as B. /ba/pdb Grossing performed at [facility] Pathology, [address] [place] [address], [address], [place] [address]. Manager Rfid: Patricio Granados M.D. MICROSCOPIC DESCRIPTION A. Right [...] Signed SIGNATURE ON FILE Hector Bueno 11/24/18 [id number] END OF REPORT HCG SERUM [id number] 11:36:00 Test Item Value Reference Range Interpretation Comments HCG SERUM QUAL (test SERUM NEGATIVE SCREEN NEGATIVE code = HCGQL) GLUCOSE BEDSIDE [id number] 11:30:00 Test Item Value Reference Range Interpretation Comments GLUCOSE BEDSIDE TESTING (test code 122 mg/dL 70-110 H = GLUBED)
[2021-01-25] MEDS ORDERED: CASIRIVIMAB/IMDEVIMAB 10 ML VIAL ONE (17:36)
[2021-01-25] MEDS ORDERED: NA CHLORIDE 0.9% 250 ML ONE (17:37)
--- NOTE | 2021-01-25 21:04 | ER ---
Nurse's Notes [facility] Name: Sulema Thomas Age: 56 yrs Sex: Female : 1965 Arrival Date: 01/25/2021 Time: 15:15 Bed 10 Private MD: Diagnosis: Coronavirus infection, unspecified Presentation: 01/25 16:58 Chief complaint: Patient states: tested positive for COVID and flu yesterday, symptoms iw started Thursday, headache, chills, body aches, sore throat, cough SOB, fever , pt is wanting monoclonal antibody treatment. Coronavirus screen: cough unrelated to allergies, difficulty breathing, fever, muscle pain. Ebola Screen: Patient negative for fever greater than or equal to 101.5 degrees Fahrenheit, and additional compatible Ebola Virus Disease symptoms Patient denies exposure to infectious person. Patient denies travel to an Ebola-affected area in the 21 days before illness onset. No symptoms or risks identified at this time. Initial Sepsis Screen: Does the patient meet any 2 criteria? No. Patient's initial sepsis screen is negative. Does the patient have a suspected source of infection? No. Patient's initial sepsis screen is negative. Risk Assessment: Do you want to hurt yourself or someone else? Patient reports no desire to harm self or others. Onset of symptoms was January 20, 2021. 16:58 Method Of Arrival: Ambulatory iw 16:58 Acuity: KEEGAN 3 iw Historical: - Allergies: 17:01 No Known Allergies; iw - Home Meds: 17:00 atorvastatin 10 mg Oral tab 1 tab once daily [Active]; Folic Acid Oral [Active]; iw glipizide 5 mg Oral tab 1 tab once daily [Active]; gabapentin Oral [Active]; lisinopril 2.5 mg Oral tab 1 tab once daily [Active]; melatonin 10 mg Oral tab [Active]; mesalamine Oral [Active]; metformin 1,000 mg Oral tab 1 tab daily [Active]; pantoprazole Oral [Active]; Prevalite Oral [Active]; - PMHx: 17:00 Colitis; Diabetes - NIDDM; Rheumatoid Arthritis; Ulcers; iw - Immunization history:: Client reports receiving the 2nd dose of the Covid vaccine. Screenin:55 Abuse screen: Denies threats or abuse. Nutritional screening: No deficits noted. aa5 Tuberculosis screening: No symptoms or risk factors identified. Fall Risk None identified. Assessment: 17:55 General: Appears uncomfortable, Behavior is calm, cooperative. Pain: Complains of pain aa5 in whole body Pain currently is 8 out of 10 on a pain scale. Quality of pain is described as aching, Is continuous. Neuro: Level of Consciousness is awake, alert, obeys commands, Oriented to person, place, time, situation. Cardiovascular: Heart tones S1 S2 present Rhythm is regular. Respiratory: Reports shortness of breath cough Airway is patent Respiratory effort is even, unlabored, Respiratory pattern is regular, symmetrical, Breath sounds are clear bilaterally. GI: Abdomen is round non-distended, Bowel sounds present X 4 quads. Abd is soft and non tender X 4 quads. : No signs and/or symptoms were reported regarding the genitourinary system. EENT: No signs and/or symptoms were reported regarding the EENT system. Derm: Skin is pink, warm \T\ dry. Musculoskeletal: Range of motion: intact in all extremities. 18:00 Reassessment: Consent for REGEN-COV signed by pt (see pt's chart). aa5 18:45 Reassessment: Patient is alert, oriented x 3, equal unlabored respirations, skin aa5 warm/dry/pink. 19:01 Reassessment: Patient is alert, oriented x 3, equal unlabored respirations, skin aa5 warm/dry/pink. 19:45 Reassessment: Patient is alert, oriented x 3, equal unlabored respirations, skin aa5 warm/dry/pink. Pt sitting up in recliner, pt states no complaints at this time, pt notified of need to monitor for 1 hr post REGEN-COV infusion. . 21:43 Reassessment: Patient is alert, oriented x 3, equal unlabored respirations, skin bb warm/dry/pink. pt verbalized understanding of and agrees to plan of care discharge instructions given pt ambulated with steady gait to exit. Vital Signs: 16:58 BP 136 / 63; Pulse 84; Resp 18; Temp 98.0; Pulse Ox 98% on R/A; iw 18:29 BP 135 / 81; Pulse 80; Resp 20 S; Pulse Ox 99% on R/A; aa5 19:01 BP 114 / 84; Pulse 76; Resp 18 S; Pulse Ox 99% ; aa5 21:22 BP 139 / 80; Pulse 73; Resp 18; Temp 97.8(TE); Pulse Ox 97% on R/A; oe ED Course: 15:15 Patient arrived in ED. ds1 17:00 Triage completed. iw 17:01 Arm band placed on. iw 17:09 Sean Matos PA is PHCP. [facility] 17:09 David Barakat MD is Attending Physician. [facility] 17:15 Inserted saline lock: 22 gauge in right antecubital area, using aseptic technique. iw 17:55 Patient has correct armband on for positive identification. Call light in reach. aa5 19:15 Report given to BIANCA Rodarte. aa5 21:43 No provider procedures requiring assistance completed. IV discontinued, intact, bb bleeding controlled, No redness/swelling at site. Pressure dressing applied. Administered Medications: 18:45 Drug: REGEN-COV Dose Pack 120 mg/mL-120 mg/mL (EUA) 600 mg Route: IV; Rate: calculated aa5 rate; Site: right antecubital; 19:45 Follow up: Response: No adverse reaction; IV Status: Completed infusion aa5 19:51 CANCELLED (Physician Discretion): Casirivimab ([id number]) (1 of 2) (EUA) 1200 mg IV at aa5 calculated rate once; as a single dose; per protocol with imdevimab Outcome: 21:03 Discharge ordered by . [facility] 21:44 Discharged to home ambulatory. bb 21:44 Condition: stable 21:44 Discharge instructions given to patient, Instructed on discharge instructions, follow up and referral plans. Demonstrated understanding of instructions, follow-up care. 21:44 Patient left the ED. bb Signatures: Sean Matos PA PA [facility] Amada Parisi ds1 Aster Aguilar RN RN bb Medina Mcginnis, RN RN iw Barb Campbell RN RN aa5 Tahir Manuel Corrections: (The following items were deleted from the chart) 17:02 16:58 Chief complaint: Patient states: tested positive for COVID and flu yesterday, iw symptoms started Thursday, headache, chills, body aches, sore throat, cough SOB, fever iw 19:51 18:45 Casirivimab ([id number]) (1 of 2) (EUA) 1200 mg IV at calculated rate in right aa5 antecubital aa5 19:51 19:45 Response: No adverse reaction; IV Status: Completed infusion aa5 aa5 20:02 17:55 Respiratory: Reports shortness of breath cough Airway is patent Respiratory aa5 effort is even, unlabored, Respiratory pattern is regular, symmetrical, aa5
--- NOTE | 2021-01-25 21:04 | EDPHYS ---
Physician Documentation [facility] Name: Sulema Thomas Age: 56 yrs Sex: Female : 1965 Arrival Date: 01/25/2021 Time: 15:15 Bed 10 Private MD: ED Physician David Barakat HPI: 01/25 18:05 This 56 yrs old Female presents to ER via Ambulatory with complaints of Covid+ jmm Infusion. 18:05 The patient has shortness of breath at rest. Onset: The symptoms/episode began/occurred jmm gradually, 5 day(s) ago. Duration: The symptoms are continuous, and are steadily getting worse. The patient's shortness of breath is aggravated by nothing, is alleviated by nothing. This is a 56-year-old female with a history of colitis, diabetes mellitus, rheumatoid arthritis that presents emerged part with complaints of cough and shortness of breath progressively worsening over the past 5 days. Patient states that she tested positive for Covid pneumonia is requesting Regeneron. . Historical: - Allergies: 17:01 No Known Allergies; iw - Home Meds: 17:00 atorvastatin 10 mg Oral tab 1 tab once daily [Active]; Folic Acid Oral [Active]; iw glipizide 5 mg Oral tab 1 tab once daily [Active]; gabapentin Oral [Active]; lisinopril 2.5 mg Oral tab 1 tab once daily [Active]; melatonin 10 mg Oral tab [Active]; mesalamine Oral [Active]; metformin 1,000 mg Oral tab 1 tab daily [Active]; pantoprazole Oral [Active]; Prevalite Oral [Active]; - PMHx: 17:00 Colitis; Diabetes - NIDDM; Rheumatoid Arthritis; Ulcers; iw - Immunization history:: Client reports receiving the 2nd dose of the Covid vaccine. ROS: 18:05 Constitutional: Positive for body aches, fatigue. jmm 18:05 Respiratory: Positive for cough. 18:05 All other systems are negative. Exam: 18:05 Constitutional: This is a well developed, well nourished patient who is awake, alert, jmm and in no acute distress. Head/Face: atraumatic. Eyes: EOMI, no conjunctival erythema appreciated ENT: Moist Mucus Membranes Neck: Trachea midline, Supple Chest/axilla: Normal chest wall appearance and motion. Cardiovascular: Regular rate and rhythm. No edema appreciated Respiratory: Normal respirations, no respiratory distress appreciated Abdomen/GI: Non distended, soft Back: Normal ROM Skin: General appearance color normal MS/ Extremity: Moves all extremities, no obvious deformities appreciated, no edema noted to the lower extremities Neuro: Awake and alert, normal gait Psych: Behavior is normal, Mood is normal, Patient is cooperative and pleasant Vital Signs: 16:58 BP 136 / 63; Pulse 84; Resp 18; Temp 98.0; Pulse Ox 98% on R/A; iw 18:29 BP 135 / 81; Pulse 80; Resp 20 S; Pulse Ox 99% on R/A; aa5 19:01 BP 114 / 84; Pulse 76; Resp 18 S; Pulse Ox 99% ; aa5 21:22 BP 139 / 80; Pulse 73; Resp 18; Temp 97.8(TE); Pulse Ox 97% on R/A; oe MDM: 18:05 Patient medically screened. [facility] 21:02 Data reviewed: vital signs, nurses notes. Counseling: I had a detailed discussion with millie the patient and/or guardian regarding: the historical points, exam findings, and any diagnostic results supporting the discharge/admit diagnosis, the need for outpatient follow up, to return to the emergency department if symptoms worsen or persist or if there are any questions or concerns that arise at home. ED course: Patient is alert nontoxic in appearance in the ED. No signs of respiratory distress appreciated. Patient received infusion without difficulty. Patient advised to follow-up PCP and otherwise given strict return precautions. Patient understood and agrees with plan of care.. Administered Medications: 18:45 Drug: REGEN-COV Dose Pack 120 mg/mL-120 mg/mL (EUA) 600 mg Route: IV; Rate: calculated aa5 rate; Site: right antecubital; 19:45 Follow up: Response: No adverse reaction; IV Status: Completed infusion aa5 19:51 CANCELLED (Physician Discretion): Casirivimab ([id number]) (1 of 2) (EUA) 1200 mg IV at aa5 calculated rate once; as a single dose; per protocol with imdevimab Disposition: 22:06 Co-signature as Attending Physician, David Barakat MD I agree with the assessment and kdr plan of care. Disposition Summary: 09/10/21 21:03 Discharge Ordered Location: Home [facility] Condition: Stable jm Diagnosis - Coronavirus infection, unspecified jm Followup: [facility] - With: Private Physician - When: 2 - 3 days - Reason: Recheck today's complaints, Continuance of care, Re-evaluation by your physician Discharge Instructions: - Discharge Summary Sheet [facility] - COVID-19 [facility] Forms: - Medication Reconciliation Form [facility] - Thank You Letter [facility] - Antibiotic Education [facility] - Prescription Opioid Use [facility] Signatures: David Barakat MD MD [facility] Sean Matos PA PA [facility] Medina Mcginnis, BIANCA RN iw Barb Campbell RN RN aa5 Corrections: (The following items were deleted from the chart) 19:51 18:45 Casirivimab ([id number]) (1 of 2) (EUA) 1200 mg IV at calculated rate once; as a aa5 single dose; per protocol with imdevimab ordered. [facility] 19:51 19:33 Casirivimab ([id number]) (1 of 2) (EUA) 1200 mg IV at calculated rate once; as a aa5 single dose; per protocol with imdevimab given. aa5 19:51 19:51 Casirivimab ([id number]) (1 of 2) (EUA) 1200 mg IV at calculated rate once; as a aa5 single dose; per protocol with imdevimab ordered. aa5
[2021-01-25 21:59] VITALS: BP 139/80; TEMP 97.8; O2SAT 97
== END 2021-01-25 21:44 | disposition home or self-care (01) ==
LOC: ER 15:11
DX: U07.1 COVID-19 (principal); E11.9 Type 2 diabetes mellitus without complications
CPT/HCPCS: 96365; 99283; J7050

== ENCOUNTER 2021-02-28 11:17 | Emergency (ER) | payer OTHER ==
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
--- NOTE | 2021-02-28 13:24 | RAD REPORT ---
EXAM DESCRIPTION: RAD - Shoulder Left 2 View - 02/28/2021 1:11 pm CLINICAL HISTORY: PAIN COMPARISON: No comparisons FINDINGS: No fracture or dislocation is seen.
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
[2021-02-28 13:52] VITALS: TEMP 98.1; O2SAT 98
[2021-02-28 13:56] VITALS: BP 144/92
== END 2021-02-28 13:36 | disposition home or self-care (01) ==
LOC: ER 11:17
DX: M54.2 Cervicalgia (principal); M25.512 Pain in left shoulder; E11.9 Type 2 diabetes mellitus without complications; V49.40XA Driver injured in collision with unspecified motor vehicles in traffic accident, initial encounter
CPT/HCPCS: 72125; 72131; 99284

== ENCOUNTER 2021-03-13 08:32 | Emergency (ER) | payer OTHER ==
--- NOTE | 2021-03-13 08:52 | ER ---
Nurse's Notes [facility] Name: Sulema Thomas Age: 56 yrs Sex: Female : 1965 Arrival Date: 03/13/2021 Time: 08:35 Bed 5 Private MD: Elda Rios Diagnosis: Pain in left shoulder;Radiculopathy, cervical region Presentation: 03/13 08:38 Chief complaint: Patient states: my LEFT shoulder is hurting really bad and i cant tw2 barely use my arm. it radiates from my shoulder down my arm and then to my neck and shoulders. i have really bad Rheumatoid arthritis. it started hurting last night and i barely slept. Coronavirus screen: At this time, the client does not indicate any symptoms associated with coronavirus-19. Ebola Screen: Patient denies travel to an Ebola-affected area in the 21 days before illness onset. Initial Sepsis Screen: Does the patient meet any 2 criteria? No. Patient's initial sepsis screen is negative. Does the patient have a suspected source of infection? No. Patient's initial sepsis screen is negative. Risk Assessment: Do you want to hurt yourself or someone else? Patient reports no desire to harm self or others. Onset of symptoms was March 13, 2021. 08:38 Method Of Arrival: Ambulatory tw2 08:38 Acuity: KEEGAN 4 tw2 Triage Assessment: 08:40 General: Appears in no apparent distress. uncomfortable, well groomed, Behavior is tw2 calm, cooperative, appropriate for age. Pain: Complains of pain in left arm and shoulder. Respiratory: Airway is patent Respiratory effort is even, unlabored, Respiratory pattern is regular, symmetrical. Historical: - Allergies: 08:40 No Known Allergies; tw2 - Home Meds: 08:40 atorvastatin 10 mg Oral tab 1 tab once daily [Active]; tramadol 50 mg Oral tab 1 tab tw2 once a day [Active]; ciprofloxacin Oral [Active]; Folic Acid Oral [Active]; gabapentin 300 mg Oral cap twice a day [Active]; glipizide 5 mg Oral tab 1 tab once daily [Active]; lisinopril 2.5 mg Oral tab 1 tab once daily [Active]; mesalamine Oral [Active]; metformin 1,000 mg Oral tab 1 tab daily [Active]; pantoprazole Oral [Active]; melatonin 10 mg Oral tab [Active]; Prevalite Oral [Active]; - PMHx: 08:40 Diabetes - NIDDM; Rheumatoid Arthritis; Colitis; Ulcers; tw2 - Immunization history:: Client reports receiving the 2nd dose of the Covid vaccine. - Social history:: Smoking status: Patient denies any tobacco usage or history of. Screenin:48 Abuse screen: Denies threats or abuse. Denies injuries from another. Nutritional jt3 screening: No deficits noted. Tuberculosis screening: No symptoms or risk factors identified. Fall Risk None identified. Assessment: 08:48 General: Appears in no apparent distress. Behavior is calm, cooperative. Pain: jt3 Complains of pain in left arm Pain radiates from neck to left shoulder and arm. Pain currently is 8 out of 10 on a pain scale. Quality of pain is described as aching. Musculoskeletal: Reports weakness in left arm Pt. reports unable to move left arm. This is very similar to her flare ups with her rheumatoid arthritis. Pt. reports needing extra help getting dressed when this happens. Denies numbness/tingling. Alert and oriented x4. Vital Signs: 08:38 BP 117 / 79; Pulse 92; Resp 18; Temp 97.5(TE); Pulse Ox 99% on R/A; Weight 92.53 kg tw2 (R); Height 5 ft. 5 in. (165.10 cm); Pain 8/10; 09:10 BP 121 / 80; Pulse 84; Resp 16; Pulse Ox 98% on R/A; jt3 08:38 Body Mass Index 33.95 (92.53 kg, 165.10 cm) tw2 ED Course: 08:35 Patient arrived in ED. mr 08:35 Elda Rios MD is Private Physician. mr 08:40 Triage completed. tw2 08:40 Italia Navarrete FNP-C [facility]. kb 08:40 Aman Christianson MD is Attending Physician. kb 08:42 Arm band placed on. tw2 08:43 Jayro Strong, BIANCA is Primary Nurse. ch5 08:48 Primary Nurse role handed off by Jayro Strong, BIANCA jt3 08:48 Gonzalo Pal RN is Primary Nurse. jt3 08:48 Patient has correct armband on for positive identification. Bed in low position. Call jt3 light in reach. Side rails up X2. 08:48 No provider procedures requiring assistance completed. No need for IV at this time. jt3 Administered Medications: 09:02 Drug: morphine 4 mg Route: IM; Site: right deltoid; jt3 09:19 Follow up: Response: No adverse reaction; Pain is decreased jt3 09:02 Drug: Zofran (Ondansetron) 4 mg Route: PO; jt3 09:18 Follow up: Response: No adverse reaction jt3 Outcome: 08:52 Discharge ordered by . suzanna 09:19 Discharged to home ambulatory. jt3 09:19 Condition: good 09:19 Discharge instructions given to patient. 09:20 Patient left the ED. jt3 Signatures: Italia Navarrete, ARIKC BRANCH EMPLOYMENT COORDINATOR-Sulema Rios Tara, RN RN tw2 Jayro Strong, BIANCA RN ch5 Gonzalo Pal RN RN jt3
--- NOTE | 2021-03-13 08:52 | EDPHYS ---
Physician Documentation [facility] Name: Sulema Thomas Age: 56 yrs Sex: Female : 1965 Arrival Date: 03/13/2021 Time: 08:35 Bed 5 Private MD: Elda Rios ED Physician Aman Chrsitianson HPI: 03/13 08:50 This 56 yrs old Female presents to ER via Ambulatory with complaints of kb Shoulder Pain. 08:50 The patient or guardian complains of pain, that is acute. left shoulder and left kb trapezius. Context: The problem was sustained at home, resulted from from a chronic condition, RA, The patient experiences decreased range of motion, The patient reports no obvious deformity. Onset: The symptoms/episode began/occurred last night. Modifying factors: the symptoms are alleviated by nothing. The symptoms are aggravated by movement. Associated signs and symptoms: The patient has no apparent associated signs or symptoms. Severity of symptoms: At their worst the symptoms were moderate, in the emergency department the symptoms are unchanged. Treatment prior to arrival includes: prescription medications, tramadol. The patient has experienced similar episodes in the past, multiple times. The patient has not recently seen a physician. Pt states she has bad RA and it flares in her left neck and shoulder. Reports she has to come in for a morphine shot when it gets this bad because the tramadol doesn't take the pain away. Denies injury or trauma. Historical: - Allergies: 08:40 No Known Allergies; tw2 - Home Meds: 08:40 atorvastatin 10 mg Oral tab 1 tab once daily [Active]; tramadol 50 mg Oral tab 1 tab tw2 once a day [Active]; ciprofloxacin Oral [Active]; Folic Acid Oral [Active]; gabapentin 300 mg Oral cap twice a day [Active]; glipizide 5 mg Oral tab 1 tab once daily [Active]; lisinopril 2.5 mg Oral tab 1 tab once daily [Active]; mesalamine Oral [Active]; metformin 1,000 mg Oral tab 1 tab daily [Active]; pantoprazole Oral [Active]; melatonin 10 mg Oral tab [Active]; Prevalite Oral [Active]; - PMHx: 08:40 Diabetes - NIDDM; Rheumatoid Arthritis; Colitis; Ulcers; tw2 - Immunization history:: Client reports receiving the 2nd dose of the Covid vaccine. - Social history:: Smoking status: Patient denies any tobacco usage or history of. ROS: 08:46 Constitutional: Negative for fever, chills, and weight loss. kb 08:46 MS/extremity: Positive for pain, of the left arm, left posterior aspect of neck and left lateral aspect of neck. 08:46 All other systems are negative. Exam: 08:49 Constitutional: This is a well developed, well nourished patient who is awake, alert, kb and in no acute distress. Head/Face: Normocephalic, atraumatic. ENT: Moist Mucous membranes Respiratory: Respirations even and unlabored. No increased work of breathing, no retractions or nasal flaring. Skin: Warm, dry with normal turgor. Normal color. Neuro: Awake and alert, GCS 15, oriented to person, place, time, and situation. Moves all extremities. Normal gait. Psych: Awake, alert, with orientation to person, place and time. Behavior, mood, and affect are within normal limits. 08:49 Neck: External neck: tenderness, that is mild, of the lower cervical area, left posterior aspect of neck and left lateral aspect of neck. 08:49 Musculoskeletal/extremity: Extremities: grossly normal except: noted in the left arm: deformity, pain. Vital Signs: 08:38 BP 117 / 79; Pulse 92; Resp 18; Temp 97.5(TE); Pulse Ox 99% on R/A; Weight 92.53 kg tw2 (R); Height 5 ft. 5 in. (165.10 cm); Pain 8/10; 09:10 BP 121 / 80; Pulse 84; Resp 16; Pulse Ox 98% on R/A; jt3 08:38 Body Mass Index 33.95 (92.53 kg, 165.10 cm) tw2 MDM: 08:43 Patient medically screened. kb 08:46 Data reviewed: vital signs, nurses notes. Data interpreted: Pulse oximetry: on room air kb is 99 %. Interpretation: normal. Counseling: I had a detailed discussion with the patient and/or guardian regarding: the historical points, exam findings, and any diagnostic results supporting the discharge/admit diagnosis, the need for outpatient follow up, a family practitioner, to return to the emergency department if symptoms worsen or persist or if there are any questions or concerns that arise at home. Administered Medications: 09:02 Drug: morphine 4 mg Route: IM; Site: right deltoid; jt3 09:19 Follow up: Response: No adverse reaction; Pain is decreased jt3 09:02 Drug: Zofran (Ondansetron) 4 mg Route: PO; jt3 09:18 Follow up: Response: No adverse reaction jt3 Disposition: 03/14 08:25 Co-signature as Attending Physician, Aman Christianson MD I agree with the assessment and rn plan of care. Attestation: The patient's history, exam findings, diagnostics, and a summary of any interventions or procedures was reviewed in detail with Italia WALTERS. Disposition Summary: 03/13/21 08:52 Discharge Ordered Location: Home kb Condition: Stable kb Diagnosis - Pain in left shoulder kb - Radiculopathy, cervical region kb Followup: kb - With: Emergency Department - When: As needed - Reason: Worsening of condition Followup: kb - With: Private Physician - When: 2 - 3 days - Reason: Recheck today's complaints, Continuance of care, Re-evaluation by your physician Discharge Instructions: - Discharge Summary Sheet kb - Shoulder Pain, [id number] kb - Cervical Radiculopathy, [id number] kb Forms: - Medication Reconciliation Form kb - Thank You Letter kb - Antibiotic Education kb - Prescription Opioid Use kb Prescriptions: - Prednisone 20 mg Oral Tablet - take 1 tablet by ORAL route once daily for 5 days; 5 tablet; Refills: 0, kb Product Selection Permitted Signatures: Italia Navarrete FNP-C FNP-Aman Saxena MD MD rn Wise, Tara, RN RN tw2 Gonzalo Pal RN RN jt3
[2021-03-13] MEDS ORDERED: ONDANSETRON 4 MG (ODT) TAB ONE (09:20)
[2021-03-13] MEDS ORDERED: MORPHINE 4 MG/ML SYR ONE (09:20)
[2021-03-13 09:27] VITALS: TEMP 97.5
[2021-03-13 09:28] VITALS: BP 121/80; O2SAT 98
== END 2021-03-13 09:20 | disposition home or self-care (01) ==
LOC: ER 08:32
DX: M54.12 Radiculopathy, cervical region (principal); E11.9 Type 2 diabetes mellitus without complications
CPT/HCPCS: 96372; 99283

== ENCOUNTER 2021-03-15 19:17 | Emergency (ER) | payer OTHER ==
[2021-03-15] MEDS ORDERED: METHYLPREDNISOLONE 125 MG INJ ONE (20:45)
[2021-03-15] MEDS ORDERED: MORPHINE 4 MG/ML SYR ONE (20:46)
[2021-03-15] MEDS ORDERED: ONDANSETRON 4 MG/2 ML VIAL ONE (20:46)
[2021-03-15 21:02] LABS: Hematocrit 36.3 % (36.0-45.0); MPV 7.9 fL (7.6-11.3); RBC Red Blood Cell Count 4.32 M/uL (3.86-4.86)
[2021-03-15 21:30] LABS: BUN Blood Urea Nitrogen 13 mg/dL (7-18); Bicarbonate 27 mmol/L (21-32); Glucose Level 172 mg/dL (74-106); Sodium Level 139 mmol/L (136-145)
[2021-03-15 21:32] LABS: Potassium 2.6 mmol/L (3.5-5.1)
[2021-03-15] MEDS ORDERED: POTASSIUM CL SA 10 MEQ TAB PO ONE (22:15)
[2021-03-15] MEDS ORDERED: NA CHLORIDE 0.9% 1,000 ML ONE (22:16)
[2021-03-15] MEDS ORDERED: KCL 20 MEQ/100 mL IVPB 20 MEQ/100 ML BAG IV ONE (22:16)
--- NOTE | 2021-03-15 22:56 | ER ---
Nurse's Notes [facility] Name: Sulema Thomas Age: 56 yrs Sex: Female : 1965 Arrival Date: 03/15/2021 Time: 19:18 Bed 12 Private MD: Elda Rios Diagnosis: Hypokalemia;Pain in left arm;Pain in right arm Presentation: 03/15 19:27 Chief complaint: Patient states: I have RA - I have been off of my meds due to having ld1 COVID. Pt reports having severe pain in DULCE arms, and left knee. "I am supposed to be having surgery Mar 26 for left knee replacement, PCP told me to come to ER if pain got worse." Pt also reported potassium level of 2.7. Coronavirus screen: At this time, the client does not indicate any symptoms associated with coronavirus-19. Ebola Screen: No symptoms or risks identified at this time. Initial Sepsis Screen: Does the patient meet any 2 criteria? No. Patient's initial sepsis screen is negative. Does the patient have a suspected source of infection? No. Patient's initial sepsis screen is negative. Risk Assessment: Do you want to hurt yourself or someone else? Patient reports no desire to harm self or others. Onset of symptoms was March 15, 2021. 19:27 Method Of Arrival: Ambulatory ld1 19:27 Acuity: KEEGAN 4 ld1 Triage Assessment: 19:35 General: Appears in no apparent distress. uncomfortable, Behavior is calm, cooperative, ld1 appropriate for age. Pain: Complains of pain in right arm and left leg Pain does not radiate. Pain currently is 8 out of 10 on a pain scale. Quality of pain is described as throbbing, Pain began 2-3 days ago. Is continuous. Cardiovascular: Capillary refill < 3 seconds Patient's skin is warm and dry. Respiratory: Airway is patent Respiratory effort is even, unlabored, Respiratory pattern is regular, symmetrical. Musculoskeletal: Reports pain in right arm and left leg. Historical: - Allergies: 19:35 No Known Allergies; ld1 - Home Meds: 19:35 atorvastatin 10 mg Oral tab 1 tab once daily [Active]; ciprofloxacin Oral [Active]; ld1 Folic Acid Oral [Active]; gabapentin 300 mg Oral cap twice a day [Active]; glipizide 5 mg Oral tab 1 tab once daily [Active]; lisinopril 2.5 mg Oral tab 1 tab once daily [Active]; melatonin 10 mg Oral tab [Active]; mesalamine Oral [Active]; metformin 1,000 mg Oral tab 1 tab daily [Active]; pantoprazole Oral [Active]; Prevalite Oral [Active]; tramadol 50 mg Oral tab 1 tab once a day [Active]; - PMHx: 19:35 Colitis; Diabetes - NIDDM; Rheumatoid Arthritis; Ulcers; ld1 - Immunization history:: Adult Immunizations up to date, Client reports receiving the 2nd dose of the Covid vaccine. - Social history:: Smoking status: Patient denies any tobacco usage or history of. Patient/guardian denies using alcohol, street drugs. Screenin:07 Abuse screen: Denies threats or abuse. Nutritional screening: No deficits noted. fu Tuberculosis screening: No symptoms or risk factors identified. Fall Risk None identified. Assessment: 19:59 General: Appears uncomfortable, Behavior is calm, cooperative, appropriate for age, fu Denies fever, feeling ill, fatigue, chills. Pain: Complains of pain in right shoulder, right arm, left elbow,and left hand pain Pain currently is 8 out of 10 on a pain scale. Quality of pain is described as sharp, Pain began 2-3 days ago. Neuro: Level of Consciousness is awake, alert, obeys commands, Oriented to person, place, time, situation, Alcohol And Drug Counselor are weak on left Weakness in left hand(s) arm(s) Gait is steady, Speech is normal, Facial symmetry appears normal. Cardiovascular: Denies chest pain, nausea, syncope, vomiting. Respiratory: Respiratory effort is even, unlabored, Respiratory pattern is regular. GI: No signs and/or symptoms were reported involving the gastrointestinal system. Musculoskeletal: Reports pain in right shoulder, arm, left elbow, hand, historyof RA. 21:27 Reassessment: Patient and/or family updated on plan of care and expected duration. Pain fu level reassessed. Patient is alert, oriented x 3, equal unlabored respirations, skin warm/dry/pink. Patient states feeling better. Vital Signs: 19:27 BP 137 / 97; Pulse 99; Resp 18; Temp 97.5(TE); Pulse Ox 100% on R/A; Weight 92.53 kg; ld1 Height 5 ft. 6 in. (167.64 cm); Pain 8/10; 20:05 BP 118 / 77; Pulse 88; Resp 16; Temp 98.7(O); Pain 8/10; fu 23:27 BP 135 / 85; Pulse 88; Resp 18; Pulse Ox 94% on R/A; Pain 5/10; fu 19:27 Body Mass Index 32.93 (92.53 kg, 167.64 cm) ld1 ED Course: 19:18 Patient arrived in ED. as 19:19 Elda Rios MD is Private Physician. as 19:34 Triage completed. ld1 19:42 Arm band placed on right wrist. ld1 19:58 Ish Baker, BIANCA is Primary Nurse. fu 20:11 Italia Navarrete FNP-C is [facility]. kb 20:11 Callum Canales MD is Attending Physician. kb 20:30 Inserted saline lock: 20 gauge in right antecubital area, using aseptic technique. fu Blood collected. 23:28 Patient has correct armband on for positive identification. Bed in low position. Call fu light in reach. Side rails up X 1. 23:28 No provider procedures requiring assistance completed. IV discontinued, bleeding fu controlled, Pressure dressing applied. Administered Medications: 20:39 Drug: morphine 4 mg Route: IVP; Site: right antecubital; fu 23:16 Follow up: Response: Pain is decreased fu 20:39 Drug: Zofran (Ondansetron) 4 mg Route: IVP; Site: right antecubital; fu 23:16 Follow up: Response: No adverse reaction fu 20:39 Drug: SOLU-Medrol (methylPrednisoLONE) 125 mg Route: IVP; Site: right antecubital; fu 23:16 Follow up: Response: No adverse reaction fu 21:58 Drug: Potassium Chloride 40 mEq Route: PO; fu 23:17 Follow up: Response: No adverse reaction fu 21:58 Drug: Potassium Chloride 20 mEq Route: IV; Rate: calculated rate; Site: right fu antecubital; 23:17 Follow up: Response: No adverse reaction fu 21:58 Drug: NS 0.9% 1000 ml Route: IV; Rate: 1 bolus; Site: right antecubital; fu 23:17 Follow up: Response: No adverse reaction; IV Intake: 1000ml fu 22:35 Drug: Hallock (HYDROcodone-acetaminophen) 10 mg-325 mg 1 tabs Route: PO; fu 23:17 Follow up: Response: Pain is decreased fu Intake: 23:17 IV: 1000ml; Total: 1000ml. fu Outcome: 22:55 Discharge ordered by . suzanna 23:28 Discharged to home ambulatory, with family. fu 23:28 Condition: good 23:28 Discharge instructions given to patient, Instructed on discharge instructions, follow up and referral plans. Demonstrated understanding of instructions, follow-up care, Prescriptions given X 1. 23:29 Patient left the ED. fu Signatures: Italia Navarrete, FABRIC FINISHER-C FABRIC FINISHER-Luisa Duke Felix, RN RN Nanda Hernández RN RN ld1 Corrections: (The following items were deleted from the chart) 19:36 19:35 Allergies: Aspirin; ld1 ld1
--- NOTE | 2021-03-15 22:56 | EDPHYS ---
Physician Documentation [facility] Name: Sulema Thomas Age: 56 yrs Sex: Female : 1965 Arrival Date: 03/15/2021 Time: 19:18 Bed 12 Private MD: Elda Rios ED Physician Callum Canales HPI: 03/15 22:53 This 56 yrs old Female presents to ER via Ambulatory with complaints of kb Shoulder Pain, Arm Pain, Hand Pain. 22:53 Pt reports joint and muscle pain that has been going on for a while, but worse today. kb Pt has a history of RA. Also states she had bloodwork done this morning and her dr called to tell her her potassium was 2.7. States he prescribed magnesium and potassium, but she hasn't started it yet. . Onset: The symptoms/episode began/occurred and became worse today. Severity of symptoms: At their worst the symptoms were moderate in the emergency department the symptoms are unchanged. The patient has experienced similar episodes in the past, chronically. The patient has been recently seen by a physician:. Historical: - Allergies: 19:35 No Known Allergies; ld1 - Home Meds: 19:35 atorvastatin 10 mg Oral tab 1 tab once daily [Active]; ciprofloxacin Oral [Active]; ld1 Folic Acid Oral [Active]; gabapentin 300 mg Oral cap twice a day [Active]; glipizide 5 mg Oral tab 1 tab once daily [Active]; lisinopril 2.5 mg Oral tab 1 tab once daily [Active]; melatonin 10 mg Oral tab [Active]; mesalamine Oral [Active]; metformin 1,000 mg Oral tab 1 tab daily [Active]; pantoprazole Oral [Active]; Prevalite Oral [Active]; tramadol 50 mg Oral tab 1 tab once a day [Active]; - PMHx: 19:35 Colitis; Diabetes - NIDDM; Rheumatoid Arthritis; Ulcers; ld1 - Immunization history:: Adult Immunizations up to date, Client reports receiving the 2nd dose of the Covid vaccine. - Social history:: Smoking status: Patient denies any tobacco usage or history of. Patient/guardian denies using alcohol, street drugs. ROS: 22:53 Constitutional: Negative for fever, chills, and weight loss. kb 22:53 MS/extremity: Positive for pain, of the right arm, left arm, right leg and left leg. 22:53 All other systems are negative. Exam: 22:53 Constitutional: This is a well developed, well nourished patient who is awake, alert, kb and in no acute distress. Head/Face: Normocephalic, atraumatic. ENT: Moist Mucous membranes Cardiovascular: Regular rate and rhythm with a normal S1 and S2. No gallops, murmurs, or rubs. No pulse deficits. Respiratory: Respirations even and unlabored. No increased work of breathing, no retractions or nasal flaring. Skin: Warm, dry with normal turgor. Normal color. MS/ Extremity: Pulses equal, no cyanosis. Neurovascular intact. Full, normal range of motion. Neuro: Awake and alert, GCS 15, oriented to person, place, time, and situation. Moves all extremities. Normal gait. Psych: Awake, alert, with orientation to person, place and time. Behavior, mood, and affect are within normal limits. Vital Signs: 19:27 BP 137 / 97; Pulse 99; Resp 18; Temp 97.5(TE); Pulse Ox 100% on R/A; Weight 92.53 kg; ld1 Height 5 ft. 6 in. (167.64 cm); Pain 8/10; 20:05 BP 118 / 77; Pulse 88; Resp 16; Temp 98.7(O); Pain 8/10; fu 23:27 BP 135 / 85; Pulse 88; Resp 18; Pulse Ox 94% on R/A; Pain 5/10; fu 19:27 Body Mass Index 32.93 (92.53 kg, 167.64 cm) ld1 MDM: 20:12 Patient medically screened. kb 22:29 Data reviewed: vital signs, nurses notes. Data interpreted: Pulse oximetry: on room air kb is 100 %. Interpretation: normal. Counseling: I had a detailed discussion with the patient and/or guardian regarding: the historical points, exam findings, and any diagnostic results supporting the discharge/admit diagnosis, lab results, the need for outpatient follow up, a family practitioner, to return to the emergency department if symptoms worsen or persist or if there are any questions or concerns that arise at home. 03/15 20:17 Order name: Basic Metabolic Panel; Complete Time: 21:33 kb 03/15 20:17 Order name: CBC w/o diff; Complete Time: 21:07 kb 03/15 20:17 Order name: IV Start; Complete Time: 20:39 kb Administered Medications: 20:39 Drug: morphine 4 mg Route: IVP; Site: right antecubital; fu 23:16 Follow up: Response: Pain is decreased fu 20:39 Drug: Zofran (Ondansetron) 4 mg Route: IVP; Site: right antecubital; fu 23:16 Follow up: Response: No adverse reaction fu 20:39 Drug: SOLU-Medrol (methylPrednisoLONE) 125 mg Route: IVP; Site: right antecubital; fu 23:16 Follow up: Response: No adverse reaction fu 21:58 Drug: Potassium Chloride 40 mEq Route: PO; fu 23:17 Follow up: Response: No adverse reaction fu 21:58 Drug: Potassium Chloride 20 mEq Route: IV; Rate: calculated rate; Site: right fu antecubital; 23:17 Follow up: Response: No adverse reaction fu 21:58 Drug: NS 0.9% 1000 ml Route: IV; Rate: 1 bolus; Site: right antecubital; fu 23:17 Follow up: Response: No adverse reaction; IV Intake: 1000ml fu 22:35 Drug: [place] (HYDROcodone-acetaminophen) 10 mg-325 mg 1 tabs Route: PO; fu 23:17 Follow up: Response: Pain is decreased fu Disposition: 03/16 04:44 Co-signature as Attending Physician, Callum Canales MD. [email or web address] Disposition Summary: 03/15/21 22:55 Discharge Ordered Location: Home kb Condition: Stable kb Diagnosis - Hypokalemia kb - Pain in left arm kb - Pain in right arm kb Followup: kb - With: Emergency Department - When: As needed - Reason: Worsening of condition Followup: kb - With: Private Physician - When: 2 - 3 days - Reason: Recheck today's complaints, Continuance of care, Re-evaluation by your physician Discharge Instructions: - Discharge Summary Sheet kb - Musculoskeletal Pain kb - Hypokalemia kb Forms: - Medication Reconciliation Form kb - Thank You Letter kb - Antibiotic Education kb - Prescription Opioid Use kb Prescriptions: - Cyclobenzaprine 10 mg Oral Tablet - take 1 tablet by ORAL route every 8 hours As needed; 21 tablet; Refills: 0, kb Product Selection Permitted Signatures: Dispatcher [employer] Moise, GRAPHITE GRINDER-C GRAPHITE GRINDER-Ish Mosley, RN RN fu Callum Canales MD MD 7 Nanda Hernández RN RN ld1 Corrections: (The following items were deleted from the chart) 03/15 19:36 19:35 Allergies: Aspirin; ld1 ld1
[2021-03-15] MEDS ORDERED: HYDROCODONE/APAP 10/325 TAB ONE (23:00)
[2021-03-15 23:36] VITALS: TEMP 98.7
[2021-03-15 23:38] VITALS: BP 135/85; O2SAT 94
== END 2021-03-15 23:29 | disposition home or self-care (01) ==
LOC: ER 19:17
DX: E87.6 Hypokalemia (principal); M79.602 Pain in left arm; M79.601 Pain in right arm; E11.9 Type 2 diabetes mellitus without complications
CPT/HCPCS: 80048; 36415; 85027; 96375; 96374; 99284; J3480; J7030; J2930; J2405

== ENCOUNTER 2021-06-15 16:38 | Emergency (ER) | payer OTHER ==
--- OUTSIDE RECORDS SUMMARY | 2021-06-15 16:42 | XMS REPORT | Continuity of Care Document ---
:1965 Author Organization [facility] t Address [address] [place] [id number] Care Team Providers Name Role Phone Pcp, Does Not Have A Primary Care Physician Juan Antonio Rios Attending Clinician Unavailable RO Attending Clinician Unavailable MEHOP_ELIGIBILITY Attending Clinician Unavailable Xiomara STARR Attending Clinician Unavailable Amy HOYOS Attending Clinician Unavailable Doctor Unassigned, Name Attending Clinician Unavailable Meghana Keith MD Attending Clinician MEGHANA KEITH Attending Clinician Unavailable DR JORGE Attending Clinician Unavailable Cecilia Attending Clinician Unavailable MEHOP_ELIGIBILITY Admitting Clinician Unavailable DR JORGE Admitting Clinician Unavailable Cecilia Admitting Clinician Unavailable Payers Payer Name Policy Type Policy Number Effective Date Expiration Date Sondra BRADLEY [id number] 2020 HEALTH PLAN 00:00:00 Problems Condition Condition Condition Status Onset Resolution Last Treating Co mments Source Name Details Category Date Date Treatment Clinician Date Acute pain Acute pain Disease Active U T of left of left 10-17 Health knee knee 00:00: 00 Arthritis Arthritis Disease Active Last [facility] of left of left 10-17 [facility]alt [facility] knee knee 00:00: t & Plan: 00 Formattin g of this note might be different from the original. Today, I recommend ed activity modificat ions, weight loss, NSAIDs as needed (if no contraind ication such as a history of kidney disease), and gentle self-driv en exercise program. We discussed joint replaceme nt as a last resort option, which is guided by progressi ve symptomat ic worsening and unsuccess ful non-opera tive treatment . Failed left knee CSI injection recently 6 weeks ago. She would like to opt for obtaining a left total knee arthropla sty. She has 24 sessions of PT remaining whether that is in a certain timeframe versus the whole physical year or it is hard to determine if she will try and find out former insurance company when her insurance starts . That may be. We did have a long discussio n with regards to BURNETT injection she has not tried PT as yet. And based on her x-rays recommend referral for TKA since the CSI injection has not helped and BURNETT injection made delay TKA.Refer to Dr. Starr for TKA evaluatio n. Other Other Disease Active [facility] chronic chronic - Health pain pain 00:00: 00 Nausea Nausea Disease Active UT with with 10-10 Health vomiting, vomiting, 00:00: unspecifie unspecifie 00 d d Low back Low back Disease Active UT pain pain 10-10 Health 00:00: 00 Hyperlipid Hyperlipid Disease Active U T emia emia 10-10 Health 00:00: 00 Gastro-eso Gastro-eso Disease Active U T phageal phageal 10-10 Health reflux reflux 00:00: disease disease 00 without without esophagiti esophagiti s s Gastroente Gastroente Disease Active U T ritis ritis 10-10 Health 00:00: 00 Gallstones Gallstones Disease Active U T 10-10 Health 00:00: 00 Fatty Fatty Disease Active UT liver liver 10-10 Health 00:00: 00 Pain of Pain of Disease Active UT right hip right hip 10-10 Heal joint joint 00:00: 00 Rheumatoid Rheumatoid Disease Active U T arthritis arthritis 10-10 Heal involving involving 00:00: multiple multiple 00 sites with sites with positive positive rheumatoid rheumatoid factor factor Seasonal Seasonal Disease Active UT allergies allergies 10-10 Heal th 00:00: 00 Sinus Sinus Disease Active UT problem problem 10-10 Health 00:00: 00 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 Reassured patient today, recommend continued home exercise program if her pain returns may return anytime for possible right shoulder repeat CSI injection as she may do that safely. In the meantime continue her rheumatoi d medicatio ns with Scott. And may continue tizanidin e as needed and as needed ibuprofen as needed. Rotator Rotator Disease Active UT cuff tear, cuff tear, 4-14 He alth right right 00:00: 00 History of History of Problem Resolve [facility] Arthritis Arthritis [facility] [place] [facility] History of History of Problem [facility] Back pain Back pain [facility] [place] [facility] History of History of Problem [facility] Diabetes Diabetes [facility] [place] [facility] History of History of Problem Resolve Univers Gallbladde Shamaadde d [place] of History of Problem [facility] Hernia Hernia [facility] [place] [facility] History of History of Problem Resolve Univers Osteoporos Osteoporos d it y of [place] is [place] [facility]ici ans History of History of Problem Resolve [facility] Pneumonia Pneumonia [facility] [place] [facility] Cervical Cervical Problem Active Unive [...] [facility] No Known DA Active [facility] Social History Social Habit Start Date Stop Date Quantity Comments Source History [facility] Alcohol Std Drinks History [facility] Alcohol Binge History [facility] Alcohol Comment Exposure to Not sure [facility] SARS-CoV-2 (event) Alcohol intake 2021-03-07 2021-03-07 Lifetime [facility] 00:00:00 00:00:00 non-drinker (finding) Tobacco use and 2020-10-08 2020-10-08 Smokeless tobacco [facility] exposure 00:00:00 00:00:00 non-user History SDMT 2020-10-08 2020-10-08 1 [facility] Alcohol Frequency 00:00:00 00:00:00 Sex Ass[birth year] At [birth year] [facility] 00:00:00 00:00:00 Smoking Status Start Date Stop Date Source Unknown if ever smoked [facility] Never smoked tobacco [facility] Medications Ordered Filled Start Stop Current Ordering Indication Dosage Frequency Signature Comments Components Source Medication Medication Date Date Medication? Clinician (SIG) Name Name Tofacitinib 2020-05- No Take by UT Citrate ER 0-21 10-21 mouth. Health (Xeljanz 14:10: 00:00 XR) 11 MG 13 :00 tablet sustained-r elease 24 hour traMADol 2020-05 Yes UT (Ultram) 50 0-05 Health MG tablet 00:00: 00 traMADol 2020-05 Yes UT (Ultram) 50 0-05 Health MG tablet 00:00: 00 cholestyram Yes 4g Q.5D Take 4 g UT ine light 5-26 by mouth 2 Heal th (Prevalite) 10:46: (two) 4 g packet 47 times a day. mesalamine Yes 1200mg QD Take 1,200 UT (Lialda) 5-26 mg by Health 1.2 g EC 10:46: mouth 1 tablet 47 (one) time each day with breakfast. Do not crush, chew, or split. metFORMIN Yes 1000mg Take 1,000 UT (Glucophage 5-26 mg by Health ) 1000 MG 10:46: mouth 2 tablet 47 (two) times a day with meals. atorvastati Yes 10mg QD Take 10 mg UT n (Lipitor) 5-26 by mouth 1 He alth 10 MG 10:46: (one) time tablet 47 each day. gabapentin Yes Take by UT (Neurontin) 5-26 mouth. Health 600 MG 10:46: tablet 47 lisinopril Yes 2.5mg QD Take 2.5 UT 2.5 MG 5-26 mg by Health tablet 10:46: mouth 1 47 (one) time each day. ibuprofen Yes 800mg Q6H Take 800 UT 800 MG 5-26 mg by Health tablet 10:46: mouth 47 every 6 (six) hours if needed for mild pain. folic acid Yes QD Take by UT (Folvite) 1 5-26 mouth 1 Healt h MG tablet 10:46: (one) time 47 each day. tiZANidine Yes 4mg Q.[id number] Take 4 mg UT (Zanaflex) 5-26 [id number] by mouth 3 Health 4 MG 10:46: 3D (three) capsule 47 times a day. Melatonin 2020-0 Yes Take by UT 10 MG 5-26 mouth. Health tablet 10:46: 47 Ascorbic 2020-0 Yes 100mg QD Take 100 UT Acid 5-26 mg by Health (vitamin C) 10:46: mouth 1 100 MG 47 (one) time tablet each day. cholestyram 202-0 Yes 4g Q.5D Take 4 g UT ine light 5-26 by mouth 2 Heal th (Prevalite) 10:46: (two) 4 g packet 47 times a day. mesalamine 0 Yes 1200mg QD Take 1,200 UT (Lialda) 5-26 mg by Health 1.2 g EC 10:46: mouth 1 tablet 47 (one) time each day with breakfast. Do not crush, chew, or split. metFORMIN 0 Yes 1000mg Take 1,000 UT (Glucophage 5-26 mg by Health ) 1000 MG 10:46: mouth 2 tablet 47 (two) times a day with meals. atorvastati 0 Yes 10mg QD Take 10 mg UT n (Lipitor) 5-26 by mouth 1 He alth 10 MG 10:46: (one) time tablet 47 each day. gabapentin 2020-0 Yes Take by UT (Neurontin) 5-26 mouth. Health 600 MG 10:46: tablet 47 lisinopril 0 Yes 2.5mg QD Take 2.5 UT 2.5 MG 5-26 mg by Health tablet 10:46: mouth 1 47 (one) time each day. ibuprofen 2020-0 Yes 800mg Q6H Take 800 UT 800 MG 5-26 mg by Health tablet 10:46: mouth 47 every 6 (six) hours if needed for mild pain. folic acid 2020-0 Yes QD Take by UT (Folvite) 1 5-26 mouth 1 Healt h MG tablet 10:46: (one) time 47 each day. tiZANidine 2020-0 Yes 4mg Q.[id number] Take 4 mg UT (Zanaflex) 5-26 [id number] by mouth 3 Health 4 MG 10:46: 3D (three) capsule 47 times a day. Melatonin 2020-0 Yes Take by UT 10 MG 5-26 mouth. Health tablet 10:46: 47 Ascorbic 202-0 Yes 100mg QD Take 100 UT Acid 5-26 mg by Health (vitamin C) 10:46: mouth 1 100 MG 47 (one) time tablet each day. traMADol traMADol Yes ROB TAKE 1 U nivers HCl - 50 MG HCl - 50 MG 4-05 LI-HOLLY TABLET ity of Oral Tablet Oral Tablet 00:00: INNA M.D. EVERY 4 T O [place] 00 6 HOURS Physici NEEDED FOR ans PAIN. montelukast Yes 10mg QD Take 10 mg UT (Singulair) 3-30 by mouth 1 He alth 10 MG 00:00: (one) time tablet 00 each day. montelukast Yes 10mg QD Take 10 mg UT (Singulair) 3-30 by mouth 1 He alth 10 MG 00:00: (one) time tablet 00 each day. Etanercept Yes 50mg 50 mg. UT 50 MG/ML 06-09 Health solution 00:00: auto-inject 00 or Etanercept Yes 50mg 50 mg. UT 50 MG/ML 06-09 Health solution 00:00: auto-inject 00 or Cyclobenzap Cyclobenzap Yes ROB TAKE 1 Univers rine HCl - rine HCl - 9-16 LI-HOLLY TABLET at ity of 5 MG Oral 5 MG Oral 00:00: INNA M.D. bedtime as [place] Tablet Tablet 00 needed for Physi ci muscle ans cramps. Zofran Zofran 2019-0 Yes Shara as needed [facility] [place] for nausea [facility] - 00:00: [facility] 00 [facility] ent [facility] methylPREDN methylPREDN Yes ROB TAKE Univers ISolone 4 ISolone 4 5-04 LI-HOLLY DIRECTED ity of MG Oral MG Oral 00:00: INNA M.D. ON PATIENT [place] Tablet Tablet 00 INSTRUCTIO Physi ci Therapy Therapy N CARD.; ans Pack Pack Qty: 1 X 21 Tablet Disp Pack Albuterol Albuterol 0 Yes Shara [address] Sulfate HFA Sulfate HFA 3-18 [place] [facility] Methocarbam Methocarbam 2019-0 Yes ROB Q0.3333D TAKE 1 Univers ol 500 MG ol 500 MG 2-06 LI-HOLLY TABLET 3 ity of Oral Tablet Oral Tablet 00:00: INNA M.DChinyere TIMES [place] 00 DAILY. Physici ans Prevalite 4 Prevalite 4 Yes U nivers GM Oral GM Oral ity of Packet Packet [place] [facility]ici ans Mesalamine Mesalamine Yes Uni vers 1.2 GM Oral 1.2 GM Oral i ty of Tablet Tablet [place] Delayed Delayed Physici Release Release ans metFORMIN [...] Tab ity of (OR) - (OR) - [place] [id number] [id number] P hysici ivated ivated ans Lisinopril Lisinopril Yes Uni vers TABS TABS [facility] [place] [facility] ans Ibuprofen Ibuprofen Yes Unive rs 800 MG Oral 800 MG Oral i ty of Tablet Tablet [place] [facility] Folic Acid Folic Acid Yes Uni vers 1 MG Oral 1 MG Oral ity o f Tablet Tablet [place] Physici ans tiZANidine tiZANidine Yes Uni vers [...] 10 MG Oral ity of Tablet Tablet [place] Disintegrat Disintegrat P hysici ing ing ans Vitamin C Vitamin C Yes Unive rs TABS TABS ity of [place] Physici ans Vitamin D3 Vitamin D3 Yes Uni vers TABS TABS [facility] [place] [facility] ans Folic Acid Folic Acid Yes Shara 2-[address] [place] tablets as [facility] - needed for Memoria mouth l sores Outpati ent Clinics Vitamin C Vitamin C Yes Shara not [facility] defined [facility] Vitamin D-3 Vitamin D-3 Yes Shara not [facility] Atorvastati Atorvastati Yes Shara [address] [facility] n Calcium n Calcium [place] [facility] - [facility] ent Clinics Gabapentin Gabapentin Yes Shara [address] [facility]ics Tizanidine Tizanidine Yes Shara [address] HCl HCl [place] as needed [facility] Prevalite Prevalite Yes Shara [address] [facility] Lisinopril Lisinopril Yes Shara [address] [facility] Singulair Singulair Yes Shara [address] [facility] Amoxicillin Amoxicillin Yes Shara [address] [facility] -Pot -Pot [place] [facility] - Clavulanate Clavulanate M emoria l [facility] ent Clinics Atorvastati Atorvastati Yes Shara [address] [facility] n Calcium n Calcium [place] [facility] - [facility] Clinics Xeljanz Xeljanz Yes Shara [address] [facility] Metformin Metformin Yes Shara TAKE [address] HCl HCl [place] TABLET BY [facility] - MOUTH ONCE Memoria DAILY WITH l A MEAL [facility] ent Clinics Metformin Metformin Yes Shara [address] HCl HCl [place] with a [facility] - meal [facility] l [facility] ent Clinics Lisinopril Lisinopril Yes Shara TAKE [address] [facility] [facility] [place] TABLET BY [facility] - MOUTH ONCE Memoria DAILY l [facility] ent Clinics Mesalamine Mesalamine Yes Shara [address] [facility] Vital Signs Vital Name Observation Time Observation Value Comments Source Body height 2021-03-07 18:28:00 166.4 cm [facility] Body weight 2021-03-07 18:28:00 93.441 kg [facility] BMI 2021-03-07 18:28:00 33.76 kg/m2 [facility] Height 2019-09-09 04:32:00 165.1 CM Weight 2019-09-09 04:32:00 99.79 KG Procedures Procedure Date / Time Performing Clinician Source Performed EXTERNAL PROVIDER RECORDS 2021-02-04 05:01:00 Doctor Unassigned, [facility] MR Shoulder wo contrast 2020-08-20 00:00:00 [facility] [id number] Physicians MRI Spine cervical wo 2020-08-20 00:00:00 [facility] contrast [id number] Physicians MRI Spine cervical wo 2020-01-19 00:00:00 [facility] contrast [id number] Physicians MRI Spine cervical wo 2019-11-01 00:00:00 [facility] contrast [id number] Physicians DIV RT FOOT SUBQ TISSUE 2019-09-09 00:00:00 [facility] MRI Spine cervical wo 2019-07-20 00:00:00 [facility] contrast [id number] Physicians History of [employer] [facility] [employer] [place] [facility] Physicians History of Cholecystectomy [facility] Physicians History of Knee Surgery [facility] Physicians Encounters Start End Encounter Admission Attending Care Care Encounter Source Date/Time Date/Time Type Type Clinicians Facility Department ID 2021-06-14 Outpatient Rios, Na STLMLC STLMLC [id number] [facility]:15[facility]01 [facility] 2021-06-12 Outpatient Rios, Na STLMLC STLMLC [id number] [facility] 14:20:21 [id number] [facility] 2021-06-12 Outpatient [facility] [id number] [place] 13:58:43 Health 2021-06-12 Outpatient Rios, Na STLMLC STLMLC [id number] [facility] 12:26:54 [id number] [facility] 2021-06-12 Outpatient Rios, Na STLMLC STLMLC [id number] [facility] 12:24:54 [id number] [facility] 2021-06-12 Outpatient Rios, Na STLMLC STLMLC [id number] [facility] [address] 12:20:46 [id number] [facility] 2021-06-12 Outpatient Rios, Na STLMLC STLMLC [id number] [facility] 12:15:02 [id number] [facility] 2021-06-12 Outpatient Rios, Na STLMLC STLMLC [id number] [facility] 11:21:18 [id number] [facility] 2021-05-06 Outpatient RADWAN, [facility] [id number] [place] 10:24:29 [facility] 2021-05-01 Outpatient [facility] [id number] [place] 08:57:14 [facility] 2021-04-22 Outpatient RADWAN, [facility] [id number] [place] 11:12:09 [facility] 2021-04-08 Outpatient RADWAN, [facility] [id number] [place] 11:18:52 [facility] 2021-03-20 Outpatient RADWAN, [facility] [id number] [place] 12:39:36 [facility] 2021-06-12 2021-06-12 Outpatient MEHOP_ELIGI [facility] [id number] [place] 03:03:00 03:03:00 [facility] [id number] Program 2021-04-23 2021-04-23 ambulatory [facility] [id number] [facility] 2021-03-26 2021-03-26 Outpatient RADWAN, [facility] [id number] 10:54:00 16:16:00 [facility] Orthop e [facility]osp[facility] l 2021-03-19 2021-03-19 ambulatory [facility]MLC [facility] [id number] [facility] 2021-03-19 2021-03-19 ambulatory [facility] [id number] [facility] 2021-03-12 2021-03-12 Orders Melody Reyes [facility] [id number] [place] 00:00:00 00:00:00 Only Melody Reyes [id number] Health MEDICAL [id number] [address] [id number] 2021-03-07 2021-03-[address] [facility] [id number] [place] 13:07:46 14:35:37 [facility] [id number] H [facility] [id number] [address] [id number] 2021-03-05 2021-03-05 [facility] [id number] [facility] 2021-02-04 2021-02-04 Orders Doctor BAÑUELOS [id number] Univers 00:00:00 00:00:00 Only Unassigned, ARON [id number] [facility] [id number] Jose Maria as [phone] [place] [id number] Branch 2021-01-25 2021-01-25 [facility] [id number] [facility] 2021-01-24 2021-01-24 [facility] [id number] [facility] 2021-01-24 2021-01-24 [facility] [id number] [facility] 2021-01-23 2021-01-23 [facility] [id number] [facility] 2021-01-16 2021-01-16 Outpatient [facility] [id number] [place] 02:11:00 02:11:00 BILITY [id number] da [facility] 2021-01-14 2021-01-14 [facility] [id number] [facility] 2021-01-14 2021-01-14 [facility] [id number] [facility] 2021-01-03 2021-01-03 Office ANA ROSA Starr [facility] [id number] 10:17:35 11:23:51 Visit Anuj JUNG [id number] MEDICAL [id number] [address] [id number] 2021-01-03 2021-01-03 Outpatient [facility] [id number] [facility] 2020-12-12 2020-12-[address] [facility] [id number] 09:21:56 10:18:31 Visit FABIANA Keith [id number] [facility] [id number] [address] 4 [id number] 2020-12-06 2020-12-[address] [facility] [id number] 15:14:17 16:13:58 Visit FABIANA Keith [id number] [facility] [id number] [address] 3 [id number] 2020-10-25 2020-10-25 [facility] [id number] [facility] 2020-10-19 2020-10-19 [facility] [id number] [facility] 2020-10-17 2020-10-[address] [facility] [id number] 10:23:11 11:11:36 Visit FABIANA Keith [id number] [facility] [id number] [place] [id number] 2020-10-17 2020-10-17 Outpatient [facility] [id number] [facility] 2020-10-17 2020-10-17 [facility] [id number] [facility] 2020-10-17 2020-10-17 Outpatient [facility] [id number] [facility] 2020-10-16 2020-10-16 Outpatient [facility] [id number] [facility] 2020-09-25 2020-09-25 Outpatient [facility] [id number] [facility] 2020-08-29 2020-08-29 Appointmen MEGHANA OSEGUERA Orthopedics [id number] Univers 10:30:00 10:30:00 t; MEGHANA KEITH, [facility] Jodie RIVAS M.D. Physicmaegan Castorena [facility] 2020-08-27 2020-08-27 Outpatient [facility] [id number] [facility] 2020-08-27 2020-08-27 Outpatient [facility] [id number] [facility] 2020-08-20 2020-08-20 Appointmen MEGHANA OSEUGERA [facility] [id number] Univers 10:45:00 10:45:00 t; [place] Jodie RIVAS M.D. [facility] Physici [facility] 2020-08-17 2020-08-17 Outpatient [facility] [id number] [facility] 2020-07-27 2020-07-27 Outpatient [facility] [id number] [facility] 2020-07-25 2020-07-25 Outpatient [facility] [id number] [facility] 2020-07-11 2020-07-11 Outpatient [facility] [id number] [facility] 2020-07-11 2020-07-11 Outpatient [facility] [id number] [facility] 2020-07-09 2020-07-09 Outpatient [facility] [id number] [facility] 2020-06-26 2020-06-26 Outpatient [facility] [id number] [facility] 2020-06-20 2020-06-20 Outpatient [facility] [id number] [facility] 2020-06-15 2020-06-15 Outpatient [facility] [id number] [facility] 2020-06-06 2020-06-06 Outpatient [facility] [id number] [facility] 2020-06-04 2020-06-04 Outpatient [facility] [id number] [facility] 2020-06-01 2020-06-01 Outpatient [facility] [id number] [facility] 2020-05-30 2020-05-30 Outpatient [facility] [id number] [facility] 2020-05-30 2020-05-30 Outpatient [facility] [id number] [facility] 2020-05-07 2020-05-07 Outpatient [facility] [id number] [facility] 2020-05-07 2020-05-07 [facility] [id number] 2020-02-06 2020-02-06 Appointmen MEGHANA OSEGUERA Orthopedics [phone] Univers 12:30:00 12:30:00 t; MEGHANA KEITH, [facility] Raffaele RIVAS Physicmaegan MJohn ans 2019-11-25 2019-11-25 [facility] [id number] 14:00:00 14:00:00 t [facility] [address] [facility] 2019-11-25 2019-11-25 [facility] [id number] 09:28:00 09:28:[address] Luke s - Drive [facility] 2019-11-03 2019-11-03 [facility] [id number] 12:02:00 12:02:00 t [place]nam[place] Luke s - Drive [facility] 2019-11-01 2019-11-01 Appointmen MEGHANA OSEGUERA [facility] [id number] Univers 13:00:00 13:00:00 t; [place] Raffaele RIVAS Physicmaegan MChinyereDChinyere ans 2019-09-26 2019-09-26 [facility] [id number] 16:49:00 16:49:[address] Luke s - Drive [facility] 2019-09-26 2019-09-26 [facility] [id number] 11:20:00 11:20:[address] Luke [place] - Drive [facility] 2019-09-26 2019-09-26 [facility] [id number] 09:52:00 09:52:[address] LuELENZA s [facility] Outpati ent Clinics 2019-09-21 2019-09-21 [facility] [id number] 10:20:00 10:20:00 t [place] [facility] 2019-09-19 2019-09-19 Appointmen MEGHANA OSEGUERA [facility] [id number] Univers 12:00:00 12:00:00 t; MEGHANA KEITH, - [facility] Jodie RIVAS M.D. Physici M.DChinyere ans 2019-09-09 2019-09-09 Outpatient Sheridan PATEL, [facility] [id number] [place] 04:25:00 07:00:00 [facility] 2019-08-11 2019-08-11 [facility] [id number] 11:58:00 11:58:00 t [place] [facility] 2019-08-02 2019-08-02 [facility] [id number] 10:31:00 10:31:00 t [place] [facility] Outpati ent Clinics 2019-07-20 2019-07-20 Appointmen MEGHANA OSEGUERA [facility] [id number] Univers 09:00:00 09:00:00 t; MEGHANA KEITH, - [facility] Jodie RIVAS M.D. Physici MJohn ans 2019-07-18 2019-07-18 [facility] [id number] 09:20:00 09:20:00 t [place] [facility] Outpati ent Clinics 2019-06-23 2019-06-23 Appointmen MEGHANA OSEGUERA [facility] [id number] [facility] 12:30:00 12:30:00 t; MEGHANA KEITH, - [facility] Jodie RIVAS M.D. Physici MJohn ans 2019-06-22 2019-06-22 [facility] [id number] [place] 10:44:00 10:44:00 0205 [facility] 2019-05-04 2019-05-04 [facility] [id number] 09:40:00 09:40:[address] Luke s - Drive [facility] 2019-03-11 2019-03-11 [facility] [id number] 08:49:00 08:49:00 [facility] [place] [facility] ent Clinics 2019-02-15 2019-02-15 [facility] [id number] 11:00:00 11:00:00 t [facility] [place] [facility] ent Clinics 2019-02-02 2019-02-02 [facility] [id number] 09:00:00 09:00:00 t [place] Ash[place]nam[place]nam LuELENZA s - Drive [facility] Outpati ent Clinics 2019-01-14 2019-01-14 [facility] [id number] 16:16:00 16:16:00 t [place]nam[place] Luke s - Drive [facility] 2019-01-05 2019-01-05 [facility] [id number] 09:20:00 09:20:00 t [place] [facility] - Drive [facility] Clinics 2018-12-14 2018-12-14 [facility] [id number] 09:34:00 09:34:[address] Luke s - Drive [facility] Clin[facility] 2018-11-17 2018-11-17 [facility] [id number] 11:14:00 11:14:[address] Luke s - Drive [facility] 2018-08-31 2018-08-31 [facility] [id number] 13:05:00 13:05:[address] Luke s - Drive [facility] Clin[facility] 2018-08-25 2018-08-25 [facility] [id number] 11:40:00 11:40:00 [facility] Undertone [facility] Clin[facility] Results Test Test Test Results Result Source Description Time Comments Comments MR Shoulder wo 2020-08- PROCEDURE [facility] [id number] INFORMATION:Exam: MR Right Jodie 15:34:00 Upper [...] without tear.Jayro Brewer MD On 08/27/2020 10:55:55; -[id number]--Eyrg by: Jayro Brewer MDDictated Date/time: 08/27/20 10:57Electronically Signed by: Jayro Brewer 08/27/2109:57FINAL REPORT MRI Spine 2020-08- PROCEDURE [facility] wo 10 INFORMATION:Exam: MR Jose Maria as contrast [id number] 15:09:00 Cervical Spine Without Physicians ContrastExam date [...] and stable.Ulises Campo MD On 08/25/2020 16:31:37; [id number]--Czpo by: Ulises Campo MDDictated Date/time: 08/25/20 16:31Electronically Signed by: Ulises Campo MD 08/26/2115:31FINAL REPORT [U] XRAY SPINE 2020-08- Images acquired, not [facility] of CERVICAL 2 OR 3 05 reported on this accession [place] VWS [id number] 11:07:00 number. Physicians [U] XR SHOULDER 2020-08- Images acquired, not [facility] MIN 2 VWS 05 reported on this accession [place] BILATERAL 11:07:00 number. Physicians GLUCOMETER GLUCOSE- LAB USE ONLY 2019-09-09 06:04:00 Test Item Value Reference Range Interpretation Comme nts GLUCOMETER (test code = GMG) 124 mg/dL 70-100 H Meter ID: [id number]: [id number] TONO MARTIN URINE MONOCLONALFB2019-09-09 05:18:00 Test Item Value Reference Range Interpretation Comments PREG UR (test code = PGU) NEGATIVE NEGATIVE GLUCOMETER GLUCOSE- LAB USE [id number] 04:48:00 Test Item Value Reference Range Interpretation Comments GLUCOMETER (test code = 119 mg/dL 70-100 H Mete r ID: GMG) [id number] tor: [id number] MICHAEL LA REDO [U] XRAY SHOULDER MIN 2 VWS LEFT [id number] 12:25:00Images acquired, not reported on this accession number.[facility] Physicians[U] XRAY SPINE CERVICAL 2 OR 3 VWS [id number] 12:25:00Images acquired, not reported on this accession number.[facility] [id number] 12:24:00 RUN DATE: 11/24/18 [facility] - LAB *LIVE* PAGE 1 RUN TIME: 1224 Specimen Inquiry RUN USER: INTERFACE PATIENT: DAMI MOODY LOC: LIZETH U #: [id number] AGE/SX: 53/F ROOM: RE11/23/18VINOD DR: Sebastian Betancourt MD : 69 BED: DIS: STATUS: CAT NEWBERRY TLOC: SPEC #: PMC:[id number] RECD: 11/23/18 STATUS: CHIRAG REEverardo #: [id number] EUGENIA: 11/23/[address]: Sebastian Betancourt MD ENTERED: 11/23/18 SP TYPE: SURG OTHR DR: Elda Rios DO ORDERED: SURG PATH LVL 08/17 COPIES TO: Sebastian Betancourt MD [address] [place] [address] Elda Rios DO [address] [place] [address] [id number]: TISSUE ID BLK PCS SANDRA LEV PROCEDURE DISPOSITION ____ ___ ___ ___ COLON, NOS A 1 2 COLON, NOS B 1 2 PROCEDURES: SURG PATH LVL 4 (11/23/18) TISSUES: A. COLON, NOS - RIGHT SIDE B. COLON, NOS - LEFT SIDE CLINICAL HISTORY DIARRHEA-R19.7;ABD PAIN- R10.9;RECTAL PAIN-K62.89 CPT CODES CPT CODE(S): 70775E8 , , , , , , FINAL DIAGNOSIS A. Colon, right, biopsy: COLONIC MUCOSA WITH NO SIGNIFICANT HISTOPATHOLOGIC FINDINGSB. Colon, left, biopsy: FOCAL ACTIVE COLITIS NO EVIDENCE OF DYSPLASIA OR MALIGNANCY CONTINUED ON NEXT PAGE RUN DATE: 11/24/18 [facility] - LAB *LIVE* PAGE 2 RUN TIME: 1224 Specimen Inquiry RUN USER: INTERFACE --------- ---SPEC #: [facility]:[id number] PATIENT: DAMI MOODY #[id number] (Continued) GROSS DESCRIPTION A. Right side. Received in formalin are three olmos tissue fragments, 0.2 - 0.7 cm. B. Left side. Received in formalin are eight olmos tissue fragments, 0.2 - 0.5 cm, all as B. /ba/pdb Grossing performed at [facility] Pathology, [address] [place] [address], [address], [place] [address]. [employer]pent[employer] Farmer: Patricio Granados M.D. MICROSCOPIC DESCRIPTION A. Right [...] 11/24/18 1224 END OF REPORT HCG SERUM [id number] 11:36:00 Test Item Value Reference Range Interpretation Comments HCG SERUM QUAL (test SERUM NEGATIVE SCREEN NEGATIVE code = HCGQL) GLUCOSE BEDSIDE [id number] 11:30:00 Test Item Value Reference Range Interpretation Comments GLUCOSE BEDSIDE TESTING (test code 122 mg/dL 70-110 H = GLUBED)
[2021-06-15] MEDS ORDERED: ACETAMINOPHEN 500 MG TAB ONE (17:11)
[2021-06-15 19:01] LABS: Absolute Lymphocytes (CBC) 1.4 K/uL (0.7-4.9); Hematocrit 31.4 % (36.0-45.0); Lymphocytes % 14.1 % (15.3-44.8); MPV 7.7 fL (7.6-11.3); RBC Red Blood Cell Count 3.88 M/uL (3.86-4.86)
[2021-06-15 19:04] LABS: SARS-COV-2 RT PCR NEGATIVE (NEGATIVE)
[2021-06-15 19:06] LABS: Urine Blood 2+ (Negative); Urine Glucose Negative (Negative); Urine Protein 1+ (Negative)
[2021-06-15 19:24] LABS: ALT/SGPT 19 U/L (12-78); AST/SGOT 15 U/L (15-37); Albumin 2.6 g/dL (3.4-5.0); Alkaline Phosphatase 64 U/L (45-117); BUN Blood Urea Nitrogen 15 mg/dL (7-18); Bicarbonate 22 mmol/L (21-32); Bilirubin Direct 0.1 mg/dL (0-0.2); Bilirubin Total 0.3 mg/dL (0.2-1.0); Glucose Level 156 mg/dL (74-106); Lipase 177 U/L (73-393); Protein, Total 7.4 g/dL (6.4-8.2); Sodium Level 135 mmol/L (136-145)
[2021-06-15 19:27] LABS: Potassium 2.6 mmol/L (3.5-5.1)
[2021-06-15] MEDS ORDERED: POTASSIUM 25 MEQ EFFERV TAB ONE (19:32)
[2021-06-15] MEDS ORDERED: ONDANSETRON 4 MG/2 ML VIAL ONE ×2 (19:32→23:21)
[2021-06-15] MEDS ORDERED: KETOROLAC 30 MG/ML INJ ONE (19:32)
[2021-06-15] MEDS ORDERED: KCL 20 MEQ/100 mL IVPB 100 ML IV ONE (19:33)
[2021-06-15 20:27] LABS: Blood Morphology Comment NOT SEEN (NOT SEEN); Platelet Estimate ADEQ
--- NOTE | 2021-06-15 20:50 | RAD REPORT ---
EXAM DESCRIPTION: CT - Abdomen Pelvis W Contrast - 06/15/2021 8:35 pm CLINICAL HISTORY: Abdominal pain/left flank pain COMPARISON: none. TECHNIQUE: Computed axial tomography of the abdomen pelvis was obtained. 100 cc Isovue-300 was admin istered intravenously. Oral contrast was not requested which limits evaluation of bowel. All CT scans are performed using dose optimization technique as appropriate and may include automated exposure control or mA/KV adjustment according to patient size. FINDINGS: Mild to moderate low-density areas are present within the left kidney reaching the periphe ry. This probably indicates pyelonephritis. Cholecystectomy. The liver, spleen, pancreas, adrenal and right kidney appear unremarkable. There is no evidence of diverticulitis. Normal appendix. No adnexal mass. IMPRESSION: [id number] left pyelonephritis
[2021-06-15] MEDS ORDERED: CEFTRIAXONE 1000 MG/VIAL ONE (21:45)
[2021-06-15] MEDS ORDERED: NA CHLORIDE 0.9% 100 ML IV ONE (21:46)
[2021-06-15] MEDS ORDERED: MORPHINE 4 MG/ML SYR ONE (23:21)
--- NOTE | 2021-06-15 23:27 | EDPHYS ---
Physician Documentation [facility] Name: Sulema Thomas Age: 56 yrs Sex: Female : 1965 Arrival Date: 06/15/2021 Time: 16:41 Bed 4 Private MD: Nayan Lucero HPI: 06/15 17:08 This 56 yrs old Female presents to ER via Ambulatory with complaints of Fever, jmm Weakness. 17:08 Onset: The symptoms/episode began/occurred gradually, 5 day(s) ago. Modifying factors: jmm there are no obvious modifying factors. Associated signs and symptoms: Pertinent positives: backache, headache, Pertinent negatives: vomiting. The patient has experienced similar episodes in the past, a few times. Patient also complains of mild cough, weakness, body aches. . MEDICAL SALES: 17:04 LMP N/A - Post-menopause vg1 Historical: - Allergies: 17:04 No Known Allergies; vg1 - Home Meds: 17:04 atorvastatin 10 mg Oral tab 1 tab once daily [Active]; Folic Acid Oral [Active]; vg1 gabapentin 300 mg Oral cap twice a day [Active]; melatonin 10 mg Oral tab [Active]; metformin 1,000 mg Oral tab 1 tab daily [Active]; pantoprazole Oral [Active]; tramadol 50 mg Oral tab 1 tab once a day [Active]; Prevalite Oral [Active]; - PMHx: 17:04 Colitis; Diabetes - NIDDM; Rheumatoid Arthritis; Ulcers; vg1 - Immunization history:: Client reports receiving the 2nd dose of the Covid vaccine. - Social history:: Smoking status: Patient denies any tobacco usage or history of. Patient/guardian denies using alcohol. ROS: 17:08 Cardiovascular: Negative for chest pain, palpitations, and edema. jmm 17:08 Constitutional: Positive for body aches, chills. 17:08 Respiratory: Positive for cough. 17:08 Neuro: Positive for headache. 17:08 All other systems are negative. Exam: 17:08 Constitutional: This is a well developed, well nourished patient who is awake, alert, jmm and in no acute distress. Head/Face: atraumatic. Eyes: EOMI, no conjunctival erythema appreciated ENT: Moist Mucus Membranes Neck: Trachea midline, Supple Chest/axilla: Normal chest wall appearance and motion. Cardiovascular: Regular rate and rhythm. No edema appreciated Respiratory: Normal respirations, no respiratory distress appreciated Abdomen/GI: Non distended, soft Back: Normal ROM Skin: General appearance color normal MS/ Extremity: Moves all extremities, no obvious deformities appreciated, no edema noted to the lower extremities Neuro: Awake and alert Psych: Behavior is normal, Mood is normal, Patient is cooperative and pleasant Vital Signs: 17:02 BP 100 / 68; Pulse 98; Resp 20; Temp 102.9(O); Pulse Ox 97% on R/A; Weight 87.54 kg; vg1 Height 5 ft. 5 in. (165.10 cm); Pain 6/10; 18:26 Temp 99.4(O); vg1 19:50 BP 122 / 77; Pulse 87; Resp 23 S; Pulse Ox 97% on R/A; as6 21:30 BP 116 / 72; Pulse 75; Resp 14; Pulse Ox 100% ; as6 23:12 BP 114 / 82; Pulse 79; Resp 17; Pulse Ox 100% on R/A; as6 17:02 Body Mass Index 32.12 (87.54 kg, 165.10 cm) vg1 MDM: 18:34 Patient medically screened. prasanth 22:25 Data reviewed: vital signs, nurses notes. Counseling: I had a detailed discussion with [facility] the patient and/or guardian regarding:. 23:26 Counseling: I had a detailed discussion with the patient and/or guardian regarding: the [facility] historical points, exam findings, and any diagnostic results supporting the discharge/admit diagnosis, lab results, radiology results, the need for outpatient follow up, to return to the emergency department if symptoms worsen or persist or if there are any questions or concerns that arise at home. 06/15 17:08 Order name: COVID-19/FLU A+B (Document "Date of Onset" if Symptomatic); Complete Time: 1 19:06 06/15 17:08 Order name: Strep; Complete Time: 19:25 [facility] 06/15 18:34 Order name: Basic Metabolic Panel [facility] 06/15 18:34 Order name: CBC with Diff; Complete Time: 20:29 [facility] 06/15 18:34 Order name: Hepatic Function; Complete Time: 19:32 [facility] 06/15 18:34 Order name: Lipase; Complete Time: 19:32 [facility] 06/15 18:35 Order name: [place] Screen Profile; Complete Time: 19:25 [facility] 06/15 18:35 Order name: Basic Metabolic Panel; Complete Time: 19:32 [facility] 06/15 19:04 Order name: Urine Culture [facility] 06/15 19:05 Order name: Urine Culture [facility] 06/15 19:05 Order name: Urine Dipstick-Ancillary; Complete Time: 19:08 [facility] 06/15 19:25 Order name: Throat Culture [facility] 06/15 19:44 Order name: Manual Differential; Complete Time: 20:29 [facility] 06/15 18:34 Order name: IV Saline Lock; Complete Time: 18:53 [facility] 06/15 18:34 Order name: Labs collected and sent; Complete Time: 18:53 [facility] 06/15 18:35 Order name: Urine Dipstick-Ancillary (obtain specimen); Complete Time: 19:00 [facility] 06/15 20:18 Order name: CT Abd/Pelvis - IV Contrast Only; Complete Time: 20:53 [facility] Administered Medications: 17:12 Drug: Tylenol 1000 mg Route: PO; vg1 18:26 Follow up: Response: Temperature is decreased vg1 19:26 Drug: NS 0.9% 1000 ml Route: IV; Rate: 1 bolus; Site: right forearm; 06/16 00:01 Follow up: Response: No adverse reaction; IV Status: Completed infusion; IV Intake: as6 1000ml 06/15 19:44 Drug: Ketorolac 30 mg Route: IVP; Site: left forearm; as6 06/16 00:01 Follow up: Response: No adverse reaction 06/15 19:44 Drug: K-Lyte (potassium) Effervescent Tablet 50 mEq Route: PO; 06/16 00:01 Follow up: Response: No adverse reaction 06/15 19:44 Drug: Zofran (Ondansetron) 4 mg Route: IVP; Site: left forearm; 06/16 00:02 Follow up: Response: No adverse reaction 06/15 19:44 Drug: Potassium Chloride 20 mEq Route: IV; Rate: calculated rate; Site: left forearm; as6 06/16 00:02 Follow up: Response: No adverse reaction; IV Status: Completed infusion; IV Intake: as6 100ml 06/15 23:32 Drug: Rocephin (cefTRIAXone) 2 grams Route: IV; Rate: calculated rate; Site: left as6 forearm; 06/16 00:02 Follow up: Response: No adverse reaction; IV Status: Completed infusion; IV Intake: as6 100ml 06/15 23:33 Drug: morphine 4 mg Route: IVP; Site: left forearm; as6 06/16 00:02 Follow up: Response: No adverse reaction; RASS: Alert and Calm (0) as6 06/15 23:33 Drug: Zofran (Ondansetron) 4 mg Route: IVP; Site: left forearm; as6 06/16 00:02 Follow up: Response: No adverse reaction as6 Disposition: 13:23 Co-signature as Attending Physician, Nayan Crespo MD I agree with the assessment and prasanth plan of care. Disposition Summary: 06/15/21 23:27 Discharge Ordered Location: Home [facility] Condition: Stable [facility] Diagnosis - acute pyelonephritis [facility] Followup: [facility] - With: Private Physician - When: 2 - 3 days - Reason: Recheck today's complaints, Continuance of care, Re-evaluation by your physician Discharge Instructions: - Discharge Summary Sheet [facility] - Pyelonephritis, Adult [facility] Forms: - Medication Reconciliation Form [facility] - Thank You Letter [facility] - Antibiotic Education [facility] - Prescription Opioid Use [facility] Prescriptions: - ondansetron 4 mg Oral tablet,disintegrating - take 1 tablet by ORAL route every 4-6 hours for 2 days; 30 tablet; Refills: 0, [facility] Product Selection Permitted - Ultracet 37.5-325 mg Oral Tablet - take 1 tablet by ORAL route every 6 hours - for up to 5 days; do not exceed 8 jm tablets per day.; 20 tablet; Refills: 0, Product Selection Permitted - cefpodoxime 200 mg Oral Tablet - take 1 tablet by ORAL route every 12 hours for 10 days with food; 20 tablet; [facility] Refills: 0, Product Selection Permitted Signatures: Dispatcher [employer] Nayan Guerrero MD MD cha Mickail, Joel, PA PA jmm Hall, Patricia, RN RN ph Garcia, Victoria, RN BIANCA vg1 Sammy Kee RN RN as6 Corrections: (The following items were deleted from the chart) 06/15 19:44 19:02 CBC Smear Scan ordered. EDMS EDMS
--- NOTE | 2021-06-15 23:27 | ER ---
Nurse's Notes [facility] Name: Sulema Thomas Age: 56 yrs Sex: Female : 1965 Arrival Date: 06/15/2021 Time: 16:41 Bed 4 Private MD: Diagnosis: acute pyelonephritis Presentation: 06/15 17:02 Chief complaint: Patient states: fever, cough, congestion, fatigue, body aches, chills, vg1 headache since Thursday; states covid test results are pending from Thursday. Denies NVD. Coronavirus screen: Vaccine status: Patient reports receiving the 2nd dose of the covid vaccine. Client denies travel out of the [place] in the last 14 days. Client presents with at least one sign or symptom that may indicate coronavirus-19. Standard/surgical mask placed on the client. The client indicates previous COVID test results are pending. Date of collection: June 12, 2021. Ebola Screen: Patient negative for fever greater than or equal to 101.5 degrees Fahrenheit, and additional compatible Ebola Virus Disease symptoms. No acute neurological deficit is noted. Initial Sepsis Screen: Does the patient meet any 2 criteria? Temp <36.0*C (96.8*F)) or > 38.3*C (100.9*F). Does the patient have a suspected source of infection? No. Patient's initial sepsis screen is negative. Risk Assessment: Do you want to hurt yourself or someone else? Patient reports no desire to harm self or others. Onset of symptoms was June 10, 2021. 17:02 Method Of Arrival: Ambulatory vg1 17:02 Acuity: KEEGAN 3 vg1 Triage Assessment: 17:04 The onset of the patients symptoms was. General: Appears uncomfortable, Behavior is vg1 calm, cooperative. Pain: Complains of pain in generalized body. Neuro: Level of Consciousness is awake, alert, obeys commands, Oriented to person, place, time, situation, Reports dizziness, headache. DISPATCH MANAGER: 17:04 LMP N/A - Post-menopause vg1 Historical: - Allergies: 17:04 No Known Allergies; vg1 - Home Meds: 17:04 atorvastatin 10 mg Oral tab 1 tab once daily [Active]; Folic Acid Oral [Active]; vg1 gabapentin 300 mg Oral cap twice a day [Active]; melatonin 10 mg Oral tab [Active]; metformin 1,000 mg Oral tab 1 tab daily [Active]; pantoprazole Oral [Active]; tramadol 50 mg Oral tab 1 tab once a day [Active]; Prevalite Oral [Active]; - PMHx: 17:04 Colitis; Diabetes - NIDDM; Rheumatoid Arthritis; Ulcers; vg1 - Immunization history:: Client reports receiving the 2nd dose of the Covid vaccine. - Social history:: Smoking status: Patient denies any tobacco usage or history of. Patient/guardian denies using alcohol. Screenin:28 Abuse screen: Denies threats or abuse. Nutritional screening: No deficits noted. ph Tuberculosis screening: No symptoms or risk factors identified. Fall Risk Fall in past 12 months (25 points). IV access (20 points). Gait- Weak (10 pts.). Mental Status- Oriented to own ability (0 pts). Total Flores Fall Scale indicates High Risk Score (45 or more points). Fall prevention measures have been instituted. Side Rails Up X 2 Placed Close to Nursing Station Frequent Obs/Assessments Occuring As available patient and family educated on Fall Prevention Program and Strategies. Assessment: 19:28 General: Appears in no apparent distress. uncomfortable, Behavior is calm, cooperative. ph Pain: Complains of pain in Left side of body, H/A. Neuro: Level of Consciousness is awake, alert, obeys commands, Oriented to person, place, time, situation. Cardiovascular: Patient's skin is warm and dry. Respiratory: Respiratory effort is even, unlabored, Respiratory pattern is regular, symmetrical. Derm: Bruising that is on Left side of body Reports pain. Musculoskeletal: Reports weakness in generalized. 19:45 General: Appears in no apparent distress. Neuro: Reports headache weakness. as6 Vital Signs: 17:02 BP 100 / 68; Pulse 98; Resp 20; Temp 102.9(O); Pulse Ox 97% on R/A; Weight 87.54 kg; vg1 Height 5 ft. 5 in. (165.10 cm); Pain 6/10; 18:26 Temp 99.4(O); vg1 19:50 BP 122 / 77; Pulse 87; Resp 23 S; Pulse Ox 97% on R/A; as6 21:30 BP 116 / 72; Pulse 75; Resp 14; Pulse Ox 100% ; as6 23:12 BP 114 / 82; Pulse 79; Resp 17; Pulse Ox 100% on R/A; as6 17:02 Body Mass Index 32.12 (87.54 kg, 165.10 cm) vg1 ED Course: 16:41 Patient arrived in ED. ds1 17:04 Triage completed. vg1 17:04 Arm band placed on. vg1 17:09 Sean Matos PA is PHCP. [facility] 17:09 Nayan Crespo MD is Attending Physician. [facility] 17:12 COVID swab sent to lab. Flu and/or RSV swab sent to lab. Strep swab sent to lab. vg1 18:39 Alirio Matt RN is Primary Nurse. jl7 18:45 Initial lab(s) drawn, by mt, sent to lab. Inserted saline lock: 20 gauge in left dh3 forearm, using aseptic technique. Blood collected. 19:28 Patient has correct armband on for positive identification. Placed in gown. Bed in low ph position. Call light in reach. Side rails up X 1. 19:46 Primary Nurse role handed off by Alirio Matt, RN cs9 19:51 Sammy Kee, BIANCA is Primary Nurse. as6 19:52 alarm security or surveillance monitor on. Pulse ox on. NIBP on. Door closed. Noise minimized. Lights dimmed. as6 PO fluids given. 20:35 CT Abd/Pelvis - IV Contrast Only In Process Unspecified. EDMS 06/16 00:00 No provider procedures requiring assistance completed. IV discontinued, intact, as6 bleeding controlled, No redness/swelling at site. Pressure dressing applied. Administered Medications: 06/15 17:12 Drug: Tylenol 1000 mg Route: PO; vg1 18:26 Follow up: Response: Temperature is decreased vg1 19:26 Drug: NS 0.9% 1000 ml Route: IV; Rate: 1 bolus; Site: right forearm; ph 06/16 00:01 Follow up: Response: No adverse reaction; IV Status: Completed infusion; IV Intake: as6 1000ml 06/15 19:44 Drug: Ketorolac 30 mg Route: IVP; Site: left forearm; as6 06/16 00:01 Follow up: Response: No adverse reaction as6 06/15 19:44 Drug: K-Lyte (potassium) Effervescent Tablet 50 mEq Route: PO; 06/16 00:01 Follow up: Response: No adverse reaction 06/15 19:44 Drug: Zofran (Ondansetron) 4 mg Route: IVP; Site: left forearm; 06/16 00:02 Follow up: Response: No adverse reaction 06/15 19:44 Drug: Potassium Chloride 20 mEq Route: IV; Rate: calculated rate; Site: left forearm; 06/16 00:02 Follow up: Response: No adverse reaction; IV Status: Completed infusion; IV Intake: as6 100ml 06/15 23:32 Drug: Rocephin (cefTRIAXone) 2 grams Route: IV; Rate: calculated rate; Site: left as6 forearm; 06/16 00:02 Follow up: Response: No adverse reaction; IV Status: Completed infusion; IV Intake: as6 100ml 06/15 23:33 Drug: morphine 4 mg Route: IVP; Site: left forearm; 06/16 00:02 Follow up: Response: No adverse reaction; RASS: Alert and Calm (0) 06/15 23:33 Drug: Zofran (Ondansetron) 4 mg Route: IVP; Site: left forearm; 06/16 00:02 Follow up: Response: No adverse reaction as6 Intake: 00:01 IV: 1000ml; Total: 1000ml. as6 00:02 IV: 100ml; Total: 1100ml. as6 00:02 IV: 100ml; Total: 1200ml. as6 Outcome: 06/15 23:27 Discharge ordered by MD. pinto 06/16 00:00 Discharged to home ambulatory. as6 Condition: stable Discharge instructions given to patient, Instructed on discharge instructions, follow up and referral plans. medication usage, Demonstrated understanding of instructions, follow-up care, medications, Prescriptions given X 3. 00:03 Patient left the ED. as6 Signatures: Dispatcher [employer] EDMS Sean Matos PA PA jmm Sanford, Demi ds1 Paulette Darnell RN RN Alirio Salinas RN RN jl7 Delores Butler3 Michelle Renae RN RN Marianela Ovalle 9 Sammy Kee RN RN as6
[2021-06-16 00:41] VITALS: TEMP 99.4
[2021-06-16 00:44] VITALS: O2SAT 100
[2021-06-16 00:45] VITALS: BP 114/82
== END 2021-06-16 00:03 | disposition home or self-care (01) ==
LOC: ER 16:38
DX: N10 Acute pyelonephritis (principal); E11.9 Type 2 diabetes mellitus without complications; Z20.822 Contact with and (suspected) exposure to COVID-19
CPT/HCPCS: 96365; 87070; 87088; 85025; 87086; 80048; 36415; 86308; 80076; 87081; 81003; 83690; 0240U; 74177; 96375; 99284; 96366; Q9967; J3480; J2405 ×2; 87077; 87186

== ENCOUNTER 2021-12-07 18:34 | Emergency (ER) | payer OTHER ==
--- OUTSIDE RECORDS SUMMARY | 2021-12-07 18:44 | XMS REPORT | Continuity of Care Document ---
:1965 Author Organization [facility] t Address [address] [place] [address] Care Team Providers Name Role Phone Shannan Rios Primary Care Physician Juan Antonio Rios Attending Clinician Unavailable ELIOT Attending Clinician Unavailable MEGHANA KEITH Attending Clinician Unavailable MEHOP_ELIGIBILITY Attending Clinician Unavailable Xiomara STARR Attending Clinician Unavailable Amy HOYOS Attending Clinician Unavailable MEGHANA KEITH Attending Clinician Unavailable DR JORGE Attending Clinician Unavailable Cecilia Attending Clinician Unavailable MEHOP_ELIGIBILITY Admitting Clinician Unavailable DR JORGE Admitting Clinician Unavailable Cecilia Admitting Clinician Unavailable Payers Payer Name Policy Type Policy Number Effective Date Expiration Date Sondra BRADLEY [id number] 2020 HEALTH PLAN 00:00:00 Problems Condition Condition [...] Other Other Disease Active UT chronic chronic 10-10 Health pain pain 00:00: 00 Nausea Nausea [...] Active UT right hip right hip 10-10 joint joint 00:00: 00 Rheumatoid Rheumatoid Disease Active U T arthritis arthritis 10-10 involving involving 00:00: multiple multiple 00 sites with sites with positive positive rheumatoid rheumatoid factor factor Seasonal Seasonal Disease Active UT allergies allergies 10-10 Heal 00:00: 00 Sinus Sinus Disease Active UT [...] continue her rheumatoi d medicatio ns with Xelsophia. And may continue tizanidin e as needed and as needed ibuprofen as needed. Rotator Rotator Disease Active UT cuff tear, cuff tear, 4-14 He alth right right 00:00: 00 History of History of Problem Resolve UT Arthritis Arthritis d Phys ici ans History of History of Problem Resolve UT Back pain Back pain d Phys ici ans History of History of Problem Resolve UT Diabetes Diabetes d Physic i ans History of History of Problem Resolve UT Gallbladde Gallbladde d Ph ysici r disease r disease ans History of History of Problem Resolve UT Hernia Hernia d Physici ans History of History of Problem Resolve UT Osteoporos Osteoporos d Ph ysici is is ans History of History of Problem Resolve UT Pneumonia Pneumonia d Phys ici ans 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 Ph ysici s s ans Right Right Problem Active UT cervical cervical Physic i radiculopa radiculopa an s thy thy Arthritis Arthritis Problem Active UT of of Physici shoulder shoulder ans region, region, right right Tear of Tear of Problem Active UT right right Physici glenoid glenoid ans labrum, labrum, initial initial encounter encounter Tear of Tear of Problem Active UT right right Physici supraspina supraspina an s tus tendon tus tendon Neural Neural Problem Active UT foraminal foraminal Phys ici stenosis stenosis ans of of cervical cervical spine spine Right arm Right arm Problem Active UT weakness weakness Physic i ans Allergies, Adverse Reactions, Alerts Allergy Allergy Status Severity Reaction(s) Onset Inactive Treating Comm ents Source Name Type Date Date Clinician No Known DA Active [facility] [place] [facility] No Known DA Active [facility] Social History Social Habit Start Date Stop Date Quantity Comments Source History [facility] Health Alcohol Std Drinks History [facility] Health Alcohol Binge History [facility] Health Alcohol Comment Exposure to Not sure [facility] SARS-CoV-2 (event) Alcohol intake 2021-03-07 2021-03-07 Lif[facility] 00:[facility] 00:00:00 non-drinker (finding) Tobacco use and 2020-10-08 2020-10-08 Smokeless tobacco [facility] exposure 00:00:00 00:00:00 non-user History SDFL 2020-10-08 2020-10-08 1 [facility] Alcohol Frequency 00:00:00 00:00:00 Sex Ass[birth year] At [birth year] [facility] 00:00:00 00:00:00 Smoking Status Start Date Stop Date Source Never smoked tobacco [facility] Medications Ordered Filled Start Stop Current Ordering Indication Dosage Frequency Signature Comments Components Source Medication Medication Date Date Medication? Clinician (SIG) Name Name Tofacitinib 2020-05 Take by UT Citrate ER 03-07 mouth. Health (Xeljanz 14:10: 00:00 XR) 11 [...] g packet 47 times a day. mesalamine 202-0 Yes 1200mg QD Take 1,200 UT (Lialda) 5-26 mg by Health 1.2 g EC 10:46: mouth 1 tablet 47 (one) time each day with breakfast. Do not crush, chew, or split. metFORMIN 202-0 Yes 1000mg Take 1,000 UT (Glucophage 5-26 mg by Health ) 1000 MG 10:46: mouth 2 tablet 47 (two) times a day with meals. atorvastati 2020-0 Yes 10mg QD Take 10 mg UT [...] 47 each day. tiZANidine 2020-0 Yes 4mg [id number] Take 4 mg UT (Zanaflex) 5-26 [id number] by mouth 3 Health 4 MG 10:46: 3D (three) capsule 47 times a day. Melatonin 202-0 Yes Take by UT 10 MG 5-26 [...] g packet 47 times a day. mesalamine 202-0 Yes 1200mg QD Take 1,200 UT (Lialda) 5-26 mg by Health 1.2 g EC 10:46: mouth 1 tablet 47 (one) time each day with breakfast. Do not crush, chew, or split. metFORMIN 2020-0 Yes 1000mg Take 1,000 UT (Glucophage 5-26 mg by Health ) 1000 MG 10:46: mouth 2 tablet 47 (two) times a day with meals. atorvastati 2020-0 Yes 10mg QD Take 10 mg UT n (Lipitor) 5-26 by mouth 1 He alth 10 MG 10:46: (one) time tablet 47 each day. gabapentin 2020-0 Yes Take by UT (Neurontin) 5-26 mouth. Health 600 MG 10:46: tablet 47 lisinopril 0 Yes 2.5mg QD Take 2.5 UT 2.5 MG 5-26 mg by Health tablet 10:46: mouth 1 47 (one) time each day. ibuprofen 0 Yes 800mg Q6H Take 800 UT 800 MG 5-26 mg by Health tablet 10:46: mouth 47 every 6 (six) hours if needed for mild pain. folic acid 0 Yes QD Take by UT (Folvite) 1 5-26 mouth 1 Healt h MG tablet 10:46: (one) time 47 each day. tiZANidine 0 Yes 4mg Q.[id number] Take 4 mg UT (Zanaflex) 5-26 [id number] by mouth 3 Health 4 MG 10:46: 3D (three) capsule 47 times a day. Melatonin 0 Yes Take by UT 10 MG 5-26 mouth. Health tablet 10:46: 47 Ascorbic 2020-0 Yes 100mg QD Take 100 UT Acid 5-26 mg by Health (vitamin C) 10:46: mouth 1 100 MG 47 (one) time tablet each day. traMADol traMADol 0 Yes ROB TAKE 1 U T HCl - 50 MG HCl - 50 MG 4-05 LI-HOLLY TABLET Physici Oral Tablet Oral Tablet 00:00: INNA M.D. EVERY 4 T O ans 00 6 HOURS NEEDED FOR PAIN. montelukast 2020-0 Yes 10mg QD Take 10 mg UT [...] solution 00:00: auto-inject 00 or Cyclobenzap Cyclobenzap 2019-0 Yes ROB TAKE 1 UT rine HCl - rine HCl - 9-16 LI-HOLLY TABLET at Physici 5 MG Oral 5 MG Oral 00:00: INNA M.D. bedtime as ans Tablet Tablet 00 needed for muscle cramps. Zofran Zofran 2020-0 Yes Shara as needed Com mon 5-11 Pender for nausea Spirit 00:00: - [facility] 00 [facility] methylPREDN methylPREDN 2019-0 Yes ROB TAKE UT ISolone 4 ISolone 4 5-04 LI-HOLLY DIRECTED Physici MG Oral MG Oral 00:00: INNA M.D. ON PATIENT ans Tablet Tablet 00 INSTRUCTIO Therapy Therapy N CARD.; Pack Pack Qty: 1 X 21 Tablet Disp Pack Albuterol Albuterol 2019-0 Yes Shara 2 puffs Common Sulfate HFA Sulfate HFA 3-18 Pender Spirit 00:00: - CHI 00 [facility] Methocarbam Methocarbam 2020-0 Yes ROB Q0.3333D TAKE 1 UT ol 500 MG ol 500 MG 2-06 LI-HOLLY TABLET 3 Physici Oral Tablet Oral Tablet 00:00: INNA M.D. TIMES ans 00 DAILY. Prevalite 4 Prevalite 4 Yes U T GM Oral GM Oral Physici Packet Packet ans Mesalamine Mesalamine Yes UT 1.2 GM Oral 1.2 GM Oral P hysici Tablet Tablet ans Delayed Delayed Release Release metFORMIN metFORMIN Yes UT HCl ER HCl ER Physici (MOD) 1000 (MOD) 1000 ans MG Oral MG Oral Tablet Tablet Extended Extended Release 24 Release 24 Hour Hour Atorvastati Atorvastati Yes U T n Calcium n Calcium Physi ci 10 MG Oral 10 MG Oral ans Tablet Tablet Gabapentin Gabapentin Yes UT 600 MG Tab 600 MG Tab Phy sici (OR) - (OR) - ans [id number]_Deact [id number]_Deact ivated ivated Lisinopril Lisinopril Yes UT TABS TABS Physici ans Ibuprofen Ibuprofen Yes UT 800 MG Oral 800 MG Oral P hysici Tablet Tablet ans Folic Acid Folic Acid Yes UT 1 MG Oral 1 MG Oral Physi ci Tablet Tablet ans tiZANidine tiZANidine Yes UT HCl - 4 MG HCl - 4 MG Phy sici Oral Tablet Oral Tablet a ns Xeljanz XR Xeljanz XR Yes UT 11 MG Oral 11 MG Oral Phy sici Tablet Tablet ans Extended Extended Release 24 Release 24 Hour Hour Melatonin Melatonin Yes UT 10 MG Oral 10 MG Oral Phy sici Tablet Tablet ans Disintegrat Disintegrat ing ing Vitamin C Vitamin C Yes UT TABS TABS Physici ans Vitamin D3 Vitamin D3 Yes UT TABS TABS Physici ans Folic Acid Folic Acid Yes Shara 2-3 Co mmon Pender tablets as Spirit needed for - [facility]I mouth [facility] Vitamin C Vitamin C Yes Shara not Comm on Pender defined [facility] Vitamin D-3 Vitamin D-3 Yes Shara not Common Pender defined [facility] Atorvastati Atorvastati Yes Shara 1 tablet Common n Calcium n Calcium Pender [facility] Gabapentin Gabapentin Yes Shara 1 tablet Common [facility] Tizanidine Tizanidine Yes Shara 1 tablet Common HCl HCl Pender as needed [facility] Prevalite Prevalite Yes Shara 1 packet Common Pender [facility] Lisinopril Lisinopril Yes Shara 1 tablet Common Pender [facility] Singulair Singulair Yes Shara 1 tablet Common Pender [facility] Amoxicillin Amoxicillin Yes Shara 1 tablet Common -Pot -Pot Pender Spirit Clavulanate Clavulanate - [facility] Atorvastati Atorvastati Yes Shara 1 tablet Common n Calcium n Calcium Pender Spir [facility] Xeljanz Xeljanz Yes Shara 1 tablet Comm on Pender [facility] Metformin Metformin Yes Shara TAKE 1 Co mmon HCl HCl Pender TABLET BY Spirit MOUTH ONCE - CHI DAILY WITH St A MEAL [facility] Metformin Metformin Yes Shara 1 tablet Common HCl HCl Pender with a Spirit meal CHI [facility] Lisinopril Lisinopril Yes Shara TAKE 1 Common Pender TABLET BY Spirit MOUTH ONCE - CHI DAILY [facility] Mesalamine Mesalamine Yes Shara 2 tablets Common Pender [facility] Vital Signs Vital Name Observation Time Observation Value Comments Source Body height 2021-03-07 18:28:00 166.4 cm [facility] Body weight 2021-03-07 18:28:00 93.441 kg [facility] BMI 2021-03-07 18:28:00 33.76 kg/m2 [facility] Height 2019-09-09 04:32:00 165.1 CM Weight 2019-09-09 04:32:00 99.79 KG Procedures Procedure Date / Time Performing Clinician Source Performed MR Shoulder wo contrast 2020-08-20 00:00:00 [facility] [id number] MRI Spine cervical wo 2020-08-20 00:00:00 [facility] contrast [id number] MRI Spine cervical wo 2020-01-19 00:00:00 [facility] contrast [id number] MRI Spine cervical wo 2019-11-01 00:00:00 [facility] contrast [id number] DIV RT FOOT SUBQ TISSUE 2019-09-09 00:00:[address] [facility] MRI Spine cervical wo 2019-07-20 00:00:00 [facility] Phy [facility] contrast [id number] History of [facility] Physician s Section History of Cholecystectomy [facility] Ph ysicians History of Knee Surgery UT Physi cians Encounters Start End Encounter Admission Attending Care Care Encounter Source Date/Time Date/Time Type Type Clinicians Facility Department ID 2021-11-19 Outpatient Rios, Na STLMLC STLMLC [id number] Common 08:34:00 [id number] [facility] 2021-09-23 Outpatient ELIOT [facility] [id number] [place] 09:40:02 AWILDA [id number] [facility] 2021-09-18 Outpatient [facility] [id number] [place] 15:41:56 [id number] [facility] 2021-09-17 Outpatient [facility] [id number] [place] 10:21:47 [id number] [facility] 2021-09-09 Outpatient MEGHANA [facility] [id number] [place] 08:59:03 INNA [id number] [facility] 2021-08-16 Outpatient Rios, Na STLMLC STLMLC [id number] Common 14:59:00 [facility] 2021-07-22 Outpatient RADWAN, [facility] [id number] [place] 11:22:02 [facility] 2021-07-16 Outpatient Rios, Na STLMLC STLMLC [id number] 2 Common 13:09:01 [facility] 2021-07-15 Outpatient Rios, Na STLMLC STLMLC [id number] 2 Common 10:17:01 [facility] 2021-06-25 Outpatient RADWAN, [facility] [id number] [place] 01:04:39 [facility] 2021-06-24 Outpatient RADWAN, [facility] [id number] UT 11:42:17 [facility] 2021-06-24 Outpatient RADWAN, [facility] [id number] [place] 10:39:28 [facility] 2021-06-19 Outpatient [facility] [id number] [place] 09:00:33 [facility] 2021-06-17 Outpatient Rios, Na STLMLC STLMLC [id number] 2 Common 13:19:00 [facility] 2021-06-14 Outpatient Rios, Na STLMLC STLMLC [id number] 2 Common 16:15:01 [facility] 2021-06-12 Outpatient Rios, Na STLMLC STLMLC [id number] Common 14:20:21 [facility] 2021-06-12 Outpatient [facility] [id number] [place] 13:58:43 [facility] 2021-06-12 Outpatient Rios, Na STLMLC STLMLC [id number] 2 Common 12:26:54 [id number] [facility] 2021-06-12 Outpatient Rios, Na STLMLC STLMLC [id number] 2 Common 12:24:54 [id number] [facility] 2021-06-12 Outpatient Rios, Na STLMLC STLMLC [id number] 2 Common 12:20:46 [id number] [facility] 2021-06-12 Outpatient Rios, Na STLMLC STLMLC [id number] 2 Common 12:15:02 [id number] [facility] 2021-06-12 Outpatient Rios, Na STLMLC STLMLC [id number] 2 Common 11:21:18 [id number] [facility] 2021-05-06 Outpatient RADWAN, [facility] [id number] [place] 10:24:29 [facility] 2021-05-01 Outpatient [facility] [id number] [place] 08:57:14 [facility] 2021-04-22 Outpatient RADWAN, [facility] [id number] UT 11:12:09 [facility] 2021-04-08 Outpatient RADWAN, [facility] [id number] [place] 11:18:52 [facility] 2021-03-20 Outpatient RADWAN, [facility] [id number] [place] 12:39:36 [facility] 2021-12-06 2021-12-06 ambulatory STLMLC STLMLC [id number] Common 00:00:00 00:00:00 [facility] 2021-12-02 2021-12-02 ambulatory STLMLC STLMLC [id number] Common 00:00:00 00:00:00 [facility] 2021-11-28 2021-11-28 ambulatory STLMLC STLMLC [id number] Common 00:00:00 00:00:00 [facility] 2021-11-27 2021-11-27 ambulatory STLMLC STLMLC [id number] Common 00:00:00 00:00:00 [facility] 2021-11-27 2021-11-27 ambulatory STLMLC STLMLC [id number] Common 00:00:00 00:00:00 [facility] 2021-11-21 2021-11-21 ambulatory STLMLC STLMLC [id number] Common 00:00:00 00:00:00 [facility] 2021-10-08 2021-10-08 ambulatory STLMLC STLMLC [id number] Common 00:00:00 00:00:00 [facility] 2021-10-07 2021-10-07 ambulatory STLMLC STLMLC [id number] Common 00:00:00 00:00:00 [facility] 2021-09-09 2021-09-09 ambulatory STLMLC STLMLC [id number] Common 00:00:00 00:00:00 [facility] 2021-09-09 2021-09-09 ambulatory STLMLC STLMLC [id number] Common 00:00:00 00:00:00 [facility] 2021-08-16 2021-08-16 ambulatory STLMLC STLMLC [id number] Common 00:00:00 00:00:00 [facility] 2021-07-31 2021-07-31 ambulatory STLMLC STLMLC [id number] Common 00:00:00 00:00:00 [facility] 2021-07-24 2021-07-24 ambulatory STLMLC STLMLC [id number] Common 00:00:00 00:00:00 [facility] 2021-07-19 2021-07-19 ambulatory STLMLC STLMLC [id number] Common 00:00:00 00:00:00 [facility] 2021-07-16 2021-07-16 ambulatory STLMLC STLMLC [id number] Common 00:00:00 00:00:00 [facility] 2021-06-19 2021-06-19 ambulatory STLMLC STLMLC [id number] Common 00:00:00 00:00:00 [facility] 2021-06-18 2021-06-18 ambulatory STLMLC STLMLC [id number] Common 00:00:00 00:00:00 [facility] 2021-06-17 2021-06-17 ambulatory STLMLC STLMLC [id number] Common 00:00:00 00:00:00 [facility] 2021-06-12 2021-06-12 Outpatient CAHOP_HERSON [facility] [id number] [place] 03:03:00 03:03:00 [facility]IS [facility] 2021-06-12 2021-06-12 ambulatory STLMLC STLMLC [id number] Common 00:00:00 00:00:00 [facility] 2021-06-12 2021-06-12 ambulatory STLMLC STLMLC [id number] Common 00:00:00 00:00:00 [facility] 2021-04-23 2021-04-23 ambulatory STLMLC STLMLC [id number] Common 00:00:00 00:00:00 [facility] 2021-03-26 2021-03-26 Outpatient TEN STARR [facility] [id number] 10:54:00 16:16:00 [facility] 2021-03-19 2021-03-19 ambulatory STLMLC STLMLC [id number] Common 00:00:00 00:00:00 [facility] 2021-03-19 2021-03-19 ambulatory STLMLC STLMLC [id number] Common 00:00:00 00:00:00 [facility] 2021-03-12 2021-03-12 Orders Melody Reyes [facility] [id number] [place] 00:00:00 00:00:00 Only Melody Reyes [id number] Health MEDICAL [id number] [id number] [id number] 2021-03-07 2021-03-07 Office ANA ROSA Starr [facility] [id number] [place] 13:07:46 14:35:37 Visit Awilda JUNG [id number] H [facility] MEDICAL [id number] [id number] [id number] 2021-03-05 2021-03-05 Outpatient STLMLC STLMLC [id number] Common 00:00:00 00:00:00 [facility] 2021-01-25 2021-01-25 Outpatient STLMLC STLMLC [id number] Common 00:00:00 00:00:00 [facility] 2021-01-24 2021-01-24 Outpatient STLMLC STLMLC [id number] Common 00:00:00 00:00:00 [facility] 2021-01-24 2021-01-24 Outpatient STLMLC STLMLC [id number] Common 00:00:00 00:00:00 [facility] 2021-01-23 2021-01-23 Outpatient STLMLC STLMLC [id number] Common 00:00:00 00:00:00 [facility] 2021-01-16 2021-01-16 Outpatient MEHOP_ELIGI MEHOP MEHOP [id number] [place] 02:11:00 02:11:00 [facility] [id number] [facility] 2021-01-14 2021-01-14 Outpatient STLMLC STLMLC [id number] Common 00:00:00 00:00:00 [facility] 2021-01-14 2021-01-14 Outpatient STLMLC STLMLC [id number] Common 00:00:00 00:00:00 [facility] 2021-01-03 2021-01-03 Office ANA ROSA Starr [facility] [id number] 10:17:35 11:23:51 Visit Awilda JUNG [id number] MEDICAL [id number] [id number] 2021-01-03 2021-01-03 Outpatient STLMLC STLMLC [id number] Common 00:00:00 00:00:00 [facility] 2020-12-12 2020-12-12 Office Meghana OSEGUERA [facility] [id number] 09:21:56 10:18:31 Visit FABIANA Keith [id number] [facility] [id number] [id number] [id number] 2020-12-06 2020-12-06 Office Rosaura-Holly [facility] [id number] 15:14:17 16:13:58 Visit Inna, PEAR[place]OM [id number] [facility] [id number] [id number] 2020-10-25 2020-10-25 Outpatient STLMLC STLMLC [id number] Common 00:00:00 00:00:00 [facility] 2020-10-19 2020-10-19 Outpatient STLMLC STLMLC [id number] Common 00:00:00 00:00:00 [facility] 2020-10-17 2020-10-17 Office Meghana [facility] [id number] 10:23:11 11:11:36 Visit Inna, [place]AR[place] [id number] [facility] [id number] [id number] 2020-10-17 2020-10-17 Outpatient STLMLC STLMLC [id number] Common 00:00:00 00:00:00 [facility] 2020-10-17 2020-10-17 Outpatient STLMLC STLMLC [id number] Common 00:00:00 00:00:00 [facility] 2020-10-17 2020-10-17 Outpatient STLMLC STLMLC [id number] Common 00:00:00 00:00:00 [facility] 2020-10-16 2020-10-16 Outpatient STLMLC STLMLC [id number] Common 00:00:00 00:00:00 [facility] 2020-09-25 2020-09-25 Outpatient STLMLC STLMLC [id number] Common 00:00:00 00:00:00 [facility] 2020-08-29 2020-08-29 [facility] MEGHANA OSEGUERA Orthopedics [id number] [place] 10:30:00 10:30:00 t[facility] KEITH II ans ANDREW, M.D. M.D. 2020-08-27 2020-08-27 Outpatient STLMLC STLMLC [id number] Common 00:00:00 00:00:00 [facility] 2020-08-27 2020-08-27 Outpatient STLMLC STLMLC [id number] Common 00:00:00 00:00:00 [facility] 2020-08-20 2020-08-[facility] [id number] [place] 10:45:00 10:45:00 t; [facility] KEITH Jodie RIVAS M.D. [facility] 2020-08-17 2020-08-17 Outpatient STLMLC STLMLC [id number] Common 00:00:00 00:00:00 [facility] 2020-07-27 2020-07-27 Outpatient STLMLC STLMLC [id number] Common 00:00:00 00:00:00 [facility] 2020-07-25 2020-07-25 Outpatient STLMLC STLMLC [id number] Common 00:00:00 00:00:00 [facility] 2020-07-11 2020-07-11 Outpatient STLMLC STLMLC [id number] Common 00:00:00 00:00:00 [facility] 2020-07-11 2020-07-11 Outpatient STLMLC STLMLC [id number] Common 00:00:00 00:00:00 [facility] 2020-07-09 2020-07-09 Outpatient STLMLC STLMLC [id number] Common 00:00:00 00:00:00 [facility] 2020-06-26 2020-06-26 Outpatient STLMLC STLMLC [id number] Common 00:00:00 00:00:00 [facility] 2020-06-20 2020-06-20 Outpatient STLMLC STLMLC [id number] Common 00:00:00 00:00:00 [facility] 2020-06-15 2020-06-15 Outpatient STLMLC STLMLC [id number] Common 00:00:00 00:00:00 [facility] 2020-06-06 2020-06-06 Outpatient STLMLC STLMLC [id number] Common 00:00:00 00:00:00 [facility] 2020-06-04 2020-06-04 Outpatient STLMLC STLMLC [id number] Common 00:00:00 00:00:00 [facility] 2020-06-01 2020-06-01 Outpatient STLMLC STLMLC [id number] Common 00:00:00 00:00:00 [facility] 2020-05-30 2020-05-30 Outpatient STLMLC STLMLC [id number] Common 00:00:00 00:00:00 [facility] 2020-05-30 2020-05-30 Outpatient STLMLC STLMLC [id number] Common 00:00:00 00:00:00 [facility] 2020-05-07 2020-05-07 Outpatient STLMLC STLMLC [id number] Common 00:00:00 00:00:00 [facility] 2020-05-07 2020-05-07 Outpatient STLMLC STLMLC [id number] Common 00:00:00 00:00:00 [facility] 2020-02-06 2020-02-06 [facility] MEGHANA [facility] Orthopedics [id number] [place] 12:30:00 12:30:00 tShahram KEITH, [facility] ROB KEITH II ans ANDREW, M.D. M.D. 2019-11-25 2019-11-25 [facility] [id number] Common 14:00:00 14:00:[address] [facility] 2019-11-25 2019-11-25 [facility] [id number] Common 09:28:00 09:28:[address] [facility] 2019-11-03 2019-11-03 [facility] [id number] Common 12:02:00 12:02:[address] [facility] 2019-11-01 2019-11-01 Appointmen MEGHANA OSEGUERA UTP [id number] [place] 13:00:00 13:00:00 t; MEGHANA KEITH [facility] ROB Meier ans ANDREW, M.D. M.D. 2019-09-26 2019-09-26 [facility] [id number] Common 16:49:00 16:49:[address] [facility] 2019-09-26 2019-09-26 [facility] [id number] Common 11:20:00 11:20:[address] [facility] 2019-09-26 2019-09-26 [facility] [id number] Common 09:52:00 09:52:[address] [facility] 2019-09-21 2019-09-21 [facility] [id number] Common 10:20:00 10:20:[address] [facility] 2019-09-19 2019-09-19 Appointmen MEGHANA OSEGUERA Orthopedics [id number] [place] 12:00:00 12:00:00 t; ME[facility], ONIEL RIVAS M.D. M.D. 2019-09-09 2019-09-09 Outpatient [place] PATEL [facility] [id number] [place] 04:25:00 07:00:00 [facility] 2019-08-11 2019-08-11 [facility] [id number] [place] 11:58:00 11:58:[address] [facility] 2019-08-02 2019-08-02 [facility] [id number] [place] 10:31:00 10:31:[address] [facility] 2019-07-20 2019-07-20 Appointmen MEGHANA [facility] Orthopedics [id number] [place] 09:00:00 09:00:00 t; [place]NA [place], - [place] ans ANDREW, M.D. M.D. 2019-07-18 2019-07-18 [facility] [id number] [place] 09:20:00 09:20:[address] [facility] 2019-06-23 2019-06-23 Appointmen MEGHANA OSEGUERA Orthopedics [id number] [place] 12:30:00 12:30:00 t; MEGHANA KEITH, - [place] Val[place]de [place] ans ANDREW, M.D. M.D. 2019-06-22 2019-06-22 [facility] [id number] [place] 10:44:00 10:44:00 0[facility] 2019-05-04 2019-05-04 [facility] [id number] [place] 09:40:00 09:40:[address] [facility] 2019-03-11 2019-03-11 [facility] [id number] [place] 08:49:00 08:49:00 [facility] 2019-02-15 2019-02-15 [facility] [id number] [place] 11:00:00 11:00:00 t [facility] 2019-02-02 2019-02-02 [facility] [id number] [place] 09:00:00 09:00:[address] [facility] 2019-01-14 2019-01-14 [facility] [id number] [place] 16:16:00 16:16:[address] [facility] 2019-01-05 2019-01-05 [facility] [id number] [place] 09:20:00 09:20:[address] [facility] 2018-12-14 2018-12-14 Outpatient [facility] [id number] [place] 09:34:00 09:34:[address] [facility] 2018-11-17 2018-11-17 Outpatient [facility] [id number] [place] 11:14:00 11:14:[address] [facility] 2018-08-31 2018-08-31 Outpatient [facility] [place] [id number] [place] 13:05:00 13:05:[address] [facility] 2018-08-25 2018-08-25 Outpatient [facility] [id number] [place] 11:40:00 11:40:[address] [facility] Results Test Test Test Results Result Source Description Time Comments Comments MR Shoulder wo 2020-08- PROCEDURE [facility] contrast [id number] INFORMATION:Exam: MR Right 15:34:00 Upper Extremity Joint Without Contrast; ShoulderExam date and time: 08/25/2020 [...] without tear.Jayro Brewer MD On 08/27/2020 10:55:55; [id number] by: Jayro Brewer MDDictated Date/time: 08/27/20 10:57Electronically Signed by: Jayro Brewer 08/27/2109:57FINAL REPORT MRI Spine 2020-08- PROCEDURE [facility] cervical wo 10 INFORMATION:Exam: MR contrast [id number] 15:09:00 Cervical Spine Without ContrastExam date and time: 08/25/2020 3:10 PMAge: [...] and stable.Ulises Campo MD On 08/25/2020 16:31:37; [id number] by: Ulises Campo MDDictated Date/time: 08/25/20 16:31Electronically Signed by: Ulises Campo MD 08/26/2115:31FINAL REPORT [U] XRAY SPINE 2020-08- Images acquired, not [facility] CERVICAL 2 OR 3 05 reported on this accession [id number] 11:07:00 number. [U] XR SHOULDER 2020-08- Images acquired, not [facility] MIN 2 VWS 05 reported on this accession BILATERAL 11:07:00 number. GLUCOMETER GLUCOSE- LAB USE ONLY 2019-09-09 06:04:00 Test Item Value Reference Range Interpretation Comme nts GLUCOMETER (test code = GMG) 124 mg/dL 70-100 H Meter ID: [id number]: 5537 TONO MARTIN URINE MONOCLONALFB2019-09-09 05:18:00 Test Item Value Reference Range Interpretation Comments PREG UR (test code = PGU) NEGATIVE NEGATIVE GLUCOMETER GLUCOSE- LAB USE [id number] 04:48:00 Test Item Value Reference Range Interpretation Comments GLUCOMETER (test code = 119 mg/dL 70-100 H Mete r ID: GMG) [id number] tor: 5547 MICHAEL [address] REDO [U] XRAY SHOULDER MIN 2 VWS LEFT [id number] 12:25:00Images acquired, not reported on this accession number.[facility][U] XRAY SPINE CERVICAL 2 OR 3 VWS [id number] 12:25:00Images acquired, not reported on this accession number.[place] [id number] 12:24:00 RUN DATE: 11/24/18 [facility] - LAB *LIVE* PAGE 1 RUN TIME: 1224 Specimen Inquiry RUN USER: INTERFACE PATIENT: DAMI MOODY LOC: [facility] U #: [id number] AGE/SX: 53/F ROOM: RE11/23/18VINOD DR: Sebastian Betancourt MD : 67 BED: DIS: STATUS: DEP SDC TLOC: SPEC #: [id number] RECD: 11/23/18 STATUS: CHIRAG REEverardo #: [id number] EUGENIA: 11/23/[address]: Sebastian Betancourt MD ENTERED: 11/23/18 SP TYPE: SURG OTHR DR: Elda Rios DO ORDERED: SURG PATH LV 08/17 COPIES TO: Sebastian Betancourt MD [address] [place] [address] Elda Rios DO [address] [place] [address] JPONUGTIL: TISSUE ID BLK PCS SANDRA LEV PROCEDURE DISPOSITION ____ ___ ___ ___ COLON, NOS A 1 2 COLON, NOS B 1 2 PROCEDURES: SURG PATH LVL 4 (11/23/18) TISSUES: A. COLON, NOS - RIGHT SIDE B. COLON, NOS - LEFT SIDE CLINICAL HISTORY DIARRHEA-R19.7;ABD PAIN- R10.9;RECTAL PAIN-K62.89 CPT CODES CPT CODE(S): 16092Q1 , , , , , , FINAL DIAGNOSIS A. Colon, right, biopsy: COLONIC MUCOSA WITH NO SIGNIFICANT HISTOPATHOLOGIC FINDINGSB. Colon, left, biopsy: FOCAL ACTIVE COLITIS NO EVIDENCE OF DYSPLASIA OR MALIGNANCY CONTINUED ON NEXT PAGE RUN DATE: 11/24/18 [facility] - LAB *LIVE* PAGE 2 RUN TIME: 1224 Specimen Inquiry RUN USER: INTERFACE --------- ---SPEC #: [facility]:[id number] PATIENT: DAMI MOODY #[id number] (Continued) GROSS DESCRIPTION A. Right side. Received in formalin are three olmos tissue fragments, 0.2 - 0.7 cm. B. Left side. Received in formalin are eight olmos tissue fragments, 0.2 - 0.5 cm, all as B. /ba/pdb Grossing performed at [facility] Pathology, [address] [place] [address], [address], [place] [address]. Regeneration Operator: Patricio Granados M.D. MICROSCOPIC DESCRIPTION A. Right [...] 11/24/18 1224 END OF REPORT HCG SERUM [id number] 11:36:00 Test Item Value Reference Range Interpretation Comments HCG SERUM QUAL (test SERUM NEGATIVE SCREEN NEGATIVE code = HCGQL) GLUCOSE BEDSIDE [id number] 11:30:00 Test Item Value Reference Range Interpretation Comments GLUCOSE BEDSIDE TESTING (test code 122 mg/dL 70-110 H = GLUBED)
--- NOTE | 2021-12-07 19:38 | EDPHYS ---
Physician Documentation [facility] Name: Sulema Thomas Age: 56 yrs Sex: Female : 1965 Arrival Date: 12/07/2021 Time: 18:37 Bed Waiting Private MD: Elda Rios ED Physician Maxi Santizo HPI: 12/07 19:36 This 56 yrs old Female presents to ER via Ambulatory with complaints of Arm jmm Pain. 19:36 The patient or guardian complains of injury, pain. The complaints affect the anterior jmm aspect of right shoulder. Onset: The symptoms/episode began/occurred gradually. This is a 56-year-old female with history of diabetes mellitus, colitis, rheumatoid arthritis the presents emerged part with complaints of pain to her right shoulder which began approximately 2 days ago. Patient states she has had similar episodes in the past with previous arthritis flares.. 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 N/A - Post-menopause bh1 Historical: - Allergies: 19:38 NKDA; bh1 - Home Meds: 19:38 atorvastatin 10 mg Oral tab 1 tab once daily [Active]; ciprofloxacin Oral [Active]; bh1 Folic Acid Oral [Active]; gabapentin 300 mg Oral cap twice a day [Active]; glipizide 5 mg Oral tab 1 tab once daily [Active]; lisinopril 2.5 mg Oral tab 1 tab once daily [Active]; melatonin 10 mg Oral tab [Active]; mesalamine Oral [Active]; metformin 1,000 mg Oral tab 1 tab daily [Active]; pantoprazole Oral [Active]; Prevalite Oral [Active]; tramadol 50 mg Oral tab 1 tab once a day [Active]; - PMHx: 19:38 Colitis; Diabetes - NIDDM; Rheumatoid Arthritis; Ulcers; bh1 - Immunization history:: Adult Immunizations up to date. - Social history:: Smoking status: Patient denies any tobacco usage or history of. ROS: 19:36 Constitutional: Negative for fever, chills, and weight loss, Cardiovascular: Negative jmm for chest pain, palpitations, and edema, Respiratory: Negative for shortness of breath, cough, wheezing, and pleuritic chest pain. 19:36 MS/extremity: Positive for pain. 19:36 All other systems are negative. Exam: 19:36 Constitutional: This is a well developed, well nourished patient who is awake, alert, jmm and in no acute distress. Head/Face: atraumatic. Eyes: EOMI, no conjunctival erythema appreciated ENT: Moist Mucus Membranes Neck: Trachea midline, Supple Chest/axilla: Normal chest wall appearance and motion. Cardiovascular: Regular rate and rhythm. 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 19:36 Skin: Appearance: Color: normal in color. 19:36 Neuro: Orientation: is normal, Mentation: is normal, Memory: is normal. 19:36 Psych: Behavior/mood is pleasant, cooperative. Vital Signs: 19:34 BP 120 / 78; Pulse 78; Resp 20; Temp 98.8; Pulse Ox 98% ; Weight 87.54 kg; Height 5 ft. bh1 3 in. (160.02 cm); Pain 10/10; 19:34 Body Mass Index 34.19 (87.54 kg, 160.02 cm) 1 MDM: 19:36 Patient medically screened. [facility] 19:37 Data reviewed: vital signs, nurses notes. Counseling: I had a detailed discussion with [facility] the patient and/or guardian regarding: the historical points, exam findings, and any diagnostic results supporting the discharge/admit diagnosis, the need for outpatient follow up, to return to the emergency department if symptoms worsen or persist or if there are any questions or concerns that arise at home. Administered Medications: 19:45 Drug: Ketorolac 30 mg Route: IM; Site: right deltoid; [facility] 19:45 Follow up: Response: No adverse reaction [facility] 19:45 Drug: Decadron (dexamethasone) 10 mg Route: IM; Site: left deltoid; [facility] 19:45 Follow up: Response: No adverse reaction [facility] Disposition: 12/08 06:28 Co-signature as Attending Physician, Maxi SCHWARZ was immediately available on-site ms3 in the Emergency Department for consultation in the care of the patient.. Disposition Summary: 12/07/21 19:38 Discharge Ordered Location: Home [facility] Condition: Stable jmm Diagnosis - Pain in right shoulder [facility] Followup: [facility] - With: Elda Rios MD - When: 2 - 3 days - Reason: Recheck today's complaints, Continuance of care, Re-evaluation by your physician Discharge Instructions: - Discharge Summary Sheet [facility] - Shoulder Pain [facility] Forms: - Medication Reconciliation Form [facility] - Thank You Letter [facility] - Antibiotic Education [facility] - Prescription Opioid Use [facility] Prescriptions: - Diclofenac Sodium 75 mg Oral Tablet Sustained Release - take 1 tablet by ORAL route 2 times per day; 30 tablet; Refills: 0, Product [facility] Selection Permitted - orphenadrine citrate 100 mg Oral Tablet Sustained Release - take 1 tablet by ORAL route 2 times per day As needed; 20 tablet; Refills: 0, [facility] Product Selection Permitted Signatures: Sean Matos PA PA jmm Sims, Marcus, DO DO ms3 Fay Hewitt RN RN bh1
--- NOTE | 2021-12-07 19:38 | ER ---
Nurse's Notes [facility] Name: Sulema Thomas Age: 56 yrs Sex: Female : 1965 Arrival Date: 12/07/2021 Time: 18:37 Bed Waiting Private MD: Elda Rios Diagnosis: Pain in right shoulder Presentation: 12/07 19:34 Chief complaint: Patient states: RA FLARE UP THAT STARTED LAST NIGHT. Coronavirus [facility] screen: Vaccine status: Patient reports receiving the 2nd dose of the covid vaccine. At this time, the client does not indicate any symptoms associated with coronavirus-19. Ebola Screen: Patient negative for fever greater than or equal to 101.5 degrees Fahrenheit, and additional compatible Ebola Virus Disease symptoms. Initial Sepsis Screen: Does the patient meet any 2 criteria? No. Patient's initial sepsis screen is negative. Does the patient have a suspected source of infection? No. Patient's initial sepsis screen is negative. Risk Assessment: Do you want to hurt yourself or someone else? Patient reports no desire to harm self or others. Onset of symptoms was December 06, 2021. 19:34 Method Of Arrival: Ambulatory [facility] 19:34 Acuity: KEEGAN 4 [facility] Triage Assessment: 19:38 General: Appears in no apparent distress. uncomfortable, Behavior is calm, cooperative, [facility] appropriate for age. Pain: Complains of pain in right arm. 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 N/A - Post-menopause [facility] Historical: - Allergies: 19:38 NKDA; [facility] - Home Meds: 19:38 atorvastatin 10 mg Oral tab 1 tab once daily [Active]; ciprofloxacin Oral [Active]; bh1 Folic Acid Oral [Active]; gabapentin 300 mg Oral cap twice a day [Active]; glipizide 5 mg Oral tab 1 tab once daily [Active]; lisinopril 2.5 mg Oral tab 1 tab once daily [Active]; melatonin 10 mg Oral tab [Active]; mesalamine Oral [Active]; metformin 1,000 mg Oral tab 1 tab daily [Active]; pantoprazole Oral [Active]; Prevalite Oral [Active]; tramadol 50 mg Oral tab 1 tab once a day [Active]; - PMHx: 19:38 Colitis; Diabetes - NIDDM; Rheumatoid Arthritis; Ulcers; 1 - Immunization history:: Adult Immunizations up to date. - Social history:: Smoking status: Patient denies any tobacco usage or history of. Vital Signs: 19:34 BP 120 / 78; Pulse 78; Resp 20; Temp 98.8; Pulse Ox 98% ; Weight 87.54 kg; Height 5 ft. [facility] 3 in. (160.02 cm); Pain 10/10; 19:34 Body Mass Index 34.19 (87.54 kg, 160.02 cm) [facility] ED Course: 18:37 Patient arrived in ED. mr 18:37 Elda Rios MD is Private Physician. mr 19:18 Sean Matos PA is [facility]. [facility] 19:18 Maxi Santizo DO is Attending Physician. [facility] 19:38 Triage completed. [facility] 19:38 Elda Rios MD is Referral Physician. [facility] 19:38 Arm band placed on right wrist. [facility] Administered Medications: 19:45 Drug: Ketorolac 30 mg Route: IM; Site: right deltoid; [facility] 19:45 Follow up: Response: No adverse reaction [facility] 19:45 Drug: Decadron (dexamethasone) 10 mg Route: IM; Site: left deltoid; [facility] 19:45 Follow up: Response: No adverse reaction [facility] Outcome: 19:38 Discharge ordered by . [facility] 19:45 Discharged to home ambulatory. [facility] 19:45 Condition: good 19:45 Discharge instructions given to patient, Instructed on discharge instructions, follow up and referral plans. medication usage, Demonstrated understanding of instructions, follow-up care, medications. 19:46 Patient left the ED. [facility] Signatures: Sean Matos PA PA jmm Rivera, Mary mr HicksFay, RN RN [facility]
[2021-12-07] MEDS ORDERED: dexAMETHasone 10 MG/ML VIAL ONE (19:49)
[2021-12-07] MEDS ORDERED: KETOROLAC 30 MG/ML INJ ONE (19:49)
[2021-12-07 19:57] VITALS: BP 120/78; TEMP 98.8; O2SAT 98
== END 2021-12-07 19:46 | disposition home or self-care (01) ==
LOC: ER 18:34
DX: M25.511 Pain in right shoulder (principal); E11.9 Type 2 diabetes mellitus without complications
CPT/HCPCS: 96372; 99283; J1100

== ENCOUNTER 2022-01-31 13:23 | Emergency (ER) | payer OTHER ==
--- OUTSIDE RECORDS SUMMARY | 2022-01-31 13:27 | XMS REPORT | Continuity of Care Document ---
:1965 Author Organization [facility] t Address [address] [place] [address] Care Team Providers Name Role Phone Elda Rios Primary Care Physician Elda Rios Attending Clinician Unavailable AWILDA STARR Attending Clinician Unavailable ROB JIM Attending Clinician Unavailable MEHOP_ELIGIBILITY Attending Clinician Unavailable AWILDA STARR Attending Clinician Unavailable Melody Reyes MA Attending Clinician Unavailable ROB JIM M.D. Attending Clinician Unavailable DR MEREDITH PATEL Attending Clinician Unavailable Cecilia Attending Clinician Unavailable MEHOP_ELIGIBILITY Admitting Clinician Unavailable DR MEREDITH PATEL Admitting Clinician Unavailable Cecilia Admitting Clinician Unavailable Payers Payer Name Policy Type Policy Number Effective Date Expiration Date Sondra BRADLEY [id number] 2020 HEALTH PLAN 00:00:00 Problems Condition Condition [...] [facility] No Known DA Active [facility] s Social History Social Habit Start Date Stop Date Quantity Comments Source History [facility] Health Alcohol Std Drinks History [facility] Health Alcohol Binge History [facility] Alcohol Comment Exposure to Not sure [facility] SARS-CoV-2 (event) Alcohol intake 2021-03-07 2021-03-07 Lifetime [facility] 00:00:00 00:00:00 non-drinker (finding) Tobacco use and 2020-10-08 2020-10-08 Smokeless tobacco [facility] exposure 00:00:00 00:00:00 non-user History [facility] 2020-10-08 2020-10-08 1 [facility] Alcohol Frequency 00:00:00 00:00:00 Sex Ass[birth year] At [birth year] [facility] 00:00:00 00:00:00 Smoking Status Start Date Stop Date Source Never smoked tobacco [facility] Medications Ordered Filled Start Stop Current [...] 0-05 Health MG tablet 00:00: 00 cholestyram 2020-0 Yes 4g Q.5D Take 4 g UT [...] 47 each day. tiZANidine 0 Yes 4mg [id number] Take 4 mg UT (Zanaflex) 5-26 [id number] by mouth 3 Health 4 MG 10:46: 3D (three) capsule 47 times a day. Melatonin 2020-0 Yes Take by UT 10 MG 5-26 mouth. Health tablet 10:46: 47 Ascorbic 2020-0 Yes 100mg QD Take 100 UT Acid 5-26 mg by Health (vitamin C) 10:46: mouth 1 100 MG 47 (one) time tablet each day. cholestyram 2021-0 Yes 4g Q.5D Take 4 g UT [...] (one) time tablet 47 each day. gabapentin 0 Yes Take by UT (Neurontin) 5-26 mouth. [...] 47 each day. tiZANidine 0 Yes 4mg [id number] Take 4 mg UT (Zanaflex) 5-26 [id number] by mouth 3 Health 4 MG 10:46: [...] 00 6 HOURS NEEDED FOR PAIN. montelukast Yes 10mg QD Take 10 [...] or Cyclobenzap Cyclobenzap Yes ROB TAKE 1 UT rine HCl - rine HCl - 9-16 LI-HOLLY TABLET at [facility] 5 MG Oral 5 MG Oral 00:00: INNA M.D. bedtime as ans Tablet Tablet 00 needed for muscle cramps. Zofran Zofran 2019-0 Yes Shara as needed Com mon 5-11 [place] for nausea Spirit 00:00: - [facility] 00 [facility] methylPREDN methylPREDN 2019-0 Yes ROB TAKE UT ISolone 4 ISolone 4 5-04 LI-HOLLY DIRECTED [facility] MG Oral MG Oral 00:00: INNA M.D. ON PATIENT ans Tablet Tablet 00 INSTRUCTIO Therapy Therapy N CARD.; Pack Pack Qty: 1 X 21 Tablet Disp Pack Albuterol Albuterol 2019-0 Yes Shara 2 puffs Common Sulfate HFA Sulfate HFA 3-18 [place] [facility] 00:00: - [facility] 00 [facility] Methocarbam Methocarbam 2020-0 Yes ROB Q0.3333D TAKE [...] Folic Acid Yes Shara 2-3 Co mmon [place] tablets as Spirit needed for - [facility] mouth [facility] Vitamin C Vitamin C Yes Shara not Comm on [place] defined [facility] Vitamin D-3 Vitamin D-3 Yes Shara not Common [place] defined [facility] Atorvastati Atorvastati Yes Shara 1 tablet Common n Calcium n Calcium [place] [facility] Gabapentin Gabapentin Yes Shara 1 tablet Common [place] [facility] Tizanidine Tizanidine Yes Shara 1 tablet Common HCl HCl [place] as needed [facility] Prevalite Prevalite Yes Shara 1 packet Common [place] [facility] Lisinopril Lisinopril Yes Shara 1 tablet Common [place] [facility] Singulair Singulair Yes Shara 1 tablet Common [place] [facility] Amoxicillin Amoxicillin Yes Shara 1 tablet Common -Pot -Pot [place] [facility] Clavulanate Clavulanate - [facility] Atorvastati Atorvastati Yes Shara 1 tablet Common n Calcium n Calcium [place] [facility] Xeljanz Xeljanz Yes Shara 1 tablet Comm on [place] [facility] Metformin Metformin Yes Shara TAKE 1 Co mmon HCl HCl [place] TABLET BY Spirit MOUTH ONCE - [facility] DAILY WITH [facility] Metformin Metformin Yes Shara 1 tablet Common HCl HCl [place] with a Spirit meal [facility] Lisinopril Lisinopril Yes Shara TAKE 1 Common [place] TABLET BY Spirit MOUTH ONCE - CHI DAILY [facility] Mesalamine Mesalamine Yes Shara 2 tablets Common [place] [facility] Vital Signs Vital Name Observation Time Observation Value Comments Source Body height 2021-03-07 18:28:00 166.4 cm [facility] Body weight 2021-03-07 18:28:00 93.441 kg UT [facility] BMI 2021-03-07 18:28:00 33.76 kg/m2 [facility] Height 2019-09-09 04:32:00 165.1 CM Weight 2019-09-09 04:32:00 99.79 KG Procedures Procedure Date / Time Performing Clinician Source Performed MR Shoulder wo contrast 2020-08-20 00:00:00 [facility] [id number] MRI Spine cervical wo 2020-08-20 00:00:00 [facility] [id number] MRI Spine cervical wo 2020-01-19 00:00:00 [facility] [id number] MRI Spine cervical wo 2019-11-01 00:00:00 [facility] [id number] DIV RT FOOT SUBQ TISSUE 2019-09-09 00:00:00 [facility] MRI Spine cervical wo 2019-07-20 00:00:00 [facility] contrast [id number] History of [facility] of Cholecystectomy [facility] History of Knee Surgery [facility] Encounters Start End Encounter Admission Attending Care Care Encounter Source Date/Time Date/Time Type Type Clinicians Facility Department ID 2021-11-19 Outpatient Elda Rios [facility] [id number] Common 08:34:00 [id number] [facility] 2021-09-23 Outpatient ELIOT [facility] [id number] [place] 09:40:[address] [place] [address] 2021-09-[address] [facility] [id number] [place] 15:41:56 [id number] [facility] 2021-09-[address] [facility] [id number] UT 10:21:47 [id number] [facility] 2021-09-09 Outpatient ROSAURA-HOLLY [facility] [id number] [place] 08:59:03 INNA, [id number] [facility] 2021-08-16 Outpatient Rios, Na STLMLC STLMLC [id number] Common 14:59:00 [facility] 2021-07-22 Outpatient RADWAN, [facility] [id number] [place] 11:22:02 Critical access hospital 2021-07-16 Outpatient Rios, Na STLMLC STLMLC [id number] Common 13:09:01 [facility] 2021-07-15 Outpatient Rios, Na STLMLC STLMLC [id number] Common 10:17:01 [facility] 2021-06-25 Outpatient RADWAN, [facility] [id number] [place] 01:04:39 Critical access hospital 2021-06-24 Outpatient RADWAN, [facility] [id number] [place] 11:42:17 Critical access hospital 2021-06-24 Outpatient RADWAN, [facility] [id number] UT 10:39:28 Critical access hospital 2021-06-[address] [facility] [id number] [place] 09:00:33 [facility] 2021-06-17 Outpatient Rios, Na STLMLC STLMLC [id number] Common 13:19:00 [facility] 2021-06-14 Outpatient Rios, Na STLMLC STLMLC [id number] Common 16:15:01 [facility] 2021-06-12 Outpatient Rios, Na STLMLC STLMLC [id number] Common 14:20:21 [facility] 2021-06-[address] [facility] [id number] [place] 13:58:43 [facility] 2021-06-12 Outpatient Rios, Na STLMLC STLMLC [id number] 2 Common 12:26:54 [id number] [facility] 2021-06-12 Outpatient Rios, Na STLMLC STLMLC [id number] 2 Common 12:24:54 [id number] [facility] 2021-06-12 Outpatient Rios, Na STLMLC STLMLC [id number] Common 12:20:46 [id number] [facility] 2021-06-12 Outpatient Rios, Na STLMLC STLMLC [id number] Common 12:15:02 [id number] [facility] 2021-06-12 Outpatient Rios, Na STLMLC STLMLC [id number] Common 11:21:18 [id number] [facility] 2021-05-06 Outpatient RADWAN, [facility] [id number] [place] 10:24:29 Critical access hospital 2021-05-[address] [facility] [id number] [place] 08:57:14 [facility] 2021-04-22 Outpatient RADWAN, [facility] [id number] [place] 11:12:09 Critical access hospital 2021-04-08 Outpatient RADWAN, [facility] [id number] [place] 11:18:52 Critical access hospital 2021-03-20 Outpatient RADWAN, [facility] [id number] [place] 12:39:36 Critical access hospital 2022-01-24 2022-01-24 ambulatory STLMLC STLMLC [id number] Common 00:00:00 00:00:00 [facility] 2022-01-24 2022-01-24 ambulatory STLMLC STLMLC [id number] Common 00:00:00 00:00:00 [facility] 2021-12-09 2021-12-09 ambulatory STLMLC STLMLC [id number] Common 00:00:00 00:00:00 [facility] 2021-12-06 2021-12-06 ambulatory STLMLC STLMLC [id number] Common 00:00:00 00:00:00 [facility] 2021-12-02 2021-12-02 ambulatory STLMLC STLMLC [id number] Common 00:00:00 00:00:00 [facility] 2021-11-28 2021-11-28 ambulatory STLMLC STLMLC [id number] Common 00:00:00 00:00:00 [facility] 2021-11-27 2021-11-27 ambulatory STLMLC STLMLC [id number] Common 00:00:00 00:00:00 [facility] 2021-11-27 2021-11-27 ambulatory STLMLC STLMLC [id number] Common 00:00:00 00:00:00 [facility] 2021-11-21 2021-11-21 ambulatory STLMLC STLMLC [id number] Common 00:00:00 00:00:00 [facility] 2021-10-08 2021-10-08 ambulatory STLMLC STLMLC [id number] Common 00:00:00 00:00:00 [facility] 2021-10-07 2021-10-07 ambulatory STLMLC STLMLC [id number] Common 00:00:00 00:00:00 [facility] 2021-09-09 2021-09-09 ambulatory STLMLC STLMLC [id number] Common 00:00:00 00:00:00 [facility] 2021-09-09 2021-09-09 ambulatory STLMLC STLMLC [id number] Common 00:00:00 00:00:00 [facility] 2021-08-16 2021-08-16 ambulatory STLMLC STLMLC [id number] Common 00:00:00 00:00:00 [facility] 2021-07-31 2021-07-31 ambulatory STLMLC STLMLC [id number] Common 00:00:00 00:00:00 [facility] 2021-07-24 2021-07-24 ambulatory STLMLC STLMLC [id number] Common 00:00:00 00:00:00 [facility] 2021-07-19 2021-07-19 ambulatory STLMLC STLMLC [id number] Common 00:00:00 00:00:00 [facility] 2021-07-16 2021-07-16 ambulatory STLMLC STLMLC [id number] Common 00:00:00 00:00:00 [facility] 2021-06-19 2021-06-19 ambulatory STLMLC STLMLC [id number] Common 00:00:00 00:00:00 [facility] 2021-06-18 2021-06-18 ambulatory STLMLC STLMLC [id number] Common 00:00:00 00:00:00 [facility] 2021-06-17 2021-06-17 ambulatory STLMLC STLMLC [id number] Common 00:00:00 00:00:00 [facility] 2021-06-12 2021-06-12 Outpatient MEHOP_ELIGI MEHOP MEHOP [id number] [place] 03:03:00 03:03:00 [id number] 2021-06-12 2021-06-12 ambulatory STLMLC STLMLC [id number] Common 00:00:00 00:00:00 [facility] 2021-06-12 2021-06-12 ambulatory STLMLC STLMLC [id number] Common 00:00:00 00:00:00 [facility] 2021-04-23 2021-04-23 ambulatory STLMLC STLMLC [id number] Common 00:00:00 00:00:00 [facility] 2021-03-26 2021-03-26 Outpatient TEN STARR [facility] [id number] 10:54:00 16:16:00 [facility] 2021-03-19 2021-03-19 ambulatory STLMLC STLMLC [id number] Common 00:00:00 00:00:00 [facility] 2021-03-19 2021-03-19 ambulatory STLMLC STLMLC [id number] Common 00:00:00 00:00:00 [facility] 2021-03-12 2021-03-12 Melody Damon [facility] [id number] [place] 00:00:00 00:00:00 Only [facility] [id number] [facility] MEDICAL [id number] [id number] 2021-03-07 2021-03-07 Office ANA ROSA Starr [facility] [id number] [place] 13:07:46 14:35:37 Visit Awilda JUNG [id number] H [facility] MEDICAL [id number] [id number] 2021-03-05 2021-03-05 Outpatient STLMLC STLMLC [id number] Common 00:00:00 00:00:00 [facility] 2021-01-25 2021-01-25 Outpatient STLMLC STLMLC [id number] Common 00:00:00 00:00:00 [facility] 2021-01-24 2021-01-24 Outpatient STLMLC STLMLC [id number] Common 00:00:00 00:00:00 [facility] 2021-01-24 2021-01-24 Outpatient STLMLC STLMLC [id number] Common 00:00:00 00:00:00 [facility] 2021-01-23 2021-01-23 Outpatient STLMLC STLMLC [id number] Common 00:00:00 00:00:00 [facility] 2021-01-16 2021-01-16 Outpatient MEHOP_HERSON [facility] [id number] [place] 02:11:00 02:11:00 BILITY [id number] da [facility] Outre h Program 2021-01-14 2021-01-14 Outpatient STLMLC STLMLC [id number] Common 00:00:00 00:00:00 [facility] 2021-01-14 2021-01-14 Outpatient STLMLC STLMLC [id number] Common 00:00:00 00:00:00 [facility] 2021-01-03 2021-01-03 Office ANA ROSA Starr [facility] [id number] 10:17:35 11:23:51 Visit Awilda JUNG [id number] MEDICAL [id number] [id number] 2021-01-03 2021-01-03 Outpatient STLMLC STLMLC [id number] Common 00:00:00 00:00:00 [facility] 2020-12-12 2020-12-12 Office RosauraHolly [facility] [id number] 09:21:56 10:18:31 Visit ERICK KeithPATTY [id number] [facility] [id number] [id number] 2020-12-06 2020-12-06 Office Meghana [facility] [id number] 15:14:17 16:13:58 Visit Inna FABIANA [id number] [facility] [id number] [id number] [id number] 2020-10-25 2020-10-25 Outpatient STLMLC STLC [id number] Common 00:00:00 00:00:00 [facility] 2020-10-19 2020-10-19 Outpatient STLMLC STLMLC [id number] Common 00:00:00 00:00:00 [facility] 2020-10-17 2020-10-17 Office Meghana [facility] [id number] 10:23:11 11:11:36 Visit FABIANA Keith [id number] [facility] [id number] [id number] 2020-10-17 2020-10-17 Outpatient STLMLC STLMLC [id number] Common 00:00:00 00:00:00 [facility] 2020-10-17 2020-10-17 Outpatient STLMLC STLMLC [id number] Common 00:00:00 00:00:00 [facility] 2020-10-17 2020-10-17 Outpatient STLMLC STLMLC [id number] Common 00:00:00 00:00:00 [facility] 2020-10-16 2020-10-16 Outpatient STLMLC STLMLC [id number] Common 00:00:00 00:00:00 [facility] 2020-09-25 2020-09-25 Outpatient STLMLC STLMLC [id number] Common 00:00:00 00:00:00 [facility] 2020-08-29 2020-08-29 Appointmen MEGHANA OSEGUERA [facility] [id number] [place] 10:30:00 10:30:00 t[facility] Worthy danita RIVAS M.D. M.D. 2020-08-27 2020-08-27 Outpatient STLMLC STLMLC [id number] Common 00:00:00 00:00:00 [facility] 2020-08-27 2020-08-27 Outpatient STLMLC STLMLC [id number] Common 00:00:00 00:00:00 [facility] 2020-08-20 2020-08-20 Appointmen MEGHANA [facility] [id number] [place] 10:45:00 10:45:00 t[facility] ROB Worthy [place] ans ANDREW, M.D. Medical MJohn [place] 2020-08-17 2020-08-17 Outpatient STLMLC STLMLC [id number] Common 00:00:00 00:00:00 [facility] 2020-07-27 2020-07-27 Outpatient STLMLC STLMLC [id number] Common 00:00:00 00:00:00 [facility] 2020-07-25 2020-07-25 Outpatient STLMLC STLMLC [id number] Common 00:00:00 00:00:00 [facility] 2020-07-11 2020-07-11 Outpatient STLMLC STLMLC [id number] Common 00:00:00 00:00:00 [facility] 2020-07-11 2020-07-11 Outpatient STLMLC STLMLC [id number] Common 00:00:00 00:00:00 [facility] 2020-07-09 2020-07-09 Outpatient STLMLC STLMLC [id number] Common 00:00:00 00:00:00 [facility] 2020-06-26 2020-06-26 Outpatient STLMLC STLMLC [id number] Common 00:00:00 00:00:00 [facility] 2020-06-20 2020-06-20 Outpatient STLMLC STLMLC [id number] Common 00:00:00 00:00:00 [facility] 2020-06-15 2020-06-15 Outpatient STLMLC STLMLC [id number] Common 00:00:00 00:00:00 [facility] 2020-06-06 2020-06-06 Outpatient STLMLC STLMLC [id number] Common 00:00:00 00:00:00 [facility] 2020-06-04 2020-06-04 Outpatient STLMLC STLMLC [id number] Common 00:00:00 00:00:00 [facility] 2020-06-01 2020-06-01 Outpatient STLMLC STLMLC [id number] Common 00:00:00 00:00:00 [facility] 2020-05-30 2020-05-30 Outpatient STLMLC STLMLC [id number] Common 00:00:00 00:00:00 [facility] 2020-05-30 2020-05-30 Outpatient STLMLC STLMLC [id number] Common 00:00:00 00:00:00 [facility] 2020-05-07 2020-05-07 Outpatient STLMLC STLMLC [id number] Common 00:00:00 00:00:00 [facility] 2020-05-07 2020-05-07 Outpatient STLMLC STLMLC [id number] Common 00:00:00 00:00:00 [facility] 2020-02-06 2020-02-06 Appointmen LI-HOLLY [facility] [id number] [place] 12:30:00 12:30:00 t; MEGHANA KEITH, - [place] ROB Worthy [place] ans ANDREW, M.D. M.D. 2019-11-25 2019-11-25 [facility] [id number] Common 14:00:00 14:00:00 t [facility] Sp[address] [facility] 2019-11-25 2019-11-25 Outpatient [facility] [id number] Common 09:28:00 09:28:[address] [facility] 2019-11-03 2019-11-03 Out[facility] [id number] Common 12:02:00 12:02:[address] [facility] 2019-11-01 2019-11-01 Appointmen MEGHANA OSEGUERA [facility] [id number] [place] 13:00:00 13:00:00 t; [place] JIM ANDREW, ans ANDREW, M.D. M.D. 2019-09-26 2019-09-26 [facility] [id number] Common 16:49:00 16:49:[address] [facility] 2019-09-26 2019-09-26 Out[facility] [id number] Common 11:20:00 11:20:[address] [facility] 2019-09-26 2019-09-26 Out[facility] [id number] Common 09:52:00 09:52:[address] [facility] 2019-09-21 2019-09-21 Outpatient [facility] [id number] Common 10:20:00 10:20:[address] [facility] 2019-09-19 2019-09-19 Appointmen MEGHANA OSEGUERA [facility]oped[facility] [id number] [place] 12:00:00 12:00:00 t; MEGHANA KEITH, - [place] ans ANDREW, M.D. M.D. 2019-09-09 2019-09-09 Outpatient [place] PATEL, [facility] [id number] [place] 04:25:00 07:00:00 [facility] 2019-08-11 2019-08-11 Out[facility] [id number] Common 11:58:00 11:58:[address] [facility] 2019-08-02 2019-08-02 Out[facility] [id number] Common 10:31:00 10:31:[address] [facility] 2019-07-20 2019-07-20 Appointmen MEGHANA OSEGUERA [facility] [id number] [place] 09:00:00 09:00:00 t; MEGHANA KEITH, - [place] ROB Worthy [place] ans ANDREW, M.D. M.D. 2019-07-18 2019-07-18 Out[facility] [id number] Common 09:20:00 09:20:[address] [facility] 2019-06-23 2019-06-23 Appointmen MEGHANA OSEGUERA [facility] [id number] [place] 12:30:00 12:30:00 t; MEGHANA KEITH, - [place] ROB Worthy II ans ANDREW, M.D. M.D. 2019-06-22 2019-06-22 [facility] [id number] [place] 10:44:00 10:44:00 0205 [facility] 2019-05-04 2019-05-04 Out[facility] [id number] Common 09:40:00 09:40:[address] [facility] 2019-03-11 2019-03-11 Out[facility] [id number] Common 08:49:00 08:49:00 t [facility] 2019-02-15 2019-02-15 Out[facility] [id number] Common 11:00:00 11:00:00 t [facility] 2019-02-02 2019-02-02 Out[facility] [id number] Common 09:00:00 09:00:[address] [facility] 2019-01-14 2019-01-14 Outpatient [facility] [id number] Common 16:16:00 16:16:[address] [facility] 2019-01-05 2019-01-05 Out[facility] [id number] Common 09:20:00 09:20:[address] [facility] 2018-12-14 2018-12-14 Outpatient [facility] [id number] Common 09:34:00 09:34:[address] [facility] 2018-11-17 2018-11-17 Outpatient [facility] [id number] Common 11:14:00 11:14:[address] [facility] 2018-08-31 2018-08-31 Outpatient [facility] [id number] Common 13:05:00 13:05:[address] [facility] 2018-08-25 2018-08-25 Outpatient [facility] [id number] Common 11:40:00 11:40:[address] [facility] Results Test Test Test Results Result Source Description Time Comments Comments MR Shoulder wo 2020-08- PROCEDURE [facility] contrast [id number] 10 INFORMATION:Exam: MR Right 15:34:00 Upper Extremity [...] without tear.Jayro Brewer MD On 08/27/2020 10:55:55; [id number] by: Jayro Brewer MDDictated Date/time: 08/27/20 10:57Electronically Signed by: Jayro Brewer 08/27/2109:57FINAL REPORT MRI Spine 2020-08- PROCEDURE [facility] cervical wo 10 INFORMATION:Exam: MR contrast [id number] 15:09:00 Cervical Spine Without ContrastExam date and [...] and stable.Ulises Campo MD On 08/25/2020 16:31:37; [id number] by: Ulises Campo MDDictated Date/time: 08/25/20 16:31Electronically Signed by: Ulises Campo MD 08/26/2115:31FINAL REPORT [U] XRAY SPINE 2020-08- Images acquired, not [facility] CERVICAL 2 OR 3 05 reported on this accession [id number] 11:07:00 number. [U] XR SHOULDER 2020-08- Images acquired, not [facility] MIN 2 VWS 05 reported on this accession BILATERAL 11:07:00 number. GLUCOMETER GLUCOSE- LAB USE ONLY 2019-09-09 06:04:00 Test Item Value Reference Range Interpretation Comme nts GLUCOMETER (test code = GMG) 124 mg/dL 70-100 H Meter ID: [id number]: [id number] TONO GLUE URINE MONOCLONALFB2019-09-09 05:18:00 Test Item Value Reference Range Interpretation Comments PREG UR (test code = PGU) NEGATIVE NEGATIVE GLUCOMETER GLUCOSE- LAB USE [id number] 04:48:00 Test Item Value Reference Range Interpretation Comments GLUCOMETER (test code = 119 mg/dL 70-100 H Mete r ID: GMG) [id number] tor: [id number] MICHAEL LA REDO [U] XRAY SHOULDER MIN 2 VWS LEFT [id number] 12:25:00Images acquired, not reported on this accession number.[facility][U] XRAY SPINE CERVICAL 2 OR 3 VWS [id number] 12:25:00Images acquired, not reported on this accession number.[place] [id number] 12:24:00 RUN DATE: 11/24/18 [facility], [place] - LAB *LIVE* PAGE 1 RUN TIME: 1224 Specimen Inquiry RUN USER: INTERFACE PATIENT: SULEMA THOMAS LOC: [facility] U #: [id number] AGE/SX: 53/F ROOM: [id number]/23/[id number] DR: Sebastian Betancourt MD : 69 BED: DIS: STATUS: [place] [facility] [place]: SPEC #: [id number] RECD: 11/23/18 STATUS: [facility] KAHLIL #: [id number] EUEGNIA: 11/23/[id number] SUBM DR: Sebastian Betancourt MD ENTERED: 11/23/18 SP TYPE: SURG OTHR DR: Elda Rios DO ORDERED: SURG PATH LVL 08/17 COPIES TO: Lupe Betancourt MD [address] [place] [address] Elda Rios DO [address] [place] [address] HISTOLOGY: TISSUE ID BLK PCS SANDRA LEV PROCEDURE DISPOSITION ____ ___ ___ ___ COLON, NOS A 1 2 COLON, NOS B 1 2 PROCEDURES: SURG PATH LVL 4 (11/23/18-1520) TISSUES: A. COLON, NOS - RIGHT SIDE B. COLON, NOS - LEFT SIDE CLINICAL HISTORY DIARRHEA-R19.7;ABD PAIN-R10.9;RECTAL PAIN-K62.89 CPT CODES CPT CODE(S): 91668B5 , , , , , , FINAL DIAGNOSIS A. Colon, right, biopsy: COLONIC MUCOSA WITH NO SIGNIFICANT HISTOPATHOLOGIC FINDINGS B. Colon, left, biopsy: FOCAL ACTIVE COLITIS NO EVIDENCE OF DYSPLASIA OR MALIGNANCY CONTINUED ON NEXT PAGE RUN DATE: 11/24/18 [facility] [place] - LAB *LIVE* PAGE 2 RUN TIME: 1224 Specimen Inquiry RUN USER: INTERFACE SPEC #: [id number] PATIENT: SULEMA THOMAS #[id number] (Continued) GROSS DESCRIPTION A. Right side. Received in formalin are three olmos tissue fragments, 0.2 - 0.7 cm. B. Left side. Received informalin are eight olmos tissue fragments, 0.2 - 0.5 cm, all as B. /ba/pdb Grossing performed at [facility] Pathology, [address], [address], [place], [place] [address]. [employer] Driver: Patricio Granados M.D. MICROSCOPIC DESCRIPTION A. Right side. Fragments of colonic mucosa with preservation of theglandular architecture. No significant increase in intraepithelial lymphocytosis [...] 11/24/18 1224 END OF REPORT HCG SERUM [id number] 11:36:00 Test Item Value Reference Range Interpretation Comments HCG SERUM QUAL (test SERUM NEGATIVE SCREEN NEGATIVE code = HCGQL) GLUCOSE BEDSIDE [id number] 11:30:00 Test Item Value Reference Range Interpretation Comments GLUCOSE BEDSIDE TESTING (test code 122 mg/dL 70-110 H = GLUBED)
--- NOTE | 2022-01-31 16:24 | RAD REPORT ---
EXAM DESCRIPTION: RAD - Chest Pa And Lat (2 Views) - 01/31/2022 4:16 pm CLINICAL HISTORY: COUGH COMPARISON: Chest Pa And Lat (2 Views) dated 12/09/2021; Chest Pa And Lat (2 Views) dated 01/24/2021; C hest Pa And Lat (2 Views) dated 08/27/2020; Chest Pa And Lat (2 Views) dated 07/09/2020 FINDINGS: Lines: None. Lungs: No evidence of edema or pneumonia. Eventration of the right hemidiaphragm. Pleural: No significant pleural effusions or pneumothorax. Cardiac: The heart size is within normal limits. Mediastinum: Within normal limits. Bones: No acute fractures. Other: None IMPRESSION: No acute cardiopulmonary disease.
--- NOTE | 2022-01-31 16:32 | ER ---
Nurse's Notes [facility] Name: Sulema Thomas Age: 57 yrs Sex: Female : 1965 Arrival Date: 01/31/2022 Time: 13:25 Bed 25 Private MD: Elda Rios Diagnosis: Acute bronchitis, unspecified Presentation: 01/31 14:26 Chief complaint: Patient states: SOB and cough, dx with covid last Thursday, coughing kr3 up green flem. Coronavirus screen: Vaccine status: Patient reports receiving the 2nd dose of the covid vaccine. Client denies travel out of the [place] in the last 14 days. Ebola Screen: Patient denies travel to an Ebola-affected area in the 21 days before illness onset. No symptoms or risks identified at this time. Initial Sepsis Screen: Does the patient meet any 2 criteria? No. Patient's initial sepsis screen is negative. Does the patient have a suspected source of infection? Yes: Productive cough/pneumonia. Risk Assessment: Do you want to hurt yourself or someone else? Patient reports no desire to harm self or others. Onset of symptoms was January 31, 2022. 14:26 Method Of Arrival: Ambulatory kr3 14:26 Acuity: KEEGAN 4 kr3 Triage Assessment: 14:30 General: Appears in no apparent distress. comfortable, Behavior is calm, cooperative, kr3 appropriate for age. Pain: Denies pain. Respiratory: Reports shortness of breath Onset: The symptoms/episode began/occurred this morning, the patient has mild shortness of breath. Historical: - Allergies: 14:29 NKDA; kr3 - Home Meds: 15:43 atorvastatin 10 mg Oral tab 1 tab once daily [Active]; ciprofloxacin Oral [Active]; hb Folic Acid Oral [Active]; gabapentin 300 mg Oral cap twice a day [Active]; glipizide 5 mg Oral tab 1 tab once daily [Active]; lisinopril 2.5 mg Oral tab 1 tab once daily [Active]; melatonin 10 mg Oral tab [Active]; mesalamine Oral [Active]; metformin 1,000 mg Oral tab 1 tab daily [Active]; pantoprazole Oral [Active]; Prevalite Oral [Active]; tramadol 50 mg Oral tab 1 tab once a day [Active]; - PMHx: 14:29 Colitis; Diabetes - NIDDM; Rheumatoid Arthritis; Ulcers; kr3 - PSHx: 14:29 section; Cholecystectomy; kr3 - Immunization history:: Adult Immunizations up to date. - Social history:: Smoking status: Patient/guardian denies using tobacco, the patient reports quitting approximately 16 years ago. Screenin:41 Abuse screen: Denies threats or abuse. Denies injuries from another. Nutritional hb screening: No deficits noted. Tuberculosis screening: No symptoms or risk factors identified. Fall Risk None identified. Assessment: 15:41 General: Appears in no apparent distress. Behavior is calm, cooperative. Pain: Denies hb pain. Neuro: Level of Consciousness is awake, alert, obeys commands, Oriented to person, place, time, situation. Cardiovascular: Patient's skin is warm and dry. Respiratory: Reports shortness of breath cough that is Respiratory effort is even, unlabored, Respiratory pattern is regular, symmetrical. GI: No signs and/or symptoms were reported involving the gastrointestinal system. : No signs and/or symptoms were reported regarding the genitourinary system. EENT: No signs and/or symptoms were reported regarding the EENT system. Derm: Skin is pink, warm \T\ dry. Musculoskeletal: No signs and/or symptoms reported regarding the musculoskeletal system. Vital Signs: 14:26 BP 109 / 95; Pulse 88; Resp 18; Temp 98.1; Pulse Ox 97% on R/A; Weight 90.72 kg; Height kr3 5 ft. 5 in. (165.10 cm); Pain 0/10; 14:26 Body Mass Index 33.28 (90.72 kg, 165.10 cm) kr3 ED Course: 13:25 Patient arrived in ED. mr 13:25 Elda Rios MD is Private Physician. mr 13:48 Nayan oRmano PA is PHCP. cp 13:48 David Barakat MD is Attending Physician. cp 14:29 Triage completed. kr3 14:31 Arm band placed on right wrist. kr3 15:41 Kellie Esquivel, RN is Primary Nurse. hb 15:41 Patient has correct armband on for positive identification. hb 16:18 XRAY Chest Pa And Lat (2 Views) In Process Unspecified. EDMS Administered Medications: No medications were administered Medication: 15:41 VIS not applicable for this client. hb Outcome: 16:32 Discharge ordered by . mary 16:58 Patient left the ED. hb Signatures: Dispatcher [employer] EDMS Sulema Sanchez mr Nayan Romano PA PA cp Baxter, Heather, RN RN Rina Rojas RN RN kr3
--- NOTE | 2022-01-31 16:32 | EDPHYS ---
Physician Documentation [facility] Name: Sulema Thomas Age: 57 yrs Sex: Female : 1965 Arrival Date: 01/31/2022 Time: 13:25 Bed 25 Private MD: Elda Rios ED Physician David Barakat HPI: 01/31 15:45 This 57 yrs old Female presents to ER via Ambulatory with complaints of Cough, cp Shortness Of Breath. 15:45 The patient or guardian reports cough, that is intermittent, with productive sputum. cp 15:45 Onset: The symptoms/episode began/occurred last week. Severity of symptoms: in the emergency department the symptoms are unchanged. Associated signs and symptoms: Pertinent positives: shortness of breath, Pertinent negatives: chest pain, diarrhea, fever, vomiting. Patient reports being diagnosed with COVID-19 last week. Finished prescribed Zithromax and currently taking prescribed steroids. Historical: - Allergies: 14:29 NKDA; kr3 - Home Meds: 15:43 atorvastatin 10 mg Oral tab 1 tab once daily [Active]; ciprofloxacin Oral [Active]; hb Folic Acid Oral [Active]; gabapentin 300 mg Oral cap twice a day [Active]; glipizide 5 mg Oral tab 1 tab once daily [Active]; lisinopril 2.5 mg Oral tab 1 tab once daily [Active]; melatonin 10 mg Oral tab [Active]; mesalamine Oral [Active]; metformin 1,000 mg Oral tab 1 tab daily [Active]; pantoprazole Oral [Active]; Prevalite Oral [Active]; tramadol 50 mg Oral tab 1 tab once a day [Active]; - PMHx: 14:29 Colitis; Diabetes - NIDDM; Rheumatoid Arthritis; Ulcers; kr3 - PSHx: 14:29 section; Cholecystectomy; kr3 - Immunization history:: Adult Immunizations up to date. - Social history:: Smoking status: Patient/guardian denies using tobacco, the patient reports quitting approximately 16 years ago. ROS: 15:50 Constitutional: Negative for body aches, chills, fever, poor PO intake. cp 15:50 Eyes: Negative for injury, pain, redness, and discharge. cp 15:50 ENT: Negative for drainage from ear(s), ear pain, sore throat, difficulty swallowing, difficulty handling secretions. 15:50 Cardiovascular: Negative for chest pain, edema, palpitations. 15:50 Respiratory: Positive for cough, "sounds productive", shortness of breath, Negative for wheezing. 15:50 Abdomen/GI: Negative for abdominal pain, vomiting, diarrhea, constipation. 15:50 : Negative for urinary symptoms. 15:50 Skin: Negative for cellulitis, rash. 15:50 Neuro: Negative for altered mental status, dizziness, headache, numbness, weakness. 15:50 All other systems are negative. Exam: 15:55 Constitutional: The patient appears in no acute distress, alert, awake, cp non-diaphoretic, non-toxic, well developed, well nourished. 15:55 Head/Face: Normocephalic, atraumatic. cp 15:55 Eyes: Periorbital structures: appear normal, Conjunctiva: normal, no exudate, no injection, Sclera: no appreciated abnormality, Lids and lashes: appear normal, bilaterally. 15:55 ENT: External ear(s): are unremarkable, Ear canal(s): are normal, clear, TM's: dullness, bilaterally, Nose: is normal, Mouth: Lips: moist, Oral mucosa: pink and intact, moist, Posterior pharynx: Airway: no evidence of obstruction, patent, Tonsils: no enlargement, no erythema, no exudate, erythema, is not appreciated, exudate, is not appreciated. 15:55 Neck: ROM/movement: is normal, is supple, without pain, no range of motions limitations, no meningismus. 15:55 Chest/axilla: Inspection: normal. 15:55 Cardiovascular: Rate: normal, Rhythm: regular, Edema: is not appreciated, JVD: is not appreciated. 15:55 Respiratory: the patient does not display signs of respiratory distress, Respirations: normal, no use of accessory muscles, no retractions, labored breathing, is not present, Breath sounds: decreased breath sounds, are not appreciated, stridor, is not appreciated, wheezing: is not appreciated. 15:55 Abdomen/GI: Exam negative for discomfort, distension, guarding, Inspection: abdomen appears normal. 15:55 Back: pain, is absent, ROM is normal. 15:55 Neuro: Orientation: to person, place \\T\\ time. Mentation: is normal. Vital Signs: 14:26 BP 109 / 95; Pulse 88; Resp 18; Temp 98.1; Pulse Ox 97% on R/A; Weight 90.72 kg; Height kr3 5 ft. 5 in. (165.10 cm); Pain 0/10; 14:26 Body Mass Index 33.28 (90.72 kg, 165.10 cm) kr3 MDM: 15:42 Patient medically screened. cp 16:00 Differential Diagnosis: Bronchitis Influenza Otitis Media Pneumonia. cp 16:32 Data reviewed: vital signs, nurses notes, radiologic studies, plain films. cp 16:32 Test interpretation: by ED physician or midlevel provider: plain radiologic studies. cp 16:32 Counseling: I had a detailed discussion with the patient and/or guardian regarding: the cp historical points, exam findings, and any diagnostic results supporting the discharge/admit diagnosis, radiology results, to return to the emergency department if symptoms worsen or persist or if there are any questions or concerns that arise at home. 16:32 ED course: VSS. Patient appears non-toxic and no signs of respiratory distress. Will cp discharge to home for continued monitoring. 01/31 15:04 Order name: XRAY Chest Pa And Lat (2 Views); Complete Time: 16:27 cp 01/31 16:27 Interpretation: Report reviewed. cp Administered Medications: No medications were administered Disposition Summary: 01/31/22 16:32 Discharge Ordered Location: Home cp Problem: new cp Symptoms: are unchanged cp Condition: Stable cp Diagnosis - Acute bronchitis, unspecified cp Followup: cp - With: Private Physician - When: 2 - 3 days - Reason: Recheck today's complaints Discharge Instructions: - Discharge Summary Sheet cp - Acute Bronchitis, Adult cp Forms: - Medication Reconciliation Form cp - Thank You Letter cp - Antibiotic Education cp - Prescription Opioid Use cp Prescriptions: - Bromfed DM 2-30-10 mg/5 mL Oral syrup - take 10 milliliter by ORAL route every 6 hours; 180 milliliter; Refills: 0, cp Product Selection Permitted - Augmentin 875-125 mg Oral Tablet - take 1 tablet by ORAL route every 12 hours for 10 days; 20 tablet; Refills: 0, cp Product Selection Permitted Signatures: Dispatcher [employer] EDMS Nayan Romano PA PA cp Baxter, Heather, RN RN Rina Reese RN RN kr3 Corrections: (The following items were deleted from the chart) 02/01 13:41 01/31 15:40 This 57 yrs old Female presents to ER via Ambulatory with cp complaints of Cough, Shortness Of Breath. cp
[2022-02-01 23:39] VITALS: BP 109/95; TEMP 98.1; O2SAT 97
== END 2022-01-31 16:58 | disposition home or self-care (01) ==
LOC: ER 13:23
DX: J20.9 Acute bronchitis, unspecified (principal); E11.9 Type 2 diabetes mellitus without complications
CPT/HCPCS: 71046; 99282

== ENCOUNTER 2022-03-10 13:56 | Emergency (ER) | payer OTHER ==
--- OUTSIDE RECORDS SUMMARY | 2022-03-10 14:33 | XMS REPORT | Continuity of Care Document ---
:1965 Author Organization [facility] t Address [address] [place] [address] Care Team Providers Name Role Phone Elda [...] Policy Number Effective Date Expiration Date Sondra cope AMBETTER [id number] 2020 [facility] 00:00:00 PLAN Ambetter from [id number] 2018 Common Spi [facility] 00:00:00 - [facility] Ambetter from [id number] 2018 Common Spi rit [facility] 00:00:00 - [facility] Ambetter from [id number] 2018 Common Spi rit [facility] 00:00:00 - [facility] Ambetter from [id number] 2018 Common Spi rit [facility] 00:00:00 - [facility] Problems Condition Condition Condition Status Onset Resolution [...] to Dr. Starr for TKA evaluatio n. 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 10-10 Heal th diabetes diabetes 00:00: mellitus mellitus 00 with with hyperglyce hyperglyce jose alejandro jose alejandro Dependence Dependence Disease Active U T on on 10-10 Health supplement supplement 00:00: al oxygen al oxygen 00 Tear of Tear of Disease Active [...] Active [facility] weakness weakness Physic i ans Sinus Sinus Problem Common problem problem [facility] [id number] 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 Medica l , without Center long-term current use of insulin Gallstones Gallstones Problem C ommon Spirit [facility] [id number] Other Problem Common chronic [facility] pain - [facility] [id number] Seasonal Problem Comm on allergies [facility] Gastroesop Reflux Problem Commo n hageal Spirit reflux - [facility] disease [facility] Anxiety Anxiety Problem Common [facility] [id number] Fatty Problem Common liver [facility] Gastro-eso Gastro-eso Problem C ommon phageal phageal Spirit reflux reflux - [facility] disease disease [facility] without without [facility] esophagiti esophagiti [place] [facility]ical [facility] Center Hyperlipid Hyperlipid Problem [facility] aemia emia, [facility] unspecifie - [facility] d hyperlipid [facility] emia type Medical Center [id number] Chronic Problem Comm on obstructiv [facility] e - [facility] pulmonary [facility] with Medical (acute) Center lower respirator y infection [id number] Simple Problem Common chronic [facility] bronchitis [facility] Swelling Swelling Problem Commo n [facility] Allergic Allergic Problem Commo n rhinitis rhinitis [facility] [id number] Rheumatoid Problem Co mmon arthritis [facility] involving [facility] multiple [facility] positive Medical rheumatoid Center factor [id number] Pain of Problem Comm on left hip Spirit joint - [facility] [id number] Pain of Problem Comm on right hip [facility] joint [facility] [id number] Primary Problem Comm on osteoarthr Spirit itis of [facility] left knee [facility] [id number] Acute Problem Common bronchitis [facility] , - [facility] unspecie [facility] [id number] History of Problem Co mmon hypokalemi Spirit a - [facility] [id number] Tear of Problem Commo n right [facility] rotator - [facility] cuff, [facility] d tear Medical extent, Center unspecifie d whether traumatic [id number] Pain in Problem Comm on [id number] right Spirit shoulder [facility] Allergies, Adverse Reactions, Alerts Allergy Allergy Status Severity Reaction(s) Onset Inactive Treating Comm ents Source Name Type Date Date Clinician No Known DA Active [facility] No Known DA Active [facility] s Social History Social Habit Start Date Stop Date Quantity Comments Source History of Tobacco Common Spirit - Use [facility] Sex Assigned At Common Sp claire - [facility] History [facility] Health Alcohol Std Drinks History [facility] Health Alcohol Binge History [facility] Health Alcohol Comment Exposure to Not sure [place] [facility] SARS-CoV-2 (event) Alcohol intake 2021-03-07 2021-03-07 Lifetime [facility] 00:[facility]:00 00:00:00 non-drinker (finding) Tobacco use and 2020-10-08 2020-10-08 Smokeless tobacco [facility] exposure 00:00:00 00:00:00 non-user History SDPA 2020-10-08 2020-10-08 1 [facility] Alcohol Frequency 00:00:00 00:00:00 Smoking Status Start Date Stop Date Source Former Smoker 2022-02-25 00:00:00 2022-02-25 00:00:00 Common S pirit [facility] nter Never smoked tobacco [facility] Medications Ordered Filled Start Stop Current Ordering Indication Dosage Frequency Signature Comments Components Source Medication Medication Date Date Medication? Clinician (SIG) Name Name Nystatin Nystatin 2021- No QID Nystatin 982560 [id number] 02-05 458294 UNIT/ML UNIT/ML 00:00: 00:00 UNIT/ML 00 :00 Nystatin Nystatin 2021- No QID Nystatin 784829 245198 02-05 [id number] UNIT/ML UNIT/ML 00:00: 00:00 UNIT/ML 00 :00 Fluconazole Fluconazole 2021- No 1{table Fluconazol 150 MG 150 MG 02-05 t} e 150 MG 00:00: 00:00 00 :00 Fluconazole Fluconazole 2021- No 1{table Fluconazol 150 MG 150 MG 02-05 t} e 150 MG 00:00: 00:00 00 :00 Benzonatate Benzonatate 2022-0 2022- No TID Benzonatat 200 MG 200 MG 01-24 e 200 MG 00:00: 00:00 00 :00 Benzonatate Benzonatate 2022-0 2022- No TID Benzonatat 200 MG 200 MG 01-24 e 200 MG 00:00: 00:00 00 :00 Benzonatate Benzonatate 2022-0 2022- No TID Benzonatat 200 MG 200 MG 01-24 e 200 MG 00:00: 00:00 00 :00 Azithromyci Azithromyci 2022-0 2022- No QD Azithromyc n 250 MG n 250 MG 01-24 in 250 MG 00:00: 00:00 00 :00 predniSONE predniSONE 2022-0 2022- No QD predniSONE 10 MG 10 MG 01-24 10 MG 00:00: 00:00 00 :00 Azithromyci Azithromyci 2022-0 2- No QD Azithromyc n 250 MG n 250 MG 01-24 in 250 MG 00:00: 00:00 00 :00 predniSONE predniSONE 2022-0 2022- No QD predniSONE 10 MG 10 MG 01-24 10 MG 00:00: 00:00 00 :00 Nystatin Nystatin 2022-0 2022- No QID Nystatin [id number] [id number] 12-02 188770 UNIT/ML UNIT/ML 00:00: 00:00 UNIT/ML 00 :00 Nystatin Nystatin 2022-0 2022- No QID Nystatin 281447 [id number] 12-02 655890 UNIT/ML UNIT/ML 00:00: 00:00 UNIT/ML 00 :00 Nystatin Nystatin 2022-0 2022- No QID Nystatin 710005 [id number] 12-02 637691 UNIT/ML UNIT/ML 00:00: 00:00 UNIT/ML 00 :00 Nystatin Nystatin 2022-0 2022- No QID Nystatin 356098 842144 12-02 799592 UNIT/ML UNIT/ML 00:00: 00:00 UNIT/ML 00 :00 Nystatin Nystatin 2022-0 2022- No QID Nystatin 942450 [id number] 12-02 [id number] UNIT/ML UNIT/ML 00:00: 00:00 UNIT/ML 00 :00 Benzonatate Benzonatate 2022-0 2022- No TID Benzonatat 200 MG 200 MG 11-27 e 200 MG 00:00: 00:00 00 :00 Benzonatate Benzonatate 2022-0 2022- No TID Benzonatat 200 MG 200 MG 11-27 e 200 MG 00:00: 00:00 00 :00 Benzonatate Benzonatate 2-0 2022- No TID Benzonatat 200 MG 200 MG 11-27 e 200 MG 00:00: 00:00 00 :00 Benzonatate Benzonatate 2-0 2022- No TID Benzonatat 200 MG 200 MG 11-27 e 200 MG 00:00: 00:00 00 :00 Benzonatate Benzonatate 2-0 2022- No TID Benzonatat 200 MG 200 MG 11-27 e 200 MG 00:00: 00:00 00 :00 Azithromyci Azithromyci 2-0 2022- No QD Azithromyc n 250 MG n 250 MG 11-27 in 250 MG 00:00: 00:00 00 :00 Azithromyci Azithromyci 2022-0 2022- No QD Azithromyc n 250 MG n 250 MG 11-27 in 250 MG 00:00: 00:00 00 :00 Azithromyci Azithromyci 2-0 2022- No QD Azithromyc n 250 MG n 250 MG 11-27 in 250 MG 00:00: 00:00 00 :00 Azithromyci Azithromyci 2022-0 2022- No QD Azithromyc n 250 MG n 250 MG 11-27 in 250 MG 00:00: 00:00 00 :00 Albuterol Albuterol 2-0 No 2{puffs Albuterol Sulfate HFA Sulfate HFA 5-24 } Sulfate 108 (90 108 (90 00:00: HFA 108 Base) Base) 00 (90 Base) MCG/ACT MCG/ACT MCG/ACT Albuterol Albuterol 0 No 2{puffs Albuterol Sulfate HFA Sulfate HFA 5-24 } Sulfate 108 (90 108 (90 00:00: HFA 108 Base) Base) 00 (90 Base) MCG/ACT MCG/ACT MCG/ACT Albuterol Albuterol 0 No 2{puffs Albuterol Sulfate HFA Sulfate HFA 5-24 } Sulfate 108 (90 108 (90 00:00: HFA 108 Base) Base) 00 (90 Base) MCG/ACT MCG/ACT MCG/ACT Albuterol Albuterol 0 No 2{puffs Albuterol Sulfate HFA Sulfate HFA 5-24 } Sulfate 108 ( 108 (90 00:00: HFA 108 Base) Base) 00 (90 Base) MCG/ACT MCG/ACT MCG/ACT Albuterol Albuterol 0 No 2{puffs Albuterol Sulfate HFA Sulfate HFA 5-24 } Sulfate 108 ( 108 ( 00:00: HFA 108 Base) Base) 00 (90 Base) MCG/ACT MCG/ACT MCG/ACT Albuterol Albuterol 0 No 2{puffs Albuterol Sulfate HFA Sulfate HFA 5-24 } Sulfate 108 ( 108 (90 00:00: HFA 108 Base) Base) 00 (90 Base) MCG/ACT MCG/ACT MCG/ACT Albuterol Albuterol 0 No 2{puffs Albuterol Sulfate HFA Sulfate HFA 5-24 } Sulfate 108 ( 108 ( 00:00: HFA 108 Base) Base) 00 (90 Base) MCG/ACT MCG/ACT MCG/ACT Albuterol Albuterol 0 No 2{puffs Albuterol Sulfate HFA Sulfate HFA 5-24 } Sulfate 108 (90 108 (90 00:00: HFA 108 Base) Base) 00 (90 Base) MCG/ACT MCG/ACT MCG/ACT Albuterol Albuterol 0 No 2{puffs Albuterol Sulfate HFA Sulfate HFA 5-24 } Sulfate 108 (90 108 (90 00:00: HFA 108 Base) Base) 00 (90 Base) MCG/ACT MCG/ACT MCG/ACT Albuterol Albuterol 0 No 2{puffs Albuterol Sulfate HFA Sulfate HFA 5-24 } Sulfate 108 (90 108 (90 00:00: HFA 108 Base) Base) 00 (90 Base) MCG/ACT MCG/ACT MCG/ACT Albuterol Albuterol No 2{puffs Albuterol Sulfate HFA Sulfate HFA 5-24 } Sulfate 108 (90 108 (90 00:00: HFA 108 Base) Base) 00 (90 Base) MCG/ACT MCG/ACT MCG/ACT Albuterol Albuterol No 2{puffs Albuterol Sulfate HFA Sulfate HFA 5-24 } Sulfate 108 (90 108 (90 00:00: HFA 108 Base) Base) 00 (90 Base) MCG/ACT MCG/ACT MCG/ACT Albuterol Albuterol No 2{puffs Albuterol Sulfate HFA Sulfate HFA 5-24 } Sulfate 108 (90 108 (90 00:00: HFA 108 Base) Base) 00 (90 Base) MCG/ACT MCG/ACT MCG/ACT Albuterol Albuterol 0 No 2{puffs Albuterol Sulfate HFA Sulfate HFA 5-24 } Sulfate 108 (90 108 (90 00:00: HFA 108 Base) Base) 00 (90 Base) MCG/ACT MCG/ACT MCG/ACT Albuterol Albuterol 0 No 2{puffs Albuterol Sulfate HFA Sulfate HFA 5-24 } Sulfate 108 (90 108 (90 00:00: HFA 108 Base) Base) 00 (90 Base) MCG/ACT MCG/ACT MCG/ACT Azithromyci Azithromyci 0 2021- No QD Azithromyc n 250 MG n 250 MG 5-24 05-29 in 250 MG 00:00: 00:00 00 :00 Azithromyci Azithromyci 2021-0 2021- No QD Azithromyc n 250 MG n 250 MG 5-24 05-29 in 250 MG 00:00: 00:00 00 :00 Kenalog Kenalog 2021-0 No 40mg Common (Triamcinol (Triamcinol 4-25 S pirit one) one) 00:00: - [facility] 00 [facility] Kenalog Kenalog 0 No 40mg Common (Triamcinol (Triamcinol 4-25 S pirit one) one) 00:00: - [facility] 00 [facility] Kenalog Kenalog 2021-0 No 40mg Common (Triamcinol (Triamcinol 4-25 S pirit one) one) 00:00: - [facility]I 00 [facility] Kenalog Kenalog 0 No 40mg Common (Triamcinol (Triamcinol 4-25 S pirit one) one) 00:00: - [facility]I 00 [facility] Kenalog Kenalog 2021-0 No 40mg Common (Triamcinol (Triamcinol 4-25 S pirit one) one) 00:00: - [facility]I 00 [facility] Kenalog Kenalog 2021-0 No 40mg Common (Triamcinol (Triamcinol 4-25 S pirit one) one) 00:00: - [facility]I 00 [facility] Kenalog Kenalog 2021-0 No 40mg Common (Triamcinol (Triamcinol 4-25 S pirit one) one) 00:00: - [facility]I 00 [facility] Kenalog Kenalog 0 No 40mg Common (Triamcinol (Triamcinol 4-25 S pirit one) one) 00:00: - [facility]I 00 [facility] Kenalog Kenalog 2021-0 No 40mg Common (Triamcinol (Triamcinol 4-25 S pirit one) one) 00:00: - [facility]I 00 [facility] Kenalog Kenalog 2021-0 No 40mg Common (Triamcinol (Triamcinol 4-25 S pirit one) one) 00:00: - [facility]I 00 [facility] Kenalog Kenalog 2021-0 No 40mg Common (Triamcinol (Triamcinol 4-25 S pirit one) one) 00:00: - [facility]I 00 [facility] Kenalog Kenalog 2021-0 No 40mg Common (Triamcinol (Triamcinol 4-25 S pirit one) one) 00:00: - [facility]I 00 [facility] Kenalog Kenalog 2021-0 No 40mg Common (Triamcinol (Triamcinol 4-25 S pirit one) one) 00:00: - [facility]I 00 [facility] Kenalog Kenalog 2021-0 No 40mg Common (Triamcinol (Triamcinol 4-25 S pirit one) one) 00:00: - [facility]I 00 [facility] Kenalog Kenalog 2021-0 No 40mg Common (Triamcinol (Triamcinol 4-25 S pirit one) one) 00:00: - [facility]I 00 [facility] Kenalog Kenalog 2021-0 No 40mg Common (Triamcinol (Triamcinol 4-25 S pirit one) one) 00:00: - [facility]I 00 [facility] Kenalog Kenalog 2021-0 No 40mg Common (Triamcinol (Triamcinol 4-25 S pirit one) one) 00:00: - [facility]I 00 [facility] Methocarbam Methocarbam 2021-2021- No 1{table Methocarba ol 500 MG ol 500 MG 4-25 05-02 t} mol 500 MG 00:00: 00:00 00 :00 Methocarbam Methocarbam 2021-0 2021- No 1{table Methocarba ol 500 MG ol 500 MG 4-25 05-02 t} mol 500 MG 00:00: 00:00 00 :00 Potassium Potassium 2021-0 2021- No 1{capsu QD Potassium Chloride 20 Chloride 20 3-16 06-14 le} Chloride MEQ MEQ 00:00: 00:00 20 MEQ 00 :00 Potassium Potassium 2021-0 2021- No 1{capsu QD Potassium Chloride 20 Chloride 20 3-16 06-14 le} Chloride MEQ MEQ 00:00: 00:00 20 MEQ 00 :00 Potassium Potassium 2021-0 2021- No 1{capsu QD Potassium Chloride 20 Chloride 20 3-16 06-14 le} Chloride MEQ MEQ 00:00: 00:00 20 MEQ 00 :00 Potassium Potassium 2021-0 2021- No 1{capsu QD Potassium Chloride 20 Chloride 20 3-16 06-14 le} Chloride MEQ MEQ 00:00: 00:00 20 MEQ 00 :00 Potassium Potassium 2021-0 2021- No 1{capsu QD Potassium Chloride 20 Chloride 20 3-16 06-14 le} Chloride MEQ MEQ 00:00: 00:00 20 MEQ 00 :00 Potassium Potassium 2021-0 2022- No 1{capsu QD Potassium Chloride 20 Chloride 20 3-16 06-14 le} Chloride MEQ MEQ 00:00: 00:00 20 MEQ 00 :00 Hemocyte Hemocyte 2021-0 No 1{capsu QD Hemocyte Plus 106-1 Plus 106-1 3-09 le} Plus 106-1 MG MG 00:00: MG 00 Hemocyte Hemocyte 2021-0 No 1{capsu QD Hemocyte Plus 106-1 Plus 106-1 3-09 le} Plus 106-1 MG MG 00:00: MG 00 Hemocyte Hemocyte 2021-0 No 1{capsu QD Hemocyte Plus 106-1 Plus 106-1 3-09 le} Plus 106-1 MG MG 00:00: MG 00 Hemocyte Hemocyte 2021-0 No 1{capsu QD Hemocyte Plus 106-1 Plus 106-1 3-09 le} Plus 106-1 MG MG 00:00: MG 00 Hemocyte Hemocyte 2021-0 No 1{capsu QD Hemocyte Plus 106-1 Plus 106-1 3-09 le} Plus 106-1 MG MG 00:00: MG 00 Hemocyte Hemocyte 2021-0 No 1{capsu QD Hemocyte Plus 106-1 Plus 106-1 3-09 le} Plus 106-1 MG MG 00:00: MG 00 Hemocyte Hemocyte 2021-0 No 1{capsu QD Hemocyte Plus 106-1 Plus 106-1 3-09 le} Plus 106-1 MG MG 00:00: MG 00 Macrobid Macrobid 2021-0 2021- No 1{capsu BID Macrobid 100 MG 100 MG -11 le} 100 MG 00:00: 00:00 00 :00 Macrobid Macrobid 2021-0 2021- No 1{capsu BID Macrobid 100 MG 100 MG 3-04 -11 le} 100 MG 00:00: 00:00 00 :00 Tofacitinib 2020-05- No Take by [facility] Citrate ER 0-21 10-21 mouth. Health (Xeljanz 14:10: 00:00 XR) 11 MG 13 :00 tablet sustained-r elease 24 hour traMADol 2020-05 Yes [facility] (Ultram) 50 0-05 Health MG tablet 00:00: 00 traMADol 2021-1 Yes [facility] (Ultram) 50 0-05 Health MG tablet 00:00: 00 Famotidine Famotidine 2020-0 No 1{table BID Famotidine 20 MG 20 MG 01-24 t} 20 MG 00:00: 00 Famotidine Famotidine 2020-0 No 1{table BID Famotidine 20 MG 20 MG 01-24 t} 20 MG 00:00: 00 Famotidine Famotidine 2020-0 No 1{table BID Famotidine 20 MG 20 MG 01-24 t} 20 MG 00:00: 00 Famotidine Famotidine 2020-0 No 1{table BID Famotidine 20 MG 20 MG 01-24 t} 20 MG 00:00: 00 Tamiflu 75 Tamiflu 75 2020-0 No 1{capsu BID Tamiflu 75 MG MG 01-24 le} MG 00:00: 00 Famotidine Famotidine 2020-0 No 1{table BID Famotidine 20 MG 20 MG 01-24 t} 20 MG 00:00: 00 Tamiflu 75 Tamiflu 75 2020-0 No 1{capsu BID Tamiflu 75 MG MG 01-24 le} MG 00:00: 00 Famotidine Famotidine 2020-0 No 1{table BID Famotidine 20 MG 20 MG 01-24 t} 20 MG 00:00: 00 Tamiflu 75 Tamiflu 75 2020-0 No 1{capsu BID Tamiflu 75 MG MG 01-24 le} MG 00:00: 00 Famotidine Famotidine 2020-0 No 1{table BID 20 MG 20 MG 01-24 t} 00:00: 00 Tamiflu 75 Tamiflu 75 1-0 No 1{capsu BID MG MG 01-24 le} 00:00: 00 Tamiflu 75 Tamiflu 75 2020-0 No 1{capsu BID Tamiflu 75 MG MG 01-24 le} MG 00:00: 00 Famotidine Famotidine 2020-0 No 1{table BID Famotidine 20 MG 20 MG 01-24 t} 20 MG 00:00: 00 Famotidine Famotidine 2020-0 No 1{table BID Famotidine 20 MG 20 MG 01-24 t} 20 MG 00:00: 00 Tamiflu 75 Tamiflu 75 2020-0 No 1{capsu BID Tamiflu 75 MG MG 01-24 le} MG 00:00: 00 Famotidine Famotidine 1-0 No 1{table BID Famotidine 20 MG 20 MG 01-24 t} 20 MG 00:00: 00 Tamiflu 75 Tamiflu 75 1-0 No 1{capsu BID Tamiflu 75 MG MG 01-24 le} MG 00:00: 00 Famotidine Famotidine 1-0 No 1{table BID 20 MG 20 MG 01-24 t} 00:00: 00 Famotidine Famotidine 1-0 No 1{table BID 20 MG 20 MG 01-24 t} 00:00: 00 Famotidine Famotidine 1-0 No 1{table BID Famotidine 20 MG 20 MG 01-24 t} 20 MG 00:00: 00 Famotidine Famotidine 1-0 No 1{table BID Famotidine 20 MG 20 MG 01-24 t} 20 MG 00:00: 00 Famotidine Famotidine 1-0 No 1{table BID Famotidine 20 MG 20 MG 01-24 t} 20 MG 00:00: 00 Famotidine Famotidine 1-0 No 1{table BID Famotidine 20 MG 20 MG 01-24 t} 20 MG 00:00: 00 Famotidine Famotidine 1-0 No 1{table BID Famotidine 20 MG 20 MG 01-24 t} 20 MG 00:00: 00 Famotidine Famotidine 1-0 No 1{table BID Famotidine 20 MG 20 MG 01-24 t} 20 MG 00:00: 00 Famotidine Famotidine 1-0 No 1{table BID Famotidine 20 MG 20 MG 01-24 t} 20 MG 00:00: 00 Famotidine Famotidine 1-0 No 1{table BID Famotidine 20 MG 20 MG 01-24 t} 20 MG 00:00: 00 Famotidine Famotidine 1-0 No 1{table BID Famotidine 20 MG 20 MG 01-24 t} 20 MG 00:00: 00 Famotidine Famotidine 1-0 No 1{table BID Famotidine 20 MG 20 MG 01-24 t} 20 MG 00:00: 00 Famotidine Famotidine 1-0 No 1{table BID Famotidine 20 MG 20 MG 01-24 t} 20 MG 00:00: 00 Famotidine Famotidine 1-0 No 1{table BID Famotidine 20 MG 20 MG 01-24 t} 20 MG 00:00: 00 Famotidine Famotidine 1-0 No 1{table BID Famotidine 20 MG 20 MG 01-24 t} 20 MG 00:00: 00 Famotidine Famotidine 1-0 No 1{table BID Famotidine 20 MG 20 MG 01-24 t} 20 MG 00:00: 00 Famotidine Famotidine 1-0 No 1{table BID Famotidine 20 MG 20 MG 01-24 t} 20 MG 00:00: 00 Famotidine Famotidine 1-0 No 1{table BID Famotidine 20 MG 20 MG 01-24 t} 20 MG 00:00: 00 Famotidine Famotidine 1-0 No 1{table BID Famotidine 20 MG 20 MG 01-24 t} 20 MG 00:00: 00 Famotidine Famotidine 1-0 No 1{table BID Famotidine 20 MG 20 MG 01-24 t} 20 MG 00:00: 00 Famotidine Famotidine 1-0 No 1{table BID Famotidine 20 MG 20 MG 01-24 t} 20 MG 00:00: 00 Famotidine Famotidine 1-0 No 1{table BID Famotidine 20 MG 20 MG 01-24 t} 20 MG 00:00: 00 Oseltamivir Oseltamivir 1-0 No 1{capsu BID Oseltamivi Phosphate Phosphate 6-03 le} r 75 MG 75 MG 00:00: Phosphate 00 75 MG Oseltamivir Oseltamivir 1-0 No 1{capsu BID Oseltamivi Phosphate Phosphate 6-03 le} r 75 MG 75 MG 00:00: Phosphate 00 75 MG Oseltamivir Oseltamivir 1-0 No 1{capsu BID Oseltamivi Phosphate Phosphate 6-03 le} r 75 MG 75 MG 00:00: Phosphate 00 75 MG Oseltamivir Oseltamivir 1-0 No 1{capsu BID Phosphate Phosphate 6-03 le} 75 MG 75 MG 00:00: 00 Oseltamivir Oseltamivir 1-0 No 1{capsu BID Oseltamivi Phosphate Phosphate 6-03 le} r 75 MG 75 MG 00:00: Phosphate 00 75 MG Oseltamivir Oseltamivir No 1{capsu BID Oseltamivi Phosphate Phosphate 10-18 le} r 75 MG 75 MG 00:00: Phosphate 00 75 MG Oseltamivir Oseltamivir 0 No 1{capsu BID Oseltamivi Phosphate Phosphate 10-18 le} r 75 MG 75 MG 00:00: Phosphate 00 75 MG Xofluza (80 Xofluza (80 2020-0 No Xofluza MG Dose) 2 MG Dose) 2 6-02 (80 MG x 40 MG x 40 MG 00:00: Dose) 2 x 00 40 MG Xofluza (80 Xofluza (80 2020-0 No Xofluza MG Dose) 2 MG Dose) 2 6-02 (80 MG x 40 MG x 40 MG 00:00: Dose) 2 x 00 40 MG Xofluza (80 Xofluza (80 2020-0 No Xofluza MG Dose) 2 MG Dose) 2 6- (80 MG x 40 MG x 40 MG 00:00: Dose) 2 x 00 40 MG Xofluza (80 Xofluza (80 2020-0 No MG Dose) 2 MG Dose) 2 6-02 x 40 MG x 40 MG 00:00: 00 Xofluza (80 Xofluza (80 2020-0 No Xofluza MG Dose) 2 MG Dose) 2 6-02 (80 MG x 40 MG x 40 MG 00:00: Dose) 2 x 00 40 MG Xofluza (80 Xofluza (80 2020-0 No Xofluza MG Dose) 2 MG Dose) 2 6-02 (80 MG x 40 MG x 40 MG 00:00: Dose) 2 x 00 40 MG Xofluza (80 Xofluza (80 2020-0 No Xofluza MG Dose) 2 MG Dose) 2 6-02 (80 MG x 40 MG x 40 MG 00:00: Dose) 2 x 00 40 MG cholestyram Yes 4g Q.5D Take 4 g UT ine light 5-26 by mouth 2 (Prevalite) 10:46: (two) 4 g packet 47 [...] (two) times a day with meals. atorvastati 202-0 Yes 10mg QD Take 10 mg UT n (Lipitor) 5-26 by mouth 1 He alth 10 MG 10:46: (one) time tablet 47 each day. gabapentin 202-0 Yes Take by UT (Neurontin) 5-26 mouth. Health 600 MG 10:46: tablet 47 lisinopril 2020-0 Yes 2.5mg QD Take 2.5 UT 2.5 [...] 47 each day. tiZANidine 2020-0 Yes 4mg Q.[id number] Take 4 mg UT (Zanaflex) 5-26 [id number] by mouth 3 Health 4 MG 10:46: [...] g packet 47 times a day. mesalamine 2021-0 Yes 1200mg QD Take 1,200 UT (Lialda) [...] 47 each day. tiZANidine 0 Yes 4mg Q.[id number] Take 4 mg UT (Zanaflex) 5-26 [id number] by mouth 3 Health 4 MG 10:46: 3D (three) capsule 47 times a day. Melatonin Yes Take by UT 10 MG 5-26 mouth. Health tablet 10:46: 47 Ascorbic 0 Yes 100mg QD Take 100 UT Acid 5-26 mg by Health (vitamin C) 10:46: mouth 1 100 MG 47 (one) time tablet each day. traMADol traMADol Yes ROB TAKE 1 U T HCl - 50 MG HCl - 50 MG 4-05 LI-HOLLY TABLET [facility] Oral Tablet Oral Tablet 00:00: INNA M.D. EVERY 4 T O ans 00 6 HOURS NEEDED FOR PAIN. montelukast 0 Yes 10mg QD Take 10 mg UT (Singulair) 3-30 by mouth 1 He alth 10 MG 00:00: (one) time tablet 00 each day. montelukast 0 Yes 10mg QD Take 10 mg UT (Singulair) 3-30 by mouth 1 He alth 10 MG 00:00: (one) time tablet 00 each day. HumaLOG HumaLOG 2021-0 No HumaLOG KwikPen 200 KwikPen 200 2-10 KwikPen UNIT/ML UNIT/ML 00:00: 200 00 UNIT/ML HumaLOG HumaLOG 2021-0 No HumaLOG KwikPen 200 KwikPen 200 2-10 KwikPen UNIT/ML UNIT/ML 00:00: 200 00 UNIT/ML HumaLOG HumaLOG 2021-0 No HumaLOG KwikPen 200 KwikPen 200 2-10 KwikPen UNIT/ML UNIT/ML 00:00: 200 00 UNIT/ML HumaLOG HumaLOG 2021-0 No KwikPen 200 KwikPen 200 2-10 UNIT/ML UNIT/ML 00:00: 00 HumaLOG HumaLOG 2021-0 No HumaLOG KwikPen 200 KwikPen 200 2-10 KwikPen UNIT/ML UNIT/ML 00:00: 200 00 UNIT/ML HumaLOG HumaLOG 2021-0 No HumaLOG KwikPen 200 KwikPen 200 2-10 KwikPen UNIT/ML UNIT/ML 00:00: 200 00 UNIT/ML HumaLOG HumaLOG 2021-0 No HumaLOG KwikPen 200 KwikPen 200 2-10 KwikPen UNIT/ML UNIT/ML 00:00: 200 00 UNIT/ML Triamcinolo Triamcinolo 2021-0 No BID Triamcinol ne ne 1-29 one Acetonide Acetonide 00:00: Acetonide 0.1 % 0.1 % 00 0.1 % Triamcinolo Triamcinolo 2021-0 No BID Triamcinol ne ne 1-29 one Acetonide Acetonide 00:00: Acetonide 0.1 % 0.1 % 00 0.1 % Triamcinolo Triamcinolo 2021-0 No BID Triamcinol ne ne 1-29 one Acetonide Acetonide 00:00: Acetonide 0.1 % 0.1 % 00 0.1 % Triamcinolo Triamcinolo 2021-0 No BID Triamcinol ne ne 1-29 one Acetonide Acetonide 00:00: Acetonide 0.1 % 0.1 % 00 0.1 % Triamcinolo Triamcinolo 2021-0 No BID Triamcinol ne ne 1-29 one Acetonide Acetonide 00:00: Acetonide 0.1 % 0.1 % 00 0.1 % Triamcinolo Triamcinolo 2021-0 No BID Triamcinol ne ne 06-15 one Acetonide Acetonide 00:00: Acetonide 0.1 % 0.1 % 00 0.1 % Triamcinolo Triamcinolo 1-0 No BID ne ne 06-15 Acetonide Acetonide 00:00: 0.1 % 0.1 % 00 Triamcinolo Triamcinolo 2021-0 No BID Triamcinol ne ne 06-15 one Acetonide Acetonide 00:00: Acetonide 0.1 % 0.1 % 00 0.1 % Triamcinolo Triamcinolo 2020-0 No BID Triamcinol ne ne 06-15 one Acetonide Acetonide 00:00: Acetonide 0.1 % 0.1 % 00 0.1 % Triamcinolo Triamcinolo 2020-0 No BID Triamcinol ne ne 06-15 one Acetonide Acetonide 00:00: Acetonide 0.1 % 0.1 % 00 0.1 % Triamcinolo Triamcinolo 1-0 No BID ne ne 06-15 Acetonide Acetonide 00:00: 0.1 % 0.1 % 00 Triamcinolo Triamcinolo 1-0 No BID ne ne 06-15 Acetonide Acetonide 00:00: 0.1 % 0.1 % 00 Triamcinolo Triamcinolo 1-0 No BID Triamcinol ne ne 06-15 one Acetonide Acetonide 00:00: Acetonide 0.1 % 0.1 % 00 0.1 % Triamcinolo Triamcinolo 1-0 No BID Triamcinol ne ne 06-15 one Acetonide Acetonide 00:00: Acetonide 0.1 % 0.1 % 00 0.1 % Triamcinolo Triamcinolo 2021-0 No BID Triamcinol ne ne 06-15 one Acetonide Acetonide 00:00: Acetonide 0.1 % 0.1 % 00 0.1 % Triamcinolo Triamcinolo 2021-0 No BID Triamcinol ne ne 06-15 one Acetonide Acetonide 00:00: Acetonide 0.1 % 0.1 % 00 0.1 % Triamcinolo Triamcinolo 2021-0 No BID Triamcinol ne ne 1-29 one Acetonide Acetonide 00:00: Acetonide 0.1 % 0.1 % 00 0.1 % Triamcinolo Triamcinolo 2021-0 No BID Triamcinol ne ne 1- one Acetonide Acetonide 00:00: Acetonide 0.1 % 0.1 % 00 0.1 % Triamcinolo Triamcinolo 2021-0 No BID Triamcinol ne ne 1- one Acetonide Acetonide 00:00: Acetonide 0.1 % 0.1 % 00 0.1 % Triamcinolo Triamcinolo 2021-0 No BID Triamcinol ne ne 1- one Acetonide Acetonide 00:00: Acetonide 0.1 % 0.1 % 00 0.1 % Triamcinolo Triamcinolo 1-0 No BID Triamcinol ne ne 1- one Acetonide Acetonide 00:00: Acetonide 0.1 % 0.1 % 00 0.1 % Triamcinolo Triamcinolo 1-0 No BID Triamcinol ne ne 1- one Acetonide Acetonide 00:00: Acetonide 0.1 % 0.1 % 00 0.1 % Triamcinolo Triamcinolo 2021-0 No BID Triamcinol ne ne 1- one Acetonide Acetonide 00:00: Acetonide 0.1 % 0.1 % 00 0.1 % Triamcinolo Triamcinolo 2021-0 No BID Triamcinol ne ne 1- one Acetonide Acetonide 00:00: Acetonide 0.1 % 0.1 % 00 0.1 % Triamcinolo Triamcinolo 2021-0 No BID Triamcinol ne ne 1- one Acetonide Acetonide 00:00: Acetonide 0.1 % 0.1 % 00 0.1 % Triamcinolo Triamcinolo 2021-0 No BID Triamcinol ne ne 1- one Acetonide Acetonide 00:00: Acetonide 0.1 % 0.1 % 00 0.1 % Triamcinolo Triamcinolo 2021-0 No BID Triamcinol ne ne 1- one Acetonide Acetonide 00:00: Acetonide 0.1 % 0.1 % 00 0.1 % Triamcinolo Triamcinolo 0 No BID Triamcinol ne ne 1- one Acetonide Acetonide 00:00: Acetonide 0.1 % 0.1 % 00 0.1 % Triamcinolo Triamcinolo 0 No BID Triamcinol ne ne 06-15 one Acetonide Acetonide 00:00: Acetonide 0.1 % 0.1 % 00 0.1 % Triamcinolo Triamcinolo 2020-0 No BID Triamcinol ne ne 06-15 one Acetonide Acetonide 00:00: Acetonide 0.1 % 0.1 % 00 0.1 % Triamcinolo Triamcinolo 2020-0 No BID Triamcinol ne ne 06-15 one Acetonide Acetonide 00:00: Acetonide 0.1 % 0.1 % 00 0.1 % Triamcinolo Triamcinolo 2020-0 No BID Triamcinol ne ne 06-15 one Acetonide Acetonide 00:00: Acetonide 0.1 % 0.1 % 00 0.1 % Etanercept Yes 50mg 50 mg. UT 50 MG/ML 06-09 Health solution 00:00: auto-inject 00 or Etanercept 0 Yes 50mg 50 mg. UT 50 MG/ML 06-09 Health solution 00:00: auto-inject or Cyclobenzap Cyclobenzap 2019-0 Yes ROB TAKE 1 UT rine HCl - rine HCl - 9-16 [facility] TABLET at [facility] 5 MG Oral 5 MG Oral 00:00: INNA M.DChinyere bedtime as ans Tablet Tablet 00 needed for muscle cramps. Zofran Zofran 2020-0 Yes Shara as needed Com mon 5-11 [place] for nausea [facility] 00:00: - [facility] Zofran 4 MG Zofran 4 MG 2020-0 No BID Zofran 4 5-11 MG 00:00: 00 Zofran 4 MG Zofran 4 MG 2020-0 No BID Zofran 4 5-11 MG 00:00: 00 Zofran 4 MG Zofran 4 MG 2020-0 No BID Zofran 4 5-11 MG 00:00: 00 Zofran 4 MG Zofran 4 MG 2020-0 No BID 5-11 00:00: 00 Zofran 4 MG Zofran 4 MG 2020-0 No BID Zofran 4 5-11 MG 00:00: 00 Zofran 4 MG Zofran 4 MG 2020-0 No BID Zofran 4 5-11 MG 00:00: 00 Zofran 4 MG Zofran 4 MG 2020-0 No BID Zofran 4 5-11 MG 00:00: 00 methylPREDN methylPREDN 2020-0 Yes ROB TAKE UT ISolone 4 ISolone 4 5-04 MEGHANA PERRY [facility] MG Oral MG Oral 00:00: INNA Castorena ON PATIENT ans Tablet Tablet 00 INSTRUCTIO Therapy Therapy N CARD.; Pack Pack Qty: 1 X 21 Tablet Disp Pack Albuterol Albuterol 2020-0 Yes Shara 2 puffs Common Sulfate HFA Sulfate HFA 3-18 [place] [facility] 00:00: - [facility] Albuterol Albuterol 2020-0 No 2{puffs Albuterol Sulfate HFA Sulfate HFA 3-18 } Sulfate 108 (90 108 (90 00:00: HFA 108 Base) Base) 00 (90 Base) MCG/ACT MCG/ACT MCG/ACT Albuterol Albuterol 2020-0 No 2{puffs Albuterol Sulfate HFA Sulfate HFA 3-18 } Sulfate 108 (90 108 (90 00:00: HFA 108 Base) Base) 00 (90 Base) MCG/ACT MCG/ACT MCG/ACT Albuterol Albuterol 2020-0 No 2{puffs Albuterol Sulfate HFA Sulfate HFA 3-18 } Sulfate 108 (90 108 (90 00:00: HFA 108 Base) Base) 00 (90 Base) MCG/ACT MCG/ACT MCG/ACT Albuterol Albuterol 2020-0 No 2{puffs Sulfate HFA Sulfate HFA 3-18 } 108 (90 108 (90 00:00: Base) Base) 00 MCG/ACT MCG/ACT Albuterol Albuterol 2020-0 No 2{puffs Albuterol Sulfate HFA Sulfate HFA 3-18 } Sulfate 108 (90 108 (90 00:00: HFA 108 Base) Base) 00 (90 Base) MCG/ACT MCG/ACT MCG/ACT Albuterol Albuterol 2020-0 No 2{puffs Albuterol Sulfate HFA Sulfate HFA 3-18 } Sulfate 108 (90 108 (90 00:00: HFA 108 Base) Base) 00 (90 Base) MCG/ACT MCG/ACT MCG/ACT Albuterol Albuterol 2020-0 No 2{puffs Albuterol Sulfate HFA Sulfate HFA 3-18 } Sulfate 108 (90 108 (90 00:00: HFA 108 Base) Base) 00 (90 Base) MCG/ACT MCG/ACT MCG/ACT Methocarbam Methocarbam 2020-0 Yes ROB Q0.3333D TAKE 1 UT ol 500 MG ol 500 MG 2-06 [facility] TABLET 3 [facility] Oral Tablet Oral Tablet 00:00: INNA M.D. TIMES ans 00 DAILY. [place] 2018-0 No 40mg Common (Triamcinol (Triamcinol 9-18 S [facility]irit one) one) 00:00: - [facility] 00 [facility] Peggy Kenalog 2018-0 No 40mg Common (Triamcinol (Triamcinol 9-18 S pirit one) one) 00:00: - [facility] 00 [facility] Peggy Kenalog 2018-0 No 40mg Common (Triamcinol (Triamcinol 9-18 S pirit one) one) 00:00: - [facility] 00 [facility] Peggy Kenalog 2019-0 No 40mg Common (Triamcinol (Triamcinol 9-18 S pirit one) one) 00:00: - [facility] 00 [facility] Peggy Kenalog 2019-0 No 40mg Common (Triamcinol (Triamcinol 9-18 S pirit one) one) 00:00: - [facility] 00 [facility] Kenlis Kenalog 2019-0 No 40mg Common (Triamcinol (Triamcinol 9-18 S pirit one) one) 00:00: - [facility] 00 [facility] Kenlis Kenalog 2019-0 No 40mg Common (Triamcinol (Triamcinol 9-18 S pirit one) one) 00:00: - [facility] 00 [facility] Peggy Kenalog 2019-0 No 40mg Common (Triamcinol (Triamcinol 9-18 S pirit one) one) 00:00: - [facility] 00 [facility] Kenalog Kenalog 2019-0 No 40mg Common (Triamcinol (Triamcinol 9-18 S pirit one) one) 00:00: - [facility] 00 [facility] Kenalog Kenalog 2019-0 No 40mg Common (Triamcinol (Triamcinol 9-18 S pirit one) one) 00:00: - [facility] 00 [facility] Kenalog Kenalog 2019-0 No 40mg Common (Triamcinol (Triamcinol 9-18 S pirit one) one) 00:00: - [facility] 00 [facility] Kenalog Kenalog 2019-0 No 40mg Common (Triamcinol (Triamcinol 9-18 S pirit one) one) 00:00: - [facility] 00 [facility] Kenlis Kenalog 2019-0 No 40mg Common (Triamcinol (Triamcinol 9-18 S pirit one) one) 00:00: - [facility] 00 [facility] Kenlis Kenalog 2019-0 No 40mg Common (Triamcinol (Triamcinol 9-18 S pirit one) one) 00:00: - [facility] 00 [facility] Kenlis Kenalog 2019-0 No 40mg Common (Triamcinol (Triamcinol 9-18 S pirit one) one) 00:00: - [facility] 00 [facility] Kenlis Kenalog 2019-0 No 40mg Common (Triamcinol (Triamcinol 9-18 S pirit one) one) 00:00: - [facility] 00 [facility] Kenalog Kenalog 2019-0 No 40mg Common (Triamcinol (Triamcinol 9-18 S pirit one) one) 00:00: - [facility] 00 [facility] Kenalog Kenalog 2019-0 No 40mg Common (Triamcinol (Triamcinol 9-18 S pirit one) one) 00:00: - [facility] 00 [facility] Kenalog Kenalog 2019-0 No 40mg Common (Triamcinol (Triamcinol 9-18 S pirit one) one) 00:00: - [facility] 00 [facility] Kenalog Kenalog 2019-0 No 40mg Common (Triamcinol (Triamcinol 9-18 S pirit one) one) 00:00: - [facility] 00 [facility] Peggy Woods 2019-0 No 40mg Common (Triamcinol (Triamcinol 9-18 S pirit one) one) 00:00: - [facility] Peggy Woods 2019-0 No 40mg Common (Triamcinol (Triamcinol 9-18 S pirit one) one) 00:00: - [facility] Peggy Woods 2019-0 No 40mg Common (Triamcinol (Triamcinol 9-18 S pirit one) one) 00:00: - [facility] Ibuprofen Ibuprofen Yes UT 800 MG Oral 800 MG Oral P [facility] Tablet Tablet ans tiZANidine tiZANidine No 1{table TID HCl 4 MG HCl 4 MG t_as_ne eded} Folic Acid Folic Acid No 1{table QD 1 MG 1 MG t} Atorvastati Atorvastati No QD n Calcium n Calcium 10 MG 10 MG Vitamin C Vitamin C No Singulair Singulair No 1{table QD 10 MG 10 MG t} Clobetasol Clobetasol No 1{appli BID Propionate Propionate cation_ 0.05 % 0.05 % to_affe cted_ar ea} Omeprazole Omeprazole No 40 MG 40 MG Prevalite 4 Prevalite 4 No 1{packe BID GM GM t} Gabapentin Gabapentin No 1{table TID 600 MG 600 MG t} Montelukast Montelukast No Sodium 10 Sodium 10 MG MG metFORMIN metFORMIN No QD HCl 1000 MG HCl 1000 MG Vitamin D-3 Vitamin D-3 No Lisinopril Lisinopril No QD 2.5 MG 2.5 MG Metoprolol Metoprolol No BID Tartrate 25 Tartrate 25 MG MG Mesalamine Mesalamine No 2{table QD 1.2 GM 1.2 GM ts} Xeljanz 10 Xeljanz 10 No 1{table QD MG MG t} Amoxicillin Amoxicillin No 1{table BID -Pot -Pot t} Clavulanate Clavulanate 875-125 MG 875-125 MG tiZANidine tiZANidine No 1{table TID HCl 4 MG HCl 4 MG t_as_ne eded} Folic Acid Folic Acid No 1{table QD 1 MG 1 MG t} Atorvastati Atorvastati No QD n Calcium n Calcium 10 MG 10 MG Folic Acid Folic Acid Yes UT 1 MG Oral 1 MG Oral Physi ci Tablet Tablet ans Lisinopril Lisinopril No QD Lisinopril 2.5 MG 2.5 MG 2.5 MG Folic Acid Folic Acid No 1{table QD Folic Acid 1 MG 1 MG t} 1 MG Clobetasol Clobetasol No 1{appli BID Clobetasol Propionate Propionate cation_ Propionate 0.05 % 0.05 % to_affe 0.05 % cted_ar ea} Xeljanz 10 Xeljanz 10 No 1{table QD Xeljanz 10 MG MG t} MG tiZANidine tiZANidine No 1{table TID tiZANidine HCl 4 MG HCl 4 MG t_as_ne HCl 4 MG eded} Vitamin C Vitamin C No Vitamin C Metoprolol Metoprolol No BID Metoprolol Tartrate 25 Tartrate 25 Tartrate MG MG 25 MG metFORMIN metFORMIN No QD metFORMIN HCl 1000 MG HCl 1000 MG HCl 1000 MG Amoxicillin Amoxicillin No 1{table BID Amoxicilli -Pot -Pot t} n-Pot Clavulanate Clavulanate Clavulanat 875-125 MG 875-125 MG e 875-125 MG Prevalite 4 Prevalite 4 No 1{packe BID Prevalite GM GM t} 4 GM tiZANidine tiZANidine Yes UT HCl - 4 MG HCl - 4 MG Phy sici Oral Tablet Oral Tablet a ns Singulair Singulair No 1{table QD Singulair 10 MG 10 MG t} 10 MG Atorvastati Atorvastati No QD Atorvastat n Calcium n Calcium in Calcium 10 MG 10 MG 10 MG Vitamin D-3 Vitamin D-3 No Vitamin D-3 Montelukast Montelukast No Montelukas Sodium 10 Sodium 10 t Sodium MG MG 10 MG Gabapentin Gabapentin No 1{table TID Gabapentin 600 MG 600 MG t} 600 MG Mesalamine Mesalamine No 2{table QD Mesalamine 1.2 GM 1.2 GM ts} 1.2 GM Omeprazole Omeprazole No Omeprazole 40 MG 40 MG 40 MG Folic Acid Folic Acid No 1{table QD Folic Acid 1 MG 1 MG t} 1 MG Omeprazole Omeprazole No Omeprazole 40 MG 40 MG 40 MG tiZANidine tiZANidine No 1{table TID tiZANidine HCl 4 MG HCl 4 MG t_as_ne HCl 4 MG eded} Xeljanz 10 Xeljanz 10 No 1{table QD Xeljanz 10 MG MG t} MG Lisinopril Lisinopril No QD Lisinopril 2.5 MG 2.5 MG 2.5 MG Vitamin C Vitamin C No Vitamin C Clobetasol Clobetasol No 1{appli BID Clobetasol Propionate Propionate cation_ Propionate 0.05 % 0.05 % to_affe 0.05 % cted_ar ea} metFORMIN metFORMIN No QD metFORMIN HCl 1000 MG HCl 1000 MG HCl 1000 MG Amoxicillin Amoxicillin No 1{table BID Amoxicilli -Pot -Pot t} n-Pot Clavulanate Clavulanate Clavulanat 875-125 MG 875-125 MG e 875-125 MG Prevalite 4 Prevalite 4 No 1{packe BID Prevalite GM GM t} 4 GM Singulair Singulair No 1{table QD Singulair 10 MG 10 MG t} 10 MG Vitamin D-3 Vitamin D-3 No Vitamin D-3 Montelukast Montelukast No Montelukas Sodium 10 Sodium 10 t Sodium MG MG 10 MG Metoprolol Metoprolol No BID Metoprolol Tartrate 25 Tartrate 25 Tartrate MG MG 25 MG Gabapentin Gabapentin No 1{table TID Gabapentin 600 MG 600 MG t} 600 MG Mesalamine Mesalamine No 2{table QD Mesalamine 1.2 GM 1.2 GM ts} 1.2 GM Atorvastati Atorvastati No QD Atorvastat n Calcium n Calcium in Calcium 10 MG 10 MG 10 MG Folic Acid Folic Acid No 1{table QD Folic Acid 1 MG 1 MG t} 1 MG Omeprazole Omeprazole No Omeprazole 40 MG 40 MG 40 MG tiZANidine tiZANidine No 1{table TID tiZANidine HCl 4 MG HCl 4 MG t_as_ne HCl 4 MG eded} Xeljanz 10 Xeljanz 10 No 1{table QD Xeljanz 10 MG MG t} MG Lisinopril Lisinopril No QD Lisinopril 2.5 MG 2.5 MG 2.5 MG Vitamin C Vitamin C No Vitamin C Xeljanz XR Xeljanz XR Yes UT 11 MG Oral 11 MG Oral Phy sici Tablet Tablet ans Extended Extended Release 24 Release 24 Hour Hour Clobetasol Clobetasol No 1{appli BID Clobetasol Propionate Propionate cation_ Propionate 0.05 % 0.05 % to_affe 0.05 % cted_ar ea} metFORMIN metFORMIN No QD metFORMIN HCl 1000 MG HCl 1000 MG HCl 1000 MG Amoxicillin Amoxicillin No 1{table BID Amoxicilli -Pot -Pot t} n-Pot Clavulanate Clavulanate Clavulanat 875-125 MG 875-125 MG e 875-125 MG Prevalite 4 Prevalite 4 No 1{packe BID Prevalite GM GM t} 4 GM Singulair Singulair No 1{table QD Singulair 10 MG 10 MG t} 10 MG Vitamin D-3 Vitamin D-3 No Vitamin D-3 Montelukast Montelukast No Montelukas Sodium 10 Sodium 10 t Sodium MG MG 10 MG Metoprolol Metoprolol No BID Metoprolol Tartrate 25 Tartrate 25 Tartrate MG MG 25 MG Gabapentin Gabapentin No 1{table TID Gabapentin 600 MG 600 MG t} 600 MG Mesalamine Mesalamine No 2{table QD Mesalamine 1.2 GM 1.2 GM ts} 1.2 GM Melatonin Melatonin Yes UT 10 MG Oral 10 MG Oral Phy sici Tablet Tablet ans Disintegrat Disintegrat ing ing Atorvastati Atorvastati No QD Atorvastat n Calcium n Calcium in Calcium 10 MG 10 MG 10 MG Lisinopril Lisinopril No QD Lisinopril 2.5 MG 2.5 MG 2.5 MG Folic Acid Folic Acid No 1{table QD Folic Acid 1 MG 1 MG t} 1 MG Xeljanz 10 Xeljanz 10 No 1{table QD Xeljanz 10 MG MG t} MG tiZANidine tiZANidine No 1{table TID tiZANidine HCl 4 MG HCl 4 MG t_as_ne HCl 4 MG eded} Vitamin C Vitamin C No Vitamin C Clobetasol Clobetasol No 1{appli BID Clobetasol Propionate Propionate cation_ Propionate 0.05 % 0.05 % to_affe 0.05 % cted_ar ea} metFORMIN metFORMIN No QD metFORMIN HCl 1000 MG HCl 1000 MG HCl 1000 MG Amoxicillin Amoxicillin No 1{table BID Amoxicilli -Pot -Pot t} n-Pot Clavulanate Clavulanate Clavulanat 875-125 MG 875-125 MG e 875-125 MG Prevalite 4 Prevalite 4 No 1{packe BID Prevalite GM GM t} 4 GM Singulair Singulair No 1{table QD Singulair 10 MG 10 MG t} 10 MG Atorvastati Atorvastati No QD Atorvastat n Calcium n Calcium in Calcium 10 MG 10 MG 10 MG Vitamin D-3 Vitamin D-3 No Vitamin D-3 Montelukast Montelukast No Montelukas Sodium 10 Sodium 10 t Sodium MG MG 10 MG Metoprolol Metoprolol No BID Metoprolol Tartrate 25 Tartrate 25 Tartrate MG MG 25 MG Gabapentin Gabapentin No 1{table TID Gabapentin 600 MG 600 MG t} 600 MG Mesalamine Mesalamine No 2{table QD Mesalamine 1.2 GM 1.2 GM ts} 1.2 GM Omeprazole Omeprazole No Omeprazole 40 MG 40 MG 40 MG Lisinopril Lisinopril No QD Lisinopril 2.5 MG 2.5 MG 2.5 MG Vitamin C Vitamin C No Vitamin C metFORMIN metFORMIN No QD metFORMIN HCl 1000 MG HCl 1000 MG HCl 1000 MG Xeljanz 10 Xeljanz 10 No 1{table QD Xeljanz 10 MG MG t} MG Vitamin D-3 Vitamin D-3 No Vitamin D-3 Atorvastati Atorvastati No QD Atorvastat n Calcium n Calcium in Calcium 10 MG 10 MG 10 MG Mesalamine Mesalamine No 2{table QD Mesalamine 1.2 GM 1.2 GM ts} 1.2 GM Gabapentin Gabapentin No 1{table TID Gabapentin 600 MG 600 MG t} 600 MG tiZANidine tiZANidine No 1{table TID tiZANidine HCl 4 MG HCl 4 MG t_as_ne HCl 4 MG eded} Folic Acid Folic Acid No 1{table QD Folic Acid 1 MG 1 MG t} 1 MG Metoprolol Metoprolol No BID Metoprolol Tartrate 25 Tartrate 25 Tartrate MG MG 25 MG Montelukast Montelukast No Montelukas Sodium 10 Sodium 10 t Sodium MG MG 10 MG Vitamin C Vitamin C Yes UT TABS TABS [facility] ans Omeprazole Omeprazole No Omeprazole 40 MG 40 MG 40 MG Amoxicillin Amoxicillin No 1{table BID Amoxicilli -Pot -Pot t} n-Pot Clavulanate Clavulanate Clavulanat 875-125 MG 875-125 MG e 875-125 MG Clobetasol Clobetasol No 1{appli BID Clobetasol Propionate Propionate cation_ Propionate 0.05 % 0.05 % to_affe 0.05 % cted_ar ea} Prevalite 4 Prevalite 4 No 1{packe BID Prevalite GM GM t} 4 GM Singulair Singulair No 1{table QD Singulair 10 MG 10 MG t} 10 MG tiZANidine tiZANidine No 1{table TID tiZANidine HCl 4 MG HCl 4 MG t_as_ne HCl 4 MG eded} Metoprolol Metoprolol No BID Metoprolol Tartrate 25 Tartrate 25 Tartrate MG MG 25 MG Lisinopril Lisinopril No QD Lisinopril 2.5 MG 2.5 MG 2.5 MG Omeprazole Omeprazole No Omeprazole 40 MG 40 MG 40 MG Gabapentin Gabapentin No 1{table TID Gabapentin 600 MG 600 MG t} 600 MG Atorvastati Atorvastati No QD Atorvastat n Calcium n Calcium in Calcium 10 MG 10 MG 10 MG Singulair Singulair No 1{table QD Singulair 10 MG 10 MG t} 10 MG Vitamin C Vitamin C No Vitamin C Xeljanz 10 Xeljanz 10 No 1{table QD Xeljanz 10 MG MG t} MG Vitamin D-3 Vitamin D-3 No Vitamin D-3 Prevalite 4 Prevalite 4 No 1{packe BID Prevalite GM GM t} 4 GM Amoxicillin Amoxicillin No 1{table BID Amoxicilli -Pot -Pot t} n-Pot Clavulanate Clavulanate Clavulanat 875-125 MG 875-125 MG e 875-125 MG Mesalamine Mesalamine No 2{table QD Mesalamine 1.2 GM 1.2 GM ts} 1.2 GM Clobetasol Clobetasol No 1{appli BID Clobetasol Propionate Propionate cation_ Propionate 0.05 % 0.05 % to_affe 0.05 % cted_ar ea} Folic Acid Folic Acid No 1{table QD Folic Acid 1 MG 1 MG t} 1 MG metFORMIN metFORMIN No QD metFORMIN HCl 1000 MG HCl 1000 MG HCl 1000 MG Montelukast Montelukast No Montelukas Sodium 10 Sodium 10 t Sodium MG MG 10 MG Gabapentin Gabapentin No 1{table TID Gabapentin 600 MG 600 MG t} 600 MG Clobetasol Clobetasol No 1{appli BID Clobetasol Propionate Propionate cation_ Propionate 0.05 % 0.05 % to_affe 0.05 % cted_ar ea} Folic Acid Folic Acid No 1{table QD Folic Acid 1 MG 1 MG t} 1 MG tiZANidine tiZANidine No 1{table TID tiZANidine HCl 4 MG HCl 4 MG t_as_ne HCl 4 MG eded} Metoprolol Metoprolol No BID Metoprolol Tartrate 25 Tartrate 25 Tartrate MG MG 25 MG Ibuprofen Ibuprofen No TID Ibuprofen 800 MG 800 MG 800 MG Montelukast Montelukast No Montelukas Sodium 10 Sodium 10 t Sodium MG MG 10 MG Singulair Singulair No 1{table QD Singulair 10 MG 10 MG t} 10 MG Vitamin D3 Vitamin D3 Yes UT TABS TABS [facility] ans Vitamin C Vitamin C No Vitamin C metFORMIN metFORMIN No QD metFORMIN HCl 1000 MG HCl 1000 MG HCl 1000 MG Xeljanz 10 Xeljanz 10 No 1{table QD Xeljanz 10 MG MG t} MG Atorvastati Atorvastati No QD Atorvastat n Calcium n Calcium in Calcium 10 MG 10 MG 10 MG Amoxicillin Amoxicillin No 1{table BID Amoxicilli -Pot -Pot t} n-Pot Clavulanate Clavulanate Clavulanat 875-125 MG 875-125 MG e 875-125 MG Vitamin D-3 Vitamin D-3 No Vitamin D-3 Mesalamine Mesalamine No 2{table QD Mesalamine 1.2 GM 1.2 GM ts} 1.2 GM Prevalite 4 Prevalite 4 No 1{packe BID Prevalite GM GM t} 4 GM Lisinopril Lisinopril No QD Lisinopril 2.5 MG 2.5 MG 2.5 MG Omeprazole Omeprazole No Omeprazole 40 MG 40 MG 40 MG Gabapentin Gabapentin No 1{table TID Gabapentin 600 MG 600 MG t} 600 MG Clobetasol Clobetasol No 1{appli BID Clobetasol Propionate Propionate cation_ Propionate 0.05 % 0.05 % to_affe 0.05 % cted_ar ea} Folic Acid Folic Acid No 1{table QD Folic Acid 1 MG 1 MG t} 1 MG tiZANidine tiZANidine No 1{table TID tiZANidine HCl 4 MG HCl 4 MG t_as_ne HCl 4 MG eded} Metoprolol Metoprolol No BID Metoprolol Tartrate 25 Tartrate 25 Tartrate MG MG 25 MG Ibuprofen Ibuprofen No TID Ibuprofen 800 MG 800 MG 800 MG Montelukast Montelukast No Montelukas Sodium 10 Sodium 10 t Sodium MG MG 10 MG Singulair Singulair No 1{table QD Singulair 10 MG 10 MG t} 10 MG Vitamin C Vitamin C No Vitamin C metFORMIN metFORMIN No QD metFORMIN HCl 1000 MG HCl 1000 MG HCl 1000 MG Xeljanz 10 Xeljanz 10 No 1{table QD Xeljanz 10 MG MG t} MG Atorvastati Atorvastati No QD Atorvastat n Calcium n Calcium in Calcium 10 MG 10 MG 10 MG Amoxicillin Amoxicillin No 1{table BID Amoxicilli -Pot -Pot t} n-Pot Clavulanate Clavulanate Clavulanat 875-125 MG 875-125 MG e 875-125 MG Vitamin D-3 Vitamin D-3 No Vitamin D-3 Mesalamine Mesalamine No 2{table QD Mesalamine 1.2 GM 1.2 GM ts} 1.2 GM Prevalite 4 Prevalite 4 No 1{packe BID Prevalite GM GM t} 4 GM Lisinopril Lisinopril No QD Lisinopril 2.5 MG 2.5 MG 2.5 MG Omeprazole Omeprazole No Omeprazole 40 MG 40 MG 40 MG Lisinopril Lisinopril No QD Lisinopril 2.5 MG 2.5 MG 2.5 MG Metoprolol Metoprolol No BID Metoprolol Tartrate 25 Tartrate 25 Tartrate MG MG 25 MG tiZANidine tiZANidine No 1{table TID tiZANidine HCl 4 MG HCl 4 MG t_as_ne HCl 4 MG eded} Montelukast Montelukast No Montelukas Sodium 10 Sodium 10 t Sodium MG MG 10 MG Clobetasol Clobetasol No 1{appli BID Clobetasol Propionate Propionate cation_ Propionate 0.05 % 0.05 % to_affe 0.05 % cted_ar ea} Omeprazole Omeprazole No Omeprazole 40 MG 40 MG 40 MG Singulair Singulair No 1{table QD Singulair 10 MG 10 MG t} 10 MG Gabapentin Gabapentin No 1{table TID Gabapentin 600 MG 600 MG t} 600 MG Folic Acid Folic Acid No 1{table QD Folic Acid 1 MG 1 MG t} 1 MG Vitamin C Vitamin C No Vitamin C Atorvastati Atorvastati No QD Atorvastat n Calcium n Calcium in Calcium 10 MG 10 MG 10 MG metFORMIN metFORMIN No QD metFORMIN HCl 1000 MG HCl 1000 MG HCl 1000 MG Ibuprofen Ibuprofen No TID Ibuprofen 800 MG 800 MG 800 MG Vitamin D-3 Vitamin D-3 No Vitamin D-3 Amoxicillin Amoxicillin No 1{table BID Amoxicilli -Pot -Pot t} n-Pot Clavulanate Clavulanate Clavulanat 875-125 MG 875-125 MG e 875-125 MG Mesalamine Mesalamine No 2{table QD Mesalamine 1.2 GM 1.2 GM ts} 1.2 GM Xeljanz 10 Xeljanz 10 No 1{table QD Xeljanz 10 MG MG t} MG Prevalite 4 Prevalite 4 No 1{packe BID Prevalite GM GM t} 4 GM tiZANidine tiZANidine No 1{table TID tiZANidine HCl 4 MG HCl 4 MG t_as_ne HCl 4 MG eded} Metoprolol Metoprolol No BID Metoprolol Tartrate 25 Tartrate 25 Tartrate MG MG 25 MG Prevalite 4 Prevalite 4 No 1{packe BID Prevalite GM GM t} 4 GM Omeprazole Omeprazole No Omeprazole 40 MG 40 MG 40 MG Lisinopril Lisinopril No QD Lisinopril 2.5 MG 2.5 MG 2.5 MG Vitamin C Vitamin C No Vitamin C Clobetasol Clobetasol No 1{appli BID Clobetasol Propionate Propionate cation_ Propionate 0.05 % 0.05 % to_affe 0.05 % cted_ar ea} Atorvastati Atorvastati No QD Atorvastat n Calcium n Calcium in Calcium 10 MG 10 MG 10 MG Folic Acid Folic Acid No 1{table QD Folic Acid 1 MG 1 MG t} 1 MG Mesalamine Mesalamine No 2{table QD Mesalamine 1.2 GM 1.2 GM ts} 1.2 GM Ibuprofen Ibuprofen No TID Ibuprofen 800 MG 800 MG 800 MG Singulair Singulair No 1{table QD Singulair 10 MG 10 MG t} 10 MG Xeljanz 10 Xeljanz 10 No 1{table QD Xeljanz 10 MG MG t} MG metFORMIN metFORMIN No QD metFORMIN HCl 1000 MG HCl 1000 MG HCl 1000 MG Gabapentin Gabapentin No 1{table TID Gabapentin 600 MG 600 MG t} 600 MG Montelukast Montelukast No Montelukas Sodium 10 Sodium 10 t Sodium MG MG 10 MG Vitamin D-3 Vitamin D-3 No Vitamin D-3 Amoxicillin Amoxicillin No 1{table BID Amoxicilli -Pot -Pot t} n-Pot Clavulanate Clavulanate Clavulanat 875-125 MG 875-125 MG e 875-125 MG Clobetasol Clobetasol No 1{appli BID Clobetasol Propionate Propionate cation_ Propionate 0.05 % 0.05 % to_affe 0.05 % cted_ar ea} Vitamin D-3 Vitamin D-3 No Vitamin D-3 Omeprazole Omeprazole No Omeprazole 40 MG 40 MG 40 MG Prevalite 4 Prevalite 4 No 1{packe BID Prevalite GM GM t} 4 GM Atorvastati Atorvastati No QD Atorvastat n Calcium n Calcium in Calcium 10 MG 10 MG 10 MG tiZANidine tiZANidine No 1{table TID tiZANidine HCl 4 MG HCl 4 MG t_as_ne HCl 4 MG eded} Amoxicillin Amoxicillin No 1{table BID Amoxicilli -Pot -Pot t} n-Pot Clavulanate Clavulanate Clavulanat 875-125 MG 875-125 MG e 875-125 MG Ibuprofen Ibuprofen No TID Ibuprofen 800 MG 800 MG 800 MG Hemocyte Hemocyte No Hemocyte Plus 106-1 Plus 106-1 Plus 106-1 MG MG MG Lisinopril Lisinopril No QD Lisinopril 2.5 MG 2.5 MG 2.5 MG Singulair Singulair No 1{table QD Singulair 10 MG 10 MG t} 10 MG Xeljanz 10 Xeljanz 10 No 1{table QD Xeljanz 10 MG MG t} MG Metoprolol Metoprolol No BID Metoprolol Tartrate 25 Tartrate 25 Tartrate MG MG 25 MG Gabapentin Gabapentin No 1{table TID Gabapentin 600 MG 600 MG t} 600 MG Vitamin C Vitamin C No Vitamin C Folic Acid Folic Acid No 1{table QD Folic Acid 1 MG 1 MG t} 1 MG Montelukast Montelukast No Montelukas Sodium 10 Sodium 10 t Sodium MG MG 10 MG Mesalamine Mesalamine No 2{table QD Mesalamine 1.2 GM 1.2 GM ts} 1.2 GM metFORMIN metFORMIN No QD metFORMIN HCl 1000 MG HCl 1000 MG HCl 1000 MG metFORMIN metFORMIN No QD metFORMIN HCl 1000 MG HCl 1000 MG HCl 1000 MG Mesalamine Mesalamine No 2{table QD Mesalamine 1.2 GM 1.2 GM ts} 1.2 GM Metoprolol Metoprolol No BID Metoprolol Tartrate 25 Tartrate 25 Tartrate MG MG 25 MG Prevalite 4 Prevalite 4 No 1{packe BID Prevalite GM GM t} 4 GM Amoxicillin Amoxicillin No 1{table BID Amoxicilli -Pot -Pot t} n-Pot Clavulanate Clavulanate Clavulanat 875-125 MG 875-125 MG e 875-125 MG Clobetasol Clobetasol No 1{appli BID Clobetasol Propionate Propionate cation_ Propionate 0.05 % 0.05 % to_affe 0.05 % cted_ar ea} Vitamin D-3 Vitamin D-3 No Vitamin D-3 Montelukast Montelukast No Montelukas Sodium 10 Sodium 10 t Sodium MG MG 10 MG tiZANidine tiZANidine No 1{table TID tiZANidine HCl 4 MG HCl 4 MG t_as_ne HCl 4 MG eded} Gabapentin Gabapentin No 1{table TID Gabapentin 600 MG 600 MG t} 600 MG Hemocyte Hemocyte No Hemocyte Plus 106-1 Plus 106-1 Plus 106-1 MG MG MG Folic Acid Folic Acid No 1{table QD Folic Acid 1 MG 1 MG t} 1 MG predniSONE predniSONE No 1{table predniSONE 20 MG 20 MG t_with_ 20 MG food_or _milk} Omeprazole Omeprazole No Omeprazole 40 MG 40 MG 40 MG Lisinopril Lisinopril No QD Lisinopril 2.5 MG 2.5 MG 2.5 MG Ibuprofen Ibuprofen No TID Ibuprofen 800 MG 800 MG 800 MG Vitamin C Vitamin C No Vitamin C Atorvastati Atorvastati No QD Atorvastat n Calcium n Calcium in Calcium 10 MG 10 MG 10 MG Xeljanz 10 Xeljanz 10 No 1{table QD Xeljanz 10 MG MG t} MG Singulair Singulair No 1{table QD Singulair 10 MG 10 MG t} 10 MG Singulair Singulair No 1{table QD Singulair 10 MG 10 MG t} 10 MG Montelukast Montelukast No Montelukas Sodium 10 Sodium 10 t Sodium MG MG 10 MG Omeprazole Omeprazole No Omeprazole 40 MG 40 MG 40 MG Hemocyte Hemocyte No Hemocyte Plus 106-1 Plus 106-1 Plus 106-1 MG MG MG metFORMIN metFORMIN No QD metFORMIN HCl 1000 MG HCl 1000 MG HCl 1000 MG Clobetasol Clobetasol No 1{appli BID Clobetasol Propionate Propionate cation_ Propionate 0.05 % 0.05 % to_affe 0.05 % cted_ar ea} Lisinopril Lisinopril No QD Lisinopril 2.5 MG 2.5 MG 2.5 MG Mesalamine Mesalamine No 2{table QD Mesalamine 1.2 GM 1.2 GM ts} 1.2 GM predniSONE predniSONE No 1{table predniSONE 20 MG 20 MG t_with_ 20 MG food_or _milk} Vitamin C Vitamin C No Vitamin C tiZANidine tiZANidine No 1{table TID tiZANidine HCl 4 MG HCl 4 MG t_as_ne HCl 4 MG eded} Gabapentin Gabapentin No 1{table TID Gabapentin 600 MG 600 MG t} 600 MG Metoprolol Metoprolol No BID Metoprolol Tartrate 25 Tartrate 25 Tartrate MG MG 25 MG Amoxicillin Amoxicillin No 1{table BID Amoxicilli -Pot -Pot t} n-Pot Clavulanate Clavulanate Clavulanat 875-125 MG 875-125 MG e 875-125 MG Xeljanz 10 Xeljanz 10 No 1{table QD Xeljanz 10 MG MG t} MG Vitamin D-3 Vitamin D-3 No Vitamin D-3 Prevalite 4 Prevalite 4 No 1{packe BID Prevalite GM GM t} 4 GM Ibuprofen Ibuprofen No TID Ibuprofen 800 MG 800 MG 800 MG Atorvastati Atorvastati No QD Atorvastat n Calcium n Calcium in Calcium 10 MG 10 MG 10 MG Folic Acid Folic Acid No 1{table QD Folic Acid 1 MG 1 MG t} 1 MG Singulair Singulair No 1{table QD Singulair 10 MG 10 MG t} 10 MG Montelukast Montelukast No Montelukas Sodium 10 Sodium 10 t Sodium MG MG 10 MG Omeprazole Omeprazole No Omeprazole 40 MG 40 MG 40 MG Hemocyte Hemocyte No Hemocyte Plus 106-1 Plus 106-1 Plus 106-1 MG MG MG metFORMIN metFORMIN No QD metFORMIN HCl 1000 MG HCl 1000 MG HCl 1000 MG Clobetasol Clobetasol No 1{appli BID Clobetasol Propionate Propionate cation_ Propionate 0.05 % 0.05 % to_affe 0.05 % cted_ar ea} Lisinopril Lisinopril No QD Lisinopril 2.5 MG 2.5 MG 2.5 MG Mesalamine Mesalamine No 2{table QD Mesalamine 1.2 GM 1.2 GM ts} 1.2 GM predniSONE predniSONE No 1{table predniSONE 20 MG 20 MG t_with_ 20 MG food_or _milk} Vitamin C Vitamin C No Vitamin C tiZANidine tiZANidine No 1{table TID tiZANidine HCl 4 MG HCl 4 MG t_as_ne HCl 4 MG eded} Gabapentin Gabapentin No 1{table TID Gabapentin 600 MG 600 MG t} 600 MG Metoprolol Metoprolol No BID Metoprolol Tartrate 25 Tartrate 25 Tartrate MG MG 25 MG Amoxicillin Amoxicillin No 1{table BID Amoxicilli -Pot -Pot t} n-Pot Clavulanate Clavulanate Clavulanat 875-125 MG 875-125 MG e 875-125 MG Xeljanz 10 Xeljanz 10 No 1{table QD Xeljanz 10 MG MG t} MG Vitamin D-3 Vitamin D-3 No Vitamin D-3 Prevalite 4 Prevalite 4 No 1{packe BID Prevalite GM GM t} 4 GM Ibuprofen Ibuprofen No TID Ibuprofen 800 MG 800 MG 800 MG Atorvastati Atorvastati No QD Atorvastat n Calcium n Calcium in Calcium 10 MG 10 MG 10 MG Folic Acid Folic Acid No 1{table QD Folic Acid 1 MG 1 MG t} 1 MG Singulair Singulair No 1{table QD Singulair 10 MG 10 MG t} 10 MG Montelukast Montelukast No Montelukas Sodium 10 Sodium 10 t Sodium MG MG 10 MG Omeprazole Omeprazole No Omeprazole 40 MG 40 MG 40 MG Hemocyte Hemocyte No Hemocyte Plus 106-1 Plus 106-1 Plus 106-1 MG MG MG metFORMIN metFORMIN No QD metFORMIN HCl 1000 MG HCl 1000 MG HCl 1000 MG Clobetasol Clobetasol No 1{appli BID Clobetasol Propionate Propionate cation_ Propionate 0.05 % 0.05 % to_affe 0.05 % cted_ar ea} Lisinopril Lisinopril No QD Lisinopril 2.5 MG 2.5 MG 2.5 MG Mesalamine Mesalamine No 2{table QD Mesalamine 1.2 GM 1.2 GM ts} 1.2 GM predniSONE predniSONE No 1{table predniSONE 20 MG 20 MG t_with_ 20 MG food_or _milk} Vitamin C Vitamin C No Vitamin C tiZANidine tiZANidine No 1{table TID tiZANidine HCl 4 MG HCl 4 MG t_as_ne HCl 4 MG eded} Gabapentin Gabapentin No 1{table TID Gabapentin 600 MG 600 MG t} 600 MG Metoprolol Metoprolol No BID Metoprolol Tartrate 25 Tartrate 25 Tartrate MG MG 25 MG Amoxicillin Amoxicillin No 1{table BID Amoxicilli -Pot -Pot t} n-Pot Clavulanate Clavulanate Clavulanat 875-125 MG 875-125 MG e 875-125 MG Xeljanz 10 Xeljanz 10 No 1{table QD Xeljanz 10 MG MG t} MG Vitamin D-3 Vitamin D-3 No Vitamin D-3 Prevalite 4 Prevalite 4 No 1{packe BID Prevalite GM GM t} 4 GM Ibuprofen Ibuprofen No TID Ibuprofen 800 MG 800 MG 800 MG Atorvastati Atorvastati No QD Atorvastat n Calcium n Calcium in Calcium 10 MG 10 MG 10 MG Folic Acid Folic Acid No 1{table QD Folic Acid 1 MG 1 MG t} 1 MG Clobetasol Clobetasol No 1{appli BID Clobetasol Propionate Propionate cation_ Propionate 0.05 % 0.05 % to_affe 0.05 % cted_ar ea} Lisinopril Lisinopril No QD Lisinopril 2.5 MG 2.5 MG 2.5 MG Singulair Singulair No 1{table QD Singulair 10 MG 10 MG t} 10 MG Montelukast Montelukast No Montelukas Sodium 10 Sodium 10 t Sodium MG MG 10 MG metFORMIN metFORMIN No QD metFORMIN HCl 1000 MG HCl 1000 MG HCl 1000 MG Metoprolol Metoprolol No BID Metoprolol Tartrate 25 Tartrate 25 Tartrate MG MG 25 MG Gabapentin Gabapentin No 1{table TID Gabapentin 600 MG 600 MG t} 600 MG Mesalamine Mesalamine No 2{table QD Mesalamine 1.2 GM 1.2 GM ts} 1.2 GM Xeljanz 10 Xeljanz 10 No 1{table QD Xeljanz 10 MG MG t} MG Amoxicillin Amoxicillin No 1{table BID Amoxicilli -Pot -Pot t} n-Pot Clavulanate Clavulanate Clavulanat 875-125 MG 875-125 MG e 875-125 MG Vitamin D-3 Vitamin D-3 No Vitamin D-3 Vitamin C Vitamin C No Vitamin C Hemocyte Hemocyte No Hemocyte Plus 106-1 Plus 106-1 Plus 106-1 MG MG MG tiZANidine tiZANidine No 1{table TID tiZANidine HCl 4 MG HCl 4 MG t_as_ne HCl 4 MG eded} Omeprazole Omeprazole No Omeprazole 40 MG 40 MG 40 MG predniSONE predniSONE No 1{table predniSONE 20 MG 20 MG t_with_ 20 MG food_or _milk} Atorvastati Atorvastati No QD Atorvastat n Calcium n Calcium in Calcium 10 MG 10 MG 10 MG Prevalite 4 Prevalite 4 No 1{packe BID Prevalite GM GM t} 4 GM Ibuprofen Ibuprofen No TID Ibuprofen 800 MG 800 MG 800 MG Folic Acid Folic Acid No 1{table QD Folic Acid 1 MG 1 MG t} 1 MG Gabapentin Gabapentin No 1{table TID Gabapentin 600 MG 600 MG t} 600 MG Singulair Singulair No 1{table QD Singulair 10 MG 10 MG t} 10 MG Amoxicillin Amoxicillin No 1{table BID Amoxicilli -Pot -Pot t} n-Pot Clavulanate Clavulanate Clavulanat 875-125 MG 875-125 MG e 875-125 MG metFORMIN metFORMIN No QD metFORMIN HCl 1000 MG HCl 1000 MG HCl 1000 MG Vitamin C Vitamin C No Vitamin C tiZANidine tiZANidine No 1{table TID tiZANidine HCl 4 MG HCl 4 MG t_as_ne HCl 4 MG eded} Hemocyte Hemocyte No Hemocyte Plus 106-1 Plus 106-1 Plus 106-1 MG MG MG Atorvastati Atorvastati No QD Atorvastat n Calcium n Calcium in Calcium 10 MG 10 MG 10 MG Montelukast Montelukast No Montelukas Sodium 10 Sodium 10 t Sodium MG MG 10 MG Clobetasol Clobetasol No 1{appli BID Clobetasol Propionate Propionate cation_ Propionate 0.05 % 0.05 % to_affe 0.05 % cted_ar ea} Ibuprofen Ibuprofen No TID Ibuprofen 800 MG 800 MG 800 MG Vitamin D-3 Vitamin D-3 No Vitamin D-3 Metoprolol Metoprolol No BID Metoprolol Tartrate 25 Tartrate 25 Tartrate MG MG 25 MG Prevalite 4 Prevalite 4 No 1{packe BID Prevalite GM GM t} 4 GM Lisinopril Lisinopril No QD Lisinopril 2.5 MG 2.5 MG 2.5 MG predniSONE predniSONE No 1{table predniSONE 20 MG 20 MG t_with_ 20 MG food_or _milk} Xeljanz 10 Xeljanz 10 No 1{table QD Xeljanz 10 MG MG t} MG Omeprazole Omeprazole No Omeprazole 40 MG 40 MG 40 MG Folic Acid Folic Acid No 1{table QD Folic Acid 1 MG 1 MG t} 1 MG Mesalamine Mesalamine No 2{table QD Mesalamine 1.2 GM 1.2 GM ts} 1.2 GM Gabapentin Gabapentin No 1{table TID Gabapentin 600 MG 600 MG t} 600 MG metFORMIN metFORMIN No QD metFORMIN HCl 1000 MG HCl 1000 MG HCl 1000 MG Vitamin D-3 Vitamin D-3 No Vitamin D-3 Lisinopril Lisinopril No QD Lisinopril 2.5 MG 2.5 MG 2.5 MG Folic Acid Folic Acid No 1{table QD Folic Acid 1 MG 1 MG t} 1 MG Vitamin C Vitamin C No Vitamin C Omeprazole Omeprazole No Omeprazole 40 MG 40 MG 40 MG Atorvastati Atorvastati No QD Atorvastat n Calcium n Calcium in Calcium 10 MG 10 MG 10 MG Mesalamine Mesalamine No 2{table QD Mesalamine 1.2 GM 1.2 GM ts} 1.2 GM Xeljanz 10 Xeljanz 10 No 1{table QD Xeljanz 10 MG MG t} MG Hemocyte Hemocyte No Hemocyte Plus 106-1 Plus 106-1 Plus 106-1 MG MG MG tiZANidine tiZANidine No 1{table TID tiZANidine HCl 4 MG HCl 4 MG t_as_ne HCl 4 MG eded} Prevalite 4 Prevalite 4 No 1{packe BID Prevalite GM GM t} 4 GM Montelukast Montelukast No Montelukas Sodium 10 Sodium 10 t Sodium MG MG 10 MG Trelegy Trelegy No 1{puff} QD Trelegy Ellipta Ellipta Ellipta 100-62.5-25 100-62.5-25 100-62.5-2 MCG/INH MCG/INH 5 MCG/INH predniSONE predniSONE No 1{table predniSONE 20 MG 20 MG t_with_ 20 MG food_or _milk} Ibuprofen Ibuprofen No TID Ibuprofen 800 MG 800 MG 800 MG Amoxicillin Amoxicillin No 1{table BID Amoxicilli -Pot -Pot t} n-Pot Clavulanate Clavulanate Clavulanat 875-125 MG 875-125 MG e 875-125 MG Metoprolol Metoprolol No BID Metoprolol Tartrate 25 Tartrate 25 Tartrate MG MG 25 MG Clobetasol Clobetasol No 1{appli BID Clobetasol Propionate Propionate cation_ Propionate 0.05 % 0.05 % to_affe 0.05 % cted_ar ea} Singulair Singulair No 1{table QD Singulair 10 MG 10 MG t} 10 MG Gabapentin Gabapentin No 1{table TID Gabapentin 600 MG 600 MG t} 600 MG metFORMIN metFORMIN No QD metFORMIN HCl 1000 MG HCl 1000 MG HCl 1000 MG Vitamin D-3 Vitamin D-3 No Vitamin D-3 Lisinopril Lisinopril No QD Lisinopril 2.5 MG 2.5 MG 2.5 MG Folic Acid Folic Acid No 1{table QD Folic Acid 1 MG 1 MG t} 1 MG Vitamin C Vitamin C No Vitamin C Omeprazole Omeprazole No Omeprazole 40 MG 40 MG 40 MG Atorvastati Atorvastati No QD Atorvastat n Calcium n Calcium in Calcium 10 MG 10 MG 10 MG Mesalamine Mesalamine No 2{table QD Mesalamine 1.2 GM 1.2 GM ts} 1.2 GM Xeljanz 10 Xeljanz 10 No 1{table QD Xeljanz 10 MG MG t} MG Hemocyte Hemocyte No Hemocyte Plus 106-1 Plus 106-1 Plus 106-1 MG MG MG tiZANidine tiZANidine No 1{table TID tiZANidine HCl 4 MG HCl 4 MG t_as_ne HCl 4 MG eded} Prevalite 4 Prevalite 4 No 1{packe BID Prevalite GM GM t} 4 GM Montelukast Montelukast No Montelukas Sodium 10 Sodium 10 t Sodium MG MG 10 MG Trelegy Trelegy No 1{puff} QD Trelegy Ellipta Ellipta Ellipta 100-62.5-25 100-62.5-25 100-62.5-2 MCG/INH MCG/INH 5 MCG/INH predniSONE predniSONE No 1{table predniSONE 20 MG 20 MG t_with_ 20 MG food_or _milk} Ibuprofen Ibuprofen No TID Ibuprofen 800 MG 800 MG 800 MG Amoxicillin Amoxicillin No 1{table BID Amoxicilli -Pot -Pot t} n-Pot Clavulanate Clavulanate Clavulanat 875-125 MG 875-125 MG e 875-125 MG Metoprolol Metoprolol No BID Metoprolol Tartrate 25 Tartrate 25 Tartrate MG MG 25 MG Clobetasol Clobetasol No 1{appli BID Clobetasol Propionate Propionate cation_ Propionate 0.05 % 0.05 % to_affe 0.05 % cted_ar ea} Singulair Singulair No 1{table QD Singulair 10 MG 10 MG t} 10 MG Gabapentin Gabapentin No 1{table TID Gabapentin 600 MG 600 MG t} 600 MG metFORMIN metFORMIN No QD metFORMIN HCl 1000 MG HCl 1000 MG HCl 1000 MG Vitamin D-3 Vitamin D-3 No Vitamin D-3 Lisinopril Lisinopril No QD Lisinopril 2.5 MG 2.5 MG 2.5 MG Vitamin C Vitamin C No Vitamin C Folic Acid Folic Acid No 1{table QD Folic Acid 1 MG 1 MG t} 1 MG Omeprazole Omeprazole No Omeprazole 40 MG 40 MG 40 MG Atorvastati Atorvastati No QD Atorvastat n Calcium n Calcium in Calcium 10 MG 10 MG 10 MG Mesalamine Mesalamine No 2{table QD Mesalamine 1.2 GM 1.2 GM ts} 1.2 GM Xeljanz 10 Xeljanz 10 No 1{table QD Xeljanz 10 MG MG t} MG Hemocyte Hemocyte No Hemocyte Plus 106-1 Plus 106-1 Plus 106-1 MG MG MG tiZANidine tiZANidine No 1{table TID tiZANidine HCl 4 MG HCl 4 MG t_as_ne HCl 4 MG eded} Prevalite 4 Prevalite 4 No 1{packe BID Prevalite GM GM t} 4 GM Montelukast Montelukast No Montelukas Sodium 10 Sodium 10 t Sodium MG MG 10 MG Trelegy Trelegy No 1{puff} QD Trelegy Ellipta Ellipta Ellipta 100-62.5-25 100-62.5-25 100-62.5-2 MCG/INH MCG/INH 5 MCG/INH predniSONE predniSONE No 1{table predniSONE 20 MG 20 MG t_with_ 20 MG food_or _milk} Ibuprofen Ibuprofen No TID Ibuprofen 800 MG 800 MG 800 MG Amoxicillin Amoxicillin No 1{table BID Amoxicilli -Pot -Pot t} n-Pot Clavulanate Clavulanate Clavulanat 875-125 MG 875-125 MG e 875-125 MG Metoprolol Metoprolol No BID Metoprolol Tartrate 25 Tartrate 25 Tartrate MG MG 25 MG Clobetasol Clobetasol No 1{appli BID Clobetasol Propionate Propionate cation_ Propionate 0.05 % 0.05 % to_affe 0.05 % cted_ar ea} Singulair Singulair No 1{table QD Singulair 10 MG 10 MG t} 10 MG metFORMIN metFORMIN No QD metFORMIN HCl 1000 MG HCl 1000 MG HCl 1000 MG Vitamin D-3 Vitamin D-3 No Vitamin D-3 Hemocyte Hemocyte No Hemocyte Plus 106-1 Plus 106-1 Plus 106-1 MG MG MG Mesalamine Mesalamine No 2{table QD Mesalamine 1.2 GM 1.2 GM ts} 1.2 GM Prevalite 4 Prevalite 4 No 1{packe BID Prevalite GM GM t} 4 GM Montelukast Montelukast No Montelukas Sodium 10 Sodium 10 t Sodium MG MG 10 MG tiZANidine tiZANidine No 1{table TID tiZANidine HCl 4 MG HCl 4 MG t_as_ne HCl 4 MG eded} Omeprazole Omeprazole No Omeprazole 40 MG 40 MG 40 MG Atorvastati Atorvastati No QD Atorvastat n Calcium n Calcium in Calcium 10 MG 10 MG 10 MG Singulair Singulair No 1{table QD Singulair 10 MG 10 MG t} 10 MG Metoprolol Metoprolol No BID Metoprolol Tartrate 25 Tartrate 25 Tartrate MG MG 25 MG Folic Acid Folic Acid Yes Shara 2-3 Co mmon [place] tablets as [facility] needed for - [facility] mouth [facility] Vitamin C Vitamin C Yes Shara not Comm on [place] defined [facility] Vitamin D-3 Vitamin D-3 Yes Shara not Common [place] defined [facility] Atorvastati Atorvastati Yes Shara 1 tablet Common n Calcium n Calcium [place] [facility] Gabapentin Gabapentin Yes Shara 1 tablet Common [facility] Tizanidine Tizanidine Yes Shara 1 tablet Common HCl HCl [place] as needed [facility] Prevalite Prevalite Yes Shara 1 packet Common [place] [facility] Lisinopril Lisinopril Yes Shara 1 tablet Common [place] [facility] Singulair Singulair Yes Shara 1 tablet Common [place] [facility] Amoxicillin Amoxicillin Yes Shara 1 tablet Common -Pot -Pot [place] [facility] Clavulanate Clavulanate [facility] Atorvastati Atorvastati Yes Shara 1 tablet Common n Calcium n Calcium [place] [facility] Xeljanz Xeljanz Yes Shara 1 tablet Comm on [place] [facility] Metformin Metformin Yes Shara TAKE 1 Co mmon HCl HCl [place] TABLET BY Spirit MOUTH ONCE - [facility] DAILY WITH A [facility] Metformin Metformin Yes Shara 1 tablet Common HCl HCl [place] with a Spirit meal - [facility] Lisinopril Lisinopril Yes Shara TAKE 1 Common [place] TABLET BY Spirit MOUTH ONCE - [facility] DAILY [facility] Mesalamine Mesalamine Yes Shara 2 tablets Common [place] [facility] Lisinopril Lisinopril No QD Lisinopril 2.5 MG 2.5 MG 2.5 MG Vitamin C Vitamin C No Vitamin C predniSONE predniSONE No 1{table predniSONE 20 MG 20 MG t_with_ 20 MG food_or _milk} Gabapentin Gabapentin No 1{table TID Gabapentin 600 MG 600 MG t} 600 MG Folic Acid Folic Acid No 1{table QD Folic Acid 1 MG 1 MG t} 1 MG Xeljanz 10 Xeljanz 10 No 1{table QD Xeljanz 10 MG MG t} MG Clobetasol Clobetasol No 1{appli BID Clobetasol Propionate Propionate cation_ Propionate 0.05 % 0.05 % to_affe 0.05 % cted_ar ea} Ibuprofen Ibuprofen No TID Ibuprofen 800 MG 800 MG 800 MG Amoxicillin Amoxicillin No 1{table BID Amoxicilli -Pot -Pot t} n-Pot Clavulanate Clavulanate Clavulanat 875-125 MG 875-125 MG e 875-125 MG Trelegy Trelegy No 1{puff} QD Trelegy Ellipta Ellipta Ellipta 100-62.5-25 100-62.5-25 100-62.5-2 MCG/INH MCG/INH 5 MCG/INH Metoprolol Metoprolol No BID Metoprolol Tartrate 25 Tartrate 25 Tartrate MG MG 25 MG Lisinopril Lisinopril No QD Lisinopril 2.5 MG 2.5 MG 2.5 MG Montelukast Montelukast No Montelukas Sodium 10 Sodium 10 t Sodium MG MG 10 MG predniSONE predniSONE No 1{table predniSONE 20 MG 20 MG t_with_ 20 MG food_or _milk} tiZANidine tiZANidine No 1{table TID tiZANidine HCl 4 MG HCl 4 MG t_as_ne HCl 4 MG eded} Clobetasol Clobetasol No 1{appli BID Clobetasol Propionate Propionate cation_ Propionate 0.05 % 0.05 % to_affe 0.05 % cted_ar ea} Ibuprofen Ibuprofen No TID Ibuprofen 800 MG 800 MG 800 MG Atorvastati Atorvastati No QD Atorvastat n Calcium n Calcium in Calcium 10 MG 10 MG 10 MG Amoxicillin Amoxicillin No 1{table BID Amoxicilli -Pot -Pot t} n-Pot Clavulanate Clavulanate Clavulanat 875-125 MG 875-125 MG e 875-125 MG Gabapentin Gabapentin No 1{table TID Gabapentin 600 MG 600 MG t} 600 MG Singulair Singulair No 1{table QD Singulair 10 MG 10 MG t} 10 MG Prevalite 4 Prevalite 4 No 1{packe BID Prevalite GM GM t} 4 GM Omeprazole Omeprazole No Omeprazole 40 MG 40 MG 40 MG Vitamin C Vitamin C No Vitamin C Hemocyte Hemocyte No Hemocyte Plus 106-1 Plus 106-1 Plus 106-1 MG MG MG Folic Acid Folic Acid No 1{table QD Folic Acid 1 MG 1 MG t} 1 MG Trelegy Trelegy No 1{puff} QD Trelegy Ellipta Ellipta Ellipta 100-62.5-25 100-62.5-25 100-62.5-2 MCG/INH MCG/INH 5 MCG/INH metFORMIN metFORMIN No QD metFORMIN HCl 1000 MG HCl 1000 MG HCl 1000 MG Vitamin D-3 Vitamin D-3 No Vitamin D-3 Mesalamine Mesalamine No 2{table QD Mesalamine 1.2 GM 1.2 GM ts} 1.2 GM Xeljanz 10 Xeljanz 10 No 1{table QD Xeljanz 10 MG MG t} MG metFORMIN metFORMIN No QD metFORMIN HCl 1000 MG HCl 1000 MG HCl 1000 MG Vitamin D-3 Vitamin D-3 No Vitamin D-3 Hemocyte Hemocyte No Hemocyte Plus 106-1 Plus 106-1 Plus 106-1 MG MG MG Mesalamine Mesalamine No 2{table QD Mesalamine 1.2 GM 1.2 GM ts} 1.2 GM Prevalite 4 Prevalite 4 No 1{packe BID Prevalite GM GM t} 4 GM Montelukast Montelukast No Montelukas Sodium 10 Sodium 10 t Sodium MG MG 10 MG tiZANidine tiZANidine No 1{table TID tiZANidine HCl 4 MG HCl 4 MG t_as_ne HCl 4 MG eded} Omeprazole Omeprazole No Omeprazole 40 MG 40 MG 40 MG Atorvastati Atorvastati No QD Atorvastat n Calcium n Calcium in Calcium 10 MG 10 MG 10 MG Singulair Singulair No 1{table QD Singulair 10 MG 10 MG t} 10 MG Metoprolol Metoprolol No BID Metoprolol Tartrate 25 Tartrate 25 Tartrate MG MG 25 MG Lisinopril Lisinopril No QD Lisinopril 2.5 MG 2.5 MG 2.5 MG Vitamin C Vitamin C No Vitamin C predniSONE predniSONE No 1{table predniSONE 20 MG 20 MG t_with_ 20 MG food_or _milk} Gabapentin Gabapentin No 1{table TID Gabapentin 600 MG 600 MG t} 600 MG Folic Acid Folic Acid No 1{table QD Folic Acid 1 MG 1 MG t} 1 MG Xeljanz 10 Xeljanz 10 No 1{table QD Xeljanz 10 MG MG t} MG Clobetasol Clobetasol No 1{appli BID Clobetasol Propionate Propionate cation_ Propionate 0.05 % 0.05 % to_affe 0.05 % cted_ar ea} Ibuprofen Ibuprofen No TID Ibuprofen 800 MG 800 MG 800 MG Amoxicillin Amoxicillin No 1{table BID Amoxicilli -Pot -Pot t} n-Pot Clavulanate Clavulanate Clavulanat 875-125 MG 875-125 MG e 875-125 MG Trelegy Trelegy No 1{puff} QD Trelegy Ellipta Ellipta Ellipta 100-62.5-25 100-62.5-25 100-62.5-2 MCG/INH MCG/INH 5 MCG/INH Xeljanz 10 Xeljanz 10 No 1{table QD Xeljanz 10 MG MG t} MG Amoxicillin Amoxicillin No 1{table BID Amoxicilli -Pot -Pot t} n-Pot Clavulanate Clavulanate Clavulanat 875-125 MG 875-125 MG e 875-125 MG Albuterol Albuterol No 2{puffs Albuterol Sulfate HFA Sulfate HFA } Sulfate 108 (90 108 (90 HFA 108 Base) Base) (90 Base) MCG/ACT MCG/ACT MCG/ACT Vitamin C Vitamin C No Vitamin C Prevalite 4 Prevalite 4 No 1{packe BID Prevalite GM GM t} 4 GM Benzonatate Benzonatate No 1{capsu TID Benzonatat 200 MG 200 MG le_as_n e 200 MG eeded} Singulair Singulair No 1{table QD Singulair 10 MG 10 MG t} 10 MG Mesalamine Mesalamine No 2{table QD Mesalamine 1.2 GM 1.2 GM ts} 1.2 GM Metoprolol Metoprolol No BID Metoprolol Tartrate 25 Tartrate 25 Tartrate MG MG 25 MG Folic Acid Folic Acid No QD Folic Acid 1 MG 1 MG 1 MG metFORMIN metFORMIN No 1{table QD metFORMIN HCl 1000 MG HCl 1000 MG t_with_ HCl 1000 a_meal} MG Omeprazole Omeprazole No Omeprazole 40 MG 40 MG 40 MG Vitamin D-3 Vitamin D-3 No Vitamin D-3 Montelukast Montelukast No Montelukas Sodium 10 Sodium 10 t Sodium MG MG 10 MG tiZANidine tiZANidine No 1{table TID tiZANidine HCl 4 MG HCl 4 MG t_as_ne HCl 4 MG eded} Atorvastati Atorvastati No Atorvastat n Calcium n Calcium in Calcium 10 MG 10 MG 10 MG Clobetasol Clobetasol No 1{appli BID Clobetasol Propionate Propionate cation_ Propionate 0.05 % 0.05 % to_affe 0.05 % cted_ar ea} Gabapentin Gabapentin No 1{table TID Gabapentin 600 MG 600 MG t} 600 MG Xeljanz 10 Xeljanz 10 No 1{table QD Xeljanz 10 MG MG t} MG Amoxicillin Amoxicillin No 1{table BID Amoxicilli -Pot -Pot t} n-Pot Clavulanate Clavulanate Clavulanat 875-125 MG 875-125 MG e 875-125 MG Albuterol Albuterol No 2{puffs Albuterol Sulfate HFA Sulfate HFA } Sulfate 108 (90 108 (90 HFA 108 Base) Base) (90 Base) MCG/ACT MCG/ACT MCG/ACT Vitamin C Vitamin C No Vitamin C Prevalite 4 Prevalite 4 No 1{packe BID Prevalite GM GM t} 4 GM Prevalite 4 Prevalite 4 Yes U T GM Oral GM Oral Physici Packet Packet ans Benzonatate Benzonatate No 1{capsu TID Benzonatat 200 MG 200 MG le_as_n e 200 MG eeded} Singulair Singulair No 1{table QD Singulair 10 MG 10 MG t} 10 MG Mesalamine Mesalamine No 2{table QD Mesalamine 1.2 GM 1.2 GM ts} 1.2 GM Clobetasol Clobetasol No 1{appli BID Clobetasol Propionate Propionate cation_ Propionate 0.05 % 0.05 % to_affe 0.05 % cted_ar ea} Folic Acid Folic Acid No QD Folic Acid 1 MG 1 MG 1 MG Montelukast Montelukast No Montelukas Sodium 10 Sodium 10 t Sodium MG MG 10 MG Omeprazole Omeprazole No Omeprazole 40 MG 40 MG 40 MG Vitamin D-3 Vitamin D-3 No Vitamin D-3 Metoprolol Metoprolol No BID Metoprolol Tartrate 25 Tartrate 25 Tartrate MG MG 25 MG tiZANidine tiZANidine No 1{table TID tiZANidine HCl 4 MG HCl 4 MG t_as_ne HCl 4 MG eded} Atorvastati Atorvastati No Atorvastat n Calcium n Calcium in Calcium 10 MG 10 MG 10 MG Gabapentin Gabapentin No 1{table TID Gabapentin 600 MG 600 MG t} 600 MG metFORMIN metFORMIN No metFORMIN HCl 1000 MG HCl 1000 MG HCl 1000 MG Xeljanz 10 Xeljanz 10 No 1{table QD Xeljanz 10 MG MG t} MG Amoxicillin Amoxicillin No 1{table BID Amoxicilli -Pot -Pot t} n-Pot Clavulanate Clavulanate Clavulanat 875-125 MG 875-125 MG e 875-125 MG Albuterol Albuterol No 2{puffs Albuterol Sulfate HFA Sulfate HFA } Sulfate 108 (90 108 (90 HFA 108 Base) Base) (90 Base) MCG/ACT MCG/ACT MCG/ACT Vitamin C Vitamin C No Vitamin C Prevalite 4 Prevalite 4 No 1{packe BID Prevalite GM GM t} 4 GM Benzonatate Benzonatate No 1{capsu TID Benzonatat 200 MG 200 MG le_as_n e 200 MG eeded} Singulair Singulair No 1{table QD Singulair 10 MG 10 MG t} 10 MG Mesalamine Mesalamine Yes UT 1.2 GM Oral 1.2 GM Oral P hysici Tablet Tablet ans Delayed Delayed Release Release Mesalamine Mesalamine No 2{table QD Mesalamine 1.2 GM 1.2 GM ts} 1.2 GM Clobetasol Clobetasol No 1{appli BID Clobetasol Propionate Propionate cation_ Propionate 0.05 % 0.05 % to_affe 0.05 % cted_ar ea} Folic Acid Folic Acid No QD Folic Acid 1 MG 1 MG 1 MG Montelukast Montelukast No Montelukas Sodium 10 Sodium 10 t Sodium MG MG 10 MG Omeprazole Omeprazole No Omeprazole 40 MG 40 MG 40 MG Vitamin D-3 Vitamin D-3 No Vitamin D-3 Metoprolol Metoprolol No BID Metoprolol Tartrate 25 Tartrate 25 Tartrate MG MG 25 MG tiZANidine tiZANidine No 1{table TID tiZANidine HCl 4 MG HCl 4 MG t_as_ne HCl 4 MG eded} Atorvastati Atorvastati No Atorvastat n Calcium n Calcium in Calcium 10 MG 10 MG 10 MG Gabapentin Gabapentin No 1{table TID Gabapentin 600 MG 600 MG t} 600 MG metFORMIN metFORMIN No metFORMIN HCl 1000 MG HCl 1000 MG HCl 1000 MG Xeljanz 10 Xeljanz 10 No 1{table QD MG MG t} Amoxicillin Amoxicillin No 1{table BID -Pot -Pot t} Clavulanate Clavulanate 875-125 MG 875-125 MG Albuterol Albuterol No 2{puffs Sulfate HFA Sulfate HFA } 108 (90 108 (90 Base) Base) MCG/ACT MCG/ACT Vitamin C Vitamin C No Prevalite 4 Prevalite 4 No 1{packe BID GM GM t} Benzonatate Benzonatate No 1{capsu TID 200 MG 200 MG le_as_n eeded} Singulair Singulair No 1{table QD 10 MG 10 MG t} Mesalamine Mesalamine No 2{table QD 1.2 GM 1.2 GM ts} Clobetasol Clobetasol No 1{appli BID Propionate Propionate cation_ 0.05 % 0.05 % to_affe cted_ar ea} metFORMIN metFORMIN Yes UT HCl ER HCl ER Physici (MOD) 1000 (MOD) 1000 ans MG Oral MG Oral Tablet Tablet Extended Extended Release 24 Release 24 Hour Hour Folic Acid Folic Acid No QD 1 MG 1 MG Montelukast Montelukast No Sodium 10 Sodium 10 MG MG Omeprazole Omeprazole No 40 MG 40 MG Vitamin D-3 Vitamin D-3 No Metoprolol Metoprolol No BID Tartrate 25 Tartrate 25 MG MG tiZANidine tiZANidine No 1{table TID HCl 4 MG HCl 4 MG t_as_ne eded} Atorvastati Atorvastati No n Calcium n Calcium 10 MG 10 MG Gabapentin Gabapentin No 1{table TID 600 MG 600 MG t} metFORMIN metFORMIN No HCl 1000 MG HCl 1000 MG Montelukast Montelukast No Montelukas Sodium 10 Sodium 10 t Sodium MG MG 10 MG Metoprolol Metoprolol No BID Metoprolol Tartrate 25 Tartrate 25 Tartrate MG MG 25 MG Amoxicillin Amoxicillin No 1{table BID Amoxicilli -Pot -Pot t} n-Pot Clavulanate Clavulanate Clavulanat 875-125 MG 875-125 MG e 875-125 MG Gabapentin Gabapentin No 1{table TID Gabapentin 600 MG 600 MG t} 600 MG Mesalamine Mesalamine No 2{table QD Mesalamine 1.2 GM 1.2 GM ts} 1.2 GM Vitamin D-3 Vitamin D-3 No Vitamin D-3 Omeprazole Omeprazole No Omeprazole 40 MG 40 MG 40 MG Xeljanz 10 Xeljanz 10 No 1{table QD Xeljanz 10 MG MG t} MG Prevalite 4 Prevalite 4 No 1{packe BID Prevalite GM GM t} 4 GM tiZANidine tiZANidine No 1{table TID tiZANidine HCl 4 MG HCl 4 MG t_as_ne HCl 4 MG eded} Singulair Singulair No 1{table QD Singulair 10 MG 10 MG t} 10 MG Atorvastati Atorvastati Yes U T n Calcium n Calcium Physi ci 10 MG Oral 10 MG Oral ans Tablet Tablet Vitamin C Vitamin C No Vitamin C Atorvastati Atorvastati No QD Atorvastat n Calcium n Calcium in Calcium 10 MG 10 MG 10 MG Clobetasol Clobetasol No 1{appli BID Clobetasol Propionate Propionate cation_ Propionate 0.05 % 0.05 % to_affe 0.05 % cted_ar ea} Albuterol Albuterol No 2{puffs Albuterol Sulfate HFA Sulfate HFA } Sulfate 108 (90 108 (90 HFA 108 Base) Base) (90 Base) MCG/ACT MCG/ACT MCG/ACT metFORMIN metFORMIN No QD metFORMIN HCl 1000 MG HCl 1000 MG HCl 1000 MG Folic Acid Folic Acid No 1{table QD Folic Acid 1 MG 1 MG t} 1 MG Benzonatate Benzonatate No 1{capsu TID Benzonatat 200 MG 200 MG le_as_n e 200 MG eeded} Lisinopril Lisinopril No QD Lisinopril 2.5 MG 2.5 MG 2.5 MG Benzonatate Benzonatate No 1{capsu TID Benzonatat 200 MG 200 MG le_as_n e 200 MG eeded} Albuterol Albuterol No 2{puffs Albuterol Sulfate HFA Sulfate HFA } Sulfate 108 (90 108 (90 HFA 108 Base) Base) (90 Base) MCG/ACT MCG/ACT MCG/ACT Montelukast Montelukast No Montelukas Sodium 10 Sodium 10 t Sodium MG MG 10 MG Metoprolol Metoprolol No BID Metoprolol Tartrate 25 Tartrate 25 Tartrate MG MG 25 MG tiZANidine tiZANidine No 1{table TID tiZANidine HCl 4 MG HCl 4 MG t_as_ne HCl 4 MG eded} Clobetasol Clobetasol No 1{appli BID Clobetasol Propionate Propionate cation_ Propionate 0.05 % 0.05 % to_affe 0.05 % cted_ar ea} Xeljanz 10 Xeljanz 10 No 1{table QD Xeljanz 10 MG MG t} MG Omeprazole Omeprazole No Omeprazole 40 MG 40 MG 40 MG Mesalamine Mesalamine No 2{table QD Mesalamine 1.2 GM 1.2 GM ts} 1.2 GM Lisinopril Lisinopril No QD Lisinopril 2.5 MG 2.5 MG 2.5 MG Vitamin D-3 Vitamin D-3 No Vitamin D-3 Amoxicillin Amoxicillin No 1{table BID Amoxicilli -Pot -Pot t} n-Pot Clavulanate Clavulanate Clavulanat 875-125 MG 875-125 MG e 875-125 MG Gabapentin Gabapentin Yes UT 600 MG Tab 600 MG Tab Phy sici (OR) - (OR) - ans [id number]_Deact 61185_Deact ivated ivated Vitamin C Vitamin C No Vitamin C Folic Acid Folic Acid No 1{table QD Folic Acid 1 MG 1 MG t} 1 MG metFORMIN metFORMIN No QD metFORMIN HCl 1000 MG HCl 1000 MG HCl 1000 MG Atorvastati Atorvastati No QD Atorvastat n Calcium n Calcium in Calcium 10 MG 10 MG 10 MG Singulair Singulair No 1{table QD Singulair 10 MG 10 MG t} 10 MG Prevalite 4 Prevalite 4 No 1{packe BID Prevalite GM GM t} 4 GM Gabapentin Gabapentin No 1{table TID Gabapentin 600 MG 600 MG t} 600 MG Benzonatate Benzonatate No 1{capsu TID Benzonatat 200 MG 200 MG le_as_n e 200 MG eeded} Albuterol Albuterol No 2{puffs Albuterol Sulfate HFA Sulfate HFA } Sulfate 108 (90 108 (90 HFA 108 Base) Base) (90 Base) MCG/ACT MCG/ACT MCG/ACT Montelukast Montelukast No Montelukas Sodium 10 Sodium 10 t Sodium MG MG 10 MG Metoprolol Metoprolol No BID Metoprolol Tartrate 25 Tartrate 25 Tartrate MG MG 25 MG tiZANidine tiZANidine No 1{table TID tiZANidine HCl 4 MG HCl 4 MG t_as_ne HCl 4 MG eded} Clobetasol Clobetasol No 1{appli BID Clobetasol Propionate Propionate cation_ Propionate 0.05 % 0.05 % to_affe 0.05 % cted_ar ea} Xeljanz 10 Xeljanz 10 No 1{table QD Xeljanz 10 MG MG t} MG Omeprazole Omeprazole No Omeprazole 40 MG 40 MG 40 MG Mesalamine Mesalamine No 2{table QD Mesalamine 1.2 GM 1.2 GM ts} 1.2 GM Lisinopril Lisinopril No QD Lisinopril 2.5 MG 2.5 MG 2.5 MG Vitamin D-3 Vitamin D-3 No Vitamin D-3 Amoxicillin Amoxicillin No 1{table BID Amoxicilli -Pot -Pot t} n-Pot Clavulanate Clavulanate Clavulanat 875-125 MG 875-125 MG e 875-125 MG Vitamin C Vitamin C No Vitamin C Lisinopril Lisinopril Yes UT TABS TABS Physici ans Folic Acid Folic Acid No 1{table QD Folic Acid 1 MG 1 MG t} 1 MG metFORMIN metFORMIN No QD metFORMIN HCl 1000 MG HCl 1000 MG HCl 1000 MG Atorvastati Atorvastati No QD Atorvastat n Calcium n Calcium in Calcium 10 MG 10 MG 10 MG Singulair Singulair No 1{table QD Singulair 10 MG 10 MG t} 10 MG Prevalite 4 Prevalite 4 No 1{packe BID Prevalite GM GM t} 4 GM Gabapentin Gabapentin No 1{table TID Gabapentin 600 MG 600 MG t} 600 MG Vitamin C Vitamin C No Singulair Singulair No 1{table QD 10 MG 10 MG t} Clobetasol Clobetasol No 1{appli BID Propionate Propionate cation_ 0.05 % 0.05 % to_affe cted_ar ea} Omeprazole Omeprazole No 40 MG 40 MG Prevalite 4 Prevalite 4 No 1{packe BID GM GM t} Gabapentin Gabapentin No 1{table TID 600 MG 600 MG t} Montelukast Montelukast No Sodium 10 Sodium 10 MG MG metFORMIN metFORMIN No QD HCl 1000 MG HCl 1000 MG Vitamin D-3 Vitamin D-3 No Lisinopril Lisinopril No QD 2.5 MG 2.5 MG Metoprolol Metoprolol No BID Tartrate 25 Tartrate 25 MG MG Mesalamine Mesalamine No 2{table QD 1.2 GM 1.2 GM ts} Xeljanz 10 Xeljanz 10 No 1{table QD MG MG t} Amoxicillin Amoxicillin No 1{table BID -Pot -Pot t} Clavulanate Clavulanate 875-125 MG 875-125 MG Immunizations Ordered Immunization Filled Immunization Date Status Commen ts Source Name Name Peggy Woods 2019-02-02 [facility] 10:40:00 - [facility] Peggy Woods 2019-02-02 Completed [facility] (Triam[facility] (Triamcinolone) 10:40:00 - [facility] Vital Signs Vital Name Observation Time Observation Value Comments Source height 2022-02-25 16:40:00 65.50 [in_i] [facility] weight 2022-02-25 16:40:00 193 [lb_av] [facility] bmi 2022-02-25 16:40:00 31.62 kg/m2 [facility] height 2021-09-09 11:30:00 65.50 [in_i] [facility] weight 2021-09-09 11:30:00 191.6 [lb_av] [facility] temperature 2021-09-09 11:30:00 97.5 [degF] [facility] bmi 2021-09-09 11:30:00 31.4 kg/m2 [facility] oximetry 2021-09-09 11:30:00 98 % [facility] respiratory rate 2021-09-09 11:30:00 16 /min [facility] blood pressure 2021-09-09 11:30:00 100 mm[Hg] [facility] - systolic [facility] blood pressure 2021-09-09 11:30:00 62 mm[Hg] [facility] - diastolic [facility] height 2021-08-16 15:00:00 65.50 [in_i] [facility] weight 2021-08-16 15:00:00 197 [lb_av] [facility] temperature 2021-08-16 15:00:00 97.9 [degF] [facility] bmi 2021-08-16 15:00:00 32.28 kg/m2 [facility] oximetry 2021-08-16 15:00:00 97 % [facility] respiratory rate 2021-08-16 15:00:00 16 /min Comm on [facility] blood pressure 2021-08-16 15:00:00 127 mm[Hg] Common [facility] - systolic [facility] blood pressure 2021-08-16 15:00:00 70 mm[Hg] [facility] - diastolic [facility] height 2021-07-16 13:00:00 65.50 [in_i] Common [facility] weight 2021-07-16 13:00:00 191 [lb_av] [facility] temperature 2021-07-16 13:00:00 97.6 [degF] [facility] bmi 2021-07-16 13:00:00 31.3 kg/m2 [facility] oximetry 2021-07-16 13:00:00 99 % [facility] respiratory rate 2021-07-16 13:00:00 18 /min Comm on [facility] blood pressure 2021-07-16 13:00:00 138 mm[Hg] Common [facility] - systolic [facility] blood pressure 2021-07-16 13:00:00 82 mm[Hg] Common [facility] - diastolic [facility] height 2021-06-18 11:20:00 65.50 [in_i] [facility] weight 2021-06-18 11:20:00 193 [lb_av] [facility] temperature 2021-06-18 11:20:00 98.5 [degF] [facility] bmi 2021-06-18 11:20:00 31.62 kg/m2 [facility] Body height 2021-03-07 18:28:00 [facility] 2021-03-07 18:28:00 [facility]441 [facility] BMI 2021-03-07 18:28:00 33.76 kg[facility] Height 2019-09-09 04:32:00 165.1 CM Weight 2019-09-09 04:32:00 99.79 KG Procedures Procedure Date / Time Performing Clinician Source Performed MR Shoulder wo contrast 2020-08-20 00:00:[facility] [id number] [facility] Spine cervical wo 2020-08-20 00:[facility] [id number] MRI Spine cervical wo 2020-01-19 00:00:[facility] [id number] [facility] Spine cervical wo 2019-11-01 00:00:[facility] [id number] DIV RT FOOT SUBQ TISSUE 2019-09-09 00:00:00 [facility] MRI Spine cervical wo 2019-07-20 00:00:[facility] [id number] [facility] En[facility]ters Start End Encounter Admission Attending Care Care Encounter Source Date/Time Date/Time Type Type Clinicians Facility Department ID 2022-02-21 Outpatient Rios, Na STLMLC STL[facility] [id number] Common 09:56:00 [facility] 2021-11-19 Outpatient Rios, Na STLMLC STLMLC [id number] 2 Common 08:34:00 [facility] 2021-08-16 Outpatient Rios, Na STLMLC STLMLC [id number] 2 Common 14:59:00 [facility] 2021-07-22 Outpatient RADWAN, [facility] [id number] [place] 11:22:02 [facility] 2021-07-16 Outpatient Rios, Na STLMLC STLMLC [id number] 2 Common 13:09:01 [facility] 2021-07-15 Outpatient Rios, Na STLMLC STLMLC [id number] 2 Common 10:17:01 [facility] 2021-06-25 Outpatient RADWAN, [facility] [id number] [place] 01:04:39 [facility] 2021-06-24 Outpatient RADWAN, [facility] [id number] [place] 11:42:17 [facility] 2021-06-24 Outpatient RADWAN, [facility] [id number] [place] 10:39:28 [facility] 2021-06-19 Outpatient [facility] [id number] [place] 09:00:33 [facility] 2021-06-17 Outpatient Rios, Na STLMLC STLMLC [id number] 2 Common 13:19:00 [facility] 2021-06-14 Outpatient Rios, Na STLMLC STLMLC [id number] 2 Common 16:15:01 [facility] 2021-06-12 Outpatient Rios, Na STLMLC STLMLC [id number] 2 Common 14:20:21 [facility] 2021-06-12 Outpatient [facility] [id number] [place] 13:58:43 [facility] 2021-06-12 Outpatient Rios, Na STLMLC STLMLC [id number] 2 Common 12:26:54 [id number] [facility] 2021-06-12 Outpatient Rios, Na STLMLC STLMLC [id number] 2 Common 12:24:54 [id number] [facility] 2021-06-12 Outpatient Rios, Na STLMLC STLMLC [id number] 2 Common 12:20:46 [id number] [facility] 2021-06-12 Outpatient Rios, Na STLMLC STLMLC [id number] 2 Common 12:15:02 [id number] [facility] 2021-06-12 Outpatient Rios, Na STLMLC STLMLC [id number] 2 Common 11:21:18 [id number] [facility] 2021-05-06 Outpatient RADWAN, [facility] [id number] [place] 10:24:29 [facility] 2021-05-01 Outpatient [facility] [id number] [place] 08:57:14 [facility] 2021-04-22 Outpatient RADWAN, [facility] [id number] [place] 11:12:09 [facility] 2021-04-08 Outpatient RADWAN, [facility] [id number] [place] 11:18:52 [facility] 2021-03-20 Outpatient RADWAN, [facility] [id number] [place] 12:39:36 [facility] 2021-03-06 Outpatient [facility] [id number] [place] 09:14:06 [facility] 2020-12-06 Outpatient MEGHANA [facility] [id number] [place] 16:13:51 [facility] 2020-10-17 [facility] [id number] [place] 11:09:58 [facility] 2020-10-16 Outpatient [facility] [id number] [place] 12:47:29 [facility] 2020-10-10 [facility] [id number] [place] 11:27:10 [facility] 2022-02-25 2022-02-25 OFFICE STLMLC STLMLC [id number] Co mmon 00:00:00 00:00:00 VISIT EST Spir it PT LEVEL 3 [facility] 2022-02-05 2022-02-05 (WEB) STLMLC STLMLC [id number] Co mmon 00:00:00 00:00:00 [facility] 2022-01-31 2022-01-31 (WEB) STLMLC STLMLC [id number] Co mmon 00:00:00 00:00:00 [facility] 2022-01-24 2022-01-24 (TEL) STLMLC STLMLC [id number] Co mmon 00:00:00 00:00:00 [facility] 2022-01-24 2022-01-24 OFFICE STLMLC STLMLC [id number] Co mmon 00:00:00 00:00:00 VISIT EST Spir it PT LEVEL 3 [facility] 2021-12-09 2021-12-09 (WEB) STLMLC STLMLC [id number] Co mmon 00:00:00 00:00:00 [facility] 2021-12-06 2021-12-06 (WEB) STLMLC STLMLC [id number] Co mmon 00:00:00 00:00:00 [facility] 2021-12-02 2021-12-02 (WEB) STLMLC STLMLC [id number] Co mmon 00:00:00 00:00:00 [facility] 2021-11-28 2021-11-28 (TEL) STLMLC STLMLC [id number] Co mmon 00:00:00 00:00:00 [facility] 2021-11-27 2021-11-27 OFFICE STLMLC STLMLC [id number] Co mmon 00:00:00 00:00:00 VISIT EST Spir it PT LEVEL 3 [facility] 2021-11-27 2021-11-27 (TEL) STLMLC STLMLC [id number] Co mmon 00:00:00 00:00:00 [facility] 2021-11-21 2021-11-21 OFFICE STLMLC STLMLC [id number] Co mmon 00:00:00 00:00:00 VISIT [facility] PT - [facility] LEVEL 4 [facility] 2021-10-08 2021-10-08 OFFICE STLMLC STLMLC [id number] Co mmon 00:00:00 00:00:00 VISIT EST Spir it PT LEVEL 3 [facility] 2021-10-07 2021-10-07 (TEL) STLMLC STLMLC [id number] Co mmon 00:00:00 00:00:00 [facility] 2021-09-09 2021-09-09 (TEL) STLMLC STLMLC [id number] Co mmon 00:00:00 00:00:00 [facility] 2021-09-09 2021-09-09 OFFICE STLMLC STLMLC [id number] Co mmon 00:00:00 00:00:00 VISIT [facility] Spir it PT LEVEL 3 [facility] 2021-08-16 2021-08-16 OFFICE STLMLC STLMLC [id number] Co mmon 00:00:00 00:00:00 VISIT [facility] Spir it PT LEVEL 3 [facility] 2021-07-31 2021-07-31 (TEL) STLMLC STLMLC [id number] Co mmon 00:00:00 00:00:00 [facility] 2021-07-24 2021-07-24 (TEL) STLMLC STLMLC [id number] Co mmon 00:00:00 00:00:00 [facility] 2021-07-19 2021-07-19 (TEL) STLMLC STLMLC [id number] Co mmon 00:00:00 00:00:00 [facility] 2021-07-16 2021-07-16 OFFICE STLMLC STLMLC [id number] Co mmon 00:00:00 00:00:00 VISIT [facility] PT LEVEL 3 [facility] 2021-06-19 2021-06-19 (TEL) STLMLC STLMLC [id number] Co mmon 00:00:00 00:00:00 [facility] 2021-06-18 2021-06-18 OFFICE STLMLC STLMLC [id number] Co mmon 00:00:00 00:00:00 VISIT [facility] PT [facility] LEVEL 4 [facility] 2021-06-17 2021-06-17 (TEL) STLMLC STLMLC [id number] Co mmon 00:00:00 00:00:00 [facility] 2021-06-12 2021-06-12 Outpatient [facility] [id number] [place] 03:03:00 03:03:00 BILISA [id number] [facility] 2021-06-12 2021-06-12 (TEL) STLMLC STLMLC [id number] Co mmon 00:00:00 00:00:00 [facility] 2021-06-12 2021-06-12 OFFICE STLMLC STLMLC [id number] Co mmon 00:00:00 00:00:00 VISIT [facility] PT LEVEL 3 [facility] 2021-04-23 2021-04-23 OFFICE STLMLC STLMLC [id number] Co mmon 00:00:00 00:00:00 VISIT [facility] PT LEVEL 3 [facility] 2021-03-26 2021-03-26 Outpatient TEN STARR [facility] [id number] 10:54:00 16:16:00 [facility] 2021-03-19 2021-03-19 (TEL) STLMLC STLMLC [id number] Co mmon 00:00:00 00:00:00 [facility] 2021-03-19 2021-03-19 (TEL) STLMLC STLMLC [id number] Co mmon 00:00:00 00:00:00 [facility] 2021-03-12 2021-03-12 Orders Melody Reyes [facility] [id number] [place] 00:00:00 00:00:00 Only Melody Reyes [place] [id number] [facility] MEDICAL [id number] [phone] 2021-03-07 2021-03-07 Office Ro ANA ROSA [facility] [id number] [place] 13:07:46 14:35:37 Visit Awilda SUAREZPATTY [id number] H [facility] [id number] [phone] 2021-03-05 2021-03-05 (TEL) STLMLC STLMLC [id number] Co mmon 00:00:00 00:00:00 [facility] 2021-02-06 2021-02-06 Office Meghana [facility] [id number] [place] 09:57:42 10:10:15 Visit Inna FABIANA [id number] H [facility] [id number] [id number] 2021-01-25 2021-01-25 Outpatient STLMLC STLMLC [id number] Common 00:00:00 00:00:00 [facility] 2021-01-24 2021-01-24 Outpatient STLMLC STLMLC [id number] Common 00:00:00 00:00:00 [facility] 2021-01-24 2021-01-24 Outpatient STLMLC STLMLC [id number] Common 00:00:00 00:00:00 [facility] 2021-01-23 2021-01-23 Outpatient STLMLC STLMLC [id number] Common 00:00:00 00:00:00 [facility] 2021-01-16 2021-01-16 Outpatient JESS ECHOLS MEHOP [id number] [place] 02:11:00 02:11:00 BILITY [id number] [facility] 2021-01-14 2021-01-14 Outpatient STLMLC STLMLC [id number] Common 00:00:00 00:00:00 [facility] 2021-01-14 2021-01-14 (TEL) STLMLC STLMLC [id number] Co mmon 00:00:00 00:00:00 [facility] 2021-01-03 2021-01-03 Office ANA ROSA Starr [facility] [id number] [place] 10:17:35 11:23:51 Visit Awilda JUNG [id number] H [facility] MEDICAL [id number] [phone] 2021-01-03 2021-01-03 Office ANA ROSA Starr [facility] [id number] 10:17:35 11:23:51 Visit Awilda JUNG [id number] MEDICAL [id number] [id number] 2021-01-03 2021-01-03 Outpatient [facility]LML[facility] [id number] Common 00:00:00 00:00:00 [facility] 2020-12-12 2020-12-12 Office Meghana [facility] [id number] [place] 09:21:56 10:18:31 Visit FABIANA Keith [id number] H [facility] MEDICAL [id number] [id number] 2020-12-12 2020-12-12 Office Meghana [facility] [id number] 09:21:56 10:18:31 Visit FABIANA Keith [id number] [facility] [id number] [phone] 2020-12-06 2020-12-06 Office Rosaura-Holly [facility] [id number] [place] 15:14:17 16:13:58 [facility] [id number] H ealth [facility] [id number] 0 [phone] 2020-12-06 2020-12-06 Office Rosaura-Holly [facility] [id number] 15:14:17 16:13:58 Visit FABIANA Keith [id number] [facility] [id number] [phone] 2020-10-25 2020-10-25 Outpatient STLMLC ST[facility]C [id number] Common 00:00:00 00:00:00 [facility] 2020-10-19 2020-10-19 Outpatient STLMLC STLMLC [id number] Common 00:00:00 00:00:00 [facility] 2020-10-17 2020-10-17 Office Li-Holly [facility] [id number] [place] 10:23:11 11:11:36 Visit FABIANA [id number] [facility] [id number] [phone] 2020-10-17 2020-10-17 Office Meghana [facility] [id number] 10:23:11 11:11:36 Visit FABIANA Keith [id number] [facility] [id number] [phone] 2020-10-17 2020-10-17 Outpatient STLMLC ST[facility] [id number] Common 00:00:00 00:00:00 [facility] 2020-10-17 2020-10-17 Outpatient STLMLC STLMLC [id number] Common 00:00:00 00:00:00 [facility] 2020-10-17 2020-10-17 Outpatient STLMLC STLC [id number] Common 00:00:00 00:00:00 [facility] 2020-10-16 2020-10-16 Outpatient STLMLC STLMLC [id number] Common 00:00:00 00:00:00 [facility] 2020-10-10 2020-10-10 Office Rosaura-Holly [facility] [id number] [place] 10:28:27 11:25:37 Visit FABIANA Keith [id number] H [facility] [id number] [phone] 2020-10-08 2020-10-08 Abstract RosauraNadineHolly [facility] [id number] [place] 00:00:00 00:00:00 FABIANA Keith [id number] H [facility] [id number] [phone] 2020-10-08 2020-10-08 Abstract Rosaura-Holly [facility] [id number] [place] 00:00:00 00:00:00 FABIANA Keith [id number] H [facility] [id number] [phone] 2020-09-25 2020-09-25 Outpatient [facility] [id number] Common 00:00:00 00:00:00 [facility] 2020-08-29 2020-08-29 Appointmen [facility] Orthopedics [id number] [place] 10:30:00 10:30:00 t; Justin JIM [place] Lynne ROB KEITH II ans ANDREW, M.D. M.D. 2020-08-27 2020-08-27 Outpatient STLMLC STLMLC [id number] Common 00:00:00 00:00:00 [facility] 2020-08-27 2020-08-27 Outpatient STLMLC STLMLC [id number] Common 00:00:00 00:00:00 [facility] 2020-08-20 2020-08-20 Greg Mcgrath [id number] [place] 10:45:00 10:45:00 t; MEGHANA KEITH, [facility] [place] Raffaele Montesinos M.D. [place] 2020-08-17 2020-08-17 Outpatient STLMLC STLMLC [id number] Common 00:00:00 00:00:00 [facility] 2020-07-27 2020-07-27 Outpatient STLMLC STLMLC [id number] Common 00:00:00 00:00:00 [facility] 2020-07-25 2020-07-25 Outpatient STLMLC STLMLC [id number] Common 00:00:00 00:00:00 [facility] 2020-07-11 2020-07-11 Outpatient STLMLC STLMLC [id number] Common 00:00:00 00:00:00 [facility] 2020-07-11 2020-07-11 Outpatient STLMLC STLMLC [id number] Common 00:00:00 00:00:00 [facility] 2020-07-09 2020-07-09 Outpatient STLMLC STLMLC [id number] Common 00:00:00 00:00:00 [facility] 2020-06-26 2020-06-26 Outpatient STLMLC STLMLC [id number] Common 00:00:00 00:00:00 [facility] 2020-06-20 2020-06-20 Outpatient STLMLC STLMLC [id number] Common 00:00:00 00:00:00 [facility] 2020-06-15 2020-06-15 Outpatient STLMLC STLMLC [id number] Common 00:00:00 00:00:00 [facility] 2020-06-06 2020-06-06 Outpatient STLMLC STLMLC [id number] Common 00:00:00 00:00:00 [facility] 2020-06-04 2020-06-04 Outpatient STLMLC STLMLC [id number] Common 00:00:00 00:00:00 [facility] 2020-06-01 2020-06-01 Outpatient STLMLC STLMLC [id number] Common 00:00:00 00:00:00 [facility] 2020-05-30 2020-05-30 Outpatient STLMLC STLMLC [id number] Common 00:00:00 00:00:00 [facility] 2020-05-30 2020-05-30 Outpatient STLMLC STLMLC [id number] Common 00:00:00 00:00:00 [facility] 2020-05-07 2020-05-07 Outpatient STLMLC STLMLC [id number] Common 00:00:00 00:00:00 [facility] 2020-05-07 2020-05-07 Outpatient STLMLC STLMLC [id number] Common 00:00:00 00:00:00 [facility] 2020-02-06 2020-02-06 Appointmen MEGHANA OSEGUERA [facility] [id number] [place] 12:30:00 12:30:00 t; MEGHANA KEITH - [facility] ROB KEITH II ans ANDREW, M.D. M.D. 2019-11-25 2019-11-25 [facility] [id number] [place] 14:00:00 14:00:00 t [facility] [address] [facility] 2019-11-25 2019-11-25 [facility] [id number] [place] 09:28:00 09:28:[address] [facility] 2019-11-03 2019-11-03 [facility] [id number] Common 12:02:00 12:02:[address] [facility] 2019-11-01 2019-11-01 Appointmen MEGHANA OSEGUERA UTP [id number] [place] 13:00:00 13:00:00 t; MGEHANA KEITH Phy ROB Meier ans ANDREW, M.D. M.D. 2019-09-26 2019-09-26 [facility] [id number] Common 16:49:00 16:49:[address] [facility] 2019-09-26 2019-09-26 [facility] [id number] Common 11:20:00 11:20:[address] [facility] 2019-09-26 2019-09-26 [facility] [id number] Common 09:52:00 09:52:[address] [facility] 2019-09-21 2019-09-21 [facility] [id number] Common 10:20:00 10:20:[address] [facility] 2019-09-19 2019-09-19 Appointmen MEGHANA OSEGUERA Orthopedics [id number] [place] 12:00:00 12:00:00 t; Justin JIM ANDREW, II ans ANDREW, M.D. M.D. 2019-09-09 2019-09-09 Outpatient Sheridan PATEL, [facility] [id number] [place] 04:25:00 07:00:00 [facility] 2019-08-11 2019-08-11 [facility] [id number] Common 11:58:00 11:58:[address] [facility] 2019-08-02 2019-08-02 [facility] [id number] Common 10:31:00 10:31:[address] [facility] 2019-07-20 2019-07-20 Appointmen MEGHANA OSEGUERA Orthopedics [id number] [place] 09:00:00 09:00:00 t; Justin JIM ANDREW, II ans ANDREW, M.D. M.D. 2019-07-18 2019-07-18 [facility] [id number] Common 09:20:00 09:20:[address] [facility] 2019-06-23 2019-06-23 [facility] Orthopedics [id number] [place] 12:30:00 12:30:00 t; MEGHANA KEITH, - [facility] ROB KEITH II ans ANDREW, M.D. M.D. 2019-06-22 2019-06-22 [facility] [id number] [place] 10:44:00 10:44:00 [facility] 2019-05-04 2019-05-04 [facility] [id number] Common 09:40:00 09:40:[address] [facility] 2019-03-11 2019-03-11 [facility] [id number] Common 08:49:00 08:49:00 [facility] 2019-02-15 2019-02-15 [facility] [id number] Common 11:00:00 11:00:00 [facility] 2019-02-02 2019-02-02 [facility] [id number] Common 09:00:00 09:00:[address] [facility] 2019-01-14 2019-01-14 [facility] [id number] Common 16:16:00 16:16:[address] [facility] 2019-01-05 2019-01-05 [facility] [id number] Common 09:20:00 09:20:[address] [facility] 2018-12-14 2018-12-14 [facility] [id number] Common 09:34:00 09:34:[address] [facility] 2018-11-17 2018-11-17 Outpatient [facility] [id number] Common 11:14:00 11:14:[address] [facility] 2018-08-31 2018-08-31 Outpatient [facility] [place] [id number] Common 13:05:00 13:05:[address] [facility] 2018-08-25 2018-08-25 Outpatient [facility] [place] [id number] Common 11:40:00 11:40:[address] [facility] Results Test Description Test Time Test Comments Results Result Comments Source [facility] 2021-06[facility]12 00:00:00 Test Item Value Reference Range Interpretation Comme nts SARS-CoV-2 INTERPRETATION (test code = 64210-5) NEGATIVE SEE NO TE SOURCE (test code = 81217-9) NOT SPECIFIED MR Shoulder wo contrast [id number] 15:34:00PROCEDURE INFORMATION:Exam: MR Right Upper Extremity Joint Without Contrast; ShoulderExam date and time: 08/25/2020 3:34 PMAge: 55 years oldClinical indication: Other symptoms and signs involving the musculoskeletalsystem; Additional info: R29.898 other symptoms and signs involving themusculoskeletal system/r29.898 other symptoms and signs involving themusculoskeletal systemTECHNIQUE:Imaging protocol:MR of the Right upper extremity without contrast. Examfocused on the shoulder.COMPARISON:No relevantprior studies available.FINDINGS:Bones and joints: Moderate acromioclavicular osteoarthrosis with hypertrophy.Periarticular cyst likely ganglion and intraosseous cyst. The acromion is type1. There is asmall amount of fluid in the subacromial/subdeltoid bursa.Humeral head is intact and located with small glenohumeral joint effusion. Mildthinning of the humeral head cartilage. No loose bodies.Glenoid labrum: Degeneration and degenerative tearing of the superior labrum.There is also blunting and degeneration of posterior labrum. No completedetachment or paralabral cyst.Supraspinatus tendon: Full-thickness supraspinatus tear with retractionapproximately 1.6 cm. No significant muscle atrophy. The tearmeasures 7 mmfrom anterior to posterior.Infraspinatus tendon: Unremarkable. [...] Mild subscapularis tendinosis with slight articular surface irregularitybutno definite tear.3. Moderate acromioclavicular osteoarthrosis.4. Mild glenohumeral arthrosis withlabral degeneration and degenerativetearing.5. Moderate long head biceps tendinosis without tear.Jayro Brewer MD On 08/27/2020 10:55:55; [id number] by: Jayro Brewer MDDictated Date/time: 08/27/20 10:57Electronically Signed by: Jayro Brewer 08/27/2109:57FINAL REPORTUT [facility] Spine cervical wo contrast [id number] 15:09:00 PROCEDURE INFORMATION:Exam: MR Cervical Spine Without ContrastExam date and time: [...] stable.C5-C6: At the C5-C6 disc space which isdesiccated and narrowed, there is a 2mm bridging osteophyte and hypertrophic change of uncovertebraljoints withminimal central canal stenosis and severe left and moderate to severe rightforaminal stenosis. Findings are stable.C6-C7: At the C6-C7 disc space which is desiccated and narrowed, there is a2mm right lateral bridging osteophyte and hypertrophic change [...] and stable.Ulises Campo MD On 08/25/2020 16:31:37; [id number] by: Ulsies Campo MDDictated Date/time: 08/25/20 16:31Electronically Signed by: Ulises Campo MD 08/26/2115:31FINAL REPORTUT Physicians[U] XRAY SPINE CERVICAL 2 OR 3 VWS [id number] 11:07:00 Images acquired, not reported on this accession number.[facility][U] XR SHOULDER MIN 2 VWS [id number] 11:07:00Images acquired, not reported on this accession number.[place] PhysiciansGLUCOMETER GLUCOSE- LAB USE [id number] 06:04:00 Test Item Value Reference Range Interpretation Comments GLUCOMETER (test code = 124 mg/dL 70-100 H Mete r ID: GMG) [id number] tor: [address] [facility] K URINE MONOCLONALFB2019-09-09 05:18:00 Test Item Value Reference Range Interpretation Comments PREG UR (test code = PGU) NEGATIVE NEGATIVE GLUCOMETER GLUCOSE- LAB USE [id number] 04:48:00 Test Item Value Reference Range Interpretation Comments GLUCOMETER (test code = 119 mg/dL 70-100 H Mete r ID: GMG) [id number] tor: 55[address] MICHAEL LA REDO [U] XRAY SHOULDER MIN 2 VWS LEFT [id number] 12:25:00Images acquired, not reported on this accession number.[place] [facility][U] XRAY SPINE CERVICAL 2 OR 3 VWS [id number] 12:25:00Images acquired, not reported on this accession number.[place] [id number] 12:24:00 RUN DATE: 11/24/18 [facility] - LAB *LIVE* PAGE 1 RUN TIME: 1224 Specimen Inquiry RUN USER: INTERFACE PATIENT: SULEMA THOMAS LOC: JimDSU U #: [id number] AGE/SX: 53/F ROOM: RE11/23/18VINOD DR: Sebastian Betancourt MD, DOB: [birth year] BED: DIS: STATUS: CAT [facility] [place] TLOC: SPEC #: [id number] RECD: 11/23/18 STATUS: [place] REQ #: [id number] EUGENIA: 11/23/181517 SUBM DR: Sebastian Betancourt MD ENTERED: 11/23/18 SP TYPE: SURG OTHR DR: Elda Rios DO ORDERED: SURG PATH LVL 08/17 COPIES TO: Sebastian Betancourt MD [address] [place] [address] Elda Rios DO [address] [place] [address] HISTOLOGY: TISSUE ID BLK PCS SANDRA LEV PROCEDURE DISPOSITION ____ ___ ___ ___ COLON, NOS A 1 2 COLON, NOS B 1 2 PROCEDURES: SURG PATH LVL 4 (11/23/18) TISSUES: A. COLON, NOS - RIGHT SIDE B. COLON, NOS - LEFT SIDE CLINICAL HISTORY DIARRHEA-R19.7;ABD PAIN-R10.9;RECTAL PAIN-K62.89 CPT CODES CPT CODE(S): 84807A7 , , , , ,, FINAL DIAGNOSIS A. Colon, right, biopsy: COLONIC MUCOSA WITH NO SIGNIFICANT HISTOPATHOLOGIC FINDINGS B. Colon, left, biopsy: FOCAL ACTIVE COLITIS NO EVIDENCE OF DYSPLASIA OR MALIGNANCY CONTINUED ON NEXT PAGE RUN DATE: 11/24/18 [facility] - LAB *LIVE* PAGE 2 RUN TIME: 1224 Specimen InquiryRUN USER: INTERFACE SPEC #: [facility]:[id number] PATIENT: SULEMA THOMAS #[id number] (Continued) GROSS DESCRIPTION A. Right side. Received in formalin are three olmos tissue fragments, 0.2 - 0.7 cm. B. Left side. Received in formalin are eight olmos tissue fragments, 0.2 - 0.5 cm, all as B. /ba/pdb Grossing performed at [facility] Pathology, [address] [place] [address], [address], [place] [address]. Dry Can Tender: Patricio Granados M.D. MICROSCOPIC DESCRIPTION A. Right side. Fragments of colonic mucosa with preservation of the glandular architecture. No significant increase in intraepithelial lymphocytosis or other inflammationidentified. No microorganisms or viral inclusions are identified. No adenomatous or hyperplastic changes present. No evidence of malignancy. B. Left side. Fragments of colonic mucosa with preservationof glandular architecture. There is some expansion of the lamina propria with a lymphoplasmacytic and eosinophilic infiltrate. Focal surface neutrophilic infiltrate identified. No significant increase in intraepithelial lymphocytosis identified. No microorganisms or viral inclusions are identified. Noadenomatous or hyperplastic changes present. No evidence of malignancy. /cm Signed SIGNATURE ON FILE Hector Bueno 11/24/18 1224 END OF REPORT HCG SERUM [id number] 11:36:00 Test Item Value Reference Range Interpretation Comments HCG SERUM QUAL (test SERUM NEGATIVE SCREEN NEGATIVE code = HCGQL) GLUCOSE BEDSIDE [id number] 11:30:00 Test Item Value Reference Range Interpretation Comments GLUCOSE BEDSIDE TESTING (test code 122 mg/dL 70-110 H = GLUBED)
[2022-03-10 15:11] LABS: Absolute Lymphocytes (CBC) 2.3 K/uL (0.7-4.9); Hematocrit 36.3 % (36.0-45.0); Lymphocytes % 35.2 % (15.3-44.8); MCV 87.9 fL (80-100); MPV 8.4 fL (7.6-11.3); RBC Red Blood Cell Count 4.13 M/uL (3.86-4.86)
[2022-03-10 15:30] LABS: Troponin High Sensitivity 6.9 pg/mL (<58.9)
[2022-03-10 15:31] LABS: Potassium 3.8 mmol/L (3.5-5.1)
--- NOTE | 2022-03-10 15:33 | RAD REPORT ---
EXAM DESCRIPTION: Hi Single View03/10/2022 3:19 pm CLINICAL HISTORY: Cough COMPARISON: January 2022 FINDINGS: The lungs appear clear of acute infiltrate. The heart is normal size IMPRESSION: No acute abnormalities displayed
--- NOTE | 2022-03-10 16:05 | ER ---
Nurse's Notes [facility] Name: Sulema Thomas Age: 57 yrs Sex: Female : 1965 Arrival Date: 03/10/2022 Time: 14:00 Bed 2 Private MD: Elda Rios Diagnosis: Influenza due to identified novel influenza A virus Presentation: 03/10 14:17 Chief complaint: Patient states: dizziness, palpitations, and SOB since Thursday. vg1 Denies CP. Coronavirus screen: Vaccine status: Patient reports receiving the 2nd dose of the covid vaccine. Client denies travel out of the [place] in the last 14 days. Ebola Screen: Patient negative for fever greater than or equal to 101.5 degrees Fahrenheit, and additional compatible Ebola Virus Disease symptoms Patient denies exposure to infectious person. Initial Sepsis Screen: Does the patient meet any 2 criteria? No. Patient's initial sepsis screen is negative. Does the patient have a suspected source of infection? No. Patient's initial sepsis screen is negative. Risk Assessment: Do you want to hurt yourself or someone else? Patient reports no desire to harm self or others. Onset of symptoms was March 10, 2022. 14:17 Method Of Arrival: Ambulatory vg1 14:17 Acuity: KEEGAN 3 vg1 Triage Assessment: 14:18 General: Appears in no apparent distress. comfortable, Behavior is calm, cooperative. vg1 Pain: Denies pain. Respiratory: Reports shortness of breath at rest on exertion Onset: The symptoms/episode began/occurred 03/08/22, the patient has mild shortness of breath. 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 - Social history:: Smoking status: Patient denies any tobacco usage or history of. - Family history:: not pertinent. - Hospitalizations: : No recent hospitalization is reported. Screenin:30 Abuse screen: Denies threats or abuse. Denies injuries from another. Nutritional bp screening: No deficits noted. Tuberculosis screening: No symptoms or risk factors identified. Fall Risk None identified. Assessment: 14:30 General: SEE TRIAGE NOTE. bp 16:00 Reassessment: Patient appears in no apparent distress at this time. Patient and/or bp family updated on plan of care and expected duration. Pain level reassessed. 17:15 Reassessment: PT DC HOME. Cardiovascular: No deficits noted. Rhythm is sinus rhythm. bp Respiratory: Airway is patent Respiratory effort is even, unlabored, Breath sounds are clear bilaterally. Vital Signs: 14:17 BP 144 / 85; Pulse 85; Resp 16; Pulse Ox 97% on R/A; Weight 89.36 kg; Height 5 ft. 5 vg1 in. (165.10 cm); Pain 0/10; 16:00 BP 119 / 85; Pulse 76; Resp 16; Pulse Ox 97% ; bp 17:00 BP 109 / 65; Pulse 78; Resp 18; Pulse Ox 96% ; bp 14:17 Body Mass Index 32.78 (89.36 kg, 165.10 cm) vg1 ED Course: 14:00 Patient arrived in ED. rg4 14:00 Elda Rios MD is Private Physician. rg4 14:10 Samson Walton, BIANCA is Primary Nurse. bp 14:11 Aman Christianson MD is Attending Physician. rn 14:18 Triage completed. vg1 14:18 Arm band placed on. vg1 14:30 Patient has correct armband on for positive identification. Bed in low position. Call bp light in reach. Side rails up X2. 14:30 Inserted saline lock: 22 gauge in right forearm, using aseptic technique. Blood bp collected. 15:21 XRAY Chest (1 view) In Process Unspecified. EDMS 17:17 No provider procedures requiring assistance completed. IV discontinued, intact, bp bleeding controlled, No redness/swelling at site. Pressure dressing applied. Administered Medications: 16:30 Drug: Tamiflu (oseltamivir) 75 mg Route: PO; bp 17:14 Follow up: Response: No adverse reaction bp Outcome: 16:05 Discharge ordered by . rn 17:17 Discharged to home ambulatory. bp 17:17 Condition: stable 17:17 Discharge instructions given to patient, Instructed on discharge instructions, follow up and referral plans. medication usage, Demonstrated understanding of instructions, follow-up care, medications, Prescriptions given X 1. 17:18 Patient left the ED. bp Signatures: Dispatcher [employer] EDAman More MD MD rn Oc, Leann rg4 Samson Walton RN RN Michelle Adamson RN RN vg1
--- NOTE | 2022-03-10 16:05 | EDPHYS ---
Physician Documentation [facility] Name: Sulema Thomas Age: 57 yrs Sex: Female : 1965 Arrival Date: 03/10/2022 Time: 14:00 Bed 2 Private MD: Elda Rios ED Physician Aman Christianson HPI: 03/10 15:59 This 57 yrs old Female presents to ER via Ambulatory with complaints of sob, rn cough. 15:59 The patient or guardian reports cough, flu symptoms, low-grade fever, myalgias, no rn appetite. Onset: The symptoms/episode began/occurred yesterday. Severity of symptoms: At their worst the symptoms were mild, in the emergency department the symptoms are unchanged. Modifying factors: The symptoms are alleviated by nothing, the symptoms are aggravated by nothing. Associated signs and symptoms: Pertinent positives: fever, rhinorrhea, sore throat, Pertinent negatives: chest pain. The patient has not experienced similar symptoms in the past. The patient has not recently seen a physician. Reports grandkids flu + yesterday and stay with her.. 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 - Social history:: Smoking status: Patient denies any tobacco usage or history of. - Family history:: not pertinent. - Hospitalizations: : No recent hospitalization is reported. 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 Exam: 15:55 ECG was reviewed by the Attending Physician. rn 15:59 Constitutional: This is a well developed, well nourished patient who is awake, alert, rn and in no acute distress. Head/Face: Normocephalic, atraumatic. Eyes: Periorbital areas with no swelling, redness, or edema. ENT: No stridor Neck: No Meningismus. Cardiovascular: Regular rate and rhythm. No pulse deficits. Respiratory: No increased work of breathing, no retractions or nasal flaring. Abdomen/GI: Soft, non-tender Back: No spinal tenderness. Skin: Warm, dry MS/ Extremity: Pulses equal, no cyanosis. Neuro: Awake and alert, GCS 15 Vital Signs: 14:17 BP 144 / 85; Pulse 85; Resp 16; Pulse Ox 97% on R/A; Weight 89.36 kg; Height 5 ft. 5 vg1 in. (165.10 cm); Pain 0/10; 16:00 BP 119 / 85; Pulse 76; Resp 16; Pulse Ox 97% ; bp 17:00 BP 109 / 65; Pulse 78; Resp 18; Pulse Ox 96% ; bp 14:17 Body Mass Index 32.78 (89.36 kg, 165.10 cm) vg1 MDM: 14:11 Patient medically screened. rn 15:59 Differential Diagnosis: Bronchitis Influenza Upper Respiratory Infection Viral rn Syndrome. Data reviewed: vital signs, nurses notes, lab test result(s), radiologic studies, plain films, and as a result, I will discharge patient. Counseling: I had a detailed discussion with the patient and/or guardian regarding: the historical points, exam findings, and any diagnostic results supporting the discharge/admit diagnosis, lab results, radiology results, the need for outpatient follow up, to return to the emergency department if symptoms worsen or persist or if there are any questions or concerns that arise at home. Special discussion: I discussed with the patient/guardian in detail that at this point there is no indication for admission to the hospital. It is understood, however, that if the symptoms persist or worsen the patient needs to return immediately for re-evaluation. 03/10 14:21 Order name: CBC with Diff; Complete Time: 15:36 rn 03/10 14:21 Order name: Basic Metabolic Panel; Complete Time: 15:36 rn 03/10 14:21 Order name: BNP; Complete Time: 15:36 rn 03/10 14:21 Order name: Troponin High Sensitivity; Complete Time: 15:36 rn 03/10 14:21 Order name: SARS-COV-2 RT PCR (Document "Date of Onset" if Symptomatic) rn 03/10 14:21 Order name: Flu; Complete Time: 15:58 rn 03/10 14:21 Order name: IV Start; Complete Time: 14:53 rn 03/10 14:21 Order name: XRAY Chest (1 view); Complete Time: 15:36 rn 03/10 14:21 Order name: EKG; Complete Time: 14:21 rn 03/10 14:21 Order name: EKG - Nurse/Tech; Complete Time: 15:49 rn EC:55 Rate is 77 beats/min. Rhythm is regular. QRS [place] is Normal. [place] interval is normal. QRS rn interval is normal. QT interval is normal. No Q waves. T waves are Normal. No ST changes noted. Clinical impression: Normal ECG. Interpreted by me. Reviewed by me. Administered Medications: 16:30 Drug: Tamiflu (oseltamivir) 75 mg Route: PO; bp 17:14 Follow up: Response: No adverse reaction bp Disposition Summary: 03/10/22 16:05 Discharge Ordered Location: Home rn Problem: new rn Symptoms: have improved rn Condition: Stable rn Diagnosis - Influenza due to identified novel influenza A virus rn Followup: rn - With: Private Physician - When: As needed - Reason: Recheck today's complaints, Re-evaluation by your physician Discharge Instructions: - Discharge Summary Sheet rn - Influenza, Adult, [id number] rn Forms: - Medication Reconciliation Form rn - Thank You Letter rn - School release form bd - Antibiotic lab intern - Prescription Opioid Use rn Prescriptions: - Tamiflu 75 mg Oral Capsule - take 1 tablet by ORAL route every 12 hours for 5 days; 10 tablet; Refills: 0, rn Product Selection Permitted Signatures: Dispatcher [employer] EDAman More MD MD rn Peltier, Brian, RN RN Michelle Adamson, RN RN vg1
[2022-03-10] MEDS ORDERED: OSELTAMIVIR 75 MG CAP ONE (17:09)
[2022-03-10 17:50] VITALS: BP 109/65; O2SAT 96
--- NOTE | 2022-03-11 13:59 | EKG ---
Test Date: 2022-03-10 Test Time: 15:41:34 Publishing Systems Analyst: DENIS MEASUREMENT RESULTS: Intervals: Rate: 77 HI: 180 QRSD: 88 QT: 412 QTc: 466 Ashley: P: 48 HI: 180 QRS: 64 T: 35 INTERPRETIVE STATEMENTS: Normal sinus rhythm Possible Left atrial enlargement Borderline ECG Compared to ECG 01/14/2021 13:27:10 No significant changes Electronically Signed On 03-11-22 13:58:11 CDT by Roderick Gramajo
== END 2022-03-10 17:18 | disposition home or self-care (01) ==
LOC: ER 13:56
DX: J10.1 Influenza due to other identified influenza virus with other respiratory manifestations (principal); Z20.822 Contact with and (suspected) exposure to COVID-19; E11.9 Type 2 diabetes mellitus without complications
CPT/HCPCS: 93005; 85025; 80048; 36415; 84484; 83880; 87804 ×2; 71045; 99284; U0003